=== PATIENT | male | born 1950 | race American Indian/Alaskan Native ===

== ENCOUNTER 2016-12-07 21:28 | Emergency (ER) | payer OTHER ==
[2016-12-07 23:00] LABS: Eosinophils % (Auto) 4.2 % (0.0-4.3); Hemoglobin 16.7 gm/dl (11.8-15.2); Mean Corpuscular HGB Conc 33 % (32-34); Mean Corpuscular Hemoglobin 29 pg (28-32); Mean Corpuscular Volume 86 fl (84-94); Platelet Count 244 K/mm3 (140-440); Red Blood Count 5.82 M/mm3 (3.65-5.03); Red Cell Distribution Width 15.6 % (13.2-15.2); White Blood Count 7.9 K/mm3 (4.5-11.0)
[2016-12-07] MEDS ORDERED: NACL 0.9% 1000 ML 1,000 ML IV ONE (23:46)
[2016-12-07] MEDS ORDERED: APRESOLINE IV ONE (23:47)
[2016-12-07] MEDS ORDERED: NORMODYNE IV ONE (23:47)
[2016-12-07 23:57] LABS: BUN/Creatinine Ratio 6.92; Chloride 98.8 mmol/L (98-107); Potassium 4.1 mmol/L (3.6-5.0)
[2016-12-08] MEDS ORDERED: NORMODYNE IV ONE ×2 (01:00→03:03)
--- NOTE | 2016-12-08 02:13 | Emergency Department Report ---
HPI - General Chief Complaint: Hyperglycemia Time Seen by Provider: 12/07/16 23:45 - HPI HPI: The patient is a 66-year-old male with a history of diabetes, hypertension, and chronic kidney disease, who presents for evaluation of lightheadedness and elevated sugar level. The patient states that for the past 2-3 days she has experienced recurrent episodes of lightheadedness, exacerbated with standing up after physical activity, severe 1 present, improved with sitting down or lying down, and associated with diaphoresis. The patient admits to increased urinary frequency. The patient says that his blood sugar has been out of control. The patient denies fever, cough, dyspnea, chest pain, diarrhea, blood in the stool, dark tarry stool, dysuria, hematuria, flank pain, inability to pass flatus, although he has expressed some mild constipation for the past one to 2 days. ED Past Medical Hx - Past Medical History Previous Medical History?: Yes Hx Hypertension: Yes Hx Diabetes: Yes Additional medical history: Chronic Kidney diseae for years - Social History Smoking Status: Current Every Day Smoker Substance Use Type: None - Medications Home Medications: Home Medications Medication Instructions Recorded Confirmed Last Taken Type Polyethylene Glycol/Elect 4,000 ml PO ONCE #1 bottle 12/08/16 Unknown Rx [Golytely] ED Review of Systems ROS: Stated complaint: HIGH BLOOD GLUCOSE/POONAM Other details as noted in HPI Constitutional: denies: fever; lightheadedness ENT: denies: throat or neck pain Respiratory: denies: cough, shortness of breath Cardiovascular: denies: chest pain Endocrine: denies unexplained weight loss or gain Gastrointestinal: denies: abdominal pain, nausea Genitourinary: reports polyuria/increased urinary frequency denies: dysuria Musculoskeletal: denies: leg swelling Skin: denies: rash Neurological: denies: headache Hematological/Lymphatic: denies: easy bleeding or easy bruising Psych: denies sadness or hopelessness Physical Exam - Physical Exam Vital Signs: Vital Signs 12/07/16 12/07/16 12/08/16 21:34 23:52 01:09 Temperature 98.4 F Pulse Rate 81 75 78 Respiratory 18 Rate Blood Pressure 212/149 160/98 Blood Pressure 195/118 [Left] O2 Sat by Pulse 97 99 Oximetry 12/08/16 12/08/16 02:05 02:06 Temperature Pulse Rate 71 71 Respiratory 20 Rate Blood Pressure 192/107 Blood Pressure 192/107 [Left] O2 Sat by Pulse 99 Oximetry Physical Exam: General: well-nourished, well-developed, no acute distress Head: Normocephalic, atraumatic Eyes: normal sclera, EOMI, PERRL, no nystagmus ENT: Mucous membranes are pale and dry Neck: No neck stiffness, no cervical adenopathy Respiratory: Breath sounds equal bilaterally, no wheezing, rales, or rhonchi Cardio: S1 and S2 present, no murmurs, rubs, gallops, capillary refill is delayed Abdomen: Normoactive bowel sounds, soft abdomen, no tenderness Chest WALL/Back: No tenderness to palpation of the chest wall, no CVA tenderness with percussion Musc: No pitting edema Skin: No rash Neuro: Alert oriented 3, no facial drooping, normal speech, no pronator drift, no sensation motor deficit in the arms or legs, reflexes 2+ and symmetric on DTR testing, no obvious gross neuro deficits on examination Psych: Normal affect ED Course Vital Signs 12/07/16 12/07/16 12/08/16 21:34 23:52 01:09 Temperature 98.4 F Pulse Rate 81 75 78 Respiratory 18 Rate Blood Pressure 212/149 160/98 Blood Pressure 195/118 [Left] O2 Sat by Pulse 97 99 Oximetry 12/08/16 12/08/16 02:05 02:06 Temperature Pulse Rate 71 71 Respiratory 20 Rate Blood Pressure 192/107 Blood Pressure 192/107 [Left] O2 Sat by Pulse 99 Oximetry ED Medical Decision Making - Lab Data Result diagrams: 12/07/16 22:43 12/07/16 22:43 - Medical Decision Making The patient was seen and examined by myself. The patient is placed on a personnel monitor and continuous pulse ox. On initial evaluation, the patient was found to be in no distress. Evaluation orders were placed. The patient is given 1 L normal saline fluid bolus for treatment of dehydration. Lab results reveal elevated Glucose >200, elevated creatinine level 2.6, and elevated, RBC, hemoglobin, and hematocrit, consistent with hemoconcentration and exam findings of dehydration, and otherwise labs are grossly unremarkable. The patient is given IV insulin for treatment of his hyperglycemia. The patient was reevaluated and reported that their symptoms were markedly improved. He is questioned regarding his elevated creatinine level and reports that his creatinine level has been chronically elevated for years. He states that he saw his county coroner within the past couple of months. The patient is stable for discharge with outpatient follow-up. The patient is given follow-up and return instructions. The patient expressed understanding and agreed with the plan. The patient is discharged in stable condition. Critical care attestation.: If time is entered above; I have spent that time in minutes in the direct care of this critically ill patient, excluding procedure time. ED Disposition Clinical Impression: Dehydration, Acute hyperglycemia, Orthostatic lightheadedness, Hypertensive urgency Chronic kidney disease Qualifiers: Chronic kidney disease stage: stage 2 (mild) Qualified Code(s): N18.2 - Chronic kidney disease, stage 2 (mild) Disposition: DISCHARGED TO HOME OR SELFCARE Is pt being admited?: No Does the pt Need Aspirin: No Condition: Stable Instructions: Constipation (ED), Dehydration (ED), High Fiber Diet (ED), Chronic Hypertension (ED), Diabetic Hyperglycemia (ED) Prescriptions: Polyethylene Glycol/Elect [Golytely] 4,000 ml PO ONCE #1 bottle Referrals: PRIMARY CARE, [Referring] - 3-5 Days Time of Disposition: 02:04
[2016-12-08 03:27] VITALS: BP 162/97
== END 2016-12-08 03:28 | disposition home or self-care (01) ==
LOC: ED 21:28
DX: I12.9 Hypertensive chronic kidney disease with stage 1 through stage 4 chronic kidney disease, or unspecified chronic kidney disease (principal); N18.2 Chronic kidney disease, stage 2 (mild); E11.65 Type 2 diabetes mellitus with hyperglycemia; I16.0 Hypertensive urgency; E86.0 Dehydration; R42 Dizziness and giddiness; F17.200 Nicotine dependence, unspecified, uncomplicated
CPT/HCPCS: 36415; 80048; 82805; 82962; 85025; 96361; 96374; 96375; 96376; 99284; J0360; J7030; 82010; J1815

== ENCOUNTER 2017-08-06 15:15 | Emergency (ER) | payer MEDICARE ==
[2017-08-06 16:19] LABS: Basophils % (Auto) 1.1 % (0.0-1.8); Eosinophils % (Auto) 3.8 % (0.0-4.3); Hematocrit 52.6 % (35.5-45.6); Hemoglobin 17.5 gm/dl (11.8-15.2); Mean Corpuscular HGB Conc 33 % (32-34); Mean Corpuscular Hemoglobin 30 pg (28-32); Mean Corpuscular Volume 90 fl (84-94); Platelet Count 241 K/mm3 (140-440); Red Blood Count 5.85 M/mm3 (3.65-5.03); Red Cell Distribution Width 15.4 % (13.2-15.2); White Blood Count 7.1 K/mm3 (4.5-11.0)
[2017-08-06 16:29] LABS: INR 0.98 (0.87-1.13)
[2017-08-06 16:30] LABS: Partial Thromboplastin Time 31.6 Sec. (24.2-36.6)
--- NOTE | 2017-08-06 16:36 | XRay Report ---
AP chest x-ray. History: Hypertension. Findings: The heart and lungs reveal no acute or significant abnormalities.
[2017-08-06 16:37] LABS: Creatine Kinase MB 6.6 ng/mL (0.0-4.0)
[2017-08-06 16:39] LABS: Alanine Aminotransferase 11 units/L (7-56); Albumin 2.7 g/dL (3.9-5); Alkaline Phosphatase 61 units/L (35-129); Anion Gap 19 mmol/L; BUN/Creatinine Ratio 6; Blood Urea Nitrogen 15 mg/dL (9-20); Calcium 8.6 mg/dL (8.4-10.2); Carbon Dioxide 22 mmol/L (22-30); Chloride 103.6 mmol/L (98-107); Creatine Kinase 273 units/L (55-170); Glucose 178 mg/dL (75-100); Potassium 4.1 mmol/L (3.6-5.0); Sodium 140 mmol/L (137-145); Total Protein 5.5 g/dL (6.3-8.2)
[2017-08-06 17:01] LABS: Bilirubin,Direct < 0.2 mg/dL (0-0.2)
[2017-08-06 21:04] VITALS: BP 180/122
[2017-08-06 21:41] LABS: Bilirubin,Urine NEG (Negative); Blood,Urine SM (Negative); Ketones,Urine NEG (Negative); Leukocyte Esterase,Urine NEG (Negative); Mucus,Urine FEW /HPF; Nitrite,Urine NEG (Negative); Protein,Urine >500 mg/dL (Negative); Urobilinogen,Urine < 2.0 mg/dL (<2.0)
== END 2017-08-06 22:03 | disposition left against medical advice (07) ==
LOC: ED 15:15
DX: I10 Essential (primary) hypertension (principal); Z53.21 Procedure and treatment not carried out due to patient leaving prior to being seen by health care provider
CPT/HCPCS: 36415; 71010; 80048; 80074; 81001; 82550; 82553; 83880; 85025; 85610; 85730; 93005; 93010

== ENCOUNTER 2017-08-14 15:36 | Emergency (ER) | payer MEDICARE ==
[2017-08-14 17:45] LABS: Basophils % (Auto) 1.1 % (0.0-1.8); Eosinophils % (Auto) 4.3 % (0.0-4.3); Hematocrit 52.8 % (35.5-45.6); Hemoglobin 17.5 gm/dl (11.8-15.2); Mean Corpuscular HGB Conc 33 % (32-34); Mean Corpuscular Hemoglobin 30 pg (28-32); Mean Corpuscular Volume 90 fl (84-94); Platelet Count 234 K/mm3 (140-440); Red Cell Distribution Width 15.2 % (13.2-15.2); White Blood Count 7.4 K/mm3 (4.5-11.0)
[2017-08-14 17:48] LABS: Calcium 8.5 mg/dL (8.4-10.2); Chloride 102.7 mmol/L (98-107); Potassium 4.1 mmol/L (3.6-5.0)
[2017-08-14] MEDS ORDERED: CATAPRES PO ONE (21:42)
--- NOTE | 2017-08-14 21:43 | Emergency Department Report ---
ED General Adult HPI - General Chief complaint: High BP Stated complaint: HYPERTENSIVE Time Seen by Provider: 08/14/17 21:35 Source: patient, family Mode of arrival: Ambulatory Limitations: No Limitations - History of Present Illness Initial comments: Patient here report that he is out of his blood pressure medication and and said that his blood pressure has been increasing over the last 2 weeks. He is currently taking blood pressure medication which was started 2 weeks ago and he said he went to [facility] to get his blood pressure taken and and it was elevated blood pressure in triage here was 186/116. Patient said that he was on metoprolol that his doctors in [place] put him on 100 mg twice a day and they changed it to 50 mg twice a day and his blood pressure is elevated he denies chest pain, shortness of breath, nausea vomiting, dizziness or any other complaints no headache. Patient said that he came over because his blood pressure was elevated. Patient has been here several time in the past and was told that he needs to establish primary care physician in [place] because patient has been flying back in to [place] to see his doctors to include a primary care doctor and also a kidney specialist because he has chronic renal disease at stage II that was last documented when he was last here. Patient has a history of hypertension diabetes he said he developed blood clot in his lungs in September 2016 and a started him on warfarin in [place]. He said his doctor keeps up with that in [place] but he has not been back to his doctor for 4 months. Patient is on aspirin 81 mg, wafer and 7.5 mg daily tramadol 50 mg daily for degenerative disc disease in his back, vitamin D 1000 units daily metoprolol 50 mg twice a day, losartan 50 mg once a day, Lasix 40 mg once a day. Patient denies any history of heart disease but his last BNP was very elevated when he was here at the hospital and he said his doctor never told him that he has any issues with his heart but his doctor started him on Lasix in [place] he's been on it for chronic swelling to his leg. He said there are no new swelling to his legs his legs are the same as they're usually. Denies any bleeding from any orifice. Patient also takes NovoLog and Levemir which he is taking. He said he has not gotten to take his medication for tonight because he 's been here. Complaint: elevated bp -: unknown (ongoing) Severity scale (0 -10): 0 Associated Symptoms: denies: confusion, chest pain, cough, diaphoresis, fever/ chills, headaches, loss of appetite, malaise, nausea/vomiting, rash, seizure, shortness of breath, syncope, weakness Treatments Prior to Arrival: other (blood pressure medication) - Related Data Previous Rx's Medication Instructions Recorded Last Taken Type Polyethylene Glycol/Elect 4,000 ml PO ONCE #1 bottle 12/08/16 Unknown Rx [Golytely] Metoprolol Tartrate 75 mg PO Q12H 30 Days #60 tablet 08/15/17 Unknown Rx Allergies Allergy/AdvReac Type Severity Reaction Status Date / Time No Known Allergies Allergy Unverified 12/07/16 21:47 ED Review of Systems ROS: Stated complaint: HYPERTENSIVE Other details as noted in HPI Comment: All other systems reviewed and negative Constitutional: no symptoms reported Respiratory: no symptoms reported Cardiovascular: other (elevated blood pressure). denies: chest pain, palpitations, dyspnea on exertion, edema, syncope, paroxysmal nocturnal dyspnea Gastrointestinal: denies: abdominal pain, nausea, vomiting, diarrhea, constipation, hematemesis, melena, hematochezia Musculoskeletal: denies: back pain, joint swelling, arthralgia, myalgia Skin: denies: rash Neurological: denies: headache, weakness, numbness, paresthesias, confusion, abnormal gait, vertigo Hematological/Lymphatic: easy bleeding ED Past Medical Hx - Past Medical History Previous Medical History?: Yes Hx Hypertension: Yes Hx Congestive Heart Failure: Yes (chronic lower extremity swelling with history of elevated BNP) Hx Diabetes: Yes Hx Renal Disease: Yes Additional medical history: Chronic Kidney diseae for years - Surgical History Past Surgical History?: No - Family History Family history: diabetes, hypertension - Social History Smoking Status: Current Some Day Smoker Substance Use Type: None - Medications Home Medications: Home Medications Medication Instructions Recorded Confirmed Last Taken Type Polyethylene Glycol/Elect 4,000 ml PO ONCE #1 bottle 12/08/16 Unknown Rx [Golytely] Metoprolol Tartrate 75 mg PO Q12H 30 Days #60 tablet 08/15/17 Unknown Rx ED Physical Exam - General Limitations: No Limitations General appearance: alert, in no apparent distress - Head Head exam: Present: atraumatic, normocephalic, normal inspection - Eye Eye exam: Present: normal appearance, PERRL, EOMI. Absent: nystagmus, periorbital swelling, periorbital tenderness Pupils: Present: normal accommodation - ENT ENT exam: Present: normal exam, normal orophraynx, mucous membranes moist - Neck Neck exam: Present: normal inspection, full ROM, other (C-spine nontender to palpate). Absent: tenderness, meningismus, lymphadenopathy - Respiratory Respiratory exam: Present: normal lung sounds bilaterally. Absent: respiratory distress, wheezes, rales, rhonchi, stridor, chest wall tenderness, accessory muscle use, decreased breath sounds, prolonged expiratory - Cardiovascular Cardiovascular Exam: Present: regular rate, normal rhythm, normal heart sounds. Absent: systolic murmur, diastolic murmur - GI/Abdominal GI/Abdominal exam: Present: soft, normal bowel sounds. Absent: distended, tenderness, guarding, rebound, rigid, organomegaly, mass, bruit, pulsatile mass - Extremities Exam Extremities exam: Present: normal inspection, full ROM, normal capillary refill , other (no clubbing, cyanosis or edema. No neurovascular compromise. No joint deformities. +5/5 strength in all extremities. No crepitus or effusion to joints. Patient will good color, movement, temperature and sensation to all extremities. Pulses are 2+ and bounding to all extremities). Absent: tenderness, pedal edema, joint swelling, calf tenderness - Back Exam Back exam: Present: normal inspection, full ROM. Absent: tenderness, CVA tenderness (R), CVA tenderness (L), muscle spasm, paraspinal tenderness, vertebral tenderness, rash noted - Neurological Exam Neurological exam: Present: alert, oriented X3, normal gait, reflexes normal, other (no focal neurological deficit). Absent: motor sensory deficit - Psychiatric Psychiatric exam: Present: normal affect, normal mood - Skin Skin exam: Present: warm, dry, intact, normal color. Absent: rash ED Course Vital Signs 08/14/17 08/14/17 08/15/17 16:43 22:05 00:20 Temperature 98.2 F 97.5 F L Pulse Rate 76 63 61 Respiratory 20 20 16 Rate Blood Pressure 186/116 149/103 Blood Pressure 173/110 [Right] O2 Sat by Pulse 98 97 94 Oximetry - Reevaluation(s) Reevaluation #1: 08/15/17 01:00 Patient given clonidine 0.2 mg in the emergency room which brought his blood pressure down. His blood pressure still elevated but it's down from what it was previously patient remains asymptomatic throughout ED stay. He is currently experiencing no shortness of breath, chest pain, difficulty breathing , headache, visual difficulties. ED Medical Decision Making - Lab Data Result diagrams: 08/14/17 17:12 08/14/17 17:12 Lab Results 08/14/17 08/14/17 Range/Units 17:12 17:12 WBC 7.4 (4.5-11.0) K/mm3 RBC 5.90 H (3.65-5.03) M/mm3 Hgb 17.5 H (11.8-15.2) gm/dl Hct 52.8 H (35.5-45.6) % MCV 90 (84-94) fl MCH 30 (28-32) pg MCHC 33 (32-34) % RDW 15.2 (13.2-15.2) % Plt Count 234 (140-440) K/mm3 Lymph % (Auto) 30.9 (13.4-35.0) % Runnels % (Auto) 9.7 H (0.0-7.3) % Eos % (Auto) 4.3 (0.0-4.3) % Baso % (Auto) 1.1 (0.0-1.8) % Lymph # 2.3 (1.2-5.4) K/mm3 Runnels # 0.7 (0.0-0.8) K/mm3 Eos # 0.3 (0.0-0.4) K/mm3 Baso # 0.1 (0.0-0.1) K/mm3 Seg Neutrophils % 54.0 (40.0-70.0) % Seg Neutrophils # 4.0 (1.8-7.7) K/mm3 Sodium 141 (137-145) mmol/L Potassium 4.1 (3.6-5.0) mmol/L Chloride 102.7 (98-107) mmol/L Carbon Dioxide 27 (22-30) mmol/L Anion Gap 15 mmol/L BUN 20 (9-20) mg/dL Creatinine 2.7 H (0.8-1.5) mg/dL Estimated GFR 29 ml/min BUN/Creatinine Ratio 7 % Glucose 244 H (75-100) mg/dL Calcium 8.5 (8.4-10.2) mg/dL - EKG Data -: EKG Interpreted by Me (interpreted by tendon physician) EKG shows normal: sinus rhythm (73 bpm) - EKG Data When compared to previous EKG there are: no significant change Interpretation: no acute changes - Medical Decision Making ED course: Pt discharged from the emergency room after given clonidine 0.2 mg by mouth which brought his blood pressure down. Blood pressure was still a little elevated but patient remains asymptomatic .He came to the emergency room to request refill on his medication and was not having any symptoms he just said his blood pressure was elevated despite taking his blood pressure medication which was changed 2 weeks ago and he said even though it is lower than it usually is still elevated. Patient still not compliant with flattened in physician in [place]. He has chronic kidney disease and hypertension along with CHF and diabetes and has been flying back and forth to see his primary care and kidney doctor in [place] but has not seen for 4 months. Patient also revealed to me during questioning that he is on Coumadin which he takes 7.5 mg daily and he is taking it for developing clot in his lungs from flying frequently to see his doctors in [place]. This happened in September 2016. Patient and is currently not having any swelling to his legs, no shortness breath, no chest pain he remains on Coumadin. He has not had is INR monitored in 4 months patient is not having any complaints of bleed in. He had an INR in ER visits in the past. I spoke the patient and his and told them that it is very important that he calls a primary care doctor that I will refer him to. I told him to keep taking and has blood pressure medication and keep monitoring his blood sugar which she says is usually 88. It was 244 on his chemistry became is he had already a and came to the emergency room later on in the evening. I told him to keep a log of his blood sugar and blood pressure call physician and schedule appointment for initial patient visit to monitor his chronic medical problems. I told him if he develops any shortness of breath , chest pain, swelling in the legs, headache, dizziness, difficulty speaking, abnormal bleeding or any vision changes to return to the emergency room [facility]. I collaborated with Dr. Caro who is the attending physician and discussed patient presentation, clinical findings and reason for visit which is medication refill. I also discussed patient current medication and he agrees with plan for patient to follow-up with primary care physician as referred. Critical care attestation.: If time is entered above; I have spent that time in minutes in the direct care of this critically ill patient, excluding procedure time. ED Disposition Clinical Impression: Elevated blood-pressure reading, without diagnosis of hypertension, Elevated serum creatinine, H/O chronic kidney disease Diabetes mellitus Qualifiers: Diabetes mellitus type: type 1 Diabetes mellitus complication status: with kidney complications Diabetes mellitus complication detail: with chronic kidney disease Chronic kidney disease stage: stage 3 (moderate) Qualified Code(s): E10.22 - Type 1 diabetes mellitus with diabetic chronic kidney disease Disposition: TO HOME OR SELFCARE Is pt being admited?: No Does the pt Need Aspirin: No Condition: Stable Instructions: Warfarin (By mouth), Chronic Kidney Disease (ED), Diabetes Mellitus Type 2 in Adults (ED), Chronic Hypertension (ED), DASH Eating Plan (ED) , Low Sodium Diet (ED) Additional Instructions: Please continue to take a blood pressure medication and your diabetes medication as prescribed. Increase her metoprolol from 50 mg twice daily to 100 mg twice daily which she were on in the past You are taking an wafer and and you need to have your INR level checked by a primary care physician on a regular basis. If you develop chest pain, shortness of breath, coughing, increasing swelling to your legs, bleeding from any opening a new body, headache, blurred vision difficulty speaking or walk-in please return to the emergency room [facility] otherwise call primary care physician that you're referred to an schedule appointment for first time visit and keep a log a few blood pressure and your blood sugar and take this with you. You have been in this ER several times with the same complaints and you were referred to a primary care doctor several times and you did not go. If you continue to not go to primary care physician with all the chronic medical problems that you have, you can develop worsening kidney failure, heart attack, stroke, and be placed on dialysis. Please start taking metoprolol 50 mg twice a day and start taking metoprolol 75 mg twice daily Prescriptions: Metoprolol Tartrate 75 mg PO Q12H 30 Days #60 tablet Referrals: NETTIE FLOWERS MD [Staff Physician] - 2-3 Days THELMA CARRASCO MD [Staff Physician] - 2-3 Days NILESH HESTER JR, MD [Staff Physician] - 2-3 Days MARIELA DESAI MD [Staff Physician] - 2-3 Days Forms: Accompanied Note
[2017-08-15 00:23] VITALS: BP 149/103
== END 2017-08-15 02:45 | disposition home or self-care (01) ==
LOC: ED 15:36
DX: I13.0 Hypertensive heart and chronic kidney disease with heart failure and stage 1 through stage 4 chronic kidney disease, or unspecified chronic kidney disease (principal); E11.22 Type 2 diabetes mellitus with diabetic chronic kidney disease; N18.2 Chronic kidney disease, stage 2 (mild); I50.9 Heart failure, unspecified; F17.200 Nicotine dependence, unspecified, uncomplicated
CPT/HCPCS: 36415; 80048; 85025; 93005; 93010; 99283

== ENCOUNTER 2017-09-11 11:21 | Outpatient (CLI) | payer OTHER, MEDICARE ==
--- NOTE | 2017-09-11 12:54 | Ultrasound Report ---
FINAL REPORT EXAM: US RENAL BILAT HISTORY: CHRONIC KIDNEY DISEASE TECHNIQUE: Grayscale and color doppler ultrasound imaging of the kidneys and urinary bladder was performed. PRIORS: None. FINDINGS: Kidneys: The kidneys are normal in echogenicity without urinary tract dilation, mass, cyst or calcification. The right kidney measures 11.5 x 5.6 x 5.4 centimeters. The left kidney measures 11.9 x 6.7 x 6.1 centimeters. No renal cortical thinning. Urinary bladder: No wall thickening or internal debris. IMPRESSION: Normal ultrasound of the kidneys and urinary bladder.
== END 2017-09-11 11:22 | disposition home or self-care (01) ==
LOC: US 11:21
PROVIDERS: ATTEND Internal Medicine Nephrology
DX: I13.0 Hypertensive heart and chronic kidney disease with heart failure and stage 1 through stage 4 chronic kidney disease, or unspecified chronic kidney disease (principal); N18.4 Chronic kidney disease, stage 4 (severe); I50.9 Heart failure, unspecified; F17.200 Nicotine dependence, unspecified, uncomplicated
CPT/HCPCS: 76770

== ENCOUNTER 2018-02-13 19:30 | Emergency (ER) | payer OTHER, MEDICARE ==
[2018-02-13] MEDS ORDERED: CATAPRES ONE (19:58)
[2018-02-13] MEDS ORDERED: CATAPRES PO ONE (20:06)
[2018-02-13 20:50] LABS: Basophils # (Auto) 0.1 K/mm3 (0.0-0.1); Basophils % (Auto) 1.1 % (0.0-1.8); Eosinophils # (Auto) 0.2 K/mm3 (0.0-0.4); Eosinophils % (Auto) 2.8 % (0.0-4.3); Hematocrit 50.9 % (35.5-45.6); Hemoglobin 16.5 gm/dl (11.8-15.2); Lymphocytes # (Auto) 1.8 K/mm3 (1.2-5.4); Lymphocytes % (Auto) 27.2 % (13.4-35.0); Mean Corpuscular HGB Conc 32 % (32-34); Mean Corpuscular Hemoglobin 29 pg (28-32); Mean Corpuscular Volume 90 fl (84-94); Monocytes # (Auto) 0.6 K/mm3 (0.0-0.8); Monocytes % (Auto) 8.9 % (0.0-7.3); Platelet Count 246 K/mm3 (140-440); Red Blood Count 5.66 M/mm3 (3.65-5.03); Red Cell Distribution Width 14.8 % (13.2-15.2)
[2018-02-13 21:04] LABS: Albumin 2.9 g/dL (3.9-5)
--- NOTE | 2018-02-13 22:29 | Emergency Department Report ---
HPI - General Chief Complaint: Extremity Injury, Lower Time Seen by Provider: 02/13/18 22:11 - HPI HPI: Room 2 The patient is a 68-year-old male presenting with a chief complaint of left leg pain. The patient states he's had pain in the lateral left thigh for approximately one week. The patient states he only has pain with walking. Patient denies any preceding trauma. Patient denies fever, shortness of breath , chest pain or nausea/vomiting. Patient denies any previous episodes of same Location: Left thigh Duration: 1 week Quality: Tightness Severity: Currently 0/10 Modifying factors: Walking brings on the pain Context: [see above] Mode of transportation: [not driving] ED Past Medical Hx - Past Medical History Hx Hypertension: Yes Hx Congestive Heart Failure: Yes (chronic lower extremity swelling with history of elevated BNP) Hx Diabetes: Yes Hx Renal Disease: Yes Additional medical history: Chronic Kidney diseae for years - Surgical History Past Surgical History?: Yes Additional Surgical History: Right femur fx 1980s - Family History Family history: no significant - Social History Smoking Status: Current Every Day Smoker (1/3 pack per day) Substance Use Type: None (denies illicit drug use) - Medications Home Medications: Home Medications Medication Instructions Recorded Confirmed Last Taken Type Aspirin EC [Aspirin Enteric Coated 81 mg PO QDAY 02/13/18 02/13/18 Unknown History TAB] Cholecalciferol (Vitamin D3) 1,000 unit PO DAILY 02/13/18 02/13/18 Unknown History [Vitamin D3] Cyclobenzaprine [Flexeril] 10 mg PO TID PRN #14 tablet 02/13/18 Unknown Rx Furosemide [Lasix] 80 mg PO BID 02/13/18 02/13/18 Unknown History HYDROcodone/APAP 5-325 [[place] 1 - 2 each PO Q6HR PRN #14 tablet 02/13/18 Unknown Rx 5/325] Insulin Aspart [Novolog] 35 unit SQ AC 02/13/18 02/13/18 Unknown History Insulin Detemir [Levemir Flextouch] 45 unit SQ BID 02/13/18 02/13/18 Unknown History Losartan Potassium 50 mg PO DAILY 02/13/18 02/13/18 Unknown History Metoprolol Tartrate 100 mg PO Q12H 02/13/18 02/13/18 Unknown History Rosuvastatin Calcium 20 mg PO DAILY 02/13/18 02/13/18 Unknown History Warfarin [Coumadin] 7.5 mg PO QDAY 02/13/18 02/13/18 Unknown History ED Review of Systems ROS: Stated complaint: LEFT LEG PAIN Other details as noted in HPI Constitutional: denies: fever Respiratory: denies: shortness of breath Cardiovascular: denies: chest pain Gastrointestinal: denies: nausea, vomiting Musculoskeletal: myalgia Physical Exam - Physical Exam Vital Signs: Vital Signs 02/13/18 02/13/18 02/13/18 19:53 20:56 21:09 Temperature 98.2 F Pulse Rate 61 58 L Respiratory 20 20 20 Rate Blood Pressure 203/104 Blood Pressure 203/104 155/100 [Right] O2 Sat by Pulse 96 97 97 Oximetry Physical Exam: GENERAL: The patient is well-developed well-nourished male lying on stretcher not appearing to be in acute distress. [] HEENT: Normocephalic. Atraumatic. Extraocular motions are intact. Patient has moist mucous membranes. NECK: Supple. Trachea midline CHEST/LUNGS: There is no respiratory distress noted. HEART/CARDIOVASCULAR: Regular. There is no tachycardia. There is no gallop rub or murmur. 2+ left DP ABDOMEN: Abdomen is soft, nontender. Patient has normal bowel sounds. There is no abdominal distention. SKIN: There is no rash. There is no diaphoresis. NEURO: The patient is awake, alert, and oriented. The patient is cooperative. The patient has normal speech MUSCULOSKELETAL: There is no tenderness or deformity of the left thigh. No cords felt in the popliteal fossa. There is no limitation range of motion. There is no evidence of acute injury. ED Course Vital Signs 02/13/18 02/13/18 02/13/18 19:53 20:56 21:09 Temperature 98.2 F Pulse Rate 61 58 L Respiratory 20 20 20 Rate Blood Pressure 203/104 Blood Pressure 203/104 155/100 [Right] O2 Sat by Pulse 96 97 97 Oximetry ED Medical Decision Making - Lab Data Result diagrams: 02/13/18 20:30 02/13/18 20:30 Laboratory Tests 02/13/18 02/13/18 02/13/18 20:30 20:30 20:30 WBC 6.8 RBC 5.66 H Hgb 16.5 H Hct 50.9 H MCV 90 MCH 29 MCHC 32 RDW 14.8 Plt Count 246 Lymph % (Auto) 27.2 [place] % (Auto) 8.9 H Eos % (Auto) 2.8 Baso % (Auto) 1.1 Lymph # 1.8 [place] # 0.6 Eos # 0.2 Baso # 0.1 Seg Neutrophils % 60.0 Seg Neutrophils # 4.1 D-Dimer 233.02 Sodium 135 L Potassium 4.3 Chloride 99.3 Carbon Dioxide 20 L Anion Gap 20 BUN 22 H Creatinine 2.8 H Estimated GFR 28 BUN/Creatinine Ratio 8 Glucose 296 H Calcium 9.0 Total Bilirubin 0.20 AST 14 ALT 13 Alkaline Phosphatase 71 Total Protein 6.8 Albumin 2.9 L Albumin/Globulin Ratio 0.7 Laboratory Tests 02/13/18 02/13/18 02/13/18 20:30 20:30 20:30 WBC 6.8 RBC 5.66 H Hgb 16.5 H Hct 50.9 H MCV 90 MCH 29 MCHC 32 RDW 14.8 Plt Count 246 Lymph % (Auto) 27.2 [place] % (Auto) 8.9 H Eos % (Auto) 2.8 Baso % (Auto) 1.1 Lymph # 1.8 [place] # 0.6 Eos # 0.2 Baso # 0.1 Seg Neutrophils % 60.0 Seg Neutrophils # 4.1 D-Dimer 233.02 Sodium 135 L Potassium 4.3 Chloride 99.3 Carbon Dioxide 20 L Anion Gap 20 BUN 22 H Creatinine 2.8 H Estimated GFR 28 BUN/Creatinine Ratio 8 Glucose 296 H Calcium 9.0 Total Bilirubin 0.20 AST 14 ALT 13 Alkaline Phosphatase 71 Total Creatine Kinase Total Protein 6.8 Albumin 2.9 L Albumin/Globulin Ratio 0.7 02/13/18 22:22 WBC RBC Hgb Hct MCV MCH MCHC RDW Plt Count Lymph % (Auto) [place] % (Auto) Eos % (Auto) Baso % (Auto) Lymph # [place] # Eos # Baso # Seg Neutrophils % Seg Neutrophils # D-Dimer Sodium Potassium Chloride Carbon Dioxide Anion Gap BUN Creatinine Estimated GFR BUN/Creatinine Ratio Glucose Calcium Total Bilirubin AST ALT Alkaline Phosphatase Total Creatine Kinase 198 H Total Protein Albumin Albumin/Globulin Ratio - Radiology Data Radiology results: report reviewed (left femur x-ray), image reviewed (left femur x-ray) interpreted by me: Left femur x-ray-no acute bony lesion or fracture seen - Differential Diagnosis sciatica, DVT, iliotibial band, rhabdomyolysis, bone CA Critical care attestation.: If time is entered above; I have spent that time in minutes in the direct care of this critically ill patient, excluding procedure time. ED Disposition Clinical Impression: Left thigh pain, Hypertension Disposition: TO HOME OR SELFCARE Is pt being admited?: No Does the pt Need Aspirin: No Condition: Stable Instructions: Hypertension (ED), Sciatica (ED) Additional Instructions: Return to the emergency department immediately should you develop worsening symptoms, fever, inability to tolerate food or liquid or any other concerns. Prescriptions: Cyclobenzaprine [Flexeril] 10 mg PO TID PRN #14 tablet PRN Reason: Muscle Spasm HYDROcodone/APAP 5-325 [[place] 5/325] 1 - 2 each PO Q6HR PRN #14 tablet PRN Reason: Pain Referrals: KAROL BLANTON JR, MD [Staff Physician] - 3-5 Days (Dr. Blanton is a primary physician. Please follow-up with him to be established as a patient) ISI COMBS MD [Staff Physician] - 3-5 Days (Dr. Combs is an orthopedic surgeon. Please follow up with him for further evaluation) Time of Disposition: 23:16
--- NOTE | 2018-02-13 23:03 | XRay Report ---
FINAL REPORT EXAM: XR FEMUR 2+V LT HISTORY: pain with movement COMPARISON: None available. FINDINGS: Two views of the left femur obtained. Bony structures are intact. Joint spaces are preserved. No acute fracture dislocation. IMPRESSION: No acute bony abnormality.
[2018-02-13 23:29] VITALS: BP 126/90
== END 2018-02-13 23:36 | disposition home or self-care (01) ==
LOC: ED 19:30
DX: M79.652 Pain in left thigh (principal); I13.0 Hypertensive heart and chronic kidney disease with heart failure and stage 1 through stage 4 chronic kidney disease, or unspecified chronic kidney disease; E11.22 Type 2 diabetes mellitus with diabetic chronic kidney disease; N18.9 Chronic kidney disease, unspecified; Z79.4 Long term (current) use of insulin; F17.200 Nicotine dependence, unspecified, uncomplicated
CPT/HCPCS: 36415; 80053; 82550; 85025; 85379; 99284

== ENCOUNTER 2019-07-17 13:16 | Emergency (ER) | payer MEDICARE ==
--- NOTE | 2019-07-17 13:38 | Event Note ---
ED Screening Note Date of service: 07/17/19 Time: 13:34 ED Screening Note: This is a 69 y.o. M. that presents to the ER with elevated blood pressure and diaphoresis x 2 days. PMH DM2, HTN, & CKD Current smoker This initial assessment/diagnostic orders/clinical plan/treatment(s) is/are subject to change based on patients health status, clinical progression and re- assessment by fellow clinical providers in the ED. Further treatment and workup at subsequent clinical providers discretion. Patient/guardian urged not to elope from the ED as their condition may be serious if not clinically assessed and managed. Initial orders include: Labs Accucheck 138
[2019-07-17 14:23] LABS: Basophils # (Auto) 0.1 K/mm3 (0.0-0.1); Basophils % (Auto) 1.2 % (0.0-1.8); Eosinophils # (Auto) 0.2 K/mm3 (0.0-0.4); Eosinophils % (Auto) 2.9 % (0.0-4.3); Hematocrit 48.6 % (35.5-45.6); Hemoglobin 16.2 gm/dl (11.8-15.2); Lymphocytes # (Auto) 1.7 K/mm3 (1.2-5.4); Lymphocytes % (Auto) 27.2 % (13.4-35.0); Mean Corpuscular HGB Conc 33 % (32-34); Mean Corpuscular Volume 88 fl (84-94); Monocytes # (Auto) 0.6 K/mm3 (0.0-0.8); Monocytes % (Auto) 9.3 % (0.0-7.3); Platelet Count 230 K/mm3 (140-440); Red Blood Count 5.51 M/mm3 (3.65-5.03); Red Cell Distribution Width 15.4 % (13.2-15.2)
[2019-07-17 14:27] LABS: Bacteria,Urine 1+ /HPF (Negative); Bilirubin,Urine NEG (Negative); Blood,Urine SM (Negative); Color,Urine Yellow (Yellow); Mucus,Urine FEW /HPF; Urobilinogen,Urine < 2.0 mg/dL (<2.0)
[2019-07-17 14:30] LABS: Protein,Urine >500 mg/dL (Negative)
[2019-07-17 14:38] LABS: Calcium 8.4 mg/dL (8.4-10.2)
--- NOTE | 2019-07-17 15:11 | Cat Scan Report ---
CT head/brain wo con INDICATION / CLINICAL INFORMATION: 69 years Male; ataxia. TECHNIQUE: Routine CT head without contrast. All CT scans at this location are performed using CT dos e reduction for ALARA by means of automated exposure control. COMPARISON: None. 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 Otherwise, no acute hemorrhage, mass effect, midline shift, hydrocephalus, or acute, large territoria l infarct. Mild cerebral and cerebellar atrophy. Small pontine infarcts identified. There are moderate areas of decreased attenuation in the white matter of the cerebral hemispheres, as well as the gangliocapsular regions. These are nonspecific findings and may be related to microangio brandon (hypertension, diabetes, atherosclerosis), given the patient's age. It might be difficult to ev aluate for small areas of ischemia without diffusion imaging by MRI. CRANIOCERVICAL JUNCTION: No significant abnormality. ORBITS: No significant abnormality of visualized orbits. SINUSES / MASTOIDS: There is partial opacification of the mastoids on the right. ADDITIONAL FINDINGS: Atherosclerotic disease is seen in the anterior circulation. IMPRESSION: 1. No focal mass, hemorrhage, hydrocephalus, or acute, large territorial infarct. Follow-up with diff usion imaging by MRI, as clinically warranted. Signer Name: Galindo Sifuentes MD, III Signed: 07/17/2019 3:07 PM Workstation Name: [id number]
[2019-07-17] MEDS ORDERED: NACL 0.9% 1000 ML 1,000 ML IV ONE (15:14)
--- NOTE | 2019-07-17 15:19 | Emergency Department Report ---
ED General Adult HPI - General Chief complaint: High BP Stated complaint: HIGH BP Time Seen by Provider: 07/17/19 13:33 Source: patient Mode of arrival: Ambulatory Limitations: No Limitations - History of Present Illness Initial comments: Patient is a 78-year-old male with a past medical history of hypertension diabetes and chronic kidney disease with a baseline creatinine 22.4 and 2.8 and a GFR of approximately 30 who is presenting with pain in his bilateral hamstrings. Patient states pain has been present for quite some time but is worsened over the last week. Patient's primary care physician and had a ultrasound of the bilateral legs which was negative for DVT. Patient does have a history of pulmonary embolus and is on chronic warfarin. Denies chest pain shortness of breath at this time. Patient's just stated that the patient also for last 3 days when he wakes up is having ataxic gait for approximately 2- 3 hours at a time. Patient was noted to be diaphoretic and restless. Patient's states he feels fine at this time but does admit to having the symptoms. Severity scale (0 -10): 0 - Related Data Home Medications Medication Instructions Recorded Confirmed Last Taken Aspirin EC [Aspirin Enteric Coated 81 mg PO QDAY 02/13/18 02/13/18 Unknown TAB] Cholecalciferol (Vitamin D3) 1,000 unit PO DAILY 02/13/18 02/13/18 Unknown [Vitamin D3] Furosemide [Lasix] 80 mg PO BID 02/13/18 02/13/18 Unknown Insulin Aspart [Novolog] 35 unit SQ AC 02/13/18 02/13/18 Unknown Insulin Detemir [Levemir Flextouch] 45 unit SQ BID 02/13/18 02/13/18 Unknown Losartan Potassium 50 mg PO DAILY 02/13/18 02/13/18 Unknown Metoprolol Tartrate 100 mg PO Q12H 02/13/18 02/13/18 Unknown Rosuvastatin Calcium 20 mg PO DAILY 02/13/18 02/13/18 Unknown Warfarin [Coumadin] 7.5 mg PO QDAY 02/13/18 02/13/18 Unknown Previous Rx's Medication Instructions Recorded Last Taken Type Cyclobenzaprine [Flexeril] 10 mg PO TID PRN #14 tablet 02/13/18 Unknown Rx HYDROcodone/APAP 5-325 [[place] 1 - 2 each PO Q6HR PRN #14 tablet 02/13/18 Unknown Rx 5/325] Allergies Allergy/AdvReac Type Severity Reaction Status Date / Time No Known Allergies Allergy Verified 07/17/19 13:17 ED Review of Systems ROS: Stated complaint: HIGH BP Other details as noted in HPI Comment: All other systems reviewed and negative ED Past Medical Hx - Past Medical History Hx Hypertension: Yes Hx Congestive Heart Failure: Yes (chronic lower extremity swelling with history of elevated BNP) Hx Diabetes: Yes Hx Renal Disease: Yes Additional medical history: Chronic Kidney diseae for years, PE - Surgical History Additional Surgical History: Right femur fx 1980s - Social History Smoking Status: Current Every Day Smoker Substance Use Type: None - Medications Home Medications: Home Medications Medication Instructions Recorded Confirmed Last Taken Type Aspirin EC [Aspirin Enteric Coated 81 mg PO QDAY 02/13/18 02/13/18 Unknown History TAB] Cholecalciferol (Vitamin D3) 1,000 unit PO DAILY 02/13/18 02/13/18 Unknown History [Vitamin D3] Cyclobenzaprine [Flexeril] 10 mg PO TID PRN #14 tablet 02/13/18 Unknown Rx Furosemide [Lasix] 80 mg PO BID 02/13/18 02/13/18 Unknown History HYDROcodone/APAP 5-325 [[place] 1 - 2 each PO Q6HR PRN #14 tablet 02/13/18 Unknown Rx 5/325] Insulin Aspart [Novolog] 35 unit SQ AC 02/13/18 02/13/18 Unknown History Insulin Detemir [Levemir Flextouch] 45 unit SQ BID 02/13/18 02/13/18 Unknown History Losartan Potassium 50 mg PO DAILY 02/13/18 02/13/18 Unknown History Metoprolol Tartrate 100 mg PO Q12H 02/13/18 02/13/18 Unknown History Rosuvastatin Calcium 20 mg PO DAILY 02/13/18 02/13/18 Unknown History Warfarin [Coumadin] 7.5 mg PO QDAY 02/13/18 02/13/18 Unknown History ED Physical Exam - General Limitations: No Limitations General appearance: alert, in no apparent distress - Head Head exam: Present: atraumatic, normocephalic - Eye Eye exam: Present: normal appearance, PERRL, EOMI - ENT ENT exam: Present: mucous membranes moist - Neck Neck exam: Present: normal inspection - Respiratory Respiratory exam: Present: normal lung sounds bilaterally. Absent: respiratory distress, wheezes, rales, rhonchi - Cardiovascular Cardiovascular Exam: Present: regular rate, normal rhythm, normal heart sounds. Absent: systolic murmur, diastolic murmur, rubs, gallop - GI/Abdominal GI/Abdominal exam: Present: soft, normal bowel sounds. Absent: distended, tenderness, guarding, rebound - Rectal Rectal exam: Present: deferred - Extremities Exam Extremities exam: Present: normal inspection, other (plus edema to the bilateral lower extremities) - Back Exam Back exam: Present: normal inspection - Neurological Exam Neurological exam: Present: alert, oriented X3, CN II-XII intact, normal gait. Absent: motor sensory deficit - Psychiatric Psychiatric exam: Present: normal affect, normal mood - Skin Skin exam: Present: warm, dry, intact, normal color. Absent: rash ED Course Vital Signs 07/17/19 07/17/19 07/17/19 13:35 14:18 14:31 Temperature 97.6 F Pulse Rate 70 64 59 L Respiratory 24 14 19 Rate Blood Pressure 171/107 151/100 Blood Pressure [Left] O2 Sat by Pulse 98 99 99 Oximetry 07/17/19 07/17/19 07/17/19 14:39 14:57 15:01 Temperature 97.5 F L Pulse Rate 69 61 57 L Respiratory 19 11 L 9 L Rate Blood Pressure 151/100 151/100 Blood Pressure 157/92 [Left] O2 Sat by Pulse 96 99 100 Oximetry 07/17/19 07/17/19 07/17/19 15:15 15:31 15:45 Temperature Pulse Rate 70 58 L 73 Respiratory 13 19 15 Rate Blood Pressure 151/100 151/100 157/92 Blood Pressure [Left] O2 Sat by Pulse 98 98 99 Oximetry 07/17/19 07/17/19 07/17/19 16:01 16:15 16:31 Temperature Pulse Rate 74 68 70 Respiratory 18 20 17 Rate Blood Pressure 157/92 157/92 157/92 Blood Pressure [Left] O2 Sat by Pulse 98 97 96 Oximetry 07/17/19 07/17/19 16:46 17:01 Temperature Pulse Rate 65 80 Respiratory 17 18 Rate Blood Pressure Blood Pressure [Left] O2 Sat by Pulse 99 97 Oximetry ED Medical Decision Making - Lab Data Result diagrams: 07/17/19 13:55 07/17/19 13:55 Lab Results 07/17/19 07/17/19 07/17/19 Range/Units 13:37 13:55 13:55 WBC 6.1 (4.5-11.0) K/mm3 RBC 5.51 H (3.65-5.03) M/mm3 Hgb 16.2 H (11.8-15.2) gm/dl Hct 48.6 H (35.5-45.6) % MCV 88 (84-94) fl MCH 29 (28-32) pg MCHC 33 (32-34) % RDW 15.4 H (13.2-15.2) % Plt Count 230 (140-440) K/mm3 Lymph % (Auto) 27.2 (13.4-35.0) % [place] % (Auto) 9.3 H (0.0-7.3) % Eos % (Auto) 2.9 (0.0-4.3) % Baso % (Auto) 1.2 (0.0-1.8) % Lymph # 1.7 (1.2-5.4) K/mm3 [place] # 0.6 (0.0-0.8) K/mm3 Eos # 0.2 (0.0-0.4) K/mm3 Baso # 0.1 (0.0-0.1) K/mm3 Seg Neutrophils % 59.4 (40.0-70.0) % Seg Neutrophils # 3.6 (1.8-7.7) K/mm3 Sodium 138 (137-145) mmol/L Potassium 4.0 (3.6-5.0) mmol/L Chloride 104.9 (98-107) mmol/L Carbon Dioxide 18 L (22-30) mmol/L Anion Gap 19 mmol/L BUN 30 H (9-20) mg/dL Creatinine 4.1 H (0.8-1.5) mg/dL Estimated GFR 18 ml/min BUN/Creatinine Ratio 7 % Glucose 155 H (75-100) mg/dL POC Glucose 138 H (70-105) Calcium 8.4 (8.4-10.2) mg/dL Total Bilirubin 0.30 (0.1-1.2) mg/dL AST 13 (5-40) units/L ALT 12 (7-56) units/L Alkaline Phosphatase 76 (35-129) units/L Total Protein 6.9 (6.3-8.2) g/dL Albumin 3.0 L (3.9-5) g/dL Albumin/Globulin Ratio 0.8 % Urine Color (Yellow) Urine Turbidity (Clear) Urine pH (5.0-7.0) Ur Specific [place] (1.003-1.030) Urine Protein (Negative) mg/dL Urine Glucose (UA) (Negative) mg/dL Urine Ketones (Negative) mg/dL Urine Blood (Negative) Urine Nitrite (Negative) Urine Bilirubin (Negative) Urine Urobilinogen (<2.0) mg/dL Ur Leukocyte Esterase (Negative) Urine WBC (Auto) (0.0-6.0) /HPF Urine RBC (Auto) (0.0-6.0) /HPF U Epithel Cells (Auto) (0-13.0) /HPF Urine Bacteria (Auto) (Negative) /HPF Urine Mucus /HPF 07/17/19 Range/Units Unknown WBC (4.5-11.0) K/mm3 RBC (3.65-5.03) M/mm3 Hgb (11.8-15.2) gm/dl Hct (35.5-45.6) % MCV (84-94) fl MCH (28-32) pg MCHC (32-34) % RDW (13.2-15.2) % Plt Count (140-440) K/mm3 Lymph % (Auto) (13.4-35.0) % [place] % (Auto) (0.0-7.3) % Eos % (Auto) (0.0-4.3) % Baso % (Auto) (0.0-1.8) % Lymph # (1.2-5.4) K/mm3 [place] # (0.0-0.8) K/mm3 Eos # (0.0-0.4) K/mm3 Baso # (0.0-0.1) K/mm3 Seg Neutrophils % (40.0-70.0) % Seg Neutrophils # (1.8-7.7) K/mm3 Sodium (137-145) mmol/L Potassium (3.6-5.0) mmol/L Chloride (98-107) mmol/L Carbon Dioxide (22-30) mmol/L Anion Gap mmol/L BUN (9-20) mg/dL Creatinine (0.8-1.5) mg/dL Estimated GFR ml/min BUN/Creatinine Ratio % Glucose (75-100) mg/dL POC Glucose (70-105) Calcium (8.4-10.2) mg/dL Total Bilirubin (0.1-1.2) mg/dL AST (5-40) units/L ALT (7-56) units/L Alkaline Phosphatase (35-129) units/L Total Protein (6.3-8.2) g/dL Albumin (3.9-5) g/dL Albumin/Globulin Ratio % Urine Color Yellow (Yellow) Urine Turbidity Hazy (Clear) Urine pH 7.0 (5.0-7.0) Ur Specific [place] 1.013 (1.003-1.030) Urine Protein >500 (Negative) mg/dL Urine Glucose (UA) >=500 (Negative) mg/dL Urine Ketones Neg (Negative) mg/dL Urine Blood Sm (Negative) Urine Nitrite Neg (Negative) Urine Bilirubin Neg (Negative) Urine Urobilinogen < 2.0 (<2.0) mg/dL Ur Leukocyte Esterase Neg (Negative) Urine WBC (Auto) 3.0 (0.0-6.0) /HPF Urine RBC (Auto) 6.0 (0.0-6.0) /HPF U Epithel Cells (Auto) 3.0 (0-13.0) /HPF Urine Bacteria (Auto) 1+ (Negative) /HPF Urine Mucus Few /HPF - EKG Data -: EKG Interpreted by Ca - EKG Data 07/17/19 17:35 EKG shows sinus rhythm a rate of 60. [place] is normal intervals are normal no acute ST segment elevation or depressions. Patient does have T-wave inversions in the lateral leads. 07/17/19 17:36 T-wave inversions are old and were present in 2017 - Radiology Data CT head/brain wo con INDICATION / CLINICAL INFORMATION: 69 years Male; ataxia. TECHNIQUE: Routine CT head without contrast. All CT scans at this location are performed using CT dose reduction for ALARA by means of automated exposure con trol. COMPARISON: None. 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 Otherwise, no acute hemorrhage, mass effect, midline shift, hydrocephalus, or acute, large territorial infarct. Mild cerebral and cerebellar atrophy. Small pontine infarcts identified. There are moderate areas of decreased attenuation in the white matter of the cerebral hemispheres, as well as the gangliocapsular regions. These are nonspecific findings and may be related to microangiopathy (hypertension, diabetes, atherosclerosis), given the patient's age. It might be difficult to evaluate for small areas of ischemia without diffusion imaging by MRI. CRANIOCERVICAL JUNCTION: No significant abnormality. ORBITS: No significant abnormality of visualized orbits. SINUSES / MASTOIDS: There is partial opacification of the mastoids on the right. ADDITIONAL FINDINGS: Atherosclerotic disease is seen in the anterior circulation. IMPRESSION: 1. No focal mass, hemorrhage, hydrocepha stephon, or acute, large territorial infarct. Follow-up with diffusion imaging by MRI, as clinically warranted. CXR WNL - Medical Decision Making Patient is a 69-year-old male who has been out of his blood pressure medications for the last 3 days. Patient's admits that she has he has refills but they could not afford to picked him up. Patient was given a good Rx car. Patient's blood pressure did not require any acute intervention at this time. A review of the patient's laboratory studies patient does have some worsening of his renal function. Patient has a history of GFR approximately 30 which is dropped 18. Patient's is not fluid overloaded at this time. This peak with the patient's trauma coordinator and the patient will be seen the next several days in their clinic. Patient has a non-ataxic gait at this time. Head CT is within normal limits. Patient stable for discharge. Critical care attestation.: If time is entered above; I have spent that time in minutes in the direct care of this critically ill patient, excluding procedure time. ED Disposition Clinical Impression: Hypertensive urgency, Medical non-compliance, Acute on chronic renal insufficiency Disposition: DC-01 TO HOME OR SELFCARE Is pt being admited?: No Does the pt Need Aspirin: No Condition: Stable Instructions: Chronic Hypertension (ED), Impaired Kidney Function (ED) Referrals: THELMA CARRASCO MD [Staff Physician] - 2-3 Days Time of Disposition: 17:39
--- NOTE | 2019-07-17 16:59 | XRay Report ---
CHEST 1 VIEW INDICATION / CLINICAL INFORMATION: congestion. COMPARISON: 08/06/2017 FINDINGS: SUPPORT DEVICES: None. HEART / MEDIASTINUM: No significant abnormality. LUNGS / PLEURA: No significant pulmonary or pleural abnormality. No pneumothorax. ADDITIONAL FINDINGS: No significant additional findings. IMPRESSION: 1. No significant change Signer Name: Diego Betancourt MD Signed: 07/17/2019 4:54 PM Workstation Name: [id number]
[2019-07-17 18:15] VITALS: BP 163/90
== END 2019-07-17 18:05 | disposition home or self-care (01) ==
LOC: ED 13:16
DX: I13.0 Hypertensive heart and chronic kidney disease with heart failure and stage 1 through stage 4 chronic kidney disease, or unspecified chronic kidney disease (principal); I16.0 Hypertensive urgency; I50.9 Heart failure, unspecified; E11.22 Type 2 diabetes mellitus with diabetic chronic kidney disease; N18.9 Chronic kidney disease, unspecified; R42 Dizziness and giddiness; F17.200 Nicotine dependence, unspecified, uncomplicated; Z79.899 Other long term (current) drug therapy; Z79.82 Long term (current) use of aspirin
CPT/HCPCS: 36415; 70450; 71045; 80053; 81001; 82962; 85025; 93005; 93010; 96360; 99285; J7030

== ENCOUNTER 2020-02-09 17:21 | Inpatient (IN) | payer MEDICARE ==
[2020-02-09 18:07] LABS: Alanine Aminotransferase 17 units/L (7-56); Albumin 2.9 g/dL (3.9-5); BUN/Creatinine Ratio 8; Blood Urea Nitrogen 37 mg/dL (9-20); Calcium 8.5 mg/dL (8.4-10.2); Hemolysis Index 13
--- NOTE | 2020-02-09 18:13 | XRay Report ---
CHEST 2 VIEWS INDICATION / CLINICAL INFORMATION: Shortness of breath. COMPARISON: 07/17/2019 FINDINGS: SUPPORT DEVICES: None. HEART / MEDIASTINUM: No significant abnormality. LUNGS / PLEURA: No significant pulmonary or pleural abnormality. No pneumothorax. ADDITIONAL FINDINGS: No significant additional findings. IMPRESSION: 1. No acute findings. Signer Name: Gutierrez Renee MD Signed: 02/09/2020 6:09 PM Workstation Name: [id number]
[2020-02-09 18:21] LABS: Basophils # (Auto) 0.1 K/mm3 (0.0-0.1); Basophils % (Auto) 1.3 % (0.0-1.8); Eosinophils # (Auto) 0.3 K/mm3 (0.0-0.4); Eosinophils % (Auto) 3.3 % (0.0-4.3); Hematocrit 44.8 % (35.5-45.6); Hemoglobin 14.8 gm/dl (11.8-15.2); Lymphocytes # (Auto) 1.8 K/mm3 (1.2-5.4); Mean Corpuscular HGB Conc 33 % (32-34); Mean Corpuscular Volume 88 fl (84-94); Monocytes # (Auto) 0.7 K/mm3 (0.0-0.8); Monocytes % (Auto) 8.6 % (0.0-7.3); Platelet Count 248 K/mm3 (140-440); Red Blood Count 5.08 M/mm3 (3.65-5.03); Red Cell Distribution Width 16.2 % (13.2-15.2)
--- NOTE | 2020-02-09 20:27 | Emergency Department Report ---
ED General Adult HPI - General Chief complaint: Medical Clearance Stated complaint: DIALYSIS PUI?: No Time Seen by Provider: 02/09/20 19:41 Source: patient Mode of arrival: Ambulatory Limitations: No Limitations - History of Present Illness Initial comments: Mr. Lopez is a 70-year-old male with progressive kidney disease now at end-stage renal disease who is followed by Dr. Carrasco cdl dedicated truck driver who was sent here today by the cdl dedicated truck driver to initiate shunt placement to start dialysis. Patient denies fever/chills/chest pain/shortness of breath/abdominal pain nausea vomiting or any other symptoms. - Related Data Home Medications Medication Instructions Recorded Confirmed Last Taken Aspirin EC [Aspirin Enteric Coated 81 mg PO QDAY 02/13/18 02/13/18 Unknown TAB] Cholecalciferol (Vitamin D3) 1,000 unit PO DAILY 02/13/18 02/13/18 Unknown [Vitamin D3] Furosemide [Lasix] 80 mg PO BID 02/13/18 02/13/18 Unknown Insulin Aspart (Nf) [Novolog] 35 unit SQ AC 02/13/18 02/13/18 Unknown Insulin Detemir (Nf) [Levemir 45 unit SQ BID 02/13/18 02/13/18 Unknown Flextouch] Losartan Potassium 50 mg PO DAILY 02/13/18 02/13/18 Unknown Metoprolol Tartrate 100 mg PO Q12H 02/13/18 02/13/18 Unknown Rosuvastatin Calcium 20 mg PO DAILY 02/13/18 02/13/18 Unknown Warfarin [Coumadin] 7.5 mg PO QDAY 02/13/18 02/13/18 Unknown Previous Rx's Medication Instructions Recorded Last Taken Type Cyclobenzaprine [Flexeril] 10 mg PO TID PRN #14 tablet 02/13/18 Unknown Rx HYDROcodone/APAP 5-325 [[place] 1 - 2 each PO Q6HR PRN #14 tablet 02/13/18 Unknown Rx 5/325] Allergies Allergy/AdvReac Type Severity Reaction Status Date / Time No Known Allergies Allergy Verified 02/09/20 17:24 ED Review of Systems ROS: Stated complaint: DIALYSIS Other details as noted in HPI Comment: All other systems reviewed and negative ED Past Medical Hx - Past Medical History Hx Hypertension: Yes Hx Congestive Heart Failure: Yes (chronic lower extremity swelling with history of elevated BNP) Hx Diabetes: Yes Hx Renal Disease: Yes Additional medical history: Chronic Kidney diseae for years, PE - Surgical History Additional Surgical History: Right femur fx 1980s - Social History Smoking Status: Never Smoker Substance Use Type: None - Medications Home Medications: Home Medications Medication Instructions Recorded Confirmed Last Taken Type Aspirin EC [Aspirin Enteric Coated 81 mg PO QDAY 02/13/18 02/13/18 Unknown History TAB] Cholecalciferol (Vitamin D3) 1,000 unit PO DAILY 02/13/18 02/13/18 Unknown History [Vitamin D3] Cyclobenzaprine [Flexeril] 10 mg PO TID PRN #14 tablet 02/13/18 Unknown Rx Furosemide [Lasix] 80 mg PO BID 02/13/18 02/13/18 Unknown History HYDROcodone/APAP 5-325 [[place] 1 - 2 each PO Q6HR PRN #14 tablet 02/13/18 Unknown Rx 5/325] Insulin Aspart (Nf) [Novolog] 35 unit SQ AC 02/13/18 02/13/18 Unknown History Insulin Detemir (Nf) [Levemir 45 unit SQ BID 02/13/18 02/13/18 Unknown History Flextouch] Losartan Potassium 50 mg PO DAILY 02/13/18 02/13/18 Unknown History Metoprolol Tartrate 100 mg PO Q12H 02/13/18 02/13/18 Unknown History Rosuvastatin Calcium 20 mg PO DAILY 02/13/18 02/13/18 Unknown History Warfarin [Coumadin] 7.5 mg PO QDAY 02/13/18 02/13/18 Unknown History ED Physical Exam - General Limitations: No Limitations General appearance: alert, in no apparent distress - Head Head exam: Present: atraumatic, normocephalic - Eye Eye exam: Present: normal appearance - ENT ENT exam: Present: mucous membranes moist - Neck Neck exam: Present: normal inspection - Respiratory Respiratory exam: Present: normal lung sounds bilaterally. Absent: respiratory distress - Cardiovascular Cardiovascular Exam: Present: regular rate, normal rhythm. Absent: systolic murmur, diastolic murmur, rubs, gallop - GI/Abdominal GI/Abdominal exam: Present: soft, normal bowel sounds - Rectal Rectal exam: Present: deferred - Extremities Exam Extremities exam: Present: normal inspection - Back Exam Back exam: Present: normal inspection - Neurological Exam Neurological exam: Present: alert, oriented X3 - Psychiatric Psychiatric exam: Present: normal affect, normal mood - Skin Skin exam: Present: warm, dry, intact, normal color. Absent: rash ED Course Vital Signs 02/09/20 02/09/20 17:27 20:20 Temperature 98.8 F Pulse Rate 71 62 Respiratory 16 14 Rate Blood Pressure 156/100 Blood Pressure 165/108 [Right] O2 Sat by Pulse 93 99 Oximetry - Consultations Consultation #1: Dr.Seshan Hurley (cdl dedicated truck driver) was contacted and discussed with patient. Consult initiated. He will place orders and see the patient in the morning. 02/09/20 20:22 Consultation #2: Vascular surgeon Dr. Luciano was consulted. He will be place in vascular cath in the morning. Consult placed. He is aware of the patient. 02/09/20 20:46 ED Medical Decision Making - Lab Data Result diagrams: 02/09/20 17:38 02/09/20 17:38 Laboratory Last Values WBC 8.2 K/mm3 (4.5-11.0) 02/09/20 17:38 RBC 5.08 M/mm3 (3.65-5.03) H 02/09/20 17:38 Hgb 14.8 gm/dl (11.8-15.2) 02/09/20 17:38 Hct 44.8 % (35.5-45.6) 02/09/20 17:38 MCV 88 fl (84-94) 02/09/20 17:38 MCH 29 pg (28-32) 02/09/20 17:38 MCHC 33 % (32-34) 02/09/20 17:38 RDW 16.2 % (13.2-15.2) H 02/09/20 17:38 Plt Count 248 K/mm3 (140-440) 02/09/20 17:38 Lymph % (Auto) 22.0 % (13.4-35.0) 02/09/20 17:38 [place] % (Auto) 8.6 % (0.0-7.3) H 02/09/20 17:38 Eos % (Auto) 3.3 % (0.0-4.3) 02/09/20 17:38 Baso % (Auto) 1.3 % (0.0-1.8) 02/09/20 17:38 Lymph # 1.8 K/mm3 (1.2-5.4) 02/09/20 17:38 [place] # 0.7 K/mm3 (0.0-0.8) 02/09/20 17:38 Eos # 0.3 K/mm3 (0.0-0.4) 02/09/20 17:38 Baso # 0.1 K/mm3 (0.0-0.1) 02/09/20 17:38 Seg Neutrophils % 64.8 % (40.0-70.0) 02/09/20 17:38 Seg Neutrophils # 5.3 K/mm3 (1.8-7.7) 02/09/20 17:38 Sodium 140 mmol/L (137-145) 02/09/20 17:38 Potassium 4.0 mmol/L (3.6-5.0) 02/09/20 17:38 Chloride 107.8 mmol/L (98-107) H 02/09/20 17:38 Carbon Dioxide 17 mmol/L (22-30) L 02/09/20 17:38 Anion Gap 19 mmol/L 02/09/20 17:38 BUN 37 mg/dL (9-20) H 02/09/20 17:38 Creatinine 4.4 mg/dL (0.8-1.5) H 02/09/20 17:38 Estimated GFR 16 ml/min 02/09/20 17:38 BUN/Creatinine Ratio 8 % 02/09/20 17:38 Glucose 179 mg/dL (75-100) H 02/09/20 17:38 Calcium 8.5 mg/dL (8.4-10.2) 02/09/20 17:38 Phosphorus 3.80 mg/dL (2.5-4.5) 02/09/20 17:38 Total Bilirubin < 0.20 mg/dL (0.1-1.2) 02/09/20 17:38 AST 15 units/L (5-40) 02/09/20 17:38 ALT 17 units/L (7-56) 02/09/20 17:38 Alkaline Phosphatase 83 units/L (35-129) 02/09/20 17:38 NT-Pro-B Natriuret Pep 2732 pg/mL (0-900) H 02/09/20 17:38 Total Protein 6.6 g/dL (6.3-8.2) 02/09/20 17:38 Albumin 2.9 g/dL (3.9-5) L 02/09/20 17:38 Albumin/Globulin Ratio 0.8 % 02/09/20 17:38 - EKG Data EKG shows normal: sinus rhythm Rate: normal - EKG Data Interpretation: other (Abnormal T waves on lateral leads, atrial premature complex) - Radiology Data Radiology results: report reviewed, image reviewed Fluoro Time In Minutes: CHEST 2 VIEWS INDICATION / CLINICAL INFORMATION: Shortness of breath. COMPARISON: 07/17/2019 FINDINGS: SUPPORT DEVICES: None. HEART / MEDIASTINUM: No significant abnormality. LUNGS / PLEURA: No significant pulmonary or pleural abnormality. No pneumothorax. ADDITIONAL FINDINGS: No significant additional findings. IMPRESSION: 1. No acute findings. Signer Name: Gutierrez Renee MD Signed: 02/09/2020 6:09 PM Workstation Name: [id number] Transcribed By: JOSELYN Dictated By: Gutierrez Renee MD Electronically Authenticated By: Gutierrez Renee MD Signed Date/Time: 02/09/201808 - Medical Decision Making 70-year-old male who presents with new end-stage renal disease who was sent by his cdl dedicated truck driver for initiation of vascular shunt placement for dialysis. All labs were collected. See labs above. Vascular was consulted and made aware of the patient. Hospitalist was contacted for admission. Patient is in no acute distress. He is sitting comfortably in the ED bed. Critical care attestation.: If time is entered above; I have spent that time in minutes in the direct care of this critically ill patient, excluding procedure time. ED Disposition Clinical Impression: ESRD needing dialysis Disposition: OP ADMIT IP TO THIS HOSP Is pt being admited?: Yes Does the pt Need Aspirin: No Condition: Stable Instructions: Chronic Kidney Disease (ED) Referrals: OBED VASQUES MD [Primary Care Provider] - 3-5 Days THELMA CARRASCO MD [Staff Physician] - 3-5 Days
--- NOTE | 2020-02-09 20:52 | Event Note ---
Date: 02/09/20 Contacted regarding 70 year old male who has progressed to ESRD. No need for emergent dialysis today. Will make NPO after MN except sips of water with meds and place permcath tomorrow. Med list not available, but please hold anticoagulants until after procedure. It is okay to continue antiplatelet drugs.
[2020-02-09] MEDS ORDERED: ONDANSETRON 4 MG/2 ML INJ IV PRN (23:18)
[2020-02-09] MEDS ORDERED: MAGNESIUM HYDROXIDE (MOM) ORAL LIQD UDC PO PRN (23:18)
--- NOTE | 2020-02-10 03:27 | History and Physical Report ---
History of Present Illness Date of examination: 02/09/20 Date of admission: 02/09/20 23:21 Chief complaint: Lower extremity swelling History of present illness: 70-year-old male with known history of end-stage renal disease was sent into the emergency room by the plant mechanic to initiate dialysis. Patient is to have Vas-Cath access placed by vascular surgeon for dialysis. Patient denies any major problems except for progressive lower extremity swelling. He denies any chest pain but has had occasional shortness of breath, no fever or chills, no nausea vomiting and no diarrhea, no headache or dizziness. Work-up in the emergency room has been unremarkable and patient is to be set up for access for dialysis. Past History Past Medical History: ESRD, heart failure, other (Strep pulmonary embolism) Past Surgical History: Other (History of right femur fracture in the past) Social history: no significant social history Medications and Allergies Allergies Allergy/AdvReac Type Severity Reaction Status Date / Time No Known Allergies Allergy Verified 02/09/20 17:24 Home Medications Medication Instructions Recorded Confirmed Last Taken Type Aspirin EC [Aspirin Enteric Coated 81 mg PO QDAY 02/13/18 02/13/18 Unknown History TAB] Cholecalciferol (Vitamin D3) 1,000 unit PO DAILY 02/13/18 02/13/18 Unknown History [Vitamin D3] Cyclobenzaprine [Flexeril] 10 mg PO TID PRN #14 tablet 02/13/18 Unknown Rx Furosemide [Lasix] 80 mg PO BID 02/13/18 02/13/18 Unknown History HYDROcodone/APAP 5-325 [[place] 1 - 2 each PO Q6HR PRN #14 tablet 02/13/18 Unknown Rx 5/325] Insulin Aspart (Nf) [Novolog] 35 unit SQ AC 02/13/18 02/13/18 Unknown History Insulin Detemir (Nf) [Levemir 45 unit SQ BID 02/13/18 02/13/18 Unknown History Flextouch] Losartan Potassium 50 mg PO DAILY 02/13/18 02/13/18 Unknown History Metoprolol Tartrate 100 mg PO Q12H 02/13/18 02/13/18 Unknown History Rosuvastatin Calcium 20 mg PO DAILY 02/13/18 02/13/18 Unknown History Warfarin [Coumadin] 7.5 mg PO QDAY 02/13/18 02/13/18 Unknown History Active Meds: Active Medications Acetaminophen (Tylenol) 650 mg PO Q4H PRN PRN Reason: Pain MILD(1-3)/Fever >100.5/BUSTILLOS Magnesium Hydroxide (Milk Of Magnesia) 30 ml PO Q4H PRN PRN Reason: Constipation Ondansetron HCl (Zofran) 4 mg IV Q8H PRN PRN Reason: Nausea And Vomiting Sodium Chloride (Sodium Chloride Flush Syringe 10 Ml) 10 ml IV BID MELINDA Sodium Chloride (Sodium Chloride Flush Syringe 10 Ml) 10 ml IV PRN PRN PRN Reason: LINE FLUSH Review of Systems Constitutional: no fever, no chills Cardiovascular: no chest pain, no palpitations Respiratory: shortness of breath, no cough Gastrointestinal: no abdominal pain, no nausea, no vomiting, no diarrhea Genitourinary Male: no dysuria, no hematuria Musculoskeletal: no neck pain, no low back pain Integumentary: no rash, no pruritis Neurological: no headaches, no change in mentation Exam - Constitutional Vitals: Temp Pulse Resp BP Pulse Ox 98.8 F 55 L 10 L 129/91 97 02/09/20 17:27 02/10/20 02:00 02/10/20 02:00 02/10/20 02:00 02/10/20 02:00 General appearance: Present: no acute distress, well-nourished - EENT Eyes: Present: PERRL, EOM intact ENT: hearing intact, clear oral mucosa, dentition normal - Neck Neck: Present: supple, normal ROM - Respiratory Respiratory effort: normal Respiratory: bilateral: CTA - Cardiovascular Rhythm: regular Heart Sounds: Present: S1 & S2 - Extremities Extremities: no ischemia, pulses intact, Full ROM Extremity abnormal: edema (2+ bilateral lower extremity edema) Peripheral Pulses: within normal limits - Abdominal General gastrointestinal: Present: soft, non-tender, non-distended - Integumentary Integumentary: Present: clear, warm, dry - Musculoskeletal Musculoskeletal: strength equal bilaterally - Psychiatric Psychiatric: appropriate mood/affect, intact judgment & insight, cooperative - Neurologic Neurologic: CNII-XII intact, moves all extremities Results - Labs CBC & Chem 7: 02/10/20 04:00 02/10/20 04:00 Labs: Abnormal lab results 02/09/20 02/09/20 02/09/20 Range/Units 17:38 17:38 17:38 RBC 5.08 H (3.65-5.03) M/mm3 RDW 16.2 H (13.2-15.2) % [place] % (Auto) 8.6 H (0.0-7.3) % Chloride 107.8 H (98-107) mmol/L Carbon Dioxide 17 L (22-30) mmol/L BUN 37 H (9-20) mg/dL Creatinine 4.4 H (0.8-1.5) mg/dL Glucose 179 H (75-100) mg/dL NT-Pro-B Natriuret Pep 2732 H (0-900) pg/mL Albumin 2.9 L (3.9-5) g/dL Assessment and Plan - Patient Problems (1) ESRD needing dialysis Current Visit: Yes Status: Acute Plan to address problem: Patient to receive vascular access for dialysis. Dr. Noel following up with patient. (2) DVT prophylaxis Current Visit: Yes Status: Acute Plan to address problem: We will place patient on subcutaneous heparin. (3) Full code status Current Visit: Yes Status: Acute
[2020-02-10 05:03] LABS: Basophils # (Auto) 0.1 K/mm3 (0.0-0.1); Basophils % (Auto) 0.9 % (0.0-1.8); Eosinophils # (Auto) 0.2 K/mm3 (0.0-0.4); Hematocrit 42.7 % (35.5-45.6); Lymphocytes # (Auto) 1.6 K/mm3 (1.2-5.4); Lymphocytes % (Auto) 23.5 % (13.4-35.0); Mean Corpuscular HGB Conc 33 % (32-34); Mean Corpuscular Volume 88 fl (84-94); Monocytes # (Auto) 0.8 K/mm3 (0.0-0.8); Platelet Count 214 K/mm3 (140-440); Red Blood Count 4.84 M/mm3 (3.65-5.03); Red Cell Distribution Width 15.7 % (13.2-15.2)
[2020-02-10 05:15] LABS: Calcium 8.5 mg/dL (8.4-10.2)
[2020-02-10 05:16] LABS: INR 1.19 (0.87-1.13)
[2020-02-10] MEDS ORDERED: ceFAZolin/Water 2 GM/20 ML 2 GM/20 ML SYRINGE IV ONE (08:14)
[2020-02-10] MEDS ORDERED: HEPARIN 10,000 UNITS/10 ML VIAL ONE (08:15)
[2020-02-10] MEDS ORDERED: HEPARIN/NS 5000 UNIT/500ML 500 ML IR ONE (08:15)
[2020-02-10] MEDS ORDERED: MIDAZOLAM 2 MG/2 ML INJ ONE (08:16)
[2020-02-10] MEDS ORDERED: fentaNYL 100 MCG/2 ML INJ ONE (08:16)
[2020-02-10] MEDS ORDERED: SODIUM CHLORIDE 0.9% 250ML 250 ML IV ONE (08:58)
[2020-02-10] MEDS ORDERED: SODIUM CHLORIDE 0.9% 500 ML 500 ML ONE (09:01)
--- NOTE | 2020-02-10 09:14 | Consultation ---
History of Present Illness - Reason for Consult Consult date: 02/10/20 Permacath Insertion Requesting physician: THELMA CARRASCO - History of Present Illness The patient is a 70-year-old male with a history of chronic renal insufficiency who presented to the emergency department with acute on chronic renal insufficiency and is in need of initiation of hemodialysis. He has not been on hemodialysis previously and does not have access currently. He currently denies chest pain or shortness of breath. He does describe generalized fatigue and some lower extremity edema. We have been consulted for placement of a permacath for initiation of hemodialysis. Past History Past Medical History: ESRD, heart failure, pulmonary embolism, other Past Surgical History: Other (History of right femur fracture in the past) Social history: no significant social history Medications and Allergies Allergies Allergy/AdvReac Type Severity Reaction Status Date / Time No Known Allergies Allergy Verified 02/09/20 17:24 Home Medications Medication Instructions Recorded Confirmed Last Taken Type Cholecalciferol (Vitamin D3) 1,000 unit PO DAILY 02/13/18 02/10/20 Unknown History [Vitamin D3] Metoprolol Tartrate 100 mg PO Q12H 02/13/18 02/13/18 Unknown History Rosuvastatin Calcium 20 mg PO DAILY 02/13/18 02/10/20 Unknown History Warfarin [Coumadin] 7.5 mg PO QDAY 02/13/18 02/10/20 Unknown History Active Meds: Active Medications Acetaminophen (Tylenol) 650 mg PO Q4H PRN PRN Reason: Pain MILD(1-3)/Fever >100.5/[place] Sodium Chloride (Nacl 0.9% 500 Ml) 500 mls @ 50 mls/hr IV DIRECT MELINDA Magnesium Hydroxide (Milk Of Magnesia) 30 ml PO Q4H PRN PRN Reason: Constipation Ondansetron HCl (Zofran) 4 mg IV Q8H PRN PRN Reason: Nausea And Vomiting Sodium Chloride (Sodium Chloride Flush Syringe 10 Ml) 10 ml IV BID MELINDA Sodium Chloride (Sodium Chloride Flush Syringe 10 Ml) 10 ml IV PRN PRN PRN Reason: LINE FLUSH Review of Systems Constitutional: fatigue, no weight loss, no fever Eyes: bilateral: loss of vision Ears, nose, mouth and throat: no nasal congestion, no swelling in mouth Cardiovascular: edema (Bilateral lower extremity), no chest pain, no orthopnea, no shortness of breath, no paroxysmal nocturnal dyspnea, no claudication Respiratory: no cough, no shortness of breath Gastrointestinal: no abdominal pain, no vomiting, no diarrhea Musculoskeletal: no leg numbness/tingling Hematologic/Lymphatic: other (History of DVT), no easy bruising, no easy bleeding Exam - Constitutional Vitals: Temp Pulse Resp BP Pulse Ox 98.8 F 56 L 18 161/98 99 02/09/20 17:27 02/10/20 05:00 02/10/20 05:00 02/10/20 07:00 02/10/20 07:00 General appearance: Present: no acute distress - Neck Neck: Present: supple. Absent: masses or JVD - Respiratory Respiratory effort: normal - Cardiovascular Rhythm: regular - Extremities Extremities: no ischemia, pulses intact, normal temperature Extremity abnormal: edema (Mild bilateral lower extremity) - Abdominal General gastrointestinal: Present: soft, non-tender, non-distended Male genitourinary: Present: deferred - Rectal Rectal Exam: deferred - Integumentary Integumentary: Present: clear - Musculoskeletal Musculoskeletal: strength equal bilaterally Results - Labs CBC & Chem 7: 02/10/20 04:00 02/10/20 04:00 Labs: Abnormal lab results 02/09/20 02/09/20 02/09/20 Range/Units 17:38 17:38 17:38 RBC 5.08 H (3.65-5.03) M/mm3 RDW 16.2 H (13.2-15.2) % [place] % (Auto) 8.6 H (0.0-7.3) % PT (12.2-14.9) Sec. INR (0.87-1.13) Chloride 107.8 H (98-107) mmol/L Carbon Dioxide 17 L (22-30) mmol/L BUN 37 H (9-20) mg/dL Creatinine 4.4 H (0.8-1.5) mg/dL Glucose 179 H (75-100) mg/dL NT-Pro-B Natriuret Pep 2732 H (0-900) pg/mL Albumin 2.9 L (3.9-5) g/dL 02/10/20 02/10/20 02/10/20 Range/Units 04:00 04:00 04:00 RBC (3.65-5.03) M/mm3 RDW 15.7 H (13.2-15.2) % [place] % (Auto) 11.0 H (0.0-7.3) % PT 15.2 H (12.2-14.9) Sec. INR 1.19 H (0.87-1.13) Chloride 108.8 H (98-107) mmol/L Carbon Dioxide 21 L (22-30) mmol/L BUN 36 H (9-20) mg/dL Creatinine 4.4 H (0.8-1.5) mg/dL Glucose 190 H (75-100) mg/dL NT-Pro-B Natriuret Pep (0-900) pg/mL Albumin (3.9-5) g/dL - Imaging and Cardiology Chest x-ray: image reviewed Assessment and Plan The patient is a 70-year-old male with a history of chronic renal insufficiency that has progressed to the need of the initiation of hemodialysis. He is in need of permacath insertion for dialysis. He will also require vein mapping for permanent dialysis access. He was given the risk, benefits, and alternative procedures of permacath insertion and consented to the procedure.
--- NOTE | 2020-02-10 09:16 | Consultation ---
History of Present Illness - Reason for Consult Consult date: 02/10/20 end stage renal disease - History of Present Illness This is a 70 year old male patient well known to our service with pmh s ignificant for morbid obesity, type 2 dm, hypertension, nicotine dependence, hyperlipidemia, blood clot in lung (2015), and end stage renal disease. He was seen in our office on 02/08/2020 and labwork reflected worsening renal function. In addition, patient has had uremic symptoms and reported increased fatigue, worsening bilateral extremity edema, and lethargy. Patient and agreed to initiate hemodialysis by being admitted to the hospital. Patient presented to the ED on 02/09/2020 for initiation of HD and placement of HD catheter. He was seen by vascular in the ED and cath was placed this morning before first HD session which he tolerated well. He denies chest pain, fever, chills, nausea, vomiting, abdominal pain, diarrhea, rash. Labs at time of consultation significant for creatinine 4.4, bicarb 21, glucose 190, phosphorus 3.8. He was seen and examined in the HD unit after cath placement. Nephrology was consulted for further evaluation and treatment. Past History Past Medical History: ESRD, heart failure, hypertension, hyperlipidemia, other (Strep pulmonary embolism, nicotine dependence, obesity) Past Surgical History: Other (History of right femur fracture in the past) Social history: , smoking Medications and Allergies Allergies Allergy/AdvReac Type Severity Reaction Status Date / Time No Known Allergies Allergy Verified 02/09/20 17:24 Home Medications Medication Instructions Recorded Confirmed Last Taken Type Cholecalciferol (Vitamin D3) 1,000 unit PO DAILY 02/13/18 02/10/20 Unknown History [Vitamin D3] Metoprolol Tartrate 100 mg PO Q12H 02/13/18 02/13/18 Unknown History Rosuvastatin Calcium 20 mg PO DAILY 02/13/18 02/10/20 Unknown History Warfarin [Coumadin] 7.5 mg PO QDAY 02/13/18 02/10/20 Unknown History Active Meds: Active Medications Acetaminophen (Tylenol) 650 mg PO Q4H PRN PRN Reason: Pain MILD(1-3)/Fever >100.5/[place] Sodium Chloride (Nacl 0.9% 500 Ml) 500 mls @ 50 mls/hr IV DIRECT MELINDA Magnesium Hydroxide (Milk Of Magnesia) 30 ml PO Q4H PRN PRN Reason: Constipation Ondansetron HCl (Zofran) 4 mg IV Q8H PRN PRN Reason: Nausea And Vomiting Sodium Chloride (Sodium Chloride Flush Syringe 10 Ml) 10 ml IV BID MELINDA Sodium Chloride (Sodium Chloride Flush Syringe 10 Ml) 10 ml IV PRN PRN PRN Reason: LINE FLUSH Review of Systems Constitutional: fatigue, lethargy, no weight loss, no fever, no chills, no poor appetite Ears, nose, mouth and throat: no nasal discharge, no epistaxis Cardiovascular: edema (BLE), shortness of breath (occasional), no chest pain Respiratory: no cough, no congestion, no wheezing Gastrointestinal: no abdominal pain, no nausea, no vomiting, no diarrhea Genitourinary Male: no hematuria Musculoskeletal: no muscle weakness, no muscle cramps, no frequent falls Integumentary: no rash, no redness, no sores, no wounds Exam - Vital Signs Vital signs: Vital Signs Temp Pulse Resp BP Pulse Ox 98.8 F 71 16 156/100 93 02/09/20 17:27 02/09/20 17:27 02/09/20 17:27 02/09/20 17:27 02/09/20 17:27 - General Appearance General appearance: well-developed, appears stated age, obese EENT: ATNC, PERRL, mucous membranes moist Neck: Present: neck supple, trachea midline Respiratory: Clear to Ascultation Heart: regular, normal heart rate, S1S2, no murmurs Gastrointestinal: Present: normal, normoactive bowel sounds, obese. Absent: tenderness, masses Integumentary: no rash, warm and dry, other (RIJ Permacath) Neurologic: no focal deficit, alert and oriented x3 Musculoskeletal: Present: other (2+edema BLE). Absent: cyanosis, clubbing Psychiatric: mood/affect appropriate, cooperative Results - Lab Results 02/10/20 04:00 02/10/20 04:00 Most recent lab results Calcium 8.5 mg/dL (8.4-10.2) 02/10/20 04:00 Phosphorus 3.80 mg/dL (2.5-4.5) 02/10/20 04:00 Assessment and Plan 1. End stage renal disease: Patient had long standing CKD likely 2/2 poorly controlled hypertension and type 2 diabetes. Has been exhibiting symptoms of uremia. Patient and agreed to initiate dialysis after office visit on 02/08/2020. Plan for HD catheter today, followed by HD. Hemodialysis: 02/09. 2. FEN: Metabolic acidosis, monitor. Monitor lytes and volume status. 3. Hypertension: BP slightly elevated at time of exam. Monitor BP closely. 4. Type 2 diabetes mellitus: H/o poorly managed blood sugars and noncompliance with ADA diet. Monitor blood sugars. 5. Nicotine dependence: Counseled on importance of smoking cessation. 6. Morbid obesity:
[2020-02-10] MEDS: LIDOCAINE (2%) 20 MG/1 ML VIAL 20 ML MDV INFILTRATI ONE ×2 (09:43→09:47)
[2020-02-10] MEDS ORDERED: SODIUM CHLORIDE 0.9% 500 ML 500 ML IV SCH (10:00)
--- NOTE | 2020-02-10 10:21 | Operative Report ---
Operative Report Operative Report: Date of procedure: 02/10/2020 Pre-operative diagnosis: Acute on Chronic Renal Failure Post-operative diagnosis: Same Procedure(s): 1. Ultrasound-Guided Access Right Internal Vein 2. Placement of 23 cm GlidePath Permacath 3. Radiologic Supervision with Interpretation Surgeon: Harman Myers MD Electronics Engineering Technician: None Anesthesia: Local EBL: Minimal Counts: Correct Complications: None Condition: Stable Findings: Successful placement of right IJ permacath. Specimen: None Indication: The patient is a 70-year-old male with a history of chronic renal insufficiency who has progressed to the need of initiation of hemodialysis. He is in need of a permacath for dialysis access. He was given the risk, benefits, and alternative procedures and consented to the procedure. Description of Procedure: The patient was brought to the laborer plumbing and laid in supine position and his right neck and chest were prepped and draped in normal sterile fashion. Ultrasound was used to identify the right internal jugular vein and the overlying skin and soft tissue was anesthetized with lidocaine. A small stab incision was made and then the access needle was used ultrasound guidance in the right internal jugular vein. An 035 J-wire was advanced to the central venous system under fluoroscopic guidance. The tract was serially dilated up to a 16 Salvadorean peel-away safety sheath and the inner cannula and wire removed. An exit site on the chest was then chosen and the presumed tunnel was anesthetized with lidocaine. A small stab incision was made on the chest and then the permacath was connected to the tunneler and pulled antegrade through the tunnel. The catheter was inserted into the safe sheath and safety sheath was pulled away. The catheter was positioned under fluoroscopy. Once in adequate position both ports were aspirated and flushed and then primed with the appropriate amount heparin. The neck incision was then closed with 4-0 Monocryl in interrupted subcuticular fashion and dressed with Surgicel. The catheters was dressed sterilely. Final fluoroscopy demonstrated the catheter was in excellent position without any evidence of pneumothorax. The patient tolerated the procedure well, all sponge needle and instrument counts were correct, the patient was taken to recovery in stable condition.
[2020-02-10] MEDS ORDERED: SODIUM CHLORIDE 0.9% 100 ML IV PRN (10:30)
[2020-02-10] MEDS ORDERED: SODIUM CHLORIDE*PRIMING MACHINE ONLY FOR DIALYSIS MC ONE (10:54)
[2020-02-10 11:40] LABS: Hepatitis B Surface Antigen Non-Reactive (Negative); Hepatitis C Virus Antibody Non-Reactive (NonReactive)
--- NOTE | 2020-02-10 11:50 | Progress Note ---
Assessment and Plan Assessment and plan: ESRD. Patient with CKD that has now progressed to ESRD requiring hemodialysis. Vascular surgery was consulted and patient underwent catheter placement. Continue hemodialysis per nephrology recommendations. Chronic heart failure. Continue with volume management/negative fluid balance per nephrology. Hemodialysis. History Interval history: No new issues overnight. Hospitalist Physical - Constitutional Vitals: Temp Pulse Resp BP Pulse Ox 98.8 F 57 L 18 119/95 99 02/10/20 10:40 02/10/20 11:30 02/10/20 10:40 02/10/20 11:30 02/10/20 07:00 General appearance: Present: no acute distress - EENT Eyes: Present: PERRL, EOM intact ENT: hearing intact, clear oral mucosa, dentition normal - Neck Neck: Present: supple, normal ROM - Respiratory Respiratory effort: normal Respiratory: bilateral: CTA - Cardiovascular Rhythm: regular Heart Sounds: Present: S1 & S2. Absent: gallop, rub - Extremities Extremities: no ischemia, No edema, Full ROM - Abdominal General gastrointestinal: soft, non-tender, non-distended, normal bowel sounds - Integumentary Integumentary: Present: clear, warm, dry - Neurologic Neurologic: CNII-XII intact, moves all extremities Results - Labs CBC & Chem 7: 02/10/20 04:00 02/10/20 04:00 Labs: Laboratory Last Values WBC 7.0 K/mm3 (4.5-11.0) 02/10/20 04:00 RBC 4.84 M/mm3 (3.65-5.03) 02/10/20 04:00 Hgb 14.0 gm/dl (11.8-15.2) 02/10/20 04:00 Hct 42.7 % (35.5-45.6) 02/10/20 04:00 MCV 88 fl (84-94) 02/10/20 04:00 MCH 29 pg (28-32) 02/10/20 04:00 MCHC 33 % (32-34) 02/10/20 04:00 RDW 15.7 % (13.2-15.2) H 02/10/20 04:00 Plt Count 214 K/mm3 (140-440) 02/10/20 04:00 Lymph % (Auto) 23.5 % (13.4-35.0) 02/10/20 04:00 [place] % (Auto) 11.0 % (0.0-7.3) H 02/10/20 04:00 Eos % (Auto) 3.0 % (0.0-4.3) 02/10/20 04:00 Baso % (Auto) 0.9 % (0.0-1.8) 02/10/20 04:00 Lymph # 1.6 K/mm3 (1.2-5.4) 02/10/20 04:00 [place] # 0.8 K/mm3 (0.0-0.8) 02/10/20 04:00 Eos # 0.2 K/mm3 (0.0-0.4) 02/10/20 04:00 Baso # 0.1 K/mm3 (0.0-0.1) 02/10/20 04:00 Seg Neutrophils % 61.6 % (40.0-70.0) 02/10/20 04:00 Seg Neutrophils # 4.3 K/mm3 (1.8-7.7) 02/10/20 04:00 PT 15.2 Sec. (12.2-14.9) H 02/10/20 04:00 INR 1.19 (0.87-1.13) H 02/10/20 04:00 Sodium 142 mmol/L (137-145) 02/10/20 04:00 Potassium 3.9 mmol/L (3.6-5.0) 02/10/20 04:00 Chloride 108.8 mmol/L (98-107) H 02/10/20 04:00 Carbon Dioxide 21 mmol/L (22-30) L 02/10/20 04:00 Anion Gap 16 mmol/L 02/10/20 04:00 BUN 36 mg/dL (9-20) H 02/10/20 04:00 Creatinine 4.4 mg/dL (0.8-1.5) H 02/10/20 04:00 Estimated GFR 16 ml/min 02/10/20 04:00 BUN/Creatinine Ratio 8 % 02/10/20 04:00 Glucose 190 mg/dL (75-100) H 02/10/20 04:00 Calcium 8.5 mg/dL (8.4-10.2) 02/10/20 04:00 Phosphorus 3.80 mg/dL (2.5-4.5) 02/10/20 04:00 Total Bilirubin < 0.20 mg/dL (0.1-1.2) 02/09/20 17:38 AST 15 units/L (5-40) 02/09/20 17:38 ALT 17 units/L (7-56) 02/09/20 17:38 Alkaline Phosphatase 83 units/L (35-129) 02/09/20 17:38 NT-Pro-B Natriuret Pep 2732 pg/mL (0-900) H 02/09/20 17:38 Total Protein 6.6 g/dL (6.3-8.2) 02/09/20 17:38 Albumin 2.9 g/dL (3.9-5) L 02/09/20 17:38 Albumin/Globulin Ratio 0.8 % 02/09/20 17:38 Active Medications - Current Medications Current Medications: Generic Name Dose Route Start Last Admin Trade Name Freq PRN Reason Stop Dose Admin Acetaminophen 650 mg 02/09/20 23:18 Tylenol PO Q4H PRN Pain MILD(1-3)/Fever >100.5/BUSTILLOS Sodium Chloride 500 mls @ 50 mls/hr 02/10/20 10:00 Nacl 0.9% 500 Ml IV DIRECT MELINDA Sodium Chloride 100 mls @ 999 mls/hr 02/10/20 10:30 Nacl 0.9% IV JASAPL PRN Hypotension Magnesium Hydroxide 30 ml 02/09/20 23:18 Milk Of Magnesia PO Q4H PRN Constipation Ondansetron HCl 4 mg 02/09/20 23:18 Zofran IV Q8H PRN Nausea And Vomiting Sodium Chloride 10 ml 02/10/20 10:00 Sodium Chloride Flush Syringe 10 Ml IV BID MELINDA Sodium Chloride 10 ml 02/09/20 23:18 Sodium Chloride Flush Syringe 10 Ml IV PRN PRN LINE FLUSH
--- NOTE | 2020-02-10 15:38 | Vascular Lab Report ---
DOPPLER ULTRASOUND UPPER EXTREMITY VENOUS MAPPING, BILATERAL INDICATION: Bilateral upper extremities for dialysis access TECHNIQUE: Grayscale, color and spectral Doppler imaging of the venous system of the right and left upper extrem ities was performed. COMPARISON: None available. FINDINGS: RIGHT UPPER EXTREMITY: Cephalic Vein (Diameter mm) - Upper Arm: 0.7 / - Mid Arm: 0.8 / - Antecubital: 0.9 / - Upper Forearm: 1.4 / - Mid Forearm: 1.2 / - Wrist: 0.9 / Basilic Vein (Diameter mm): - Upper Arm: 3.1 / - Mid Arm: 1.9 / - Antecubital: 1.8 / - Upper Forearm: 0.9 / - Mid Forearm: 0.9 / - Wrist: 0.9 / Right brachial vein: -Proximal: 6.5 mm/4.1 mm -Mid: 3.5 mm/3.4 mm -Distal : 3.8 mm/3.5 mm Right radial artery velocity is 48 cm/s. Right brachial artery velocity is 81 cm/s Right radial artery diameter is 2.5 mm LEFT UPPER EXTREMITY: Cephalic Vein (Diameter mm): - Upper Arm: 1 / - Mid Arm: 0.9 / - Antecubital: 2.2 / - Upper Forearm: 1.3 / - Mid Forearm: 1.8 / - Wrist: 1.1 / Basilic Vein (Diameter mm): - Upper Arm: 1.9 / - Mid Arm: 1.5 / - Antecubital: 1.3 / - Upper Forearm: 1.1 / - Mid Forearm: 0.9 / - Wrist: 1 / Left brachial vein: Proximal : 3.9 mm/4.7 mm Mid: 2.9 mm/4.6 mm Distal : 4.1 mm/4.2 mm Left brachial artery velocity is 58 cm/s. Left radial artery velocity is 69 cm/s Left radial artery diameter is 2.5 mm Additional Findings: IMPRESSION: 2. Upper extremity venous mapping as above. Signer Name: Dale Jenkins MD Signed: 02/10/2020 3:34 PM Workstation Name: [id number]
[2020-02-10] MEDS: ACETAMINOPHEN 325 MG TAB PO PRN (20:41)
[2020-02-10] MEDS ORDERED: DEXTROSE 50% IN WATER (25GM) 50 ML SYRINGE IV PRN (21:59)
[2020-02-10] MEDS ORDERED: INSULIN LISPRO 100 UNIT/ML SUB-Q SCH (22:00)
[2020-02-10] MEDS: hydrALAZINE 20 MG/1 ML INJ IV PRN (22:15)
[2020-02-11] MEDS: ACETAMINOPHEN 325 MG TAB PO PRN (05:44)
[2020-02-11] MEDS: hydrALAZINE 20 MG/1 ML INJ IV PRN (05:46)
[2020-02-11] MEDS ORDERED: INSULIN LISPRO 100 UNIT/ML SUB-Q SCH (07:30)
[2020-02-11] MEDS ORDERED: METOPROLOL TARTRATE 100 MG TAB PO SCH (08:00)
[2020-02-11] MEDS ORDERED: SODIUM CHLORIDE 0.9% 100 ML IV PRN (08:00)
[2020-02-11] MEDS ORDERED: INSULIN ASPART SUB-Q SCH (08:00)
--- NOTE | 2020-02-11 09:47 | Progress Note ---
Assessment and Plan 1. End stage renal disease: Patient had long standing CKD likely 2/2 poorly controlled hypertension and type 2 diabetes. Has been exhibiting symptoms of uremia. Patient and agreed to initiate dialysis after office visit on 02/08/2020. Tolerated first HD well. Plan to d/c as outpatient chair is confirmed. Hemodialysis: 02/09, 02/10. 2. FEN: Metabolic acidosis, monitor. Monitor lytes and volume status. 3. Hypertension: BP is better today. Monitor BP closely. 4. Type 2 diabetes mellitus: H/o poorly managed blood sugars and noncompliance with ADA diet. Monitor blood sugars. 5. Nicotine dependence: Counseled on importance of smoking cessation. 6. Morbid obesity: Subjective Date of service: 02/11/20 Interval history: Patient was seen and examined at the bedside in the HD unit. He has no new complaints. Plan to d/c patient today as outpatient HD chair confirmed. Objective - Exam Narrative Exam: General appearance: well-developed, appears stated age, obese EENT: ATNC, PERRL, mucous membranes moist Neck: Present: neck supple, trachea midline Respiratory: Clear to Ascultation Heart: regular, normal heart rate, S1S2, no murmurs Gastrointestinal: Present: normal, normoactive bowel sounds, obese. Absent: tenderness, masses Integumentary: no rash, warm and dry, other (RIJ Permacath) Neurologic: no focal deficit, alert and oriented x3 Musculoskeletal: Present: other (1+edema BLE). Absent: cyanosis, clubbing Psychiatric: mood/affect appropriate, cooperative - Vital Signs Vital signs: Vital Signs - 12hr 02/10/20 02/10/20 02/10/20 22:01 22:15 23:26 Temperature 97.9 F Pulse Rate 66 66 Respiratory 18 Rate Blood Pressure 157/94 172/104 156/101 O2 Sat by Pulse 99 Oximetry 02/11/20 02/11/20 02/11/20 03:53 03:55 05:46 Temperature 98.6 F Pulse Rate 68 68 Respiratory 20 Rate Blood Pressure 171/99 171/99 O2 Sat by Pulse 83 L 95 Oximetry 02/11/20 02/11/20 07:35 09:05 Temperature 97.5 F L Pulse Rate 79 Respiratory 18 Rate Blood Pressure 136/85 O2 Sat by Pulse 96 96 Oximetry - Lab 02/10/20 04:00 02/10/20 04:00 Most recent lab results Calcium 8.5 mg/dL (8.4-10.2) 02/10/20 04:00 Phosphorus 3.80 mg/dL (2.5-4.5) 02/10/20 04:00 Medications & Allergies - Medications Allergies/Adverse Reactions: Allergies No Known Allergies Allergy (Verified 02/09/20 17:24) Home Medications: Home Medications Medication Instructions Recorded Confirmed Last Taken Type Cholecalciferol (Vitamin D3) 5,000 unit PO DAILY 02/13/18 02/10/20 1 Day Ago History [Vitamin D3] ~02/09/20 Metoprolol Tartrate 100 mg PO BID 02/13/18 02/10/20 1 Day Ago History ~02/09/20 100 Rosuvastatin Calcium 20 mg PO DAILY 02/13/18 02/10/20 1 Day Ago History ~02/09/20 20 Warfarin [Coumadin] 5 mg PO QDAY 02/13/18 02/10/20 1 Day Ago History ~02/09/20 FLUoxetine HCL 10 mg DAILY 02/10/20 02/10/20 1 Week Ago History ~02/03/20 Furosemide 80 mg BID 02/10/20 02/10/20 1 Day Ago History ~02/09/20 Levemir VIAL 40 units SUB-Q BID 02/10/20 02/10/20 1 Day Ago History ~02/09/20 40 units NovoLOG Flexpen 35 units SUB-Q TID 02/10/20 02/10/20 1 Day Ago History ~02/09/20 35 units amLODIPine 10 mg DAILY 02/10/20 02/10/20 1 Day Ago History ~02/09/20 Active Medications: Generic Name Dose Route Start Last Admin Trade Name Freq PRN Reason Stop Dose Admin Acetaminophen 650 mg 02/09/20 23:18 02/11/20 05:44 Tylenol PO 650 mg Q4H PRN Administration Pain MILD(1-3)/Fever >100.5/BUSTILLOS Amlodipine Besylate 10 mg 02/11/20 10:00 Amlodipine PO QDAY [facility] Atorvastatin Calcium 40 mg 02/10/20 22:15 02/10/20 22:15 Lipitor PO 40 mg QHS [facility] Administration Cholecalciferol 5,000 unit 02/11/20 10:00 Vitamin D3 PO QDAY MELINDA Dextrose 0 ml 02/10/20 21:59 D50w (25gm) Syringe IV Q30MIN PRN Hypoglycemia Protocol Hydralazine HCl 10 mg 02/10/20 21:46 02/11/20 05:46 Apresoline IV 10 mg Q6H PRN Administration HYPERTENSION Sodium Chloride 500 mls @ 50 mls/hr 02/10/20 10:00 Nacl 0.9% 500 Ml IV DIRECT MELINDA Sodium Chloride 100 mls @ 999 mls/hr 02/11/20 08:00 Nacl 0.9% IV JASPAL PRN Hypotension Insulin Human Lispro 0 unit 02/10/20 22:00 02/10/20 23:33 Humalog SUB-Q 8 unit ACHS MELINDA Administration Protocol Insulin Human Lispro 35 unit 02/11/20 07:30 Humalog SUB-Q AC MELINDA Magnesium Hydroxide 30 ml 02/09/20 23:18 Milk Of Magnesia PO Q4H PRN Constipation Metoprolol Tartrate 100 mg 02/11/20 08:00 Metoprolol PO BID@0800,1700 MELINDA Ondansetron HCl 4 mg 02/09/20 23:18 Zofran IV Q8H PRN Nausea And Vomiting Sodium Chloride 10 ml 02/10/20 10:00 02/10/20 21:19 Sodium Chloride Flush Syringe 10 Ml IV 10 ml BID MELINDA Administration Sodium Chloride 10 ml 02/09/20 23:18 02/11/20 05:47 Sodium Chloride Flush Syringe 10 Ml IV 10 ml PRN PRN Administration LINE FLUSH
[2020-02-11] MEDS ORDERED: CHOLECALCIFEROL (VIT D3) 5,000 UNIT TAB PO SCH (10:00)
[2020-02-11] MEDS ORDERED: amLODIPine 10 MG TAB PO SCH (10:00)
--- NOTE | 2020-02-11 10:12 | Progress Note ---
Assessment and Plan Assessment and plan: ESRD. Patient with CKD that has now progressed to ESRD requiring hemodialysis. Vascular surgery was consulted and patient underwent catheter placement. Continue hemodialysis per nephrology recommendations. Chronic heart failure. Continue with volume management/negative fluid balance per nephrology. Hemodialysis. Hypertension. Continue antihypertensive medications. Diabetes mellitus type 2. Continue Accu-Cheks and sliding scale insulin. Tobacco abuse. Patient counseled on smoking cessation. Morbid obesity. Patient counseled on the importance of balanced diet and exercise. 02/11/2020. Hemodialysis was initiated on 02/09. Case management consulted for arrangement of outpatient hemodialysis chair. Follow-up BMP. History Interval history: No new issues overnight. Hospitalist Physical - Constitutional Vitals: Temp Pulse Resp BP Pulse Ox 97.5 F L 79 18 136/85 96 02/11/20 07:35 02/11/20 07:35 02/11/20 07:35 02/11/20 07:35 02/11/20 09:05 General appearance: Present: no acute distress - EENT Eyes: Present: PERRL, EOM intact ENT: hearing intact, clear oral mucosa, dentition normal - Neck Neck: Present: supple, normal ROM - Respiratory Respiratory effort: normal Respiratory: bilateral: CTA - Cardiovascular Rhythm: regular Heart Sounds: Present: S1 & S2. Absent: gallop, rub - Extremities Extremities: no ischemia, No edema, Full ROM - Abdominal General gastrointestinal: soft, non-tender, non-distended, normal bowel sounds - Integumentary Integumentary: Present: clear, warm, dry - Neurologic Neurologic: CNII-XII intact, moves all extremities Results - Labs CBC & Chem 7: 02/10/20 04:00 02/10/20 04:00 Labs: Laboratory Last Values WBC 7.0 K/mm3 (4.5-11.0) 02/10/20 04:00 RBC 4.84 M/mm3 (3.65-5.03) 02/10/20 04:00 Hgb 14.0 gm/dl (11.8-15.2) 02/10/20 04:00 Hct 42.7 % (35.5-45.6) 02/10/20 04:00 MCV 88 fl (84-94) 02/10/20 04:00 MCH 29 pg (28-32) 02/10/20 04:00 MCHC 33 % (32-34) 02/10/20 04:00 RDW 15.7 % (13.2-15.2) H 02/10/20 04:00 Plt Count 214 K/mm3 (140-440) 02/10/20 04:00 Lymph % (Auto) 23.5 % (13.4-35.0) 02/10/20 04:00 [place] % (Auto) 11.0 % (0.0-7.3) H 02/10/20 04:00 Eos % (Auto) 3.0 % (0.0-4.3) 02/10/20 04:00 Baso % (Auto) 0.9 % (0.0-1.8) 02/10/20 04:00 Lymph # 1.6 K/mm3 (1.2-5.4) 02/10/20 04:00 [place] # 0.8 K/mm3 (0.0-0.8) 02/10/20 04:00 Eos # 0.2 K/mm3 (0.0-0.4) 02/10/20 04:00 Baso # 0.1 K/mm3 (0.0-0.1) 02/10/20 04:00 Seg Neutrophils % 61.6 % (40.0-70.0) 02/10/20 04:00 Seg Neutrophils # 4.3 K/mm3 (1.8-7.7) 02/10/20 04:00 PT 15.2 Sec. (12.2-14.9) H 02/10/20 04:00 INR 1.19 (0.87-1.13) H 02/10/20 04:00 Sodium 142 mmol/L (137-145) 02/10/20 04:00 Potassium 3.9 mmol/L (3.6-5.0) 02/10/20 04:00 Chloride 108.8 mmol/L (98-107) H 02/10/20 04:00 Carbon Dioxide 21 mmol/L (22-30) L 02/10/20 04:00 Anion Gap 16 mmol/L 02/10/20 04:00 BUN 36 mg/dL (9-20) H 02/10/20 04:00 Creatinine 4.4 mg/dL (0.8-1.5) H 02/10/20 04:00 Estimated GFR 16 ml/min 02/10/20 04:00 BUN/Creatinine Ratio 8 % 02/10/20 04:00 Glucose 190 mg/dL (75-100) H 02/10/20 04:00 Calcium 8.5 mg/dL (8.4-10.2) 02/10/20 04:00 Phosphorus 3.80 mg/dL (2.5-4.5) 02/10/20 04:00 Total Bilirubin < 0.20 mg/dL (0.1-1.2) 02/09/20 17:38 AST 15 units/L (5-40) 02/09/20 17:38 ALT 17 units/L (7-56) 02/09/20 17:38 Alkaline Phosphatase 83 units/L (35-129) 02/09/20 17:38 NT-Pro-B Natriuret Pep 2732 pg/mL (0-900) H 02/09/20 17:38 Total Protein 6.6 g/dL (6.3-8.2) 02/09/20 17:38 Albumin 2.9 g/dL (3.9-5) L 02/09/20 17:38 Albumin/Globulin Ratio 0.8 % 02/09/20 17:38 Hepatitis A IgM Ab Non-reactive (NonReactive) 02/10/20 09:45 Hep Bs Antigen Non-reactive (Negative) 02/10/20 09:45 Hep B Core IgM Ab Non-reactive (NonReactive) 02/10/20 09:45 Hepatitis C Antibody Non-reactive (NonReactive) 02/10/20 09:45 Recinos/IV: Voiding Method Toilet IV Catheter Type [Left INT / Saline Lock Antecubital] Active Medications - Current Medications Current Medications: Generic Name Dose Route Start Last Admin Trade Name Freq PRN Reason Stop Dose Admin Acetaminophen 650 mg 02/09/20 23:18 02/11/20 05:44 Tylenol PO 650 mg Q4H PRN Administration Pain MILD(1-3)/Fever >100.5/BUSTILLOS Amlodipine Besylate 10 mg 02/11/20 10:00 Amlodipine PO QDAY MELINDA Atorvastatin Calcium 40 mg 02/10/20 22:15 02/10/20 22:15 Lipitor PO 40 mg QHS MELINDA Administration Cholecalciferol 5,000 unit 02/11/20 10:00 Vitamin D3 PO QDAY MELINDA Dextrose 0 ml 02/10/20 21:59 D50w (25gm) Syringe IV Q30MIN PRN Hypoglycemia Protocol Hydralazine HCl 10 mg 02/10/20 21:46 02/11/20 05:46 Apresoline IV 10 mg Q6H PRN Administration HYPERTENSION Sodium Chloride 500 mls @ 50 mls/hr 02/10/20 10:00 Nacl 0.9% 500 Ml IV DIRECT MELINDA Sodium Chloride 100 mls @ 999 mls/hr 02/11/20 08:00 Nacl 0.9% IV JASPAL PRN Hypotension Insulin Human Lispro 0 unit 02/10/20 22:00 02/10/20 23:33 Humalog SUB-Q 8 unit ACHS MELINDA Administration Protocol Insulin Human Lispro 35 unit 02/11/20 07:30 Humalog SUB-Q AC MELINDA Magnesium Hydroxide 30 ml 02/09/20 23:18 Milk Of Magnesia PO Q4H PRN Constipation Metoprolol Tartrate 100 mg 02/11/20 08:00 Metoprolol PO BID@0800,1700 MELINDA Ondansetron HCl 4 mg 02/09/20 23:18 Zofran IV Q8H PRN Nausea And Vomiting Sodium Chloride 10 ml 02/10/20 10:00 02/10/20 21:19 Sodium Chloride Flush Syringe 10 Ml IV 10 ml BID MELINDA Administration Sodium Chloride 10 ml 02/09/20 23:18 02/11/20 05:47 Sodium Chloride Flush Syringe 10 Ml IV 10 ml PRN PRN Administration LINE FLUSH
--- NOTE | 2020-02-11 11:27 | Discharge Summary ---
Providers - Providers Date of Admission: 02/10/20 11:16 Date of discharge: 02/11/20 Attending physician: ROBI SILVA 02/09/20 20:49 Consult to Physician [CONS] Urgent Comment: Consulting Provider: THELMA CARRASCO Physician Instructions: Reason For Exam: ESRD 02/09/20 21:25 Consult to Physician [CONS] Routine Comment: SIN Medrano spoke with Dr Zhang @ 2044 Consulting Provider: MAGNOLIA ZHANG Physician Instructions: Reason For Exam: Vas Cath Placement for Dialysis 02/10/20 21:59 Consult to Dietitian/Nutrition [CONS] Routine Physician Instructions: Reason For Exam: Reason for Consult: Diet education Primary care physician: METAL FLOW COORDINATOR Hospitalization Reason for admission: Hemodialysis Condition: Stable Hospital course: This is a 70 year old male patient with pmh significant for morbid obesity, type 2 dm, hypertension, nicotine dependence, hyperlipidemia, blood clot in lung (2015), and end stage renal disease who was seen in nephrology office on 02/08/2020 and labwork reflected worsening renal function. In addition, patient had uremic symptoms and reported increased fatigue, worsening bilateral extremity edema, and lethargy. Patient and agreed to initiate hemodialysis by being admitted to the hospital. Patient presented to the ED on 02/09/2020 for initiation of HD and placement of HD catheter. He was seen by vascular in the ED and cath was placed on 02/10/2020. The patient's first HD session was completed on that same day which he tolerated well. The patient was seen by nephrology in consultation as well. Patient received a second hemodialysis on 02/11/2020. Dr. louis arrange for outpatient hemodialysis appointment/chair for 1030 at [facility] on [address] the patient is felt to receive maximal hospital benefit and will be discharged home. Dedicated discharge time 35 minutes. Disposition: DC-01 TO HOME OR SELFCARE Time spent for discharge: 35 - Discharge Diagnoses (1) ESRD needing dialysis Status: Acute Core Measure Documentation - Palliative Care Palliative Care/ Comfort Measures: Not Applicable - Core Measures Any of the following diagnoses?: none Exam - Constitutional Vitals: Temp Pulse Resp BP Pulse Ox 97.5 F L 79 18 136/85 96 02/11/20 07:35 02/11/20 07:35 02/11/20 07:35 02/11/20 07:35 02/11/20 09:05 General appearance: Present: no acute distress, well-nourished - EENT Eyes: Present: PERRL ENT: hearing intact, clear oral mucosa - Neck Neck: Present: supple, normal ROM - Respiratory Respiratory effort: normal Respiratory: bilateral: CTA - Cardiovascular Heart Sounds: Present: S1 & S2. Absent: rub, click - Extremities Extremities: pulses symmetrical, No edema Peripheral Pulses: within normal limits - Abdominal General gastrointestinal: Present: soft, non-tender, non-distended, normal bowel sounds Male genitourinary: Present: normal - Integumentary Integumentary: Present: clear, warm, dry - Musculoskeletal Musculoskeletal: gait normal, strength equal bilaterally - Psychiatric Psychiatric: appropriate mood/affect, intact judgment & insight - Neurologic Neurologic: CNII-XII intact, moves all extremities Plan Activity: advance as tolerated Weight Bearing Status: Weight Bear as Tolerated Diet: renal Additional Instructions: Outpatient hemodialysis at [facility] on [address] at 10:[address] Carrasco Follow up with: OBED VASQUES MD [Primary Care Provider] - 3-5 Days THELMA CARRASCO MD [Staff Physician] - 3-5 Days
[2020-02-11 15:18] VITALS: BP 171/98
[2020-02-11] MEDS ORDERED: SODIUM CHLORIDE*PRIMING MACHINE ONLY FOR DIALYSIS MC ONE (16:39)
== END 2020-02-11 15:00 | disposition home or self-care (01) | DRG 674 ==
LOC: ED 17:21 → 4A 23:21 → OBSVTOIN 02-10 11:16 → 4A 02-10 11:56
PROVIDERS: ADMIT Internal Medicine Geriatric Medicine; ATTEND Hospitalist
PROC: 0JH63XZ Insertion of Tunneled Vascular Access Device into Chest Subcutaneous Tissue and Fascia, Percutaneous Approach (ICD-10-PCS; principal; 2020-02-10)
PROC: 05HM33Z Insertion of Infusion Device into Right Internal Jugular Vein, Percutaneous Approach (ICD-10-PCS; 2020-02-10)
PROC: B543ZZA Ultrasonography of Right Jugular Veins, Guidance (ICD-10-PCS; 2020-02-10)
PROC: B5131ZA Fluoroscopy of Right Jugular Veins using Low Osmolar Contrast, Guidance (ICD-10-PCS; 2020-02-10)
PROC: 5A1D70Z Performance of Urinary Filtration, Intermittent, Less than 6 Hours Per Day (ICD-10-PCS; 2020-02-10)
PROC: 5A1D70Z Performance of Urinary Filtration, Intermittent, Less than 6 Hours Per Day (ICD-10-PCS; 2020-02-11)
DX: N17.9 Acute kidney failure, unspecified (principal); I13.2 Hypertensive heart and chronic kidney disease with heart failure and with stage 5 chronic kidney disease, or end stage renal disease; E87.2 Acidosis; N18.6 End stage renal disease; E66.01 Morbid (severe) obesity due to excess calories; Z68.35 Body mass index [BMI] 35.0-35.9, adult; E11.22 Type 2 diabetes mellitus with diabetic chronic kidney disease; F17.200 Nicotine dependence, unspecified, uncomplicated; I50.9 Heart failure, unspecified; Z71.6 Tobacco abuse counseling; Z91.14 Patient's other noncompliance with medication regimen; Z86.711 Personal history of pulmonary embolism; Z79.899 Other long term (current) drug therapy; Z79.82 Long term (current) use of aspirin
CPT/HCPCS: 36415; 36558; 71046; 76937; 77001; 80048; 80053; 80074; 82962; 83880; 84100; 85025; 85610; 93005; 93970; G0378; A9270-GY; C1750; J0360; J0690; J1644; J1815; J2250; J3010; J7030; J7040

== ENCOUNTER 2020-04-10 06:50 | Day surgery (SDC) | payer MEDICARE ==
[~2020-04-10 06:50] MED LIST: MIDAZOLAM 2 MG/2 ML INJ IV NR; SODIUM CHLORIDE 0.9% 1000 ML 1,000 ML IV SCH; ceFAZolin/STERILE WATER 2 GM/20 ML SYRINGE IV NR; fentaNYL 100 MCG/2 ML INJ IV PRN
[2020-04-10 07:23] LABS: Hematocrit 43.7 % (35.5-45.6); Hemoglobin 15.3 gm/dl (11.8-15.2); Mean Corpuscular HGB Conc 35 % (32-34); Mean Corpuscular Volume 86 fl (84-94); Platelet Count 242 K/mm3 (140-440); Red Cell Distribution Width 14.4 % (13.2-15.2)
[2020-04-10 07:40] LABS: Calcium 9.5 mg/dL (8.4-10.2)
[2020-04-10] MEDS ORDERED: LIDOCAINE MPF (2%) 20 MG/1 ML VIAL 5 ML ONE (07:43)
[2020-04-10] MEDS ORDERED: HYDROmorphone 1 MG/1 ML INJ ONE (07:43)
[2020-04-10] MEDS ORDERED: propofoL 200 MG/20 ML VIAL IV ONE (07:43)
[2020-04-10] MEDS ORDERED: ONDANSETRON 4 MG/2 ML INJ ONE (07:43)
[2020-04-10] MEDS ORDERED: dexAMETHasone 20 MG/5 ML VIAL ONE (07:43)
[2020-04-10] MEDS ORDERED: PROTAMINE SULFATE 50 MG/5 ML INJ ONE (07:44)
[2020-04-10] MEDS ORDERED: HEPARIN 10,000 UNITS/10 ML VIAL ONE (07:44)
[2020-04-10] MEDS ORDERED: SODIUM CHLORIDE 0.45% 500 ML IV ONE (07:44)
[2020-04-10] MEDS ORDERED: PAPAVERINE 60 MG/2 ML INJ SDV ONE (07:44)
[2020-04-10] MEDS ORDERED: rifAMPin 600 MG VIAL ONE (07:44)
[2020-04-10] MEDS ORDERED: SODIUM CHLORIDE P/F VIAL 10 ML 0 ML ONE (07:44)
[2020-04-10] MEDS ORDERED: SODIUM CHLORIDE 0.9% 250ML 0 ML ONE (07:45)
[2020-04-10] MEDS ORDERED: BUPIVACAINE/PF (0.5%) 5 MG/1 ML 30 ML VIAL INFILTRATI ONE (07:46)
[2020-04-10] MEDS ORDERED: LIDOCAINE (1%) 10 MG/1 ML VIAL 20 ML MDV ONE (07:46)
[2020-04-10] MEDS ORDERED: BUPIVACAINE/PF (0.25%) 2.5 MG/ML 30 ML VIAL INFILTRATI ONE (07:47)
--- NOTE | 2020-04-10 08:49 | Anesthesia Consultation ---
Anesthesia Consult and Med Hx Date of service: 04/10/20 - Airway Anesthetic Teeth Evaluation: Good ROM Head & Neck: Adequate Mental/Hyoid Distance: Adequate Mallampati Class: Class III Intubation Access Assessment: Possibly Difficult - Pulmonary Exam CTA: Yes - Cardiac Exam Cardiac Exam: RRR - Pre-Operative Health Status ASA Pre-Surgery Classification: ASA3 Proposed Anesthetic Plan: MAC Nerve Block: Supraclavicular - Pulmonary Hx Smoking: Yes (1/4 PPD X 18 YRS) Hx Respiratory Symptoms: No Hx Sleep Apnea: No ([place] PRE SCREEN HIGH RISK) - Cardiovascular System Hx Hypertension: Yes (took antihypertensives this morning) Hx Heart Attack/AMI: No (1 flight of stairs without CP/SOB) Hx Percutaneous Transluminal Coronary Angioplasty (PTCA): No Hx Cardia Arrhythmia: No - Central Nervous System CVA: No Hx Back Pain: Yes Hx Psychiatric Problems: Yes (PTSD) - Gastrointestinal Hx Gastroesophageal Reflux Disease: No - Endocrine Hx End Stage Renal Disease: Yes (last HD 04/09/20) Hx Liver Disease: No Hx Insulin Dependent Diabetes: Yes Hx Thyroid Disease: No - Hematic Hx Sickle Cell Disease: No - Other Systems Hx Obesity: Yes (BMI 32) - Additional Comments Anesthesia Medical History Comments: Hx CHF noted in chart however patient denies. Does not follow with risk analyst. No signs/symptoms HF decompensation on exam.
--- NOTE | 2020-04-10 08:49 | Anesthesia Day of Surgery ---
Anesthesia Day of Surgery - Day of Surgery Patient Examined: Yes Patient H&P Reviewed: Yes Patient is NPO: Yes Beta Blockers: Yes (cavedilol today AM)
[2020-04-10] MEDS ORDERED: HEPARIN 10,000 UNITS/10 ML VIAL IV ONE (09:17)
[2020-04-10] MEDS ORDERED: SODIUM CHLORIDE 0.9% IRR 1,500 ML BOTTLE IR ONE (09:17)
[2020-04-10] MEDS ORDERED: SODIUM CHLORIDE 0.9% 500 ML IVPB IV ONE (09:18)
--- NOTE | 2020-04-10 10:18 | Short Stay Summary ---
Short Stay Documentation Date of service: 04/10/20 Narrative H&P: See H&P - History H&P: obtained from office - Allergies and Medications Current Medications: Allergies No Known Allergies Allergy (Verified 02/09/20 17:24) Home Medications Medication Instructions Recorded Confirmed Last Taken Type Cholecalciferol (Vitamin D3) 5,000 unit PO DAILY 02/13/18 04/10/20 04/09/20 09:00 History [Vitamin D3] Metoprolol Tartrate 100 mg PO BID 02/13/18 04/10/20 04/10/20 05:00 History Rosuvastatin Calcium 20 mg PO DAILY 02/13/18 04/10/20 04/09/20 09:00 History Warfarin [Coumadin] 10 mg PO QDAY 02/13/18 04/10/20 04/09/20 09:00 History Furosemide 80 mg BID 02/10/20 04/10/20 04/09/20 17:00 History Levemir VIAL 40 units SUB-Q BID 02/10/20 04/10/20 04/09/20 22:00 History NovoLOG Flexpen 35 units SUB-Q TID 02/10/20 04/10/20 04/09/20 22:00 History amLODIPine 10 mg PO DAILY 02/10/20 04/10/20 04/10/20 05:00 History Active Medications Cefazolin Sodium (Ancef/Sterile Water 2 Gm/20 Ml) 2 gm IV PREOP NR Stop: 04/10/20 23:59 Fentanyl (Sublimaze) 100 mcg IV ONCE PRN PRN Reason: sedation for nerve block Last Admin: 04/10/20 07:50 Dose: 100 mcg Documented by: Sodium Chloride (Nacl 0.9% 1000 Ml) 1,000 mls @ 42 mls/hr IV DIRECT MELINDA Stop: 04/10/20 23:59 Last Admin: 04/10/20 07:45 Dose: 42 mls/hr Documented by: Midazolam HCl (Versed) 2 mg IV PREOP NR Stop: 04/10/20 23:59 Last Admin: 04/10/20 07:50 Dose: 2 mg Documented by: - Brief post op/procedure progress note Date of procedure: 04/10/20 Pre-op diagnosis: End-Stage Renal Disease Post-op diagnosis: same Procedure: Creation of Left Brachiocephalic Arteriovenous Fistula Anesthesia: MAC, regional Surgeon: NOEMI IBARRA Estimated blood loss: minimal Pathology: none Condition: stable - Disposition Condition at discharge: Good Disposition: DC-01 TO HOME OR SELFCARE Short Stay Discharge Plan Activity: other (No heavy lifting with left arm for 2 weeks. Use the stress ball with the left arm as often as possible.) Wound: open to air, keep clean and dry, other (Okay to wash the surgical incision with soap and water but do not soak in water for 2 weeks.) Follow up with: NOEMI IBARRA MD [Staff Physician] - 14 Days Prescriptions: HYDROcodone/APAP 7.5-325 [[place] 7.5/325] 1 each PO Q6HR PRN #30 tablet PRN Reason: Pain
--- NOTE | 2020-04-10 10:23 | Operative Report ---
Operative Report Operative Report: Date of procedure: 04/10/2020 Pre-operative diagnosis: End-Stage Renal Disease Post-operative diagnosis: End-Stage Renal Disease Procedure(s): Creation of Left Brachial Artery to Cephalic Vein Arteriovenous Fistula Surgeon: Harman Myers MD Retort Kiln Burner: None Anesthesia: Local/MAC EBL: Minimal Counts: Correct Complications: None Condition: Stable Findings: Successful creation of left arm AV fistula with palpable thrill at the completion of the case. Specimen: None Indications: The patient is a 70-year-old male with a history of end-stage renal disease who is currently on hemodialysis through a right internal jugular permacath. He is in need of long-term dialysis access and was found to be a suitable candidate for creation of a left arm arteriovenous fistula. He was given the risk, benefits, and alternative procedures and consented to the procedure. Description of Procedure: Prior to being transported to the operating room a regional block of the left arm was performed in the preoperative area. After a regional block was performed the patient was transported to the operating room and adequately sedated. His left arm was then prepped and draped in normal sterile fashion. A transverse incision was then created just below the antecubital crease and the dissection was carried down to the the cephalic vein using sharp dissection. The vein was dissected out both proximally and distally and suture ligated and divided distally. I then ran a 3 Pilar proximally in the vein, to ensure patency of the vein. Then flushed the vein with heparinized saline and flow was controlled with a bulldog clamp. I then dissected out the brachial artery through this incision circumferentially both proximal and distal and controlled the artery with vessel loops. I then placed the vessel loops on tension controlling the flow through the artery and created an arteriotomy using an 11 blade and Ortiz scissors. I created an end to side anastomosis between the cephalic vein and brachial artery using a 6-0 Prolene in running fashion. Prior to completing the anastomosis I flushed the artery both proximally and distally and then advanced a 3 Pilar proximally to break the spasm in the artery. I then completed the anastomosis and removed all vessel loops allowing flow into the fistula which had an adequate thrill. I achieved hemostasis with a combination of direct pressure and electrocautery. Once hemostasis was achieved I anesthetized the wound with 0.5% Marcaine. I then closed the wound in 2 layers and 3-0 Vicryl in a running fashion to close the deep dermal layer and 4- 0 Monocryl in a running fashion in the subcuticular layer. I dressed the wound with Dermabond. The patient tolerated the procedure well, all sponge needle and instrument counts were correct. The patient was taken to recovery in stable condition.
--- NOTE | 2020-04-10 12:33 | Post Anesthesia Evaluation ---
- Post Anesthesia Evaluation Patient Participated: Yes Airway Patent: Yes Stable Respiratory Function: Yes Nausea/Vomiting: No Temp > 96.8F: Yes Pain Manageable: Yes Adequeate Hydration: Yes Anesthesia Complications: No
[2020-04-10 12:59] VITALS: BP 131/77
== END 2020-04-10 06:51 | disposition home or self-care (01) ==
LOC: OR 06:50
PROVIDERS: ATTEND Surgery Vascular Surgery
DX: I13.2 Hypertensive heart and chronic kidney disease with heart failure and with stage 5 chronic kidney disease, or end stage renal disease (principal); E11.22 Type 2 diabetes mellitus with diabetic chronic kidney disease; N18.6 End stage renal disease; I50.9 Heart failure, unspecified; G43.909 Migraine, unspecified, not intractable, without status migrainosus; E78.00 Pure hypercholesterolemia, unspecified; F17.210 Nicotine dependence, cigarettes, uncomplicated; E66.9 Obesity, unspecified; M19.90 Unspecified osteoarthritis, unspecified site; F32.9 Major depressive disorder, single episode, unspecified; Z68.32 Body mass index [BMI] 32.0-32.9, adult; Z98.890 Other specified postprocedural states; Z86.711 Personal history of pulmonary embolism; Z87.440 Personal history of urinary (tract) infections; Z79.899 Other long term (current) drug therapy; Z79.01 Long term (current) use of anticoagulants; Z99.2 Dependence on renal dialysis; Z86.2 Personal history of diseases of the blood and blood-forming organs and certain disorders involving the immune mechanism; Z86.73 Personal history of transient ischemic attack (TIA), and cerebral infarction without residual deficits
CPT/HCPCS: 36415; 36821; 80048; 82962; 85027; C1757; J0690; J1100; J1170; J1644; J2250; J2405; J2704; J3010; J7030; J7040; 64450; J2440; J2720; J3490; J7050

== ENCOUNTER 2020-07-03 07:14 | Day surgery (SDC) | payer MEDICARE ==
[~2020-07-03 07:14] MED LIST changes: +BACTERIOSTATIC SODIUM CHLORIDE 0.9% 30 ML VIAL INFILTRATI ONE; +BUPIVACAINE/PF (0.5%) 5 MG/1 ML 30 ML VIAL INFILTRATI ONE; +HEPARIN 10,000 UNITS/10 ML VIAL ONE; -MIDAZOLAM 2 MG/2 ML INJ IV NR; +NITROGLYCERIN SYRINGE 6 ML ONE; +PROTAMINE SULFATE 50 MG/5 ML INJ ONE; +SODIUM CHLORIDE 0.9% 250ML 250 ML ONE; +SODIUM CHLORIDE 0.9% 500 ML 500 ML ONE; -ceFAZolin/STERILE WATER 2 GM/20 ML SYRINGE IV NR; +ceFAZolin/Water 2 GM/20 ML 2 GM/20 ML SYRINGE IV NR; -fentaNYL 100 MCG/2 ML INJ IV PRN; +rifAMPin 600 MG VIAL ONE
[2020-07-03] MEDS ORDERED: PHENYLEPHRINE/NS 1,000 MCG/10 ML SYRINGE (OR USE) IV ONE (07:47)
[2020-07-03] MEDS ORDERED: propofoL 200 MG/20 ML VIAL IV ONE (07:47)
[2020-07-03] MEDS ORDERED: dexAMETHasone 20 MG/5 ML VIAL ONE (07:47)
[2020-07-03] MEDS ORDERED: ONDANSETRON 4 MG/2 ML INJ ONE (07:47)
[2020-07-03] MEDS ORDERED: fentaNYL 100 MCG/2 ML INJ ONE (07:47)
[2020-07-03] MEDS ORDERED: LIDOCAINE MPF (2%) 20 MG/1 ML VIAL 5 ML ONE (07:47)
[2020-07-03] MEDS ORDERED: GLYCOPYRROLATE 0.4 MG/2 ML INJ ONE (07:47)
[2020-07-03] MEDS ORDERED: SUCCINYLCHOLINE CHLORIDE 200 MG/10 ML INJ MDV ONE (07:47)
--- NOTE | 2020-07-03 08:26 | Anesthesia Consultation ---
Anesthesia Consult and Med Hx Date of service: 07/03/20 - Airway Anesthetic Teeth Evaluation: Edentulous ROM Head & Neck: Adequate Mental/Hyoid Distance: Adequate Mallampati Class: Class II - Pre-Operative Health Status ASA Pre-Surgery Classification: ASA3 Proposed Anesthetic Plan: General - Pulmonary Hx Smoking: Yes (10/01 PPD X 18 YRS) Hx Asthma: No Hx Respiratory Symptoms: No SOB: No COPD: No Home Oxygen Therapy: No Hx Pneumonia: No Hx Sleep Apnea: Yes ([place] PRE SCREEN HIGH RISK SNORES) - Cardiovascular System Hx Hypertension: Yes Hx Coronary Artery Disease: No Hx Heart Attack/AMI: No Hx Angina: No Hx Percutaneous Transluminal Coronary Angioplasty (PTCA): No Hx Cardia Arrhythmia: No Hx Pacemaker: No Hx Internal Defibrillator: No Hx Valvular Heart Disease: No Hx Heart Murmur: No Hx Peripheral Vascular Disease: No - Central Nervous System Hx Neuromuscular Disorder: No Hx Seizures: No CVA: Yes (2000) Hx Back Pain: No Hx Psychiatric Problems: Yes (Anexity/Depression) - Gastrointestinal Hx Ulcer: No Hx Gastroesophageal Reflux Disease: No - Endocrine Hx Renal Disease: Yes Hx End Stage Renal Disease: Yes (last HD 04/09/20) Hx Cirrhosis: No Hx Liver Disease: No Hx Insulin Dependent Diabetes: Yes Hx Non-Insulin Dependent Diabetes: No Hx Thyroid Disease: No Hx Hypothyroidism: No Hx Hyperthyroidism: No - Hematic Hx Anemia: Yes Hx Sickle Cell Disease: No - Other Systems Hx Alcohol Use: No Hx Substance Use: No Hx Cancer: No Hx Obesity: Yes
[2020-07-03 08:27] LABS: Hematocrit 43.9 % (35.5-45.6); Hemoglobin 14.9 gm/dl (11.8-15.2); Mean Corpuscular HGB Conc 34 % (32-34); Mean Corpuscular Volume 92 fl (84-94); Platelet Count 223 K/mm3 (140-440); Red Blood Count 4.77 M/mm3 (3.65-5.03); Red Cell Distribution Width 15.6 % (13.2-15.2)
--- NOTE | 2020-07-03 08:28 | Anesthesia Day of Surgery ---
Anesthesia Day of Surgery - Day of Surgery Patient Examined: Yes Patient H&P Reviewed: Yes Patient is NPO: Yes
[2020-07-03 08:39] LABS: INR 1.13 (0.87-1.13)
[2020-07-03 08:40] LABS: Calcium 9.6 mg/dL (8.4-10.2)
[2020-07-03] MEDS ORDERED: HEPARIN 10,000 UNITS/10 ML VIAL IV ONE (10:18)
[2020-07-03] MEDS ORDERED: BUPIVACAINE/PF (0.5%) 5 MG/1 ML 10 ML VIAL INFILTRATI ONE (10:19)
[2020-07-03] MEDS ORDERED: SODIUM CHLORIDE 0.9% 500 ML IVPB IV ONE (10:20)
[2020-07-03] MEDS ORDERED: rifAMPin 600 MG VIAL IV ONE (10:20)
[2020-07-03] MEDS ORDERED: SODIUM CHLORIDE 0.9% 250 ML IVPB IV ONE (10:21)
[2020-07-03] MEDS ORDERED: SODIUM CHLORIDE 0.9% P/F 10 ML VIAL IV ONE (10:21)
[2020-07-03] MEDS ORDERED: HEPARIN 10,000 UNIT/1 ML VIAL IV PRN (11:03)
--- NOTE | 2020-07-03 11:07 | Short Stay Summary ---
Short Stay Documentation Date of service: 07/03/20 Narrative H&P: See H&P - History H&P: obtained from office - Allergies and Medications Current Medications: Allergies No Known Allergies Allergy (Verified 02/09/20 17:24) Home Medications Medication Instructions Recorded Confirmed Last Taken Type Metoprolol Tartrate 100 mg PO BID 02/13/18 07/03/20 07/02/20 16:00 History Rosuvastatin Calcium 20 mg PO DAILY 02/13/18 07/03/20 07/02/20 16:00 History Warfarin [Coumadin] 10 mg PO QDAY 02/13/18 07/03/20 07/02/20 23:00 History Furosemide 80 mg BID 02/10/20 07/03/20 07/02/20 16:00 History Levemir VIAL 40 units SUB-Q BID 02/10/20 07/03/20 07/02/20 16:00 History NovoLOG Flexpen 35 units SUB-Q TID 02/10/20 07/03/20 07/02/20 16:00 History amLODIPine 10 mg PO DAILY 02/10/20 07/03/20 07/02/20 17:00 History Active Medications Cefazolin Sodium (Ancef/Sterile Water 2 Gm/20 Ml) 2 gm in 20 mls @ 80 mls/hr IV PREOP NR; Protocol Stop: 07/03/20 23:59 Sodium Chloride (Nacl 0.9% 1000 Ml) 1,000 mls @ 42 mls/hr IV DIRECT MELINDA Last Admin: 07/03/20 09:00 Dose: 42 mls/hr Documented by: - Brief post op/procedure progress note Date of procedure: 07/03/20 Pre-op diagnosis: End-Stage Renal Disease Post-op diagnosis: same Procedure: Creation of Left Brachial Artery to Axillary Vein Arteriovenous Graft with 6 mm Bovine Artegraft Anesthesia: GETA Surgeon: NOEMI IBARRA Estimated blood loss: 50-100ml Pathology: none Condition: stable - Disposition Condition at discharge: Good Disposition: DC-01 TO HOME OR SELFCARE Short Stay Discharge Plan Activity: other (No heavy lifting with left arm) Wound: open to air, keep clean and dry, other (Okay to wash the wound with soap and water but do not soak in water for 2 weeks.) Follow up with: NOEMI IBARRA MD [Staff Physician] - 14 Days Prescriptions: HYDROcodone/APAP 7.5-325 [[place] 7.5/325] 1 each PO Q6HR PRN #30 tablet PRN Reason: Pain
--- NOTE | 2020-07-03 11:08 | Operative Report ---
Operative Report Operative Report: Date of procedure: 07/03/2020 Pre-operative diagnosis: End-Stage Renal Disease Post-operative diagnosis: Same Procedure(s): 1. Creation of Left Brachial Artery to Axillary Vein AV Graft with 6 mm Bovine Graft Artergraft Surgeon: Harman Myers MD Service Operations Manager: None Anesthesia: General Endotracheal Anesthesia EBL: Minimal Counts: Correct Complications: None Condition: Stable Findings: Successful Creation of Left Arm AV Graft Specimen: None Indication: The patient is a 70-year-old male with a history of end-stage renal disease who had a previous creation of a left arm arteriovenous fistula that failed to mature and eventually thrombosed. He is in need of long-term dialysis access and requires creation of an AV graft. He was given the risk, benefits, and alternative procedures and consented to the procedure. Description of Procedure: The patient was brought to the operating room and laid in supine position after general endotracheal anesthesia was achieved the left arm was prepped and draped in normal sterile fashion. A longitudinal incision was made on the medial aspect of the arm just proximal to the antecubital crease and carried down to the brachial artery using sharp dissection. The brachial artery was dissected out circumferentially both proximally and distally and controlled with vessel loops. A second incision was created in longitudinal fashion on the medial aspect of the arm just distal to the axillary crease and carried down to the axillary vein using sharp dissection. Axillary vein was dissected out circumferentially and controlled with a vessel loop. I then used a Becka-Wick tunneler to tunnel from the brachial artery incision to the axillary vein i ncision and then put an 6 mm bovine through the tunnel. I infused with heparinized saline to ensure that it was not twisted or kinked. I put the brachial artery vessel loops on tension controlling the flow and then created an arteriotomy using an 11 blade and Ortiz scissors. I beveled the graft and created an end-to-side anastomosis using 6-0 Prolene running fashion. I clamped the graft just proximal to the anastomosis and then released the vessel loops restoring flow in the brachial artery. I placed quick clot in incision to achieve hemostasis. I cut the proximal end of the graft to the appropriate length and beveled the graft in preparation for a venous anastomosis. I controlled the axillary vein a Satinsky clamp and created a venotomy using an 11 blade and Ortiz scissors. I created an end to side anastomosis using a 6-0 Prolene in running fashion. Prior to completing the anastomosis I flushed the graft to ensure there was no thrombus and then completed the anastamosis. I r eleased all clamps allowing flow into the AV graft which had an excellent thrill. I packed the wound with quick clot to achieve hemostasis. I anesthetized both wounds with 0.5% Marcaine and then closed both wounds in 2 layers using 3-0 Vicryl in running fashion in the deep dermal layer and 4-0 Monocryl in running fashion the subcuticular layer. I dressed both wounds with Dermabond. The patient tolerated the procedure well all sponge needle and instrument counts were correct the patient was taken to recovery in stable condition.
[2020-07-03] MEDS ORDERED: ePHEDrine SULFATE 50 MG/1 ML INJ ONE (12:03)
[2020-07-03] MEDS ORDERED: ePHEDrine SULFATE 50 MG/1 ML INJ IV SCH (13:00)
[2020-07-03 13:20] VITALS: BP 100/57
--- NOTE | 2020-07-03 14:37 | Post Anesthesia Evaluation ---
- Post Anesthesia Evaluation Patient Participated: Yes Airway Patent: Yes Stable Respiratory Function: Yes Nausea/Vomiting: No Temp > 96.8F: Yes Pain Manageable: Yes Adequeate Hydration: Yes Anesthesia Complications: No Block Receding Appropriately: Not Applicable Patient on Ventilator: No Other Comments: Pt fell at home this morning. Face with slight droop. concurred so directed them to ED for eval. R/O CVA/TIA
== END 2020-07-03 07:15 | disposition home or self-care (01) ==
LOC: OR 07:14
PROVIDERS: ATTEND Surgery Vascular Surgery
DX: I12.0 Hypertensive chronic kidney disease with stage 5 chronic kidney disease or end stage renal disease (principal); N18.6 End stage renal disease; E11.22 Type 2 diabetes mellitus with diabetic chronic kidney disease; E78.00 Pure hypercholesterolemia, unspecified; G47.30 Sleep apnea, unspecified; E66.9 Obesity, unspecified; M19.90 Unspecified osteoarthritis, unspecified site; F32.9 Major depressive disorder, single episode, unspecified; F41.9 Anxiety disorder, unspecified; Z86.711 Personal history of pulmonary embolism; Z98.890 Other specified postprocedural states; Z86.73 Personal history of transient ischemic attack (TIA), and cerebral infarction without residual deficits
CPT/HCPCS: 36415; 36830; 80048; 82962; 85027; 85610; C1768; J0330; J0690; J1100; J1644; J2370; J2405; J2704; J3010; J3490; J7030; J7040; J7050; J2720

== ENCOUNTER 2020-07-03 14:23 | Inpatient (IN) | payer MEDICARE ==
[2020-07-03 15:02] LABS: Basophils # (Auto) 0.1 K/mm3 (0.0-0.1); Basophils % (Auto) 0.6 % (0.0-1.8); Eosinophils % (Auto) 0.1 % (0.0-4.3); Hematocrit 42.3 % (35.5-45.6); Hemoglobin 14.3 gm/dl (11.8-15.2); Lymphocytes % (Auto) 11.1 % (13.4-35.0); Mean Corpuscular HGB Conc 34 % (32-34); Mean Corpuscular Volume 92 fl (84-94); Monocytes # (Auto) 0.2 K/mm3 (0.0-0.8); Monocytes % (Auto) 2.6 % (0.0-7.3); Platelet Count 217 K/mm3 (140-440); Red Cell Distribution Width 16.1 % (13.2-15.2)
--- NOTE | 2020-07-03 15:02 | Cat Scan Report ---
CT head/brain wo con INDICATION / CLINICAL INFORMATION: 70 years Male; MAIN. Cerebrovascular accident. TECHNIQUE: Routine CT head without contrast. All CT scans at this location are performed using CT dos e reduction for ALARA by means of automated exposure control. COMPARISON: The study is compared to the previous CT of 07/17/2019. FINDINGS: BRAIN / INTRACRANIAL CONTENTS: There is an older infarct involving the left gangliocapsular region wi th encephalomalacia. There is otherwise extensive cerebral and pontine white matter disease most cons istent with microvascular angiopathy. The findings correlate with the previous study. There is mild c erebral atrophy along with ex vacuo dilatation of the anterior left lateral ventricle. There is no cl ear CT evidence of acute intracranial hemorrhage or significant mass effect. ORBITS: No significant abnormality of visualized orbits. SINUSES / MASTOIDS: No significant abnormality in the visualized paranasal sinuses or mastoid air mickie ls. CRANIOCERVICAL JUNCTION: No significant abnormality. ADDITIONAL FINDINGS: None. IMPRESSION: 1. There is continued extensive microvascular angiopathy and old infarct along the left ganglia capsu lar region as described. There is no CT evidence of acute intracranial hemorrhage. The study was specified as code stroke and called emergently to Dr. Camacho in the ER at 1:56 PM Cent [facility] standard time. Signer Name: Magnus Roberts MD Signed: 07/03/2020 2:58 PM Workstation Name: [id number]
--- NOTE | 2020-07-03 15:07 | Consultation ---
Medications and Allergies Allergies Allergy/AdvReac Type Severity Reaction Status Date / Time No Known Allergies Allergy Verified 02/09/20 17:24 Home Medications Medication Instructions Recorded Confirmed Last Taken Type Metoprolol Tartrate 100 mg PO BID 02/13/18 07/03/20 07/02/20 16:00 History Rosuvastatin Calcium 20 mg PO DAILY 02/13/18 07/03/20 07/02/20 16:00 History Warfarin [Coumadin] 10 mg PO QDAY 02/13/18 07/03/20 07/02/20 23:00 History Furosemide 80 mg BID 02/10/20 07/03/20 07/02/20 16:00 History Levemir VIAL 40 units SUB-Q BID 02/10/20 07/03/20 07/02/20 16:00 History NovoLOG Flexpen 35 units SUB-Q TID 02/10/20 07/03/20 07/02/20 16:00 History amLODIPine 10 mg PO DAILY 02/10/20 07/03/20 07/02/20 17:00 History HYDROcodone/APAP 7.5-325 [[place] 1 each PO Q6HR PRN #30 tablet 07/03/20 Unknown Rx 7.5/325] Physical Examination - Vital Signs Vital Signs: Vital Signs Temp Pulse Resp BP Pulse Ox 98.7 F 82 18 146/82 100 07/03/20 14:33 07/03/20 14:33 07/03/20 14:33 07/03/20 14:33 07/03/20 14:33 Results - Laboratory Findings CBC and BMP: 07/03/20 14:51 Abnormal Lab Findings: Abnormal Labs 07/03/20 07/03/20 14:51 14:55 RDW 16.1 H Lymph % (Auto) 11.1 L Lymph # (Auto) 1.0 L Seg Neutrophils % 85.6 H Seg Neutrophils # 7.9 H POC Glucose 278 H Assessment and Plan [facility] Date of Service: 07/03/2020 14:40:32 Impression: Rule Out Acute Ischemic Stroke Comments/Sign-Out: 70 yo M h/o ESRD on HD, arm graft placed today p/w episode of facial weakness today, last normal 10/5 prior to sleep. Pt had a procedure today, and a clinic appointment with surgery, he was sent for facial weakness evaluation at the time of clinic appointment. Pt is able to give history. Mechanism of Stroke: Not Clear Metrics: Last Known Well: 07/02/2020 20:00:00 [facility] Notification Time: 07/03/2020 14:40:12 Arrival Time: 07/03/2020 14:51:12 Stamp Time: 07/03/2020 14:40:32 Time First Login Attempt: 07/03/2020 14:45:02 Video Start Time: 07/03/2020 14:45:02 Symptoms: facial weakness and fall while walking down stairs NIHSS Start Assessment Time: 07/03/2020 14:55:53 Patient is not a candidate for Alteplase/Activase. Patient was not deemed candidate for Alteplase/Activase thrombolytics because of Last Well Known Above 4.5 Hours. Video End Time: 07/03/2020 15:06:06 CT head showed no acute hemorrhage or acute core infarct. Clinical Presentation is not Suggestive of Large Vessel Occlusive Disease ED Physician notified of diagnostic impression and management plan on 07/03/2020 15:06:06 Sign Out: Inpatient stroke workup Discussed with Emergency Department Provider History of Present Illness: Patient is a 70 year old Male. Patient was brought by private transportation with symptoms of facial weakness and fall while walking down stairs 70 yo M h/o ESRD on HD, arm graft placed today p/w episode of facial weakness today, last normal 10/ prior to sleep. Pt had a procedure today, and a clinic appointment with surgery, he was sent for facial weakness evaluation at the time of clinic appointment. Pt is able to give history. Last seen normal was beyond 4.5 hours of presentation. There is history of Recent Anticoagulants. Past Medical History: Hypertension Diabetes Mellitus Anticoagulant use: warfarin Antiplatelet use: No Examination: BP(146/82), Pulse(82), Blood Glucose(278) 1A: Level of Consciousness - Alert; keenly responsive + 0 1B: Ask Month and Age - Both Questions Right + 0 1C: Blink Eyes & Squeeze Hands - Performs Both Tasks + 0 2: Test Horizontal Extraocular Movements - Normal + 0 3: Test Visual Sidhu - No Visual Loss + 0 4: Test Facial Palsy (Use Grimace if Obtunded) - Minor paralysis (flat nasolabial fold, smile asymmetry) + 1 5A: Test Left Arm Motor Drift - No Drift for 10 Seconds + 0 5B: Test Right Arm Motor Drift - No Drift for 10 Seconds + 0 6A: Test Left Leg Motor Drift - No Drift for 5 Seconds + 0 6B: Test Right Leg Motor Drift - No Drift for 5 Seconds + 0 7: Test Limb Ataxia (FNF/Heel-Garcia) - No Ataxia + 0 8: Test Sensation - Normal; No sensory loss + 0 9: Test Language/Aphasia - Normal; No aphasia + 0 10: Test Dysarthria - Normal + 0 11: Test Extinction/Inattention - No abnormality + 0 NIHSS Score: 1 Patient/Family was informed the Neurology Consult would happen via TeleHealth consult by way of interactive audio and video telecommunications and consented to receiving care in this manner. Due to the immediate potential for life-threatening deterioration due to underlying acute neurologic illness, I spent 33 minutes providing critical care. This time includes time for face to face visit via telemedicine, review of medical records, imaging studies and discussion of findings with providers, the patient and/or family. Dr Corie Shah [facility] Case [id number]
[2020-07-03 15:17] LABS: Calcium 8.9 mg/dL (8.4-10.2)
--- NOTE | 2020-07-03 15:19 | Emergency Department Report ---
ED Neuro Deficit HPI - General Chief Complaint: Neuro Symptoms/Deficit Stated Complaint: FACIAL DROOPING Time Seen by Provider: 07/03/20 14:51 Source: patient Mode of arrival: Ambulatory Limitations: No Limitations - History of Present Illness Initial Comments: Patient is 70 years old male with history of end-stage renal disease on hemodialysis, hypertension diabetes. Patient brought to the emergency room from a recovery room after patient had fistula today. Patient stated that he is having facial weakness since yesterday last night and feeling dizzy and fell while going down a step. Patient is currently denying any headache, neck pain, chest pain, shortness of breath. No focal weakness or numbness or tingling sensation extremities. Stroke protocol initiated and patient examined by telemetry neurologist Dr. Shah, she advised to admit the patient to medical service for stroke work-up. -: Last night Location: right face Context: gradual onset Associated Symptoms: denies other symptoms - Related Data Home Medications: Home Medications Medication Instructions Recorded Confirmed Last Taken Metoprolol Tartrate 100 mg PO BID 02/13/18 07/03/20 07/02/20 16:00 Rosuvastatin Calcium 20 mg PO DAILY 02/13/18 07/03/20 07/02/20 16:00 Warfarin [Coumadin] 10 mg PO QDAY 02/13/18 07/03/20 07/02/20 23:00 Furosemide 80 mg BID 02/10/20 07/03/20 07/02/20 16:00 Levemir VIAL 40 units SUB-Q BID 02/10/20 07/03/20 07/02/20 16:00 NovoLOG Flexpen 35 units SUB-Q TID 02/10/20 07/03/20 07/02/20 16:00 amLODIPine 10 mg PO DAILY 02/10/20 07/03/20 07/02/20 17:00 Previous Rx's Medication Instructions Recorded Last Taken Type HYDROcodone/APAP 7.5-325 [[facility] [place] 1 each PO Q6HR PRN #30 tablet 07/03/20 Unknown Rx 7.5/325] Allergies/Adverse Reactions: Allergies Allergy/AdvReac Type Severity Reaction Status Date / Time No Known Allergies Allergy Verified 02/09/20 17:24 ED Review of Systems ROS: Stated complaint: FACIAL DROOPING Other details as noted in HPI Comment: All other systems reviewed and negative Constitutional: denies: chills, fever Respiratory: denies: cough, shortness of breath, SOB with exertion, SOB at rest Cardiovascular: denies: chest pain, palpitations Gastrointestinal: denies: abdominal pain, nausea, vomiting Genitourinary: denies: urgency, dysuria Musculoskeletal: denies: back pain Neurological: denies: headache, weakness, numbness, paresthesias, confusion, abnormal gait ED Past Medical Hx - Past Medical History Previous Medical History?: Yes Hx Hypertension: Yes Hx Heart Attack/AMI: No Hx Congestive Heart Failure: No Hx Diabetes: Yes Hx Pulmonary Embolism: Yes (2014- ON COUMADIN) Hx GERD: No Hx Liver Disease: No Hx Renal Disease: Yes Hx Sickle Cell Disease: No Hx Arthritis: Yes (LEGS,HIPS,BACK) Hx Headaches / Migraines: Yes (MIGRAINES) Hx Seizures: No Hx Kidney Stones: No Hx Asthma: No Hx COPD: No Hx Tuberculosis: No Hx Dementia: Yes (MILD) Hx HIV: No Additional medical history: Chronic Kidney diseae for years, PE - Surgical History Past Surgical History?: Yes Hx Coronary Stent: No Hx Pacemaker: No Hx Internal Defibrillator: No Additional Surgical History: Right femur fx 1980s - Social History Smoking Status: Current Every Day Smoker - Medications Home Medications: Home Medications Medication Instructions Recorded Confirmed Last Taken Type Metoprolol Tartrate 100 mg PO BID 02/13/18 07/03/20 07/02/20 16:00 History Rosuvastatin Calcium 20 mg PO DAILY 02/13/18 07/03/20 07/02/20 16:00 History Warfarin [Coumadin] 10 mg PO QDAY 02/13/18 07/03/20 07/02/20 23:00 History Furosemide 80 mg BID 02/10/20 07/03/20 07/02/20 16:00 History Levemir VIAL 40 units SUB-Q BID 02/10/20 07/03/20 07/02/20 16:00 History NovoLOG Flexpen 35 units SUB-Q TID 02/10/20 07/03/20 07/02/20 16:00 History amLODIPine 10 mg PO DAILY 02/10/20 07/03/20 07/02/20 17:00 History HYDROcodone/APAP 7.5-325 [[facility] 1 each PO Q6HR PRN #30 tablet 07/03/20 Unknown Rx 7.5/325] ED Neuro Physical Exam - General Limitations: No Limitations General appearance: alert, in no apparent distress Suspected Stroke: Yes - Head Head exam: Present: atraumatic, normocephalic, normal inspection - Eye Eye exam: Present: normal appearance - ENT ENT exam: Present: normal exam, normal orophraynx, mucous membranes moist - Neck Neck exam: Present: normal inspection, full ROM. Absent: tenderness, meningismus, lymphadenopathy, thyromegaly - Respiratory Respiratory exam: Present: normal lung sounds bilaterally - Cardiovascular Cardiovascular Exam: Present: regular rate, normal rhythm, normal heart sounds - GI/Abdominal GI/Abdominal exam: Present: soft, normal bowel sounds. Absent: distended, tenderness, guarding, rebound, rigid, organomegaly, mass, bruit, pulsatile mass, hernia - Extremities Exam Extremities exam: Present: normal inspection, full ROM, normal capillary refill. Absent: tenderness, pedal edema, calf tenderness - Back Exam Back exam: Present: normal inspection, full ROM. Absent: CVA tenderness (R), CVA tenderness (L) - Neurological Exam Neurological exam: Present: alert, oriented X3, CN II-XII intact - NIHSS Assessment Interval: Baseline 1a. Level of Consciousness: alert/keenly responsive 1b. LOC Questions: answers both correctly 1c. LOC Commands: performs tasks correctly 2. Best Gaze: normal 3. Visual: no visual loss 4. Facial Palsy: partial paralysis 5b. Motor Arm Right: no drift 5a. Motor Arm Left: no drift 6a. Motor Leg Left: no drift 6b. Motor Leg Right: no drift 7. Limb Ataxia: absent 8. Sensory: normal 9. Best Language: no aphasia 10. Dysarthria: normal 11. Extinction/Inattention: no abnormality Total Score: 2 Stroke Severity: Minor Stroke - Psychiatric Psychiatric exam: Present: normal mood - Skin Skin exam: Present: warm, intact, normal color ED Course Vital Signs 07/03/20 07/03/20 14:33 15:17 Temperature 98.7 F 98.2 F Pulse Rate 82 76 Respiratory 18 16 Rate Blood Pressure 146/82 136/87 [Right] O2 Sat by Pulse 100 97 Oximetry - Lab Data Result diagrams: 07/03/20 14:51 Lab Results 07/03/20 07/03/20 07/03/20 Range/Units 14:51 14:51 14:51 WBC 9.2 (4.5-11.0) K/mm3 RBC 4.60 (3.65-5.03) M/mm3 Hgb 14.3 (11.8-15.2) gm/dl Hct 42.3 (35.5-45.6) % MCV 92 (84-94) fl MCH 31 (28-32) pg MCHC 34 (32-34) % RDW 16.1 H (13.2-15.2) % Plt Count 217 (140-440) K/mm3 Lymph % (Auto) 11.1 L (13.4-35.0) % [place] % (Auto) 2.6 (0.0-7.3) % Eos % (Auto) 0.1 (0.0-4.3) % Baso % (Auto) 0.6 (0.0-1.8) % Lymph # (Auto) 1.0 L (1.2-5.4) K/mm3 [place] # (Auto) 0.2 (0.0-0.8) K/mm3 Eos # (Auto) 0.0 (0.0-0.4) K/mm3 Baso # (Auto) 0.1 (0.0-0.1) K/mm3 Seg Neutrophils % 85.6 H (40.0-70.0) % Seg Neutrophils # 7.9 H (1.8-7.7) K/mm3 PT 15.4 H (12.2-14.9) Sec. INR 1.19 H (0.87-1.13) APTT 33.6 (24.2-36.6) Sec. Thrombin Time 18.4 (15.1-19.6) Sec. POC Glucose (70-105) 07/03/20 Range/Units 14:55 WBC (4.5-11.0) K/mm3 RBC (3.65-5.03) M/mm3 Hgb (11.8-15.2) gm/dl Hct (35.5-45.6) % MCV (84-94) fl MCH (28-32) pg MCHC (32-34) % RDW (13.2-15.2) % Plt Count (140-440) K/mm3 Lymph % (Auto) (13.4-35.0) % [place] % (Auto) (0.0-7.3) % Eos % (Auto) (0.0-4.3) % Baso % (Auto) (0.0-1.8) % Lymph # (Auto) (1.2-5.4) K/mm3 [place] # (Auto) (0.0-0.8) K/mm3 Eos # (Auto) (0.0-0.4) K/mm3 Baso # (Auto) (0.0-0.1) K/mm3 Seg Neutrophils % (40.0-70.0) % Seg Neutrophils # (1.8-7.7) K/mm3 PT (12.2-14.9) Sec. INR (0.87-1.13) APTT (24.2-36.6) Sec. Thrombin Time (15.1-19.6) Sec. POC Glucose 278 H (70-105) - EKG Data -: EKG Interpreted by Me - Radiology Data Radiology results: report reviewed - Medical Decision Making Patient is 70 years old male with history of end-stage renal disease on hemodialysis, hypertension diabetes. Patient brought to the emergency room from a recovery room after patient had fistula today. Patient stated that he is having facial weakness since yesterday last night and feeling dizzy and fell while going down a step. Patient is currently denying any headache, neck pain, chest pain, shortness of breath. No focal weakness or numbness or tingling sensation extremities. Stroke protocol initiated and patient examined by telemetry neurologist Dr. Shah, she advised to admit the patient to medical service for stroke work-up. Labs reviewed and is unremarkable. CT brain is negative. No clinical evidence of large vessels occlusion. I discussed the patient with Dr. Storm, he agreed to admit the patient to medical service for further management. Critical Care Time: Yes Critical care time in (mins) excluding proc time.: 30 Critical care attestation.: If time is entered above; I have spent that time in minutes in the direct care of this critically ill patient, excluding procedure time. ED Disposition Clinical Impression: CVA (cerebral vascular accident) Disposition: OP ADMIT IP TO THIS HOSP Is pt being admited?: Yes Condition: Stable
[2020-07-03 15:20] LABS: INR 1.19 (0.87-1.13)
[2020-07-03 15:21] LABS: Partial Thromboplastin Time 33.6 Sec. (24.2-36.6)
[2020-07-03 15:47] LABS: Chol/HDL Ratio 1.9 %
[2020-07-03] MEDS: INSULIN LISPRO 100 UNIT/ML VIAL 3 mL SUB-Q SCH ×2 (22:34→22:35)
[2020-07-03] MEDS ORDERED: HYDROmorphone 1 MG/1 ML INJ IV PRN (22:59)
[2020-07-03] MEDS ORDERED: ONDANSETRON 4 MG/2 ML INJ IV PRN (22:59)
[2020-07-03] MEDS ORDERED: ACETAMINOPHEN 325 MG TAB PO PRN (22:59)
--- NOTE | 2020-07-03 23:09 | History and Physical Report ---
History of Present Illness Date of examination: 07/03/20 Date of admission: 07/03/20 16:06 Chief complaint: Right facial and right-sided weakness History of present illness: 70-year-old male with history of hypertension, hyperlipidemia, insulin-dependent diabetes and CHF sent from the primary care physician for right facial weakness and feeling dizzy since last night. Also some right-sided weakness present. No shortness of breath or no cough no fever. Disc symptoms have been going on since last night. Patient is not a candidate for TPA because of the timeline. Code stroke was called. - Past Medical History Previous Medical History?: Yes Hypertension: Yes Diabetes: Yes Pulmonary Embolism: Yes (2014- ON COUMADIN) Renal Disease: Yes Arthritis: Yes (LEGS,HIPS,BACK) Headaches / Migraines: Yes (MIGRAINES) Dementia: Yes (MILD) Additional medical history: Chronic Kidney diseae for years, PE - Surgical History Past Surgical History?: Yes Additional Surgical History: Right femur fx 1980s - Social History Smoking Status: Current Every Day Smoker - Medications Home Medications: Home Medications Medication Instructions Recorded Confirmed Last Taken Type Metoprolol Tartrate 100 mg PO BID 02/13/18 07/03/20 07/02/20 16:00 History Rosuvastatin Calcium 20 mg PO DAILY 02/13/18 07/03/20 07/02/20 16:00 History Warfarin [Coumadin] 10 mg PO QDAY 02/13/18 07/03/20 07/02/20 23:00 History Furosemide 80 mg BID 02/10/20 07/03/20 07/02/20 16:00 History Levemir VIAL 40 units SUB-Q BID 02/10/20 07/03/20 07/02/20 16:00 History NovoLOG Flexpen 35 units SUB-Q TID 02/10/20 07/03/20 07/02/20 16:00 History amLODIPine 10 mg PO DAILY 02/10/20 07/03/20 07/02/20 17:00 History HYDROcodone/APAP 7.5-325 [[place] 1 each PO Q6HR PRN #30 tablet 07/03/20 Unknown Rx 7.5/325] Review of Systems ROS: Stated complaint: FACIAL DROOPING Other details as noted in HPI Comment: All other systems reviewed and negative Constitutional: denies: chills, fever Respiratory: denies: cough, shortness of breath, SOB with exertion, SOB at rest Cardiovascular: denies: chest pain, palpitations Gastrointestinal: denies: abdominal pain, nausea, vomiting Genitourinary: denies: urgency, dysuria Musculoskeletal: denies: back pain Neurological: denies: headache, weakness, numbness, paresthesias, confusion, abnormal gait Medications and Allergies Allergies Allergy/AdvReac Type Severity Reaction Status Date / Time No Known Allergies Allergy Verified 07/03/20 15:42 Home Medications Medication Instructions Recorded Confirmed Last Taken Type Metoprolol Tartrate 100 mg PO BID 02/13/18 07/03/20 07/02/20 16:00 History Rosuvastatin Calcium 20 mg PO DAILY 02/13/18 07/03/20 07/02/20 16:00 History Warfarin [Coumadin] 5 mg PO QDAY 02/13/18 07/03/20 07/02/20 23:00 History Furosemide 80 mg BID 02/10/20 07/03/20 07/02/20 16:00 History Levemir VIAL 40 units SUB-Q BID 02/10/20 07/03/20 07/02/20 16:00 History NovoLOG Flexpen 35 units SUB-Q TID 02/10/20 07/03/20 07/02/20 16:00 History amLODIPine 10 mg PO DAILY 02/10/20 07/03/20 07/02/20 17:00 History Active Meds: Active Medications Insulin Human Lispro (Humalog) 0 unit SUB-Q [facility]; Protocol Last Admin: 07/03/20 22:35 Dose: 8 unit Documented by: Exam - Constitutional Vitals: Temp Pulse Resp BP Pulse Ox 98.2 F 72 18 173/65 96 07/03/20 15:17 07/03/20 18:03 07/03/20 18:03 07/03/20 19:31 07/03/20 19:31 General appearance: Present: no acute distress, well-nourished - EENT Eyes: Present: PERRL ENT: hearing intact, clear oral mucosa - Neck Neck: Present: supple, normal ROM - Respiratory Respiratory effort: normal Respiratory: bilateral: CTA - Cardiovascular Heart rate: 88 Rhythm: irregularly irregular Heart Sounds: Present: S1 & S2. Absent: rub, click - Extremities Extremities: no ischemia, pulses symmetrical, No edema Peripheral Pulses: within normal limits - Abdominal General gastrointestinal: Present: soft, non-tender, non-distended, normal bowel sounds Male genitourinary: Present: normal - Rectal Rectal Exam: deferred - Integumentary Integumentary: Present: clear, warm, dry - Musculoskeletal Musculoskeletal: right sided weakness - Psychiatric Psychiatric: appropriate mood/affect, intact judgment & insight - Neurologic Neurologic: focal deficits HEART Score - HEART Score History: Moderately suspicious Age: > 65 Risk factors: > 3 risk factors or hx of atherosclerotic disease Troponin: Troponin T 0.118 ng/mL (0.00-0.029) H* 07/03/20 14:51 - Critical Actions Critical Actions: 4-6 pts:12-16.6% risk of adverse cardiac event. Should be admitted Results - Labs CBC & Chem 7: 07/04/20 05:44 07/04/20 05:44 Labs: Laboratory Last Values WBC 9.2 K/mm3 (4.5-11.0) 07/03/20 14:51 RBC 4.60 M/mm3 (3.65-5.03) 07/03/20 14:51 Hgb 14.3 gm/dl (11.8-15.2) 07/03/20 14:51 Hct 42.3 % (35.5-45.6) 07/03/20 14:51 MCV 92 fl (84-94) 07/03/20 14:51 MCH 31 pg (28-32) 07/03/20 14:51 MCHC 34 % (32-34) 07/03/20 14:51 RDW 16.1 % (13.2-15.2) H 07/03/20 14:51 Plt Count 217 K/mm3 (140-440) 07/03/20 14:51 Lymph % (Auto) 11.1 % (13.4-35.0) L 07/03/20 14:51 [place] % (Auto) 2.6 % (0.0-7.3) 07/03/20 14:51 Eos % (Auto) 0.1 % (0.0-4.3) 07/03/20 14:51 Baso % (Auto) 0.6 % (0.0-1.8) 07/03/20 14:51 Lymph # (Auto) 1.0 K/mm3 (1.2-5.4) L 07/03/20 14:51 [place] # (Auto) 0.2 K/mm3 (0.0-0.8) 07/03/20 14:51 Eos # (Auto) 0.0 K/mm3 (0.0-0.4) 07/03/20 14:51 Baso # (Auto) 0.1 K/mm3 (0.0-0.1) 07/03/20 14:51 Seg Neutrophils % 85.6 % (40.0-70.0) H 07/03/20 14:51 Seg Neutrophils # 7.9 K/mm3 (1.8-7.7) H 07/03/20 14:51 PT 15.4 Sec. (12.2-14.9) H 07/03/20 14:51 INR 1.19 (0.87-1.13) H 07/03/20 14:51 APTT 33.6 Sec. (24.2-36.6) 07/03/20 14:51 Thrombin Time 18.4 Sec. (15.1-19.6) 07/03/20 14:51 Sodium 133 mmol/L (137-145) L 07/03/20 14:51 Potassium 5.1 mmol/L (3.6-5.0) H D 07/03/20 14:51 Chloride 93.1 mmol/L (98-107) L 07/03/20 14:51 Carbon Dioxide 20 mmol/L (22-30) L 07/03/20 14:51 Anion Gap 25 mmol/L 07/03/20 14:51 BUN 34 mg/dL (9-20) H 07/03/20 14:51 Creatinine 9.1 mg/dL (0.8-1.3) H 07/03/20 14:51 Estimated GFR 7 ml/min 07/03/20 14:51 BUN/Creatinine Ratio 4 % 07/03/20 14:51 Glucose 298 mg/dL (75-100) H 07/03/20 14:51 POC Glucose 418 (70-105) H 07/03/20 21:06 Calcium 8.9 mg/dL (8.4-10.2) 07/03/20 14:51 Troponin T 0.118 ng/mL (0.00-0.029) H* 07/03/20 14:51 Triglycerides 101 mg/dL (2-149) 07/03/20 14:51 Cholesterol 76 mg/dL (50-199) 07/03/20 14:51 LDL Cholesterol Direct 21 mg/dL (50-130) L 07/03/20 14:51 HDL Cholesterol 40 mg/dL (40-59) 07/03/20 14:51 Cholesterol/HDL Ratio 1.90 % 07/03/20 14:51 Short CBC 07/03/20 07/04/20 Range/Units 14:51 05:44 WBC 9.2 9.1 (4.5-11.0) K/mm3 Hgb 14.3 12.6 (11.8-15.2) gm/dl Hct 42.3 38.2 (35.5-45.6) % Plt Count 217 204 (140-440) K/mm3 BMP 07/03/20 07/04/20 14:51 05:44 Sodium 133 L 132 L Potassium 5.1 H D 4.6 Chloride 93.1 L 90.1 L Carbon Dioxide 20 L 21 L BUN 34 H 47 H Creatinine 9.1 H 11.2 H Glucose 298 H 374 H Calcium 8.9 8.3 L Cardiac Enzymes 07/03/20 Range/Units 14:51 Troponin T 0.118 H* (0.00-0.029) ng/mL Liver Function 07/04/20 Range/Units 05:44 Total Bilirubin 0.20 (0.1-1.2) mg/dL AST 7 (5-40) units/L ALT 5 L (7-56) units/L Alkaline Phosphatase 69 (35-129) units/L Albumin 3.3 L (3.9-5) g/dL - Imaging and Cardiology EKG: report reviewed Chest x-ray: report reviewed CT Scan - head: report reviewed Recinos/IV: Voiding Method Urinal IV Catheter Type [Right Hand] Peripheral IV IV Catheter Type [Right VAS Cath Internal Jugular] Assessment and Plan Advance Directives: Yes (Full code) VTE prophylaxis?: Chemical Plan of care discussed with patient/family: Yes - Patient Problems (1) Acute CVA (cerebrovascular accident) Current Visit: Yes Status: Acute Plan to address problem: Right-sided facial weakness and slight right upper and lower extremity weakness MRI carotid duplex scan and echocardiogram requested neurology consult requested Aspirin initiated (2) ESRD needing dialysis Current Visit: No Status: Chronic Plan to address problem: Continue hemodialysis (3) IDDM (insulin dependent diabetes mellitus) Current Visit: Yes Status: Chronic Plan to address problem: Continue home insulin and coverage Check hemoglobin A1c (4) Hypertension Current Visit: Yes Status: Chronic Qualifiers: Hypertension type: essential hypertension Qualified Code(s): I10 - Essential (primary) hypertension Plan to address problem: Continue antihypertensives (5) Hyperlipidemia Current Visit: Yes Status: Chronic Qualifiers: Hyperlipidemia type: mixed hyperlipidemia Qualified Code(s): E78.2 - Mixed hyperlipidemia Plan to address problem: Continue statins (6) Anticoagulation adequate Current Visit: Yes Status: Chronic Plan to address problem: Continue Coumadin (7) DVT prophylaxis Current Visit: No Status: Acute Plan to address problem: On Coumadin and GI prophylaxis
[2020-07-04 06:56] LABS: Basophils % (Auto) 0.4 % (0.0-1.8); Eosinophils % (Auto) 0.1 % (0.0-4.3); Hematocrit 38.2 % (35.5-45.6); Hemoglobin 12.6 gm/dl (11.8-15.2); Lymphocytes # (Auto) 1.2 K/mm3 (1.2-5.4); Lymphocytes % (Auto) 13.2 % (13.4-35.0); Mean Corpuscular HGB Conc 33 % (32-34); Mean Corpuscular Volume 91 fl (84-94); Monocytes # (Auto) 1.2 K/mm3 (0.0-0.8); Monocytes % (Auto) 13.3 % (0.0-7.3); Platelet Count 204 K/mm3 (140-440); Red Blood Count 4.18 M/mm3 (3.65-5.03); Red Cell Distribution Width 15.4 % (13.2-15.2)
[2020-07-04 06:58] LABS: Albumin 3.3 g/dL (3.9-5); Calcium 8.3 mg/dL (8.4-10.2)
[2020-07-04] MEDS ORDERED: INSULIN LISPRO 100 UNIT/ML VIAL 3 mL SUB-Q SCH (07:30)
--- NOTE | 2020-07-04 08:04 | Consultation ---
History of Present Illness Consult date: 07/03/20 Requesting physician: GET MANZO Reason for Consult: cva Chief complaint: CVA History of present illness: 70 yo male with htn, dm, hld, chf, esrdx on hd, on coumadin for a hx of PE (2017), presents with a LKNormal on 07/01/2020 around 23:59 before he went to bed and then woke up on 07/02/2020 and noted a sense of unsteadiness and then unfortunately the patient fell down the stairs and noted difficulty getting back up. Notes that he tripped and fell down the stairs and he did not suffer any LOC or any trauma to his head or back. He noted difficulty "getting around" the rest of Thursday. On Thursday, during his clinic appointment, he was observed with right facial weakness and slurred speech. He presented to the ED as a code stroke alert. Evaluated by teleneurologist and deemed not to be a candidate for IV-tPA. Noted with slight right arm/leg weakness also durin the hospital course . He notes no acute: headache, nausea, emesis, vertigo, changes in his primary senses, chest pain pressure/pain/palpitations, or any loss of consciousness. Past History Past Medical History: diabetes, ESRD, heart failure, hypertension, hyperlipidemia Social history: no significant social history Family history: hypertension Medications and Allergies Allergies Allergy/AdvReac Type Severity Reaction Status Date / Time No Known Allergies Allergy Verified 07/03/20 15:42 Home Medications Medication Instructions Recorded Confirmed Last Taken Type Metoprolol Tartrate 100 mg PO BID 02/13/18 07/03/20 07/02/20 16:00 History Rosuvastatin Calcium 20 mg PO DAILY 02/13/18 07/03/20 07/02/20 16:00 History Warfarin [Coumadin] 5 mg PO QDAY 02/13/18 07/03/20 07/02/20 23:00 History Furosemide 80 mg BID 02/10/20 07/03/20 07/02/20 16:00 History Levemir VIAL 40 units SUB-Q BID 02/10/20 07/03/20 07/02/20 16:00 History NovoLOG Flexpen 35 units SUB-Q TID 02/10/20 07/03/20 07/02/20 16:00 History amLODIPine 10 mg PO DAILY 02/10/20 07/03/20 07/02/20 17:00 History Active Meds: Active Medications Acetaminophen (Tylenol) 650 mg PO Q4H PRN PRN Reason: Pain MILD(1-3)/Fever >100.5/BUSTILLOS Amlodipine Besylate (Amlodipine) 10 mg PO DAILY [facility] Atorvastatin Calcium (Lipitor) 40 mg PO QHS [facility] Famotidine (Pepcid) 10 mg IV BID [facility] Furosemide (Lasix) 80 mg PO BID [facility] Hydromorphone HCl (Dilaudid) 0.5 mg IV Q3H PRN PRN Reason: Pain , Severe (7-10) Insulin Glargine (Lantus) 40 units SUB-Q BID [facility] Insulin Human Lispro (Humalog) 0 unit SUB-Q ACHS [facility]; Protocol Last Admin: 07/03/20 22:35 Dose: 8 unit Documented by: Metoprolol Tartrate (Metoprolol) 100 mg PO BID [facility] Ondansetron HCl (Zofran) 4 mg IV Q8H PRN PRN Reason: Nausea And Vomiting Oxycodone/Acetaminophen (Percocet 5/325) 1 tab PO Q6H PRN PRN Reason: Pain, Moderate (4-6) Sodium Chloride (Sodium Chloride Flush Syringe 10 Ml) 10 ml IV BID [facility] Sodium Chloride (Sodium Chloride Flush Syringe 10 Ml) 10 ml IV PRN PRN PRN Reason: LINE FLUSH Warfarin Sodium (Coumadin) 5 mg PO QDAY@1700 [facility]; Protocol Review of Systems All systems: negative (as per HPI;) Physical Examination - Vital Signs Vital Signs: Vital Signs Temp Pulse Resp BP Pulse Ox 98.7 F 82 18 146/82 100 07/03/20 14:33 07/03/20 14:33 07/03/20 14:33 07/03/20 14:33 07/03/20 14:33 - Additional Exam Additional Exam: Gen: nad, well-nourished; Head: normocephalic; Eyes: anicteric sclera, no gaze deviation; no ptosis; ENT: normal vocalization; CVS: warm and well-perfused; Pulm: no respiratory distress; GI: non-distended, protuberant; Ext: no cyanosis or edema; Skin: no acute rash or hives at distal upper extremities; +erythema at left AV graft site; Heme: no pathologic bruising at distal upper extremities; Neuro: alert, oriented to name, age, month, year, surroundings, mild dysarthria, no aphasia, CN 2 - PERRL, visual kc intact, CN 3, 4, 6 - EOMI, CN 5 - facial sensation symmetric to light touch, CN 7 - right UMN facial droop (mild), CN 8 - hearing grossly intact, CN 9, 10 - uvula midline, CN 11 - shrug symmetric, CN 12 - tongue midline; Motor - at least 5-/5 in all exts except right arm/leg noted with 4/5 strength; Sensory - light touch symmetric, Cerebellar - fnf intact w/ mild difficulty left hts, Gait - deferred secondary to fall risk; NIHSS (1a.) Level of Consciousness:0 (1b.) LOC Questions:0 (1c.) LOC Commands:0 (2.) Best Gaze:0 (3.) Visual:0 (4.) Facial Palsy:1 (5a.) Motor Arm, Left:0 (5b.) Motor Arm, Right:1 (6a.) Motor Leg, Left:0 (6b.) Motor Leg, Right:1 (7.) Limb Ataxia:1 (8.) Sensory:0 (9.) Best Language:0 (10.) Dysarthria:1 (11.) Extinction and Inattention:0 NIHSS Total Score: 5 Results - Laboratory Findings CBC and BMP: 07/04/20 05:44 07/04/20 05:44 Abnormal Lab Findings: Abnormal Labs 07/03/20 07/03/20 07/03/20 14:51 14:51 14:51 RDW 16.1 H Lymph % (Auto) 11.1 L [place] % (Auto) Lymph # (Auto) 1.0 L [place] # (Auto) Seg Neutrophils % 85.6 H Seg Neutrophils # 7.9 H PT 15.4 H INR 1.19 H Sodium 133 L Potassium 5.1 H D Chloride 93.1 L Carbon Dioxide 20 L BUN 34 H Creatinine 9.1 H Glucose 298 H POC Glucose Hemoglobin A1c Calcium ALT Troponin T 0.118 H* Albumin LDL Cholesterol Direct 21 L 07/03/20 07/03/20 07/03/20 14:51 14:55 15:15 RDW Lymph % (Auto) [place] % (Auto) Lymph # (Auto) [place] # (Auto) Seg Neutrophils % Seg Neutrophils # PT INR Sodium Potassium Chloride Carbon Dioxide BUN Creatinine Glucose POC Glucose 278 H 274 H Hemoglobin A1c 10.6 H Calcium ALT Troponin T Albumin LDL Cholesterol Direct 07/03/20 07/04/20 07/04/20 21:06 05:44 05:44 RDW 15.4 H Lymph % (Auto) 13.2 L [place] % (Auto) 13.3 H Lymph # (Auto) [place] # (Auto) 1.2 H Seg Neutrophils % 73.0 H Seg Neutrophils # PT INR Sodium 132 L Potassium Chloride 90.1 L Carbon Dioxide 21 L BUN 47 H Creatinine 11.2 H Glucose 374 H POC Glucose 418 H Hemoglobin A1c Calcium 8.3 L ALT 5 L Troponin T Albumin 3.3 L LDL Cholesterol Direct Assessment and Plan 70 yo male with htn, dm, hld, chf, esrdx on hd presents with a LKNormal on 07/02/2020 around 20:00 and noted with a sense of unsteadiness with right-sided weakness. He presented outside the IV-tPA window. PLAN 1. Acute Ischemic Stroke: ASA 81 mg PO qday (if pt passes swallow evaluation, otherwise, ASA 300 mg LA qday), continue Coumadin with a goal INR of 2-3; MRI Brain w/o contrast reveals a left CR lacunar infarction, CUS is unremarkable, TTEcho results pending, noted LDL (21) /HgbA1C (10.6); ordered TSH, telemetry, SBP goal 160-200 mmHg and DBP 80-100 mmHg for 24 more hours and then may normalize slowly. Statin therapy for a goal LDL of 70 (currently 21?), when patient passes swallow evaluation. PT/OT/ST/Swallow evaluation. Long-term risk- factor modification, including a strict diet/exercise regimen for secondary stroke prophylaxis. 2. Hypertension - goal SBP 160-200 mmHg and DBP 80-200 mmHg for 24 more hours and then may normalize slowly. 3. Diabetes Mellitus - maintain euglycemia. 4. Hyperlipidemia - goal LDL of 70 w/ statin therapy if no contraindications. 5. Dysarthria / Dysphagia - st / swallow evaluation/monitoring. 6. Right-sided weakness - pt/ot evaluation/monitoring. 7. Unsteady Gait - pt/ot evaluation/monitoring; fall precautions. 8. Tobacco Abuse - discussed with the patient to quit tobacco; further management per primary. 9. Followup with Neurology Stroke Clinic in 6 weeks. Neurology will signoff. Og Warren MD Tele-Neurology
--- NOTE | 2020-07-04 09:33 | Magnetic Resonance Report ---
MR brain wo con INDICATION / CLINICAL INFORMATION: 70 years Male; cerebrovascular accident, right-sided weakness.. TECHNIQUE: Multiplanar, multisequence MR images of the brain were obtained. COMPARISON: None available. FINDINGS: BRAIN / INTRACRANIAL CONTENTS: There is an older infarct along the left gangliocapsular region with n otable encephalomalacia. However, there is a 6 mm acute infarct along the more medial left alicea rad iata. There is also a 5 mm linear focus lateral to the atrium of the left lateral ventricle. There is a more subtle small focus of increased diffusion signal on the right precentral gyrus which may refl ect T2 shine through artifact and correlation would be needed regarding this region. There is otherwise extensive cerebral and pontine white matter disease most consistent with chronic m icrovascular angiopathy. There is an old lacunar infarct within the left esvin. On the susceptibility weighted imaging, there are scattered hyperintense foci involving the cerebrum, particularly along th e superior right periventricular region most consistent with chronic microhemorrhages. A focus is als o noted along the lateral left esvin. There is mild cerebral atrophy with associated prominence of the ventricular system. No extra-axial f luid collections or significant mass effect is identified. CRANIOCERVICAL JUNCTION: No significant abnormality. VASCULAR FLOW-VOIDS: The distal left vertebral artery is not well visualized which may be development al with termination in PICA. Otherwise, the basilar and distal internal carotid arteries grossly demo nstrate appropriate signal voids. The relative heterogeneous signal within the right transverse sinus likely reflects flow related artifact. ORBITS: No significant abnormality of visualized orbits. SINUSES / MASTOIDS: There is minimal mucosal thickening within the right sphenoid sinus. ADDITIONAL FINDINGS: None. IMPRESSION: 1. There is a 6 mm acute infarct involving left alicea radiata adjacent to encephalomalacia related t o old infarct along the left gangliocapsular region. 2. There is also a 5 mm acute infarct along the atrium of the left lateral ventricle. There is a more subtle 4 mm focus of increased diffusion signal involving the right precentral gyrus as described. 3. There is otherwise extensive microvascular angiopathy with chronic microhemorrhages as well as old lacunar infarct involving the left esvin. Signer Name: Magnus Roberts MD Signed: 07/04/2020 9:28 AM Workstation Name: [id number]
[2020-07-04] MEDS ORDERED: LEVEMIR 40 UNIT SUB-Q SCH (10:00)
[2020-07-04] MEDS: amLODIPine 10 MG TAB PO SCH (10:00)
[2020-07-04] MEDS ORDERED: NON-FORMULARY EACH (Rosuvastatin Calcium [Rosuvastatin Calcium] 20 MG) PO SCH (10:00)
--- NOTE | 2020-07-04 10:03 | Consultation ---
History of Present Illness - Reason for Consult Consult date: 07/04/20 end stage renal disease - History of Present Illness The patient is a 70 year old male patient well known to our service with pmh significant for Obesity, type 2 DM, Hypertension, HLD, nicotine dependence, h/o PE (2016), ESRD on hemodialysis (MWF) and Medical non-compliance who was brought to [facility] ED 07/03 from OR recovery room after patient had AVF. Patient stated that he developed symptoms the day prior to presentation with facial weakness, dizziness and fell while going down the step. Patient currently denies any h eadache, neck pain, chest pain, shortness of breath, N, V, D, abd pain, fever, cough or syncope. Stroke protocol was initiated and patient admitted for further evaluation. Nephrology was consulted for further evaluation and treatment of ESRD. Past History Past Medical History: diabetes, dialysis, ESRD, heart failure, hypertension, hyperlipidemia Social history: no significant social history Family history: hypertension Medications and Allergies Allergies Allergy/AdvReac Type Severity Reaction Status Date / Time No Known Allergies Allergy Verified 07/03/20 15:42 Home Medications Medication Instructions Recorded Confirmed Last Taken Type Metoprolol Tartrate 100 mg PO BID 02/13/18 07/03/20 07/02/20 16:00 History Rosuvastatin Calcium 20 mg PO DAILY 02/13/18 07/03/20 07/02/20 16:00 History Warfarin [Coumadin] 5 mg PO QDAY 02/13/18 07/03/20 07/02/20 23:00 History Furosemide 80 mg BID 02/10/20 07/03/20 07/02/20 16:00 History Levemir VIAL 40 units SUB-Q BID 02/10/20 07/03/20 07/02/20 16:00 History NovoLOG Flexpen 35 units SUB-Q TID 02/10/20 07/03/20 07/02/20 16:00 History amLODIPine 10 mg PO DAILY 02/10/20 07/03/20 07/02/20 17:00 History Active Meds: Active Medications Acetaminophen (Tylenol) 650 mg PO Q4H PRN PRN Reason: Pain MILD(1-3)/Fever >100.5/BUSTILLOS Amlodipine Besylate (Amlodipine) 10 mg PO DAILY [facility] Atorvastatin Calcium (Lipitor) 40 mg PO QHS [facility] Famotidine (Pepcid) 10 mg PO BID [facility] Furosemide (Lasix) 80 mg PO BID [facility] Hydromorphone HCl (Dilaudid) 0.5 mg IV Q3H PRN PRN Reason: Pain , Severe (7-10) Insulin Glargine (Lantus) 40 units SUB-Q BID [facility] Insulin Human Lispro (Humalog) 0 unit SUB-Q ACHS [facility]; Protocol Last Admin: 07/03/20 22:35 Dose: 8 unit Documented by: Metoprolol Tartrate (Metoprolol) 100 mg PO BID [facility] Ondansetron HCl (Zofran) 4 mg IV Q8H PRN PRN Reason: Nausea And Vomiting Oxycodone/Acetaminophen (Percocet 5/325) 1 tab PO Q6H PRN PRN Reason: Pain, Moderate (4-6) Sodium Chloride (Sodium Chloride Flush Syringe 10 Ml) 10 ml IV BID [facility] Sodium Chloride (Sodium Chloride Flush Syringe 10 Ml) 10 ml IV PRN PRN PRN Reason: LINE FLUSH Warfarin Sodium (Coumadin) 5 mg PO QDAY@1700 MELINDA; Protocol Review of Systems Constitutional: no weight loss, no weight gain, no fever, no chills, no anorexia, no weakness, no poor appetite Cardiovascular: no chest pain, no orthopnea Respiratory: no cough, no hemoptysis, no shortness of breath, no dyspnea on exertion, no home oxygen Gastrointestinal: no abdominal pain, no nausea, no vomiting, no diarrhea Genitourinary Male: no dysuria, no hematuria Integumentary: no rash, no wounds Neurological: other (dizziness), no paralysis, no weakness, no parathesias, no syncope Exam - Vital Signs Vital signs: Vital Signs Temp Pulse Resp BP Pulse Ox 98.7 F 82 18 146/82 100 07/03/20 14:33 07/03/20 14:33 07/03/20 14:33 07/03/20 14:33 07/03/20 14:33 Results - Lab Results 07/04/20 05:44 07/04/20 05:44 Most recent lab results Calcium 8.3 mg/dL (8.4-10.2) L 07/04/20 05:44 Assessment and Plan 1. ESRD: Patient is on maintenance hemodialysis three times a week, TTS schedule. Last outpatient HD 07/02. Hemodialysis: 07/04. 2. FEN: Monitor volume status and lytes. 3. Acute CVA: ASA and statin. Seen by Neuro. Permissive HTN. 4. Anemia: Monitor and Epogen if needed. 5. Hypertension: Resume home meds. UF with HD. Monitor BP. 6. DM type 2: Monitor blood sugar. 7. Medical noncompliance: Counseled mutilple times. Subjective: Patient was seen and examined at the bedside. Examination: General appearance: well-developed, well-nourished, appears stated age, no distress HEENT: ATNC, PERRL, mucous membranes moist, hearing intact, vision intact Neck: supple Respiratory: Clear to Ascultation Cardiology: regular, S1S2, no murmur Gastrointestinal: normoactive bowel sounds, no tenderness, no distended, obese Integumentary: no obvious rash Neurologic: AO, no focal deficit, no asterixis Ext: no edema Hemodialysis access: R IJ Tunnel catheter, L arm AVF
--- NOTE | 2020-07-04 10:48 | Progress Note ---
Assessment and Plan Assessment and plan: -- Acute CVA (cerebrovascular accident) Current Visit: Yes Status: Acute Plan to address problem: Not a candidate for TPA , aspirin and statin Neurology following , follow neuro work-up right-sided facial weakness and slight right upper and lower extremity weakness MRI carotid duplex scan and echocardiogram requested neurology consult requested Aspirin initiated --Right-sided hemiparesis Current Visit: Yes Status: Chronic . Plan to address problem: Physical therapy occupational therapy Rehabilitation -- ESRD needing dialysis Current Visit: Yes Status: Chronic . Plan to address problem: Nephrology following dialysis per schedule --IDDM (insulin dependent diabetes mellitus) Current Visit: Yes Status: Chronic . Plan to address problem: Accu-Chek sliding scale coverage ADA diet Check hemoglobin A1c -- Hypertension Current Visit: Yes Status: Chronic Plan to address problem: Continue antihypertensives --Hyperlipidemia Current Visit: Yes Status: Chronic Plan to address problem: Continue statins --Anticoagulation adequate Current Visit: Yes Status: Chronic Plan to address problem: Continue Coumadin -- DVT prophylaxis Current Visit: No Status: Acute Plan to address problem: On Coumadin and GI prophylaxis Closely monitor the patient and adjust management as needed Plan of care reviewed with the patient and his nurse History Interval history: I have seen and examined the patient in the room Patient's chart and medications reviewed Patient was admitted with acute CVA Had extensive neuro work-up Patient feels slightly better Vital signs noted Hospitalist Physical - Constitutional Vitals: Temp Pulse Resp BP Pulse Ox 98.3 F 65 16 102/63 97 07/04/20 07:27 07/04/20 07:27 07/04/20 09:14 07/04/20 07:27 07/04/20 09:14 General appearance: Present: no acute distress, well-nourished - EENT Eyes: Present: PERRL, EOM intact - Neck Neck: Present: supple, normal ROM - Respiratory Respiratory effort: normal Respiratory: bilateral: diminished, negative: rales, rhonchi, wheezing - Cardiovascular Rhythm: regular Heart Sounds: Present: S1 & S2 - Extremities Extremities: no ischemia, No edema - Abdominal General gastrointestinal: soft, non-tender, non-distended, normal bowel sounds - Integumentary Integumentary: Present: clear, warm - Psychiatric Psychiatric: appropriate mood/affect, cooperative - Neurologic Neurologic: other (Slurred speech, right-sided hemiparesis) HEART Score - HEART Score Age: > 65 Risk factors: > 3 risk factors or hx of atherosclerotic disease Troponin: Troponin T 0.118 ng/mL (0.00-0.029) H* 07/03/20 14:51 - Critical Actions Critical Actions: 4-6 pts:12-16.6% risk of adverse cardiac event. Should be admitted Results - Labs CBC & Chem 7: 07/04/20 05:44 07/04/20 05:44 Labs: Laboratory Last Values WBC 9.1 K/mm3 (4.5-11.0) 07/04/20 05:44 RBC 4.18 M/mm3 (3.65-5.03) 07/04/20 05:44 Hgb 12.6 gm/dl (11.8-15.2) 07/04/20 05:44 Hct 38.2 % (35.5-45.6) 07/04/20 05:44 MCV 91 fl (84-94) 07/04/20 05:44 MCH 30 pg (28-32) 07/04/20 05:44 MCHC 33 % (32-34) 07/04/20 05:44 RDW 15.4 % (13.2-15.2) H 07/04/20 05:44 Plt Count 204 K/mm3 (140-440) 07/04/20 05:44 Lymph % (Auto) 13.2 % (13.4-35.0) L 07/04/20 05:44 [place] % (Auto) 13.3 % (0.0-7.3) H 07/04/20 05:44 Eos % (Auto) 0.1 % (0.0-4.3) 07/04/20 05:44 Baso % (Auto) 0.4 % (0.0-1.8) 07/04/20 05:44 Lymph # (Auto) 1.2 K/mm3 (1.2-5.4) 07/04/20 05:44 [place] # (Auto) 1.2 K/mm3 (0.0-0.8) H 07/04/20 05:44 Eos # (Auto) 0.0 K/mm3 (0.0-0.4) 07/04/20 05:44 Baso # (Auto) 0.0 K/mm3 (0.0-0.1) 07/04/20 05:44 Seg Neutrophils % 73.0 % (40.0-70.0) H 07/04/20 05:44 Seg Neutrophils # 6.7 K/mm3 (1.8-7.7) 07/04/20 05:44 PT 15.4 Sec. (12.2-14.9) H 07/03/20 14:51 INR 1.19 (0.87-1.13) H 07/03/20 14:51 APTT 33.6 Sec. (24.2-36.6) 07/03/20 14:51 Thrombin Time 18.4 Sec. (15.1-19.6) 07/03/20 14:51 Sodium 132 mmol/L (137-145) L 07/04/20 05:44 Potassium 4.6 mmol/L (3.6-5.0) 07/04/20 05:44 Chloride 90.1 mmol/L (98-107) L 07/04/20 05:44 Carbon Dioxide 21 mmol/L (22-30) L 07/04/20 05:44 Anion Gap 26 mmol/L 07/04/20 05:44 BUN 47 mg/dL (9-20) H 07/04/20 05:44 Creatinine 11.2 mg/dL (0.8-1.3) H 07/04/20 05:44 Estimated GFR 6 ml/min 07/04/20 05:44 BUN/Creatinine Ratio 4 % 07/04/20 05:44 Glucose 374 mg/dL (75-100) H 07/04/20 05:44 POC Glucose 418 (70-105) H 07/03/20 21:06 Hemoglobin A1c 10.6 % (4-6) H 07/03/20 14:51 Calcium 8.3 mg/dL (8.4-10.2) L 07/04/20 05:44 Total Bilirubin 0.20 mg/dL (0.1-1.2) 07/04/20 05:44 AST 7 units/L (5-40) 07/04/20 05:44 ALT 5 units/L (7-56) L 07/04/20 05:44 Alkaline Phosphatase 69 units/L (35-129) 07/04/20 05:44 Troponin T 0.118 ng/mL (0.00-0.029) H* 07/03/20 14:51 Total Protein 6.5 g/dL (6.3-8.2) 07/04/20 05:44 Albumin 3.3 g/dL (3.9-5) L 07/04/20 05:44 Albumin/Globulin Ratio 1.0 % 07/04/20 05:44 Triglycerides 101 mg/dL (2-149) 07/03/20 14:51 Cholesterol 76 mg/dL (50-199) 07/03/20 14:51 LDL Cholesterol Direct 21 mg/dL (50-130) L 07/03/20 14:51 HDL Cholesterol 40 mg/dL (40-59) 07/03/20 14:51 Cholesterol/HDL Ratio 1.90 % 07/03/20 14:51 Recinos/IV: Voiding Method Urinal IV Catheter Type [Right Hand] Peripheral IV IV Catheter Type [Right VAS Cath Internal Jugular] Active Medications - Current Medications Current Medications: Generic Name Dose Route Start Last Admin Trade Name Freq PRN Reason Stop Dose Admin Acetaminophen 650 mg 07/03/20 22:59 Tylenol PO Q4H PRN Pain MILD(1-3)/Fever >100.5/BUSTILLOS Amlodipine Besylate 10 mg 07/04/20 10:00 Amlodipine PO DAILY [facility] Atorvastatin Calcium 40 mg 07/04/20 22:00 Lipitor PO QHS [facility] Famotidine 10 mg 07/04/20 10:00 Pepcid PO BID [facility] Furosemide 80 mg 07/04/20 10:00 Lasix PO BID [facility] Hydromorphone HCl 0.5 mg 07/03/20 22:59 Dilaudid IV Q3H PRN Pain , Severe (7-10) Insulin Glargine 40 units 07/04/20 10:00 Lantus SUB-Q BID [facility] Insulin Human Lispro 0 unit 07/03/20 22:30 07/03/20 22:35 Humalog SUB-Q 8 unit [facility] Administration Protocol Metoprolol Tartrate 100 mg 07/04/20 10:00 Metoprolol PO BID [facility] Ondansetron HCl 4 mg 07/03/20 22:59 Zofran IV Q8H PRN Nausea And Vomiting Oxycodone/Acetaminophen 1 tab 07/03/20 22:59 Percocet 5/325 PO Q6H PRN Pain, Moderate (4-6) Sodium Chloride 10 ml 07/04/20 10:00 Sodium Chloride Flush Syringe 10 Ml IV BID [facility] Sodium Chloride 10 ml 07/03/20 22:59 Sodium Chloride Flush Syringe 10 Ml IV PRN PRN LINE FLUSH Warfarin Sodium 5 mg 07/04/20 17:00 Coumadin PO QDAY@1700 [facility] Protocol Nutrition/Malnutrition Assess - Dietary Evaluation Nutrition/Malnutrition Findings: Nutrition Notes Start: 07/04/20 10:07 Freq: Status: Active Protocol: Document 07/04/20 10:07 LM (Rec: 07/04/20 10:08 LM [id number]) Nutrition Notes Initial or Follow up Brief Note Subjective/Other Information Screen for Coumadin education. Pt getting MRI and ECHO. Nutrition Intervention Follow-Up By: 07/05/20 Additional Comments F/U for Coumadin education
[2020-07-04] MEDS ORDERED: ASPIRIN EC 325 MG TAB PO SCH (11:00)
[2020-07-04] MEDS ORDERED: SODIUM CHLORIDE 0.9% 100 ML IV PRN (11:24)
[2020-07-04] MEDS ORDERED: HEPARIN 10,000 UNITS/10 ML VIAL IV PRN (11:24)
--- NOTE | 2020-07-04 12:26 | Vascular Lab Report ---
BILATERAL CAROTID DOPPLER ULTRASOUND INDICATION : stroke TECHNIQUE: Grayscale and color Doppler imaging performed through the neck. COMPARISON: None FINDINGS: Right: There is no significant atherosclerotic disease. Peak systolic velocity in the CCA is 65 cm/ s with end-diastolic velocity of 13 cm/s. Peak systolic velocity in the proximal ICA is 50 cm/s with end-diastolic velocity of 15 cm/s. ICA to CCA ratio is less than 2. There is antegrade flow in the E CA and the vertebral artery. Left: There is mild partially calcified plaque is noted in the carotid bulb and proximal ICA. Peak sy stolic velocity in the CCA is 68 cm/s with end-diastolic velocity of 14 cm/s. Peak systolic velocity in the proximal ICA is 52 cm/s with end-diastolic velocity of 14 cm/s. ICA to CCA ratio is less than 2. There is antegrade flow in the ECA and the vertebral artery. IMPRESSION: No hemodynamically significant stenosis by NASCET criteria. Doppler velocities indicate l ess than 50% luminal narrowing bilaterally Signer Name: Don Phelps Jr, MD Signed: 07/04/2020 12:22 PM Workstation Name: [id number]
[2020-07-04] MEDS: INSULIN LISPRO 100 UNIT/ML VIAL 3 mL SUB-Q SCH ×6 (12:37→23:19)
[2020-07-04] MEDS: ASPIRIN EC 81 MG TAB PO SCH (12:39)
[2020-07-04] MEDS: METOPROLOL TARTRATE 100 MG TAB PO SCH ×2 (12:39→22:13)
[2020-07-04] MEDS: FAMOTIDINE 10 MG TAB PO SCH ×2 (12:39→22:13)
[2020-07-04] MEDS: FUROSEMIDE 40 MG TAB PO SCH ×2 (12:39→22:12)
[2020-07-04] MEDS: INSULIN GLARGINE 100 UNITS/ML SUB-Q SCH ×2 (12:42→23:18)
[2020-07-04 18:03] LABS: Hepatitis B Surface Antigen Non-Reactive (Negative); Hepatitis C Virus Antibody Non-Reactive (NonReactive)
[2020-07-04] MEDS: WARFARIN 5 MG TAB PO SCH (18:46)
[2020-07-04] MEDS: oxyCODONE /ACETAMINOPHEN 5-325MG TAB PO PRN (19:59)
[2020-07-05 06:42] LABS: INR 1.43 (0.87-1.13)
[2020-07-05] MEDS: INSULIN LISPRO 100 UNIT/ML VIAL 3 mL SUB-Q SCH ×4 (08:31→22:52)
[2020-07-05] MEDS: FUROSEMIDE 40 MG TAB PO SCH ×2 (09:10→22:53)
[2020-07-05] MEDS: INSULIN GLARGINE 100 UNITS/ML SUB-Q SCH ×2 (09:10→22:50)
[2020-07-05] MEDS: ASPIRIN EC 81 MG TAB PO SCH (09:10)
[2020-07-05] MEDS: FAMOTIDINE 10 MG TAB PO SCH ×2 (09:10→22:53)
[2020-07-05] MEDS: METOPROLOL TARTRATE 100 MG TAB PO SCH ×2 (09:11→22:54)
[2020-07-05] MEDS: amLODIPine 10 MG TAB PO SCH (10:00)
--- NOTE | 2020-07-05 10:37 | Progress Note ---
Assessment and Plan 1. ESRD: Patient is on maintenance hemodialysis three times a week, TTS schedule. Last outpatient HD 07/02. Hemodialysis: 07/04. 2. FEN: Monitor volume status and lytes. 3. Acute CVA: ASA and statin. Seen by Neuro. 4. Anemia: Monitor and Epogen if needed. 5. Hypertension: BP controlled. Monitor BP. 6. DM type 2: Monitor blood sugar. 7. Medical noncompliance: Counseled mutilple times. Subjective: Patient was seen and examined at the bedside. Doing ok. Examination: General appearance: well-developed, well-nourished, appears stated age, no distress HEENT: ATNC, PERRL, mucous membranes moist, hearing intact, vision intact Neck: supple Respiratory: Clear to Ascultation Cardiology: regular, S1S2, no murmur Gastrointestinal: normoactive bowel sounds, no tenderness, no distended, obese Integumentary: no obvious rash Neurologic: AO, no focal deficit, no asterixis Ext: no edema Hemodialysis access: R IJ Tunnel catheter, L arm AVF Subjective Date of service: 07/05/20 Objective - Vital Signs Vital signs: Vital Signs - 12hr 07/05/20 07/05/20 07/05/20 00:08 01:10 03:24 Temperature 98.2 F 97.5 F L Pulse Rate 60 52 L 56 L Respiratory 18 18 Rate Blood Pressure 101/58 130/83 O2 Sat by Pulse 96 98 Oximetry 07/05/20 07/05/20 07:38 07:56 Temperature 98.5 F Pulse Rate 58 L Respiratory 18 18 Rate Blood Pressure 110/75 O2 Sat by Pulse 97 Oximetry - Lab 07/04/20 05:44 07/04/20 05:44 Most recent lab results Calcium 8.3 mg/dL (8.4-10.2) L 07/04/20 05:44 Medications & Allergies - Medications Allergies/Adverse Reactions: Allergies No Known Allergies Allergy (Verified 07/03/20 15:42) Home Medications: Home Medications Medication Instructions Recorded Confirmed Last Taken Type Metoprolol Tartrate 100 mg PO BID 02/13/18 07/03/20 07/02/20 16:00 History Rosuvastatin Calcium 20 mg PO DAILY 02/13/18 07/03/20 07/02/20 16:00 History Warfarin [Coumadin] 5 mg PO QDAY 02/13/18 07/03/20 07/02/20 23:00 History Furosemide 80 mg BID 02/10/20 07/03/20 07/02/20 16:00 History Levemir VIAL 40 units SUB-Q BID 02/10/20 07/03/20 07/02/20 16:00 History NovoLOG Flexpen 35 units SUB-Q TID 02/10/20 07/03/20 07/02/20 16:00 History amLODIPine 10 mg PO DAILY 02/10/20 07/03/20 07/02/20 17:00 History Active Medications: Generic Name Dose Route Start Last Admin Trade Name Freq PRN Reason Stop Dose Admin Acetaminophen 650 mg 07/03/20 22:59 Tylenol PO Q4H PRN Pain MILD(1-3)/Fever >100.5/BUSTILLOS Amlodipine Besylate 10 mg 07/04/20 10:00 07/04/20 10:00 Amlodipine PO Not Given DAILY [facility] Aspirin 81 mg 07/04/20 12:00 07/05/20 09:10 Halfprin Ec PO 81 mg QDAY MELINDA Administration Atorvastatin Calcium 40 mg 07/04/20 22:00 07/04/20 22:12 Lipitor PO 40 mg QHS MELINDA Administration Famotidine 10 mg 07/04/20 10:00 07/05/20 09:10 Pepcid PO 10 mg BID MELINDA Administration Furosemide 80 mg 07/04/20 10:00 07/05/20 09:10 Lasix PO 80 mg BID MELINDA Administration Heparin Sodium (Porcine) 3,000 unit 07/04/20 11:24 07/04/20 15:42 Heparin 10,000 Units/10 Ml IV 3,000 unit JASPAL PRN Administration hemodialysis Hydromorphone HCl 0.5 mg 07/03/20 22:59 Dilaudid IV Q3H PRN Pain , Severe (7-10) Sodium Chloride 100 mls @ 999 mls/hr 07/04/20 11:24 Nacl 0.9% IV JASPAL PRN Hypotension Insulin Glargine 40 units 07/04/20 10:00 07/05/20 09:10 Lantus SUB-Q 40 units BID MELINDA Administration Insulin Human Lispro 0 unit 07/03/20 22:30 07/05/20 08:31 Humalog SUB-Q 2 unit ACHS MELINDA Administration Protocol Metoprolol Tartrate 100 mg 07/04/20 10:00 07/05/20 09:11 Metoprolol PO 100 mg BID MELINDA Administration Ondansetron HCl 4 mg 07/03/20 22:59 Zofran IV Q8H PRN Nausea And Vomiting Oxycodone/Acetaminophen 1 tab 07/03/20 22:59 07/04/20 19:59 Percocet 5/325 PO 1 tab Q6H PRN Administration Pain, Moderate (4-6) Sodium Chloride 10 ml 07/04/20 10:00 07/05/20 09:11 Sodium Chloride Flush Syringe 10 Ml IV 10 ml BID MELINDA Administration Sodium Chloride 10 ml 07/03/20 22:59 Sodium Chloride Flush Syringe 10 Ml IV PRN PRN LINE FLUSH Warfarin Sodium 5 mg 07/04/20 17:00 07/04/20 18:46 Coumadin PO 5 mg QDAY@1700 MELINDA Administration Protocol
--- NOTE | 2020-07-05 11:03 | Progress Note ---
Assessment and Plan Assessment and plan: -- Acute CVA (cerebrovascular accident) Current Visit: Yes Status: Acute Plan to address problem: Not a candidate for TPA , aspirin and statin Neurology following , follow neuro work-up right-sided facial weakness and slight right upper and lower extremity weakness MRI carotid duplex scan and echocardiogram requested neurology consult requested Aspirin initiated --Right-sided hemiparesis Current Visit: Yes Status: Chronic . Plan to address problem: Physical therapy occupational therapy Rehabilitation -- ESRD needing dialysis Current Visit: Yes Status: Chronic . Plan to address problem: Nephrology following dialysis per schedule --IDDM (insulin dependent diabetes mellitus) Current Visit: Yes Status: Chronic . Plan to address problem: Accu-Chek sliding scale coverage ADA diet Check hemoglobin A1c -- Hypertension Current Visit: Yes Status: Chronic Plan to address problem: Continue antihypertensives --Hyperlipidemia Current Visit: Yes Status: Chronic Plan to address problem: Continue statins --Anticoagulation adequate Current Visit: Yes Status: Chronic Plan to address problem: Continue Coumadin -- DVT prophylaxis Current Visit: No Status: Acute Plan to address problem: On Coumadin and GI prophylaxis Closely monitor the patient and adjust management as needed Plan of care reviewed with the patient and his nurse PT evaluation noted recommend acute rehab DC planning per case management History Interval history: I have seen and examined the patient at the bedside Patient was admitted with acute CVA with right-sided hemiparesis And dysarthria Patient feels slightly better, no new complaints Vital signs noted Hospitalist Physical - Constitutional Vitals: Temp Pulse Resp BP Pulse Ox 98.5 F 58 L 18 110/75 97 07/05/20 07:38 07/05/20 07:38 07/05/20 07:56 07/05/20 07:38 07/05/20 07:38 General appearance: Present: no acute distress, well-nourished - EENT Eyes: Present: PERRL, EOM intact - Neck Neck: Present: supple, normal ROM - Respiratory Respiratory effort: normal Respiratory: bilateral: diminished, negative: rales, rhonchi, wheezing - Cardiovascular Rhythm: regular Heart Sounds: Present: S1 & S2 - Extremities Extremities: no ischemia, No edema - Abdominal General gastrointestinal: soft, non-tender, non-distended, normal bowel sounds - Integumentary Integumentary: Present: clear, warm - Psychiatric Psychiatric: cooperative - Neurologic Neurologic: other (Acute CVA with right-sided hemiparesis and dysarthria) HEART Score - HEART Score Age: > 65 Risk factors: > 3 risk factors or hx of atherosclerotic disease Troponin: Troponin T 0.118 ng/mL (0.00-0.029) H* 07/03/20 14:51 - Critical Actions Critical Actions: 4-6 pts:12-16.6% risk of adverse cardiac event. Should be admitted Results - Labs CBC & Chem 7: 07/04/20 05:44 07/04/20 05:44 Labs: Laboratory Last Values WBC 9.1 K/mm3 (4.5-11.0) 07/04/20 05:44 RBC 4.18 M/mm3 (3.65-5.03) 07/04/20 05:44 Hgb 12.6 gm/dl (11.8-15.2) 07/04/20 05:44 Hct 38.2 % (35.5-45.6) 07/04/20 05:44 MCV 91 fl (84-94) 07/04/20 05:44 MCH 30 pg (28-32) 07/04/20 05:44 MCHC 33 % (32-34) 07/04/20 05:44 RDW 15.4 % (13.2-15.2) H 07/04/20 05:44 Plt Count 204 K/mm3 (140-440) 07/04/20 05:44 Lymph % (Auto) 13.2 % (13.4-35.0) L 07/04/20 05:44 [place] % (Auto) 13.3 % (0.0-7.3) H 07/04/20 05:44 Eos % (Auto) 0.1 % (0.0-4.3) 07/04/20 05:44 Baso % (Auto) 0.4 % (0.0-1.8) 07/04/20 05:44 Lymph # (Auto) 1.2 K/mm3 (1.2-5.4) 07/04/20 05:44 [place] # (Auto) 1.2 K/mm3 (0.0-0.8) H 07/04/20 05:44 Eos # (Auto) 0.0 K/mm3 (0.0-0.4) 07/04/20 05:44 Baso # (Auto) 0.0 K/mm3 (0.0-0.1) 07/04/20 05:44 Seg Neutrophils % 73.0 % (40.0-70.0) H 07/04/20 05:44 Seg Neutrophils # 6.7 K/mm3 (1.8-7.7) 07/04/20 05:44 PT 17.7 Sec. (12.2-14.9) H 07/05/20 05:17 INR 1.43 (0.87-1.13) H 07/05/20 05:17 APTT 33.6 Sec. (24.2-36.6) 07/03/20 14:51 Thrombin Time 18.4 Sec. (15.1-19.6) 07/03/20 14:51 Sodium 132 mmol/L (137-145) L 07/04/20 05:44 Potassium 4.6 mmol/L (3.6-5.0) 07/04/20 05:44 Chloride 90.1 mmol/L (98-107) L 07/04/20 05:44 Carbon Dioxide 21 mmol/L (22-30) L 07/04/20 05:44 Anion Gap 26 mmol/L 07/04/20 05:44 BUN 47 mg/dL (9-20) H 07/04/20 05:44 Creatinine 11.2 mg/dL (0.8-1.3) H 07/04/20 05:44 Estimated GFR 6 ml/min 07/04/20 05:44 BUN/Creatinine Ratio 4 % 07/04/20 05:44 Glucose 374 mg/dL (75-100) H 07/04/20 05:44 POC Glucose 153 (70-105) H 07/05/20 07:53 Hemoglobin A1c 10.6 % (4-6) H 07/03/20 14:51 Calcium 8.3 mg/dL (8.4-10.2) L 07/04/20 05:44 Total Bilirubin 0.20 mg/dL (0.1-1.2) 07/04/20 05:44 AST 7 units/L (5-40) 07/04/20 05:44 ALT 5 units/L (7-56) L 07/04/20 05:44 Alkaline Phosphatase 69 units/L (35-129) 07/04/20 05:44 Troponin T 0.118 ng/mL (0.00-0.029) H* 07/03/20 14:51 Total Protein 6.5 g/dL (6.3-8.2) 07/04/20 05:44 Albumin 3.3 g/dL (3.9-5) L 07/04/20 05:44 Albumin/Globulin Ratio 1.0 % 07/04/20 05:44 Triglycerides 101 mg/dL (2-149) 07/03/20 14:51 Cholesterol 76 mg/dL (50-199) 07/03/20 14:51 LDL Cholesterol Direct 21 mg/dL (50-130) L 07/03/20 14:51 HDL Cholesterol 40 mg/dL (40-59) 07/03/20 14:51 Cholesterol/HDL Ratio 1.90 % 07/03/20 14:51 TSH 0.625 mlU/mL (0.270-4.200) 07/04/20 17:15 Hepatitis A IgM Ab Non-reactive (NonReactive) 07/04/20 17:15 Hep Bs Antigen Non-reactive (Negative) 07/04/20 17:15 Hep B Core IgM Ab Non-reactive (NonReactive) 07/04/20 17:15 Hepatitis C Antibody Non-reactive (NonReactive) 07/04/20 17:15 Recinos/IV: Voiding Method Urinal IV Catheter Type [Right Chest] permacath IV Catheter Type [Right Hand] Peripheral IV IV Catheter Type [Right VAS Cath Internal Jugular] Active Medications - Current Medications Current Medications: Generic Name Dose Route Start Last Admin Trade Name Freq PRN Reason Stop Dose Admin Acetaminophen 650 mg 07/03/20 22:59 Tylenol PO Q4H PRN Pain MILD(1-3)/Fever >100.5/BUSTILLOS Amlodipine Besylate 10 mg 07/04/20 10:00 07/04/20 10:00 Amlodipine PO Not Given DAILY MELINDA Aspirin 81 mg 07/04/20 12:00 07/05/20 09:10 Halfprin Ec PO 81 mg QDAY MELINDA Administration Atorvastatin Calcium 40 mg 07/04/20 22:00 07/04/20 22:12 Lipitor PO 40 mg QHS MELINDA Administration Famotidine 10 mg 07/04/20 10:00 07/05/20 09:10 Pepcid PO 10 mg BID MELINDA Administration Furosemide 80 mg 07/04/20 10:00 07/05/20 09:10 Lasix PO 80 mg BID MELINDA Administration Heparin Sodium (Porcine) 3,000 unit 07/04/20 11:24 07/04/20 15:42 Heparin 10,000 Units/10 Ml IV 3,000 unit JASPAL PRN Administration hemodialysis Hydromorphone HCl 0.5 mg 07/03/20 22:59 Dilaudid IV Q3H PRN Pain , Severe (7-10) Sodium Chloride 100 mls @ 999 mls/hr 07/04/20 11:24 Nacl 0.9% IV JASPAL PRN Hypotension Insulin Glargine 40 units 07/04/20 10:00 07/05/20 09:10 Lantus SUB-Q 40 units BID MELINDA Administration Insulin Human Lispro 0 unit 07/03/20 22:30 07/05/20 08:31 Humalog SUB-Q 2 unit ACHS MELINDA Administration Protocol Metoprolol Tartrate 100 mg 07/04/20 10:00 07/05/20 09:11 Metoprolol PO 100 mg BID MELINDA Administration Ondansetron HCl 4 mg 07/03/20 22:59 Zofran IV Q8H PRN Nausea And Vomiting Oxycodone/Acetaminophen 1 tab 07/03/20 22:59 07/04/20 19:59 Percocet 5/325 PO 1 tab Q6H PRN Administration Pain, Moderate (4-6) Sodium Chloride 10 ml 07/04/20 10:00 07/05/20 09:11 Sodium Chloride Flush Syringe 10 Ml IV 10 ml BID MELINDA Administration Sodium Chloride 10 ml 07/03/20 22:59 Sodium Chloride Flush Syringe 10 Ml IV PRN PRN LINE FLUSH Warfarin Sodium 5 mg 07/04/20 17:00 07/04/20 18:46 Coumadin PO 5 mg QDAY@1700 MELINDA Administration Protocol Nutrition/Malnutrition Assess - Dietary Evaluation Nutrition/Malnutrition Findings: Nutrition Notes Start: 07/04/20 10:07 Freq: Status: Active Protocol: Document 07/04/20 10:07 LM (Rec: 07/04/20 10:08 LM [id number]) Nutrition Notes Initial or Follow up Brief Note Subjective/Other Information Screen for Coumadin education. Pt getting MRI and ECHO. Nutrition Intervention Follow-Up By: 10/08/20 Additional Comments F/U for Coumadin education
[2020-07-05] MEDS: WARFARIN 5 MG TAB PO SCH (17:51)
[2020-07-06 06:50] LABS: INR 1.27 (0.87-1.13)
[2020-07-06] MEDS: INSULIN LISPRO 100 UNIT/ML VIAL 3 mL SUB-Q SCH ×4 (08:06→22:12)
--- NOTE | 2020-07-06 10:43 | Progress Note ---
Assessment and Plan Assessment and plan: PT recommend acute rehab -- Acute CVA (cerebrovascular accident) Current Visit: Yes Status: Acute Plan to address problem: Not a candidate for TPA , aspirin and statin Neurology following , follow neuro work-up right-sided facial weakness and slight right upper and lower extremity weakness MRI carotid duplex scan and echocardiogram requested neurology consult requested Aspirin initiated --Right-sided hemiparesis Current Visit: Yes Status: Chronic . Plan to address problem: Physical therapy occupational therapy Recommend acute rehab -- ESRD needing dialysis Current Visit: Yes Status: Chronic . Plan to address problem: Nephrology following dialysis per schedule --IDDM (insulin dependent diabetes mellitus) Current Visit: Yes Status: Chronic . Plan to address problem: Accu-Chek sliding scale coverage ADA diet Check hemoglobin A1c -- Hypertension Current Visit: Yes Status: Chronic Plan to address problem: Continue antihypertensives --Hyperlipidemia Current Visit: Yes Status: Chronic Plan to address problem: Continue statins --Anticoagulation adequate Current Visit: Yes Status: Chronic Plan to address problem: Continue Coumadin -- DVT prophylaxis Current Visit: No Status: Acute Plan to address problem: On Coumadin and GI prophylaxis Closely monitor the patient and adjust management as needed Plan of care reviewed with the patient and his nurse PT evaluation noted recommend acute rehab DC planning per case management 07/06/2020; PT OT recommend acute rehab History Interval history: I have seen and examined the patient at the bedside Admitted with acute CVA with right-sided hemiparesis and dysarthria End-stage renal disease on hemodialysis per schedule Patient is receiving physical therapy at the bedside Patient feels better anxious to go home Vital signs noted Hospitalist Physical - Constitutional Vitals: Temp Pulse Resp BP Pulse Ox 97.8 F 68 18 127/73 94 07/06/20 08:25 07/06/20 09:45 07/06/20 08:25 07/06/20 09:45 07/06/20 08:10 General appearance: Present: no acute distress, well-nourished, other (Mild dysarthria) - EENT Eyes: Present: PERRL, EOM intact - Neck Neck: Present: supple, normal ROM - Respiratory Respiratory effort: normal Respiratory: bilateral: diminished, negative: rales, rhonchi, wheezing - Cardiovascular Rhythm: regular Heart Sounds: Present: S1 & S2 - Extremities Extremities: no ischemia, No edema - Abdominal General gastrointestinal: soft, non-tender, non-distended, normal bowel sounds - Integumentary Integumentary: Present: clear, warm - Psychiatric Psychiatric: appropriate mood/affect, cooperative - Neurologic Neurologic: other (Acute CVA with right hemiparesis and dysarthria) HEART Score - HEART Score Age: > 65 Risk factors: > 3 risk factors or hx of atherosclerotic disease Troponin: Troponin T 0.118 ng/mL (0.00-0.029) H* 07/03/20 14:51 - Critical Actions Critical Actions: 4-6 pts:12-16.6% risk of adverse cardiac event. Should be admitted Results - Labs CBC & Chem 7: 07/04/20 05:44 07/04/20 05:44 Labs: Laboratory Last Values WBC 9.1 K/mm3 (4.5-11.0) 07/04/20 05:44 RBC 4.18 M/mm3 (3.65-5.03) 07/04/20 05:44 Hgb 12.6 gm/dl (11.8-15.2) 07/04/20 05:44 Hct 38.2 % (35.5-45.6) 07/04/20 05:44 MCV 91 fl (84-94) 07/04/20 05:44 MCH 30 pg (28-32) 07/04/20 05:44 MCHC 33 % (32-34) 07/04/20 05:44 RDW 15.4 % (13.2-15.2) H 07/04/20 05:44 Plt Count 204 K/mm3 (140-440) 07/04/20 05:44 Lymph % (Auto) 13.2 % (13.4-35.0) L 07/04/20 05:44 [place] % (Auto) 13.3 % (0.0-7.3) H 07/04/20 05:44 Eos % (Auto) 0.1 % (0.0-4.3) 07/04/20 05:44 Baso % (Auto) 0.4 % (0.0-1.8) 07/04/20 05:44 Lymph # (Auto) 1.2 K/mm3 (1.2-5.4) 07/04/20 05:44 [place] # (Auto) 1.2 K/mm3 (0.0-0.8) H 07/04/20 05:44 Eos # (Auto) 0.0 K/mm3 (0.0-0.4) 07/04/20 05:44 Baso # (Auto) 0.0 K/mm3 (0.0-0.1) 07/04/20 05:44 Seg Neutrophils % 73.0 % (40.0-70.0) H 07/04/20 05:44 Seg Neutrophils # 6.7 K/mm3 (1.8-7.7) 07/04/20 05:44 PT 16.1 Sec. (12.2-14.9) H 07/06/20 04:49 INR 1.27 (0.87-1.13) H 07/06/20 04:49 APTT 33.6 Sec. (24.2-36.6) 07/03/20 14:51 Thrombin Time 18.4 Sec. (15.1-19.6) 07/03/20 14:51 Sodium 132 mmol/L (137-145) L 07/04/20 05:44 Potassium 4.6 mmol/L (3.6-5.0) 07/04/20 05:44 Chloride 90.1 mmol/L (98-107) L 07/04/20 05:44 Carbon Dioxide 21 mmol/L (22-30) L 07/04/20 05:44 Anion Gap 26 mmol/L 07/04/20 05:44 BUN 47 mg/dL (9-20) H 07/04/20 05:44 Creatinine 11.2 mg/dL (0.8-1.3) H 07/04/20 05:44 Estimated GFR 6 ml/min 07/04/20 05:44 BUN/Creatinine Ratio 4 % 07/04/20 05:44 Glucose 374 mg/dL (75-100) H 07/04/20 05:44 POC Glucose 106 (70-105) H 07/06/20 07:53 Hemoglobin A1c 10.6 % (4-6) H 07/03/20 14:51 Calcium 8.3 mg/dL (8.4-10.2) L 07/04/20 05:44 Total Bilirubin 0.20 mg/dL (0.1-1.2) 07/04/20 05:44 AST 7 units/L (5-40) 07/04/20 05:44 ALT 5 units/L (7-56) L 07/04/20 05:44 Alkaline Phosphatase 69 units/L (35-129) 07/04/20 05:44 Troponin T 0.118 ng/mL (0.00-0.029) H* 07/03/20 14:51 Total Protein 6.5 g/dL (6.3-8.2) 07/04/20 05:44 Albumin 3.3 g/dL (3.9-5) L 07/04/20 05:44 Albumin/Globulin Ratio 1.0 % 07/04/20 05:44 Triglycerides 101 mg/dL (2-149) 07/03/20 14:51 Cholesterol 76 mg/dL (50-199) 07/03/20 14:51 LDL Cholesterol Direct 21 mg/dL (50-130) L 07/03/20 14:51 HDL Cholesterol 40 mg/dL (40-59) 07/03/20 14:51 Cholesterol/HDL Ratio 1.90 % 07/03/20 14:51 TSH 0.625 mlU/mL (0.270-4.200) 07/04/20 17:15 Hepatitis A IgM Ab Non-reactive (NonReactive) 07/04/20 17:15 Hep Bs Antigen Non-reactive (Negative) 07/04/20 17:15 Hep B Core IgM Ab Non-reactive (NonReactive) 07/04/20 17:15 Hepatitis C Antibody Non-reactive (NonReactive) 07/04/20 17:15 - Diagnostic Impressions Diagnostic Impressions: Echocardiogram 07/03/20 23:16 Transthoracic Echocardiogram Indication: Stroke BP: 102/63 HR: 69 Conclusions *EF 60-65% *MILD LVH *PROBABLE GRADE I DIASTOLIC DYSFUNCTION Findings Left Ventricle: The left ventricular chamber size is normal. Mild concentric left ventricular hypertrophy is observed. Global left ventricular wall motion and contractility are within normal limits. Global left ventricular systolic function is normal. The estimated ejection fraction is 60-65%. Abnormal left ventricular diastolic filling is observed, consistent with impaired relaxation. Left Atrium: The left atrial chamber size is normal. Right Ventricle: The right ventricular cavity size is normal. Right Atrium: The right atrial cavity size is normal. No atrial septal defected is demonstrated by agitated saline contrast. Aortic Valve: The aortic valve leaflets are mildly thickened. There is trace of aortic regurgitation. Mitral Valve: The mitral valve leaflets are mildly thickened. There is trace of mitral regurgitation. Tricuspid Valve: The tricuspid valve leaflets are normal. There is mild tricuspid regurgitation. The right ventricular systolic pressure is calculated at 28 mmHg. Pulmonic Valve: The pulmonic valve appears normal. Pericardium: There is no pericardial effusion. Aorta: The aorta appears normal. Venous: The inferior vena cava appears normal. Contrast: Intravenous agitated saline contrast was used to assess intracardiac shunting. Measurements Chambers 2D Name Value Normal Range IVSd (2D) 1.43 cm (0.6 - 1.1) LVPWd (2D) 1.47 cm (0.6 - 1.1) LVIDd (2D) 4.48 cm (3.7 - 5.6) LVIDs (2D) 2.74 cm (2 - 3.8) LV FS (2D) 38.83 % - EF Teichholz (2D) 69.36 % - Ao root diameter (2D) 3.71 cm (2 - 3.7) Volumes/Mass Name Value Normal Range LA ESV SP 4CH (A/L) 33.32 ml - LA ESV SP 2CH (A/L) 42.49 ml - LA ESV BP (A/L) 37.94 ml - LA ESV BP (A/L) index 16.71 ml/m2 - LA ESV SP 4CH (MOD) 31.14 ml - LA ESV SP 2CH (MOD) 42.22 ml - LA ESV BP (MOD) 36.46 ml - LA ESV BP (MOD) index 16.06 ml/m2 - Diastolic/Systolic Function Name Value Normal Range MV E-wave Vmax 0.66 m/sec - MV deceleration time 289.91 msec - MV A-wave Vmax 0.87 m/sec - MV E:A ratio 0.76 ratio - Aortic Valve Name Value Normal Range AV Vmax 1.6 m/sec - AV VTI 29.56 cm - AV peak gradient 10.2 mmHg - AV mean gradient 5.91 mmHg - LVOT diameter 2.08 cm - LVOT Vmax 1.11 m/sec - LVOT VTI 20.82 cm - LVOT peak gradient 4.97 mmHg - LVOT mean gradient 2.88 mmHg - SV LVOT 70.82 ml - JN (continuity Vmax) 2.37 cm2 - JN (continuity VTI) 2.4 cm2 - Tricuspid Valve Name Value Normal Range TR Vmax 2.48 m/sec - TR peak gradient 25 mmHg - RAP 3 mmHg - RVSP 28 mmHg - Pulmonic Valve/Qp:Qs Name Value Normal Range PV Vmax 0.85 m/sec - PV peak gradient 2.92 mmHg - PV acceleration time 159.85 msec - Recinos/IV: Voiding Method Urinal IV Catheter Type [Right Chest] permacath IV Catheter Type [Right Hand] Peripheral IV IV Catheter Type [Right VAS Cath Internal Jugular] Active Medications - Current Medications Current Medications: Generic Name Dose Route Start Last Admin Trade Name Freq PRN Reason Stop Dose Admin Acetaminophen 650 mg 07/03/20 22:59 Tylenol PO Q4H PRN Pain MILD(1-3)/Fever >100.5/BUSTILLOS Amlodipine Besylate 10 mg 07/04/20 10:00 07/05/20 10:00 Amlodipine PO Not Given DAILY MELINDA Aspirin 81 mg 07/04/20 12:00 07/05/20 09:10 Halfprin Ec PO 81 mg QDAY MELINDA Administration Atorvastatin Calcium 40 mg 07/04/20 22:00 07/05/20 22:53 Lipitor PO 40 mg QHS MELINDA Administration Famotidine 10 mg 07/04/20 10:00 07/05/20 22:53 Pepcid PO 10 mg BID MELINDA Administration Furosemide 80 mg 07/04/20 10:00 07/05/20 22:53 Lasix PO 80 mg BID MELINDA Administration Heparin Sodium (Porcine) 3,000 unit 07/04/20 11:24 07/04/20 15:42 Heparin 10,000 Units/10 Ml IV 3,000 unit JASPAL PRN Administration hemodialysis Hydromorphone HCl 0.5 mg 07/03/20 22:59 Dilaudid IV Q3H PRN Pain , Severe (7-10) Sodium Chloride 100 mls @ 999 mls/hr 07/04/20 11:24 Nacl 0.9% IV JASPAL PRN Hypotension Insulin Glargine 40 units 07/04/20 10:00 07/05/20 22:50 Lantus SUB-Q 40 units BID MELINDA Administration Insulin Human Lispro 0 unit 07/03/20 22:30 07/06/20 08:06 Humalog SUB-Q Not Given ACHS [facility] Protocol Metoprolol Tartrate 100 mg 07/04/20 10:00 07/05/20 22:54 Metoprolol PO Not Given BID [facility] Ondansetron HCl 4 mg 07/03/20 22:59 Zofran IV Q8H PRN Nausea And Vomiting Oxycodone/Acetaminophen 1 tab 07/03/20 22:59 07/04/20 19:59 Percocet 5/325 PO 1 tab Q6H PRN Administration Pain, Moderate (4-6) Sodium Chloride 10 ml 07/04/20 10:00 07/05/20 22:55 Sodium Chloride Flush Syringe 10 Ml IV 10 ml BID MELINDA Administration Sodium Chloride 10 ml 07/03/20 22:59 Sodium Chloride Flush Syringe 10 Ml IV PRN PRN LINE FLUSH Warfarin Sodium 7.5 mg 07/06/20 17:00 Coumadin PO DAILY@1700 [facility] Protocol Nutrition/Malnutrition Assess - Dietary Evaluation Nutrition/Malnutrition Findings: Nutrition Notes Start: 07/04/20 10:07 Freq: Status: Active Protocol: Document 07/05/20 12:16 JOSELYN (Rec: 07/05/20 12:18 JOSELYN [id number]) Co-Sign 07/05/20 12:16 LP Nutrition Notes Initial or Follow up Brief Note Current Diagnosis CKD (stage V CKD),Hypertension ,Stroke,Hyperlipidemia Current Diet Consistent CHO Subjective/Other Information F/u diet education. Pt denied eating large amounts of common Vitamin K foods. Takes no over the counter supplements at this time. Nutrition Intervention Teaching Recipient Patient Learning Readiness Good Teaching Methods Discussion,Handout Response to Teaching Verbalize understanding Education Handouts Provided Vitamin K and Medications Barriers to Learning No Barriers RD phone number provided Yes Patient aware of follow up options Yes Revisit per MD consult or patient Sign Off request:
--- NOTE | 2020-07-06 11:00 | Progress Note ---
Assessment and Plan 1. ESRD: Patient is on maintenance hemodialysis three times a week, TTS schedule. Last outpatient HD 07/02. Hemodialysis: 07/04, 07/06. 2. FEN: Monitor volume status and lytes. 3. Acute CVA: ASA and statin. Seen by Neuro. 4. Anemia: Monitor and Epogen if needed. 5. Hypertension: BP controlled. Monitor BP. 6. DM type 2: Monitor blood sugar. 7. Medical noncompliance: Counseled multiple times. Await rehab placement. D/w his over the phone. Subjective: Patient was seen and examined at the bedside. Doing ok. Examination: General appearance: well-developed, well-nourished, appears stated age, no distress HEENT: ATNC, PERRL, mucous membranes moist, hearing intact, vision intact Neck: supple Respiratory: Clear to Ascultation Cardiology: regular, S1S2, no murmur Gastrointestinal: normoactive bowel sounds, no tenderness, no distended, obese Integumentary: no obvious rash Neurologic: AO, no focal deficit, no asterixis Ext: no edema Hemodialysis access: R IJ Tunnel catheter, L arm AVF Subjective Date of service: 07/06/20 Objective - Vital Signs Vital signs: Vital Signs - 12hr 07/06/20 07/06/20 07/06/20 00:03 04:26 08:10 Temperature 98.4 F 98.6 F Pulse Rate 64 61 Respiratory 18 18 Rate Blood Pressure 117/67 117/67 O2 Sat by Pulse 94 90 94 Oximetry 07/06/20 07/06/20 07/06/20 08:25 08:30 08:45 Temperature 97.8 F Pulse Rate 69 65 68 Respiratory 18 Rate Blood Pressure 138/92 136/85 120/79 O2 Sat by Pulse Oximetry 07/06/20 07/06/20 07/06/20 09:00 09:15 09:30 Temperature Pulse Rate 76 68 67 Respiratory Rate Blood Pressure 126/75 114/69 109/68 O2 Sat by Pulse Oximetry 07/06/20 09:45 Temperature Pulse Rate 68 Respiratory Rate Blood Pressure 127/73 O2 Sat by Pulse Oximetry - Lab 07/04/20 05:44 07/04/20 05:44 Most recent lab results Calcium 8.3 mg/dL (8.4-10.2) L 07/04/20 05:44 Medications & Allergies - Medications Allergies/Adverse Reactions: Allergies No Known Allergies Allergy (Verified 07/03/20 15:42) Home Medications: Home Medications Medication Instructions Recorded Confirmed Last Taken Type Metoprolol Tartrate 100 mg PO BID 02/13/18 07/03/20 07/02/20 16:00 History Rosuvastatin Calcium 20 mg PO DAILY 02/13/18 07/03/20 07/02/20 16:00 History Warfarin [Coumadin] 5 mg PO QDAY 02/13/18 07/03/20 07/02/20 23:00 History Furosemide 80 mg BID 02/10/20 07/03/20 07/02/20 16:00 History Levemir VIAL 40 units SUB-Q BID 02/10/20 07/03/20 07/02/20 16:00 History NovoLOG Flexpen 35 units SUB-Q TID 02/10/20 07/03/20 07/02/20 16:00 History amLODIPine 10 mg PO DAILY 02/10/20 07/03/20 07/02/20 17:00 History Active Medications: Generic Name Dose Route Start Last Admin Trade Name Freq PRN Reason Stop Dose Admin Acetaminophen 650 mg 07/03/20 22:59 Tylenol PO Q4H PRN Pain MILD(1-3)/Fever >100.5/BUSTILLOS Amlodipine Besylate 10 mg 07/04/20 10:00 07/05/20 10:00 Amlodipine PO Not Given DAILY MELINDA Aspirin 81 mg 07/04/20 12:00 07/05/20 09:10 Halfprin Ec PO 81 mg QDAY MELINDA Administration Atorvastatin Calcium 40 mg 07/04/20 22:00 07/05/20 22:53 Lipitor PO 40 mg QHS MELINDA Administration Famotidine 10 mg 07/04/20 10:00 07/05/20 22:53 Pepcid PO 10 mg BID MELINDA Administration Furosemide 80 mg 07/04/20 10:00 07/05/20 22:53 Lasix PO 80 mg BID MELINDA Administration Heparin Sodium (Porcine) 3,000 unit 07/04/20 11:24 07/04/20 15:42 Heparin 10,000 Units/10 Ml IV 3,000 unit JASPAL PRN Administration hemodialysis Hydromorphone HCl 0.5 mg 07/03/20 22:59 Dilaudid IV Q3H PRN Pain , Severe (7-10) Sodium Chloride 100 mls @ 999 mls/hr 07/04/20 11:24 Nacl 0.9% IV JASPAL PRN Hypotension Insulin Glargine 40 units 07/04/20 10:00 07/05/20 22:50 Lantus SUB-Q 40 units BID [facility] Administration Insulin Human Lispro 0 unit 07/03/20 22:30 07/06/20 08:06 Humalog SUB-Q Not Given ACHS [facility] Protocol Metoprolol Tartrate 100 mg 07/04/20 10:00 07/05/20 22:54 Metoprolol PO Not Given BID [facility] Ondansetron HCl 4 mg 07/03/20 22:59 Zofran IV Q8H PRN Nausea And Vomiting Oxycodone/Acetaminophen 1 tab 07/03/20 22:59 07/04/20 19:59 Percocet 5/325 PO 1 tab Q6H PRN Administration Pain, Moderate (4-6) Sodium Chloride 10 ml 07/04/20 10:00 07/05/20 22:55 Sodium Chloride Flush Syringe 10 Ml IV 10 ml BID MELINDA Administration Sodium Chloride 10 ml 07/03/20 22:59 Sodium Chloride Flush Syringe 10 Ml IV PRN PRN LINE FLUSH Warfarin Sodium 7.5 mg 07/06/20 17:00 Coumadin PO DAILY@1700 [facility] Protocol
[2020-07-06] MEDS: ASPIRIN EC 81 MG TAB PO SCH (13:35)
[2020-07-06] MEDS: amLODIPine 10 MG TAB PO SCH (13:35)
[2020-07-06] MEDS: FAMOTIDINE 10 MG TAB PO SCH ×2 (13:35→21:31)
[2020-07-06] MEDS: FUROSEMIDE 40 MG TAB PO SCH ×2 (13:35→21:31)
[2020-07-06] MEDS: METOPROLOL TARTRATE 100 MG TAB PO SCH ×2 (13:36→21:30)
[2020-07-06] MEDS: INSULIN GLARGINE 100 UNITS/ML SUB-Q SCH (13:36)
[2020-07-06] MEDS: WARFARIN 7.5 MG TAB PO SCH (18:10)
[2020-07-07] MEDS: INSULIN GLARGINE 100 UNITS/ML SUB-Q SCH ×3 (00:45→21:01)
[2020-07-07 06:31] LABS: INR 1.25 (0.87-1.13)
[2020-07-07] MEDS: INSULIN LISPRO 100 UNIT/ML VIAL 3 mL SUB-Q SCH ×4 (08:00→21:01)
[2020-07-07] MEDS: METOPROLOL TARTRATE 100 MG TAB PO SCH ×2 (10:08→21:02)
[2020-07-07] MEDS: FAMOTIDINE 10 MG TAB PO SCH ×2 (10:08→21:02)
[2020-07-07] MEDS: ASPIRIN EC 81 MG TAB PO SCH (10:08)
[2020-07-07] MEDS: amLODIPine 10 MG TAB PO SCH (10:08)
[2020-07-07] MEDS: FUROSEMIDE 40 MG TAB PO SCH ×2 (10:08→21:02)
--- NOTE | 2020-07-07 11:40 | Progress Note ---
Assessment and Plan 1. ESRD: Patient is on maintenance hemodialysis three times a week, TTS schedule. Last outpatient HD 07/02. Hemodialysis: 07/04, 07/06. 2. FEN: Monitor volume status and lytes. 3. Acute CVA: ASA and statin. Seen by Neuro. 4. Anemia: Monitor and Epogen if needed. 5. Hypertension: BP controlled. Monitor BP. 6. DM type 2: Monitor blood sugar. 7. Medical noncompliance: Counseled multiple times. Await rehab placement. Subjective: Patient was seen and examined at the bedside. Doing ok. Examination: General appearance: well-developed, well-nourished, appears stated age, no distress HEENT: ATNC, PERRL, mucous membranes moist, hearing intact, vision intact Neck: supple Respiratory: Clear to Ascultation Cardiology: regular, S1S2, no murmur Gastrointestinal: normoactive bowel sounds, no tenderness, no distended, obese Integumentary: no obvious rash Neurologic: AO, no focal deficit, no asterixis Ext: no edema Hemodialysis access: R IJ Tunnel catheter, L arm AVF Subjective Date of service: 07/07/20 Objective - Vital Signs Vital signs: Vital Signs - 12hr 07/07/20 07/07/20 07/07/20 01:09 06:19 07:56 Temperature 98.4 F 97.6 F 98.1 F Pulse Rate 68 58 L 69 Respiratory 20 20 18 Rate Blood Pressure 127/89 132/84 127/80 O2 Sat by Pulse 94 99 99 Oximetry 07/07/20 09:55 Temperature Pulse Rate Respiratory Rate Blood Pressure O2 Sat by Pulse 98 Oximetry - Lab 07/04/20 05:44 07/04/20 05:44 Most recent lab results Calcium 8.3 mg/dL (8.4-10.2) L 07/04/20 05:44 Medications & Allergies - Medications Allergies/Adverse Reactions: Allergies No Known Allergies Allergy (Verified 07/03/20 15:42) Home Medications: Home Medications Medication Instructions Recorded Confirmed Last Taken Type Metoprolol Tartrate 100 mg PO BID 02/13/18 07/03/20 07/02/20 16:00 History Rosuvastatin Calcium 20 mg PO DAILY 02/13/18 07/03/20 07/02/20 16:00 History Warfarin [Coumadin] 5 mg PO QDAY 02/13/18 07/03/20 07/02/20 23:00 History Furosemide 80 mg BID 02/10/20 07/03/20 07/02/20 16:00 History Levemir VIAL 40 units SUB-Q BID 02/10/20 07/03/20 07/02/20 16:00 History NovoLOG Flexpen 35 units SUB-Q TID 02/10/20 07/03/20 07/02/20 16:00 History amLODIPine 10 mg PO DAILY 02/10/20 07/03/20 07/02/20 17:00 History Active Medications: Generic Name Dose Route Start Last Admin Trade Name Freq PRN Reason Stop Dose Admin Acetaminophen 650 mg 07/03/20 22:59 Tylenol PO Q4H PRN Pain MILD(1-3)/Fever >100.5/BUSTILLOS Amlodipine Besylate 10 mg 07/04/20 10:00 07/07/20 10:08 Amlodipine PO 10 mg DAILY MELINDA Administration Aspirin 81 mg 07/04/20 12:00 07/07/20 10:08 Halfprin Ec PO 81 mg QDAY MELINDA Administration Atorvastatin Calcium 40 mg 07/04/20 22:00 07/06/20 21:31 Lipitor PO 40 mg QHS MELINDA Administration Famotidine 10 mg 07/04/20 10:00 07/07/20 10:08 Pepcid PO 10 mg BID MELINDA Administration Furosemide 80 mg 07/04/20 10:00 07/07/20 10:08 Lasix PO 80 mg BID MELINDA Administration Heparin Sodium (Porcine) 3,000 unit 07/04/20 11:24 07/04/20 15:42 Heparin 10,000 Units/10 Ml IV 3,000 unit JASPAL PRN Administration hemodialysis Hydromorphone HCl 0.5 mg 07/03/20 22:59 Dilaudid IV Q3H PRN Pain , Severe (7-10) Sodium Chloride 100 mls @ 999 mls/hr 07/04/20 11:24 Nacl 0.9% IV JASPAL PRN Hypotension Insulin Glargine 40 units 07/04/20 10:00 07/07/20 10:08 Lantus SUB-Q 40 units BID MELINDA Administration Insulin Human Lispro 0 unit 07/03/20 22:30 07/07/20 08:00 Humalog SUB-Q Not Given ACHS [facility] Protocol Metoprolol Tartrate 100 mg 07/04/20 10:00 07/07/20 10:08 Metoprolol PO 100 mg BID MELINDA Administration Ondansetron HCl 4 mg 07/03/20 22:59 Zofran IV Q8H PRN Nausea And Vomiting Oxycodone/Acetaminophen 1 tab 07/03/20 22:59 07/04/20 19:59 Percocet 5/325 PO 1 tab Q6H PRN Administration Pain, Moderate (4-6) Sodium Chloride 10 ml 07/04/20 10:00 07/07/20 10:09 Sodium Chloride Flush Syringe 10 Ml IV 10 ml BID MELINDA Administration Sodium Chloride 10 ml 07/03/20 22:59 Sodium Chloride Flush Syringe 10 Ml IV PRN PRN LINE FLUSH Warfarin Sodium 7.5 mg 07/06/20 17:00 07/06/20 18:10 Coumadin PO 7.5 mg DAILY@1700 MELINDA Administration Protocol
--- NOTE | 2020-07-07 13:29 | Progress Note ---
Assessment and Plan Assessment and plan: PT recommend acute rehab -- Acute CVA (cerebrovascular accident) Current Visit: Yes Status: Acute Plan to address problem: Not a candidate for TPA , aspirin and statin Neurology following , follow neuro work-up right-sided facial weakness and slight right upper and lower extremity weakness MRI carotid duplex scan and echocardiogram requested neurology consult requested Aspirin initiated --Right-sided hemiparesis Current Visit: Yes Status: Chronic . Plan to address problem: Physical therapy occupational therapy Recommend acute rehab -- ESRD needing dialysis Current Visit: Yes Status: Chronic . Plan to address problem: Nephrology following dialysis per schedule --IDDM (insulin dependent diabetes mellitus) Current Visit: Yes Status: Chronic . Plan to address problem: Accu-Chek sliding scale coverage ADA diet Check hemoglobin A1c -- Hypertension Current Visit: Yes Status: Chronic Plan to address problem: Continue antihypertensives --Hyperlipidemia Current Visit: Yes Status: Chronic Plan to address problem: Continue statins --Anticoagulation adequate Current Visit: Yes Status: Chronic Plan to address problem: Continue Coumadin -- DVT prophylaxis Current Visit: No Status: Acute Plan to address problem: On Coumadin and GI prophylaxis Closely monitor the patient and adjust management as needed Plan of care reviewed with the patient and his nurse PT evaluation noted recommend acute rehab DC planning per case management 07/06/2020; PT OT recommend acute rehab 07/07; patient symptoms very slightly improved, awaiting placement Case management processing the paperwork History Interval history: I have seen and examined the patient at the bedside Patient feels slightly better, still has significant weakness on the right side speech slightly improved Not in acute distress, No new complaints Wants to know when he is going home Vital signs noted Hospitalist Physical - Constitutional Vitals: Temp Pulse Resp BP Pulse Ox 98.1 F 69 18 127/80 98 07/07/20 07:56 07/07/20 07:56 07/07/20 07:56 07/07/20 07:56 07/07/20 09:55 General appearance: Present: no acute distress, well-nourished, other (Mild dysarthria) - EENT Eyes: Present: PERRL, EOM intact - Neck Neck: Present: supple, normal ROM - Respiratory Respiratory effort: normal Respiratory: bilateral: diminished, negative: rales, rhonchi, wheezing - Cardiovascular Rhythm: regular Heart Sounds: Present: S1 & S2 - Extremities Extremities: no ischemia, No edema, abnormal (Right-sided weakness) - Abdominal General gastrointestinal: soft, non-tender, non-distended, normal bowel sounds - Integumentary Integumentary: Present: clear, warm - Psychiatric Psychiatric: appropriate mood/affect, cooperative - Neurologic Neurologic: other (Acute CVA with right-sided hemiparesis, dysarthria) HEART Score - HEART Score Age: > 65 Risk factors: > 3 risk factors or hx of atherosclerotic disease Troponin: Troponin T 0.118 ng/mL (0.00-0.029) H* 07/03/20 14:51 - Critical Actions Critical Actions: 4-6 pts:12-16.6% risk of adverse cardiac event. Should be admitted Results - Labs CBC & Chem 7: 07/04/20 05:44 07/04/20 05:44 Labs: Laboratory Last Values WBC 9.1 K/mm3 (4.5-11.0) 07/04/20 05:44 RBC 4.18 M/mm3 (3.65-5.03) 07/04/20 05:44 Hgb 12.6 gm/dl (11.8-15.2) 07/04/20 05:44 Hct 38.2 % (35.5-45.6) 07/04/20 05:44 MCV 91 fl (84-94) 07/04/20 05:44 MCH 30 pg (28-32) 07/04/20 05:44 MCHC 33 % (32-34) 07/04/20 05:44 RDW 15.4 % (13.2-15.2) H 07/04/20 05:44 Plt Count 204 K/mm3 (140-440) 07/04/20 05:44 Lymph % (Auto) 13.2 % (13.4-35.0) L 07/04/20 05:44 Crook % (Auto) 13.3 % (0.0-7.3) H 07/04/20 05:44 Eos % (Auto) 0.1 % (0.0-4.3) 07/04/20 05:44 Baso % (Auto) 0.4 % (0.0-1.8) 07/04/20 05:44 Lymph # (Auto) 1.2 K/mm3 (1.2-5.4) 07/04/20 05:44 Crook # (Auto) 1.2 K/mm3 (0.0-0.8) H 07/04/20 05:44 Eos # (Auto) 0.0 K/mm3 (0.0-0.4) 07/04/20 05:44 Baso # (Auto) 0.0 K/mm3 (0.0-0.1) 07/04/20 05:44 Seg Neutrophils % 73.0 % (40.0-70.0) H 07/04/20 05:44 Seg Neutrophils # 6.7 K/mm3 (1.8-7.7) 07/04/20 05:44 PT 15.9 Sec. (12.2-14.9) H 07/07/20 05:32 INR 1.25 (0.87-1.13) H 07/07/20 05:32 APTT 33.6 Sec. (24.2-36.6) 07/03/20 14:51 Thrombin Time 18.4 Sec. (15.1-19.6) 07/03/20 14:51 Sodium 132 mmol/L (137-145) L 07/04/20 05:44 Potassium 4.6 mmol/L (3.6-5.0) 07/04/20 05:44 Chloride 90.1 mmol/L (98-107) L 07/04/20 05:44 Carbon Dioxide 21 mmol/L (22-30) L 07/04/20 05:44 Anion Gap 26 mmol/L 07/04/20 05:44 BUN 47 mg/dL (9-20) H 07/04/20 05:44 Creatinine 11.2 mg/dL (0.8-1.3) H 07/04/20 05:44 Estimated GFR 6 ml/min 07/04/20 05:44 BUN/Creatinine Ratio 4 % 07/04/20 05:44 Glucose 374 mg/dL (75-100) H 07/04/20 05:44 POC Glucose 134 (70-105) H 07/07/20 12:33 Hemoglobin A1c 10.6 % (4-6) H 07/03/20 14:51 Calcium 8.3 mg/dL (8.4-10.2) L 07/04/20 05:44 Total Bilirubin 0.20 mg/dL (0.1-1.2) 07/04/20 05:44 AST 7 units/L (5-40) 07/04/20 05:44 ALT 5 units/L (7-56) L 07/04/20 05:44 Alkaline Phosphatase 69 units/L (35-129) 07/04/20 05:44 Troponin T 0.118 ng/mL (0.00-0.029) H* 07/03/20 14:51 Total Protein 6.5 g/dL (6.3-8.2) 07/04/20 05:44 Albumin 3.3 g/dL (3.9-5) L 07/04/20 05:44 Albumin/Globulin Ratio 1.0 % 07/04/20 05:44 Triglycerides 101 mg/dL (2-149) 07/03/20 14:51 Cholesterol 76 mg/dL (50-199) 07/03/20 14:51 LDL Cholesterol Direct 21 mg/dL (50-130) L 07/03/20 14:51 HDL Cholesterol 40 mg/dL (40-59) 07/03/20 14:51 Cholesterol/HDL Ratio 1.90 % 07/03/20 14:51 TSH 0.625 mlU/mL (0.270-4.200) 07/04/20 17:15 Hepatitis A IgM Ab Non-reactive (NonReactive) 07/04/20 17:15 Hep Bs Antigen Non-reactive (Negative) 07/04/20 17:15 Hep B Core IgM Ab Non-reactive (NonReactive) 07/04/20 17:15 Hepatitis C Antibody Non-reactive (NonReactive) 07/04/20 17:15 - Diagnostic Impressions Diagnostic Impressions: Echocardiogram 07/03/20 23:16 Transthoracic Echocardiogram Indication: Stroke BP: 102/63 HR: 69 Conclusions *EF 60-65% *MILD LVH *PROBABLE GRADE I DIASTOLIC DYSFUNCTION Findings Left Ventricle: The left ventricular chamber size is normal. Mild concentric left ventricular hypertrophy is observed. Global left ventricular wall motion and contractility are within normal limits. Global left ventricular systolic function is normal. The estimated ejection fraction is 60-65%. Abnormal left ventricular diastolic filling is observed, consistent with impaired relaxation. Left Atrium: The left atrial chamber size is normal. Right Ventricle: The right ventricular cavity size is normal. Right Atrium: The right atrial cavity size is normal. No atrial septal defected is demonstrated by agitated saline contrast. Aortic Valve: The aortic valve leaflets are mildly thickened. There is trace of aortic regurgitation. Mitral Valve: The mitral valve leaflets are mildly thickened. There is trace of mitral regurgitation. Tricuspid Valve: The tricuspid valve leaflets are normal. There is mild tricuspid regurgitation. The right ventricular systolic pressure is calculated at 28 mmHg. Pulmonic Valve: The pulmonic valve appears normal. Pericardium: There is no pericardial effusion. Aorta: The aorta appears normal. Venous: The inferior vena cava appears normal. Contrast: Intravenous agitated saline contrast was used to assess intracardiac shunting. Measurements Chambers 2D Name Value Normal Range IVSd (2D) 1.43 cm (0.6 - 1.1) LVPWd (2D) 1.47 cm (0.6 - 1.1) LVIDd (2D) 4.48 cm (3.7 - 5.6) LVIDs (2D) 2.74 cm (2 - 3.8) LV FS (2D) 38.83 % - EF Teichholz (2D) 69.36 % - Ao root diameter (2D) 3.71 cm (2 - 3.7) Volumes/Mass Name Value Normal Range LA ESV SP 4CH (A/L) 33.32 ml - LA ESV SP 2CH (A/L) 42.49 ml - LA ESV BP (A/L) 37.94 ml - LA ESV BP (A/L) index 16.71 ml/m2 - LA ESV SP 4CH (MOD) 31.14 ml - LA ESV SP 2CH (MOD) 42.22 ml - LA ESV BP (MOD) 36.46 ml - LA ESV BP (MOD) index 16.06 ml/m2 - Diastolic/Systolic Function Name Value Normal Range MV E-wave Vmax 0.66 m/sec - MV deceleration time 289.91 msec - MV A-wave Vmax 0.87 m/sec - MV E:A ratio 0.76 ratio - Aortic Valve Name Value Normal Range AV Vmax 1.6 m/sec - AV VTI 29.56 cm - AV peak gradient 10.2 mmHg - AV mean gradient 5.91 mmHg - LVOT diameter 2.08 cm - LVOT Vmax 1.11 m/sec - LVOT VTI 20.82 cm - LVOT peak gradient 4.97 mmHg - LVOT mean gradient 2.88 mmHg - SV LVOT 70.82 ml - JN (continuity Vmax) 2.37 cm2 - JN (continuity VTI) 2.4 cm2 - Tricuspid Valve Name Value Normal Range TR Vmax 2.48 m/sec - TR peak gradient 25 mmHg - RAP 3 mmHg - RVSP 28 mmHg - Pulmonic Valve/Qp:Qs Name Value Normal Range PV Vmax 0.85 m/sec - PV peak gradient 2.92 mmHg - PV acceleration time 159.85 msec - Recinos/IV: Voiding Method Incontinent IV Catheter Type [Right Chest] permacath IV Catheter Type [Right Hand] Peripheral IV IV Catheter Type [Right VAS Cath Internal Jugular] Active Medications - Current Medications Current Medications: Generic Name Dose Route Start Last Admin Trade Name Freq PRN Reason Stop Dose Admin Acetaminophen 650 mg 07/03/20 22:59 Tylenol PO Q4H PRN Pain MILD(1-3)/Fever >100.5/BUSTILLOS Amlodipine Besylate 10 mg 07/04/20 10:00 07/07/20 10:08 Amlodipine PO 10 mg DAILY MELINDA Administration Aspirin 81 mg 07/04/20 12:00 07/07/20 10:08 Halfprin Ec PO 81 mg QDAY MELINDA Administration Atorvastatin Calcium 40 mg 07/04/20 22:00 07/06/20 21:31 Lipitor PO 40 mg QHS MELINDA Administration Famotidine 10 mg 07/04/20 10:00 07/07/20 10:08 Pepcid PO 10 mg BID MELINDA Administration Furosemide 80 mg 07/04/20 10:00 07/07/20 10:08 Lasix PO 80 mg BID MELINDA Administration Heparin Sodium (Porcine) 3,000 unit 07/04/20 11:24 07/04/20 15:42 Heparin 10,000 Units/10 Ml IV 3,000 unit JASPAL PRN Administration hemodialysis Hydromorphone HCl 0.5 mg 07/03/20 22:59 Dilaudid IV Q3H PRN Pain , Severe (7-10) Sodium Chloride 100 mls @ 999 mls/hr 07/04/20 11:24 Nacl 0.9% IV JASPAL PRN Hypotension Insulin Glargine 40 units 07/04/20 10:00 07/07/20 10:08 Lantus SUB-Q 40 units BID MELINDA Administration Insulin Human Lispro 0 unit 07/03/20 22:30 07/07/20 08:00 Humalog SUB-Q Not Given ACHS [facility] Protocol Metoprolol Tartrate 100 mg 07/04/20 10:00 07/07/20 10:08 Metoprolol PO 100 mg BID MELINDA Administration Ondansetron HCl 4 mg 07/03/20 22:59 Zofran IV Q8H PRN Nausea And Vomiting Oxycodone/Acetaminophen 1 tab 07/03/20 22:59 07/04/20 19:59 Percocet 5/325 PO 1 tab Q6H PRN Administration Pain, Moderate (4-6) Sodium Chloride 10 ml 07/04/20 10:00 07/07/20 10:09 Sodium Chloride Flush Syringe 10 Ml IV 10 ml BID MELINDA Administration Sodium Chloride 10 ml 07/03/20 22:59 Sodium Chloride Flush Syringe 10 Ml IV PRN PRN LINE FLUSH Warfarin Sodium 7.5 mg 07/06/20 17:00 07/06/20 18:10 Coumadin PO 7.5 mg DAILY@1700 MELINDA Administration Protocol Nutrition/Malnutrition Assess - Dietary Evaluation Nutrition/Malnutrition Findings: Nutrition Notes Start: 07/04/20 10:07 Freq: Status: Active Protocol: Document 07/05/20 12:16 JOSELYN (Rec: 07/05/20 12:18 [email or web address] [id number]) Co-Sign 07/05/20 12:16 LP Nutrition Notes Initial or Follow up Brief Note Current Diagnosis CKD (stage V CKD),Hypertension ,Stroke,Hyperlipidemia Current Diet Consistent CHO Subjective/Other Information F/u diet education. Pt denied eating large amounts of common Vitamin K foods. Takes no over the counter supplements at this time. Nutrition Intervention Teaching Recipient Patient Learning Readiness Good Teaching Methods Discussion,Handout Response to Teaching Verbalize understanding Education Handouts Provided Vitamin K and Medications Barriers to Learning No Barriers RD phone number provided Yes Patient aware of follow up options Yes Revisit per MD consult or patient Sign Off request:
[2020-07-07] MEDS: WARFARIN 7.5 MG TAB PO SCH (18:54)
[2020-07-08 05:30] LABS: INR 1.34 (0.87-1.13)
[2020-07-08] MEDS: INSULIN LISPRO 100 UNIT/ML VIAL 3 mL SUB-Q SCH ×2 (08:00→12:00)
[2020-07-08 08:54] VITALS: BP 112/73
--- NOTE | 2020-07-08 09:30 | Progress Note ---
Assessment and Plan 1. ESRD: Patient is on maintenance hemodialysis three times a week, TTS schedule. Last outpatient HD 07/02. Hemodialysis: 07/04, 07/06. 2. FEN: Monitor volume status and lytes. 3. Acute CVA: ASA and statin. Seen by Neuro. 4. Anemia: Monitor and Epogen if needed. 5. Hypertension: BP controlled. Monitor BP. 6. DM type 2: Monitor blood sugar. 7. Medical noncompliance: Counseled multiple times. Await rehab placement. Subjective: Patient was seen and examined at the bedside. Doing ok. Examination: General appearance: well-developed, well-nourished, appears stated age, no distress HEENT: ATNC, PERRL, mucous membranes moist, hearing intact, vision intact Neck: supple Respiratory: Clear to Ascultation Cardiology: regular, S1S2, no murmur Gastrointestinal: normoactive bowel sounds, no tenderness, no distended, obese Integumentary: no obvious rash Neurologic: AO, no focal deficit, no asterixis Ext: no edema Hemodialysis access: R IJ Tunnel catheter, L arm AVF Subjective Date of service: 07/08/20 Objective - Vital Signs Vital signs: Vital Signs - 12hr 07/07/20 07/08/20 07/08/20 23:52 04:07 08:03 Temperature 98.0 F 98.3 F 98.1 F Pulse Rate 64 61 63 Respiratory 18 18 20 Rate Blood Pressure 118/75 131/84 112/73 O2 Sat by Pulse 96 94 96 Oximetry - Lab 07/04/20 05:44 07/04/20 05:44 Most recent lab results Calcium 8.3 mg/dL (8.4-10.2) L 07/04/20 05:44 Medications & Allergies - Medications Allergies/Adverse Reactions: Allergies No Known Allergies Allergy (Verified 07/03/20 15:42) Home Medications: Home Medications Medication Instructions Recorded Confirmed Last Taken Type Metoprolol Tartrate 100 mg PO BID 02/13/18 07/03/20 07/02/20 16:00 History Rosuvastatin Calcium 20 mg PO DAILY 02/13/18 07/03/20 07/02/20 16:00 History Warfarin [Coumadin] 5 mg PO QDAY 02/13/18 07/03/20 07/02/20 23:00 History Furosemide 80 mg BID 02/10/20 07/03/20 07/02/20 16:00 History Levemir VIAL 40 units SUB-Q BID 02/10/20 07/03/20 07/02/20 16:00 History NovoLOG Flexpen 35 units SUB-Q TID 02/10/20 07/03/20 07/02/20 16:00 History amLODIPine 10 mg PO DAILY 02/10/20 07/03/20 07/02/20 17:00 History Active Medications: Generic Name Dose Route Start Last Admin Trade Name Freq PRN Reason Stop Dose Admin Acetaminophen 650 mg 07/03/20 22:59 Tylenol PO Q4H PRN Pain MILD(1-3)/Fever >100.5/BUSTILLOS Amlodipine Besylate 10 mg 07/04/20 10:00 07/07/20 10:08 Amlodipine PO 10 mg DAILY MELINDA Administration Aspirin 81 mg 07/04/20 12:00 07/07/20 10:08 Halfprin Ec PO 81 mg QDAY MELINDA Administration Atorvastatin Calcium 40 mg 07/04/20 22:00 07/07/20 21:02 Lipitor PO 40 mg QHS MELINDA Administration Famotidine 10 mg 07/04/20 10:00 07/07/20 21:02 Pepcid PO 10 mg BID MELINDA Administration Furosemide 80 mg 07/04/20 10:00 07/07/20 21:02 Lasix PO 80 mg BID MELINDA Administration Heparin Sodium (Porcine) 3,000 unit 07/04/20 11:24 07/04/20 15:42 Heparin 10,000 Units/10 Ml IV 3,000 unit JASPAL PRN Administration hemodialysis Hydromorphone HCl 0.5 mg 07/03/20 22:59 Dilaudid IV Q3H PRN Pain , Severe (7-10) Sodium Chloride 100 mls @ 999 mls/hr 07/04/20 11:24 Nacl 0.9% IV JASPAL PRN Hypotension Insulin Glargine 40 units 07/04/20 10:00 07/07/20 21:01 Lantus SUB-Q 40 units BID MELINDA Administration Insulin Human Lispro 0 unit 07/03/20 22:30 07/07/20 21:01 Humalog SUB-Q 4 unit ACHS MELINDA Administration Protocol Metoprolol Tartrate 100 mg 07/04/20 10:00 07/07/20 21:02 Metoprolol PO 100 mg BID MELINDA Administration Ondansetron HCl 4 mg 07/03/20 22:59 Zofran IV Q8H PRN Nausea And Vomiting Oxycodone/Acetaminophen 1 tab 07/03/20 22:59 07/04/20 19:59 Percocet 5/325 PO 1 tab Q6H PRN Administration Pain, Moderate (4-6) Sodium Chloride 10 ml 07/04/20 10:00 07/07/20 21:03 Sodium Chloride Flush Syringe 10 Ml IV 10 ml BID MELINDA Administration Sodium Chloride 10 ml 07/03/20 22:59 Sodium Chloride Flush Syringe 10 Ml IV PRN PRN LINE FLUSH Warfarin Sodium 7.5 mg 07/06/20 17:00 07/07/20 18:54 Coumadin PO 7.5 mg DAILY@1700 MELINDA Administration Protocol
[2020-07-08] MEDS: FAMOTIDINE 10 MG TAB PO SCH (10:28)
[2020-07-08] MEDS: oxyCODONE /ACETAMINOPHEN 5-325MG TAB PO PRN (10:28)
[2020-07-08] MEDS: ASPIRIN EC 81 MG TAB PO SCH (10:28)
[2020-07-08] MEDS: FUROSEMIDE 40 MG TAB PO SCH (10:29)
[2020-07-08] MEDS: INSULIN GLARGINE 100 UNITS/ML SUB-Q SCH (10:40)
[2020-07-08] MEDS: amLODIPine 10 MG TAB PO SCH (10:40)
[2020-07-08] MEDS: METOPROLOL TARTRATE 100 MG TAB PO SCH (10:40)
--- NOTE | 2020-07-08 13:14 | Discharge Summary ---
Providers - Providers Date of Admission: 07/04/20 10:51 Date of discharge: 07/08/20 Attending physician: RICHARD GUY 07/03/20 Consult to Physician [CONS] Routine Comment: Consulting Provider: ASHLYN ESCALONA Physician Instructions: Reason For Exam: Possible CVA 07/03/20 23:13 Occupational Therapy Evaluate and Treat [CONS] Routine Comment: Reason For Exam: Neuro deficits Physical Therapy Evaluation and Treat [CONS] Routine Comment: Reason For Exam: Neuro deficits 07/04/20 09:58 Consult to Physician [CONS] Routine Comment: Consulting Provider: THELMA CARRASCO Physician Instructions: Reason For Exam: ESRD Primary care physician: [employer] REPRESENTATIVE Hospitalization Reason for admission: Acute CVA with right-sided hemiparesis/dysarthria Condition: Stable Pertinent studies: CT head without contrast; extensive microvascular angiopathy, no acute abnormality MRI brain; acute infarct alicea radiate left Carotid Doppler; no hemodynamically significant stenosis, less than 50% stenosis Echocardiogram; EF 60 to 65%, no shunt Hospital course: Right facial and right-sided weakness 70-year-old male patient with history of hypertension, hyperlipidemia, insulin- dependent diabetes and CHF, end-stage renal disease on hemodialysis TTS, was adm itted through emergency room with sudden onset of right facial and right-sided weakness . Code stroke was called and stroke pathway is initiated, patient was not a candidate for TPA, had extensive neuro work-up as mentioned above Patient had dysarthria and right-sided hemiparesis, patient was placed on aspirin and statin, managed per stroke protocol Patient was evaluated by speech therapy physical therapy and Occupational Therapy, recommended acute rehab Case management was processing the paperwork. Today patient reports to me that he is not interested in acute rehab and he requests to be discharged home today. Patient was very agitated walking in the hallways not listening to the directions of the providers, security had to be called I called the family son, Mauricio at [phone] and informed the patient's request to be discharged home today and he is refusing rehab Son agreed with discharging him home. I consulted case management and requested PT OT and speech therapy at home Charge nurse also informed patient's who agreed for the discharge. Patient is hemodynamically and clinically stable at discharge Continues to have right-sided weakness and mild dysarthria though significantly improved since admission. Stable at discharge; Discharge diagnosis; -- Acute CVA (cerebrovascular accident) Current Visit: Yes Status: Acute Plan to address problem: Not a candidate for TPA , aspirin and statin Neurology following , follow neuro work-up right-sided facial weakness and slight right upper and lower extremity weakness MRI carotid duplex scan and echocardiogram requested neurology consult requested Aspirin initiated --Right-sided hemiparesis Current Visit: Yes Status: Chronic . Plan to address problem: Physical therapy occupational therapy Recommend acute rehab -- ESRD needing dialysis Current Visit: Yes Status: Chronic . Plan to address problem: Nephrology following dialysis per schedule --IDDM (insulin dependent diabetes mellitus) Current Visit: Yes Status: Chronic . Plan to address problem: Accu-Chek sliding scale coverage ADA diet Check hemoglobin A1c -- Hypertension Current Visit: Yes Status: Chronic Plan to address problem: Continue antihypertensives --Hyperlipidemia Current Visit: Yes Status: Chronic Plan to address problem: Continue statins --Anticoagulation adequate Current Visit: Yes Status: Chronic Plan to address problem: Continue Coumadin -- DVT prophylaxis Current Visit: No Status: Acute Plan to address problem: On Coumadin and GI prophylaxis PT evaluation noted recommend acute rehab However patient refused and wanted to go home Discussed with case management set up home with home health PT and OT Disposition: [id number]/TX-06 HOME UNDER HOME TH Time spent for discharge: 35 min Core Measure Documentation - Palliative Care Palliative Care/ Comfort Measures: Not Applicable - Core Measures Any of the following diagnoses?: stroke - Stroke Discharge Requirements Statin for LDL = or >70 mg/dl on DC: Yes Anticoag for atrial fib/atrial flutter: Not Applicable (No fib flutter) Reason for no anticoag for AF/F on DC: Not Indicated Antithrombotic for ischemic stroke: Yes Exam - Constitutional Vitals: Temp Pulse Resp BP Pulse Ox 98.1 F 63 20 112/73 97 07/08/20 08:03 07/08/20 08:03 07/08/20 08:03 07/08/20 08:03 07/08/20 09:53 General appearance: Present: no acute distress, well-nourished - EENT Eyes: Present: PERRL, EOM intact, irregular pupil - Neck Neck: Present: supple, normal ROM - Respiratory Respiratory effort: normal Respiratory: bilateral: diminished, negative: rales, rhonchi, wheezing - Cardiovascular Rhythm: regular Heart Sounds: Present: S1 & S2 - Extremities Extremities: no ischemia, No edema - Abdominal General gastrointestinal: Present: soft, non-tender, non-distended, normal bowel sounds - Integumentary Integumentary: Present: clear, warm - Musculoskeletal Musculoskeletal: right sided weakness - Psychiatric Psychiatric: appropriate mood/affect, agitated (At times wants to go home) - Neurologic Neurologic: other (Acute CVA with right-sided hemiparesis and mild dysarthria) Plan Activity: advance as tolerated, fall precautions Diet: other (Cardiac diet) Additional Instructions: Fall precautions. Aspiration precautions. If you have worsening symptoms contact MD or go to emergency room as needed. Advised to see private neurologist Dr. Duncan Tavera in 1 week. Physical therapy recommended acute rehab, however today the patient reports that he does not want acute rehab and wanted to go home. Follow renal and hemodialysis per schedule TTS Follow up with: TERRELL GIBBS MD [Staff Physician] - 7 Days PRIMARY CARE, [Primary Care Provider] - 7 Days THELMA CARRASCO MD [Staff Physician] - 7 Days Forms: Warfarin Discharge Instruction Prescriptions: Aspirin EC [Halfprin EC] 81 mg PO QDAY #30 tablet AtorvaSTATin [Lipitor] 40 mg PO QHS #30 tablet
== END 2020-07-08 15:00 | disposition home health service (06) | DRG 64 ==
LOC: ED 14:23 → 4A 16:06 → OBSVTOIN 07-04 10:51
PROVIDERS: ADMIT Internal Medicine; ATTEND Internal Medicine
PROC: 5A1D70Z Performance of Urinary Filtration, Intermittent, Less than 6 Hours Per Day (ICD-10-PCS; principal; 2020-07-04)
PROC: 5A1D70Z Performance of Urinary Filtration, Intermittent, Less than 6 Hours Per Day (ICD-10-PCS; 2020-07-06)
DX: I63.89 Other cerebral infarction (principal); N18.6 End stage renal disease; G81.91 Hemiplegia, unspecified affecting right dominant side; I13.2 Hypertensive heart and chronic kidney disease with heart failure and with stage 5 chronic kidney disease, or end stage renal disease; R47.1 Dysarthria and anarthria; E11.22 Type 2 diabetes mellitus with diabetic chronic kidney disease; I50.9 Heart failure, unspecified; G43.909 Migraine, unspecified, not intractable, without status migrainosus; F03.90 Unspecified dementia, unspecified severity, without behavioral disturbance, psychotic disturbance, mood disturbance, and anxiety; M16.0 Bilateral primary osteoarthritis of hip; M19.09 Primary osteoarthritis, other specified site; R79.1 Abnormal coagulation profile; F17.200 Nicotine dependence, unspecified, uncomplicated; D64.9 Anemia, unspecified; Z91.14 Patient's other noncompliance with medication regimen; Z99.2 Dependence on renal dialysis; Z79.01 Long term (current) use of anticoagulants; Z79.899 Other long term (current) drug therapy; Z86.711 Personal history of pulmonary embolism
CPT/HCPCS: 36415; 70450; 70551; 80048; 80053; 80061; 80074; 82962; 83036; 84443; 84484; 85025; 85610; 85670; 85730; 93005; 93306; 93880; 96374; 99406; G0378; A9270-GY; J1644; J1815

== ENCOUNTER 2020-10-31 06:56 | Emergency (ER) | payer MEDICARE ==
[2020-10-31 07:16] VITALS: BP 165/108
--- NOTE | 2020-10-31 07:20 | Emergency Department Report ---
ED Fall HPI - General Chief Complaint: Fall Stated Complaint: RT SHOULDER PAIN Source: EMS Mode of arrival: Wheelchair - History of Present Illness Initial Comments: 70-year-old -[place] male presents to the emergency room reporting right shoulder and neck pain that is located in the front. Patient states that he used BenGay to his right shoulder. Nurse reports that patient had a fall last night the patient does not contribute his his complaints to the fall. Patient reports he fell last night did not hit his head did not lose consciousness family member was a bystander and was not down long. Patient denies any nausea no vomiting. Patient denies any dizziness weakness prior to falling. Patient is requesting water. Patient has a past medical history of end-stage renal disease on hemodialysis Thursday and Thursday. MD Complaint: fall -: Last night Fall From: standing Fall Witnessed: yes, by family Place Fall Occurred: home Loss of Consciousness: none Prolonged Down Time?: no Symptoms Prior to Fall: none Location: neck Location - Extremities: Right: Shoulder Severity scale (0 -10): 7 Quality: aching Context: history of frequent falls Associated Symptoms: neck pain. denies: headache, weakness, chest paint, shortness of breath, lightheaded - Related Data Home Medications Medication Instructions Recorded Confirmed Last Taken Furosemide 80 mg BID 02/10/20 07/03/20 07/02/20 16:00 Previous Rx's Medication Instructions Recorded Last Taken Type Aspirin 325 mg PO QDAY #30 tablet 08/18/20 Unknown Rx AtorvaSTATin [Lipitor] 40 mg PO QHS #30 tablet 08/18/20 Unknown Rx Levemir VIAL 40 units SUB-Q BID #1 08/18/20 Unknown Rx Metoprolol Tartrate 100 mg PO BID #60 08/18/20 Unknown Rx amLODIPine 10 mg PO DAILY #30 08/18/20 Unknown Rx Allergies Allergy/AdvReac Type Severity Reaction Status Date / Time No Known Allergies Allergy Verified 07/03/20 15:42 ED Review of Systems ROS: Stated complaint: RT SHOULDER PAIN Other details as noted in HPI Comment: All other systems reviewed and negative ED Past Medical Hx - Past Medical History Hx Hypertension: Yes Hx Heart Attack/AMI: No Hx Congestive Heart Failure: No Hx Diabetes: Yes Hx Pulmonary Embolism: Yes (2014- ON COUMADIN) Hx GERD: No Hx Liver Disease: No Hx Renal Disease: Yes Hx Sickle Cell Disease: No Hx Arthritis: Yes (LEGS,HIPS,BACK) Hx Headaches / Migraines: Yes (MIGRAINES) Hx Seizures: No Hx Kidney Stones: No Hx Asthma: No Hx COPD: No Hx Tuberculosis: No Hx Dementia: Yes (MILD) Hx HIV: No Additional medical history: Chronic Kidney diseae for years, PE - Surgical History Hx Coronary Stent: No Hx Pacemaker: No Hx Internal Defibrillator: No Additional Surgical History: Right femur fx 1980s - Social History Smoking Status: Never Smoker Substance Use Type: None - Medications Home Medications: Home Medications Medication Instructions Recorded Confirmed Last Taken Type Furosemide 80 mg BID 02/10/20 07/03/20 07/02/20 16:00 History Aspirin 325 mg PO QDAY #30 tablet 08/18/20 Unknown Rx AtorvaSTATin [Lipitor] 40 mg PO QHS #30 tablet 08/18/20 Unknown Rx Levemir VIAL 40 units SUB-Q BID #1 08/18/20 Unknown Rx Metoprolol Tartrate 100 mg PO BID #60 08/18/20 Unknown Rx amLODIPine 10 mg PO DAILY #30 08/18/20 Unknown Rx ED Physical Exam - General Limitations: Other General appearance: alert, in no apparent distress - Head Head exam: Present: atraumatic, normocephalic - Eye Eye exam: Present: normal appearance - ENT ENT exam: Present: mucous membranes moist - Neck Neck exam: Present: tenderness (Anterior), full ROM - Respiratory Respiratory exam: Present: normal lung sounds bilaterally. Absent: accessory muscle use - Cardiovascular Cardiovascular Exam: Present: regular rate - GI/Abdominal GI/Abdominal exam: Present: soft. Absent: distended - Back Exam Back exam: Present: normal inspection, full ROM - Neurological Exam Neurological exam: Present: alert, oriented X3 - Psychiatric Psychiatric exam: Present: normal affect, normal mood - Skin Skin exam: Present: warm, dry, intact, normal color. Absent: rash ED Course Vital Signs 10/31/20 10/31/20 07:14 07:16 Temperature 98.7 F Pulse Rate 88 Respiratory 16 Rate Blood Pressure 165/108 O2 Sat by Pulse 95 Oximetry ED Medical Decision Making - Radiology Data Radiology results: report reviewed Patient: TASNEEM VALENCIA JR MR#: [id number] : 1950 Acct:[id number] Age/Sex: 70 / M ADM Date: 10/31/20 Loc: ED Attending Dr: Ordering Physician: SIN VELARDE Date of Service: 10/31/20 Procedure(s): XR shoulder 2+V RT Accession Number(s): [id number] cc: SIN VELARDE Fluoro Time In Minutes: RIGHT SHOULDER 3 VIEWS INDICATION / CLINICAL INFORMATION: fall shoulder pain this morning COMPARISON: None available. FINDINGS: BONES / JOINT(S): No acute fracture or subluxation. No significant arthritis. SOFT TISSUES: No significant abnormality. ADDITIONAL FINDINGS: None. Signer Name: Dale Jenkins MD Signed: 10/31/2020 8:23 AM Workstation Name: [id number] Transcribed By: SS Dictated By: Dale Jenkins MD Electronically Authenticated By: Dale Jenkins MD Signed Date/Time: 10/31/20822 DD/ 1 TD/TT: - Medical Decision Making 70-year-old -[place] male presents to the emergency room reporting right shoulder and neck pain that is located in the front. Patient states that he used BenGay to his right shoulder. Nurse reports that patient had a fall last night the patient does not contribute his his complaints to the fall. Patient reports he fell last night did not hit his head did not lose consciousness family member was a bystander and was not down long. Patient denies any nausea no vomiting. Patient denies any dizziness weakness prior to falling. Patient is requesting water. Patient has a past medical history of end-stage renal disease on hemodialysis Thursday and Thursday. X-ray of right shoulder and cervical has been ordered. X-ray of right shoulder and neck shows no acute abnormalities no fractures or subluxation. Recommend patient to take Tylenol as needed for pain management. Follow-up with his primary care provider. Go to dialysis today. Critical care attestation.: If time is entered above; I have spent that time in minutes in the direct care of this critically ill patient, excluding procedure time. ED Disposition Clinical Impression: Fall, Left shoulder pain, Neck pain, End stage renal disease on dialysis Disposition: TO HOME OR SELFCARE Is pt being admited?: No Does the pt Need Aspirin: No Condition: Stable Instructions: Shoulder Pain, Neck Exercises Additional Instructions: Both x-rays are negative for any acute abnormalities or dislocations or fractures. I recommend Tylenol as needed for pain management. Follow-up with your primary care provider. Go to dialysis today. Referrals: Your, primary care provider [Other] - 3-5 Days Forms: Accompanied Note
--- NOTE | 2020-10-31 08:28 | XRay Report ---
RIGHT SHOULDER 3 VIEWS INDICATION / CLINICAL INFORMATION: fall shoulder pain this morning COMPARISON: None available. FINDINGS: BONES / JOINT(S): No acute fracture or subluxation. No significant arthritis. SOFT TISSUES: No significant abnormality. ADDITIONAL FINDINGS: None. Signer Name: Dale Jenkins MD Signed: 10/31/2020 8:23 AM Workstation Name: [id number]
--- NOTE | 2020-10-31 08:29 | XRay Report ---
Cervical spine 2 views Indication: neck pain fall last night Findings: No fracture or subluxation is seen. There is discogenic degenerative change in cervical spine it see 3 4, C4-5, C5-6, and C6-7. There is disc space narrowing and osteophyte formation. Prevertebral soft tissues are unremarkable. Atherosclerotic calcifications are noted in the carotid arteries. Signer Name: Dale Jenkins MD Signed: 10/31/2020 8:25 AM Workstation Name: [id number]
== END 2020-10-31 08:51 | disposition home or self-care (01) ==
LOC: ED 06:56
DX: E11.22 Type 2 diabetes mellitus with diabetic chronic kidney disease (principal); I12.0 Hypertensive chronic kidney disease with stage 5 chronic kidney disease or end stage renal disease; N18.6 End stage renal disease; M25.511 Pain in right shoulder; M54.2 Cervicalgia; G43.909 Migraine, unspecified, not intractable, without status migrainosus; F03.90 Unspecified dementia, unspecified severity, without behavioral disturbance, psychotic disturbance, mood disturbance, and anxiety; M19.90 Unspecified osteoarthritis, unspecified site; Z99.2 Dependence on renal dialysis; Z79.899 Other long term (current) drug therapy; Z98.890 Other specified postprocedural states; W18.39XA Other fall on same level, initial encounter; Y93.89 Activity, other specified; Y92.099 Unspecified place in other non-institutional residence as the place of occurrence of the external cause; Y99.8 Other external cause status
CPT/HCPCS: 72040

== ENCOUNTER 2020-11-11 13:20 | Inpatient (IN) | payer MEDICARE ==
--- NOTE | 2020-11-11 13:41 | Event Note ---
ED Screening Note Date of service: 11/11/20 Time: 13:40 ED Screening Note: 70 yr old male with ESRD on hemodialysis presents to ED with c/o fall and generalized weakness. Pt states he accidentally fell yesterday and injured his left arm at site of fistula but he also reports generalized weakness x 3 days. This initial assessment/diagnostic orders/clinical plan/treatment(s) is/are subject to change based on patients health status, clinical progression and re- assessment by fellow clinical providers in the ED. Further treatment and workup at subsequent clinical providers discretion. Patient/guardian urged not to elope from the ED as their condition may be serious if not clinically assessed and managed. Initial orders include: CBC/CMP/trop/EKG/venous doppler OSCAR
[2020-11-11 14:19] LABS: Hematocrit 35.6 % (35.5-45.6); Mean Corpuscular HGB Conc 34 % (32-34); Mean Corpuscular Volume 87 fl (84-94); Platelet Count 366 K/mm3 (140-440); Red Blood Count 4.08 M/mm3 (3.65-5.03); Red Cell Distribution Width 14.8 % (13.2-15.2)
--- NOTE | 2020-11-11 14:29 | XRay Report ---
CHEST 1 VIEW 11/11/2020 2:00 PM INDICATION / CLINICAL INFORMATION: Generalized weakness. COMPARISON: Chest one view from 08/16/2020. FINDINGS: SUPPORT DEVICES: None. HEART / MEDIASTINUM: No significant abnormality. LUNGS / PLEURA: Clear lungs. No significant pleural effusion. No pneumothorax. ADDITIONAL FINDINGS: No significant additional findings. IMPRESSION: 1. No significant abnormality of the chest. Signer Name: Nathan Dickey MD Signed: 11/11/2020 2:25 PM Workstation Name: [id number]
--- NOTE | 2020-11-11 14:40 | Emergency Department Report ---
ED General Adult HPI - General Chief complaint: Fall Stated complaint: LFT SHOULDER PAIN/FALL INJURY PAIN Time Seen by Provider: 11/11/20 14:13 Source: patient, family, old records reviewed Mode of arrival: Wheelchair Limitations: Physical Limitation - History of Present Illness Initial comments: 70 yo male with a past medical history of CVA with residual right-sided weakness the use of a cane to ambulate, end-stage renal disease on dialysis Thursday, , and Thursday, mild dementia, migraines, history of pulmonary embolism previously on Coumadin but discontinued in July due to microvascular hemorrhages, hypertension and diabetes presents to the hospital complaints of recent fall and swelling to left AV graft site. Patient states he fell 2 days ago while sitting on the edge of the bathtub. He fell backwards but did not strike his head and denies LOC. He denies any pain or injury from that fall. He complains of ongoing right shoulder pain that has been going on for "a couple of days" prior to the fall. Patient did receive his dialysis on Thursday i.e. 2 days ago as scheduled and states that it was swollen prior to dialysis and has not changed since then. He complains of mild pain at the site with palpation. I attempted to call patient's for clarification of why he is here today and awaiting callback. did call back after my initial attempt to reach her and was able to verify that patient swelling to left AV graft started after his fall in the bathtub Thursday evening. She also was able to verify that patient has been complaining of ongoing right shoulder and neck pain since his fall on October 31 and has been unable to follow-up with primary care doctor regarding pain Patient vascular doctor is Dr. Myers. E[employer]ings Fabricator Dr. Noel as per medical record As per medical record patient was here October 31 due to fall with complaints of right shoulder and neck pain. He had a unremarkable right shoulder x-ray and cervical x-ray without acute finding at that time - Related Data Home Medications Medication Instructions Recorded Confirmed Last Taken Furosemide 80 mg BID 02/10/20 07/03/20 07/02/20 16:00 Previous Rx's Medication Instructions Recorded Last Taken Type Aspirin 325 mg PO QDAY #30 tablet 08/18/20 Unknown Rx AtorvaSTATin [Lipitor] 40 mg PO QHS #30 tablet 08/18/20 Unknown Rx Levemir VIAL 40 units SUB-Q BID #1 08/18/20 Unknown Rx Metoprolol Tartrate 100 mg PO BID #60 08/18/20 Unknown Rx amLODIPine 10 mg PO DAILY #30 08/18/20 Unknown Rx Allergies Allergy/AdvReac Type Severity Reaction Status Date / Time No Known Allergies Allergy Verified 07/03/20 15:42 ED Review of Systems ROS: Stated complaint: LFT SHOULDER PAIN/FALL INJURY PAIN Other details as noted in HPI Comment: All other systems reviewed and negative ED Past Medical Hx - Past Medical History Previous Medical History?: Yes Hx Hypertension: Yes Hx Heart Attack/AMI: No Hx Congestive Heart Failure: No Hx Diabetes: Yes Hx Pulmonary Embolism: Yes (2014- ON COUMADIN) Hx GERD: No Hx Liver Disease: No Hx Renal Disease: Yes Hx Sickle Cell Disease: No Hx Arthritis: Yes (LEGS,HIPS,BACK) Hx Headaches / Migraines: Yes (MIGRAINES) Hx Seizures: No Hx Kidney Stones: No Hx Asthma: No Hx COPD: No Hx Tuberculosis: No Hx Dementia: Yes (MILD) Hx HIV: No Additional medical history: Chronic Kidney diseae for years, PE - Surgical History Past Surgical History?: Yes Hx Coronary Stent: No Hx Pacemaker: No Hx Internal Defibrillator: No Additional Surgical History: Right femur fx 1980s. 07/03/20 Creation of Left Brachial Artery to Axillary Vein AV Graft with 6 mm Bovine Graft Artergraft - Social History Smoking Status: Current Every Day Smoker Substance Use Type: Prescribed - Medications Home Medications: Home Medications Medication Instructions Recorded Confirmed Last Taken Type Furosemide 80 mg BID 02/10/20 07/03/20 07/02/20 16:00 History Aspirin 325 mg PO QDAY #30 tablet 08/18/20 Unknown Rx AtorvaSTATin [Lipitor] 40 mg PO QHS #30 tablet 08/18/20 Unknown Rx Levemir VIAL 40 units SUB-Q BID #1 08/18/20 Unknown Rx Metoprolol Tartrate 100 mg PO BID #60 08/18/20 Unknown Rx amLODIPine 10 mg PO DAILY #30 08/18/20 Unknown Rx ED Physical Exam - General Limitations: Physical Limitation - Other Other exam information: General: No acute distress Head: Atraumatic Eyes: normal appearance ENT: Moist mucous membranes Neck: Normal appearance, no midline tenderness Chest: Clear to auscultation bilaterally CV: Regular rate and rhythm Abdomen: Soft, normal bowel sounds, nontender, nondistended, no rebound or guarding Back: Normal inspection Extremity: Left upper arm swelling area AV graft with palpable pulse but without thrill. No warmth or erythema. Limited range of motion right shoulder secondary to pain Neuro: Alert O x 3, no facial asymmetry, speech clear, no gross motor sensory deficit Psych: Appropriate behavior Skin: No rash ED Course Vital Signs 11/11/20 13:26 Temperature 97.5 F L Pulse Rate 71 Respiratory 20 Rate Blood Pressure 152/99 O2 Sat by Pulse 97 Oximetry - Reevaluation(s) Reevaluation #1: 11/11/20 14:40 attempted to call for hx clarification. message left with son to all me back in the ED when available. 11/11/20 16:48 As noted to patient his and provided update a plan for admission for AV fistula graft repair and dialysis. Also stressed patient would need outpatient follow-up regarding ongoing musculoskeletal pain since fall with orthopedic surgeon to determine if additional work-up treatment is needed. She also expresses concern because he is requiring additional care since his stroke and pain. I will order a case management consult to be performed during inpatient admission to determine if patient qualifies for additional assistance at home or PT/OT. As per medical record on discharge summary July 2020 patient was undergoing PT OT at home - Consultations Consultation #1: 11/11/20 15:54 Case was discussed with vascular surgeon Dr. Jeronimo who recommends admission for assessment of AV access and possible intervention Case discussed with picking machine operator helper Dr. Noel who will manage patient's dialysis needs. Patient not require emergent dialysis at this time ED Medical Decision Making - Lab Data Result diagrams: 11/11/20 14:08 11/11/20 14:08 Lab Results 11/11/20 11/11/20 Range/Units 14:08 14:08 WBC 12.7 H (4.5-11.0) K/mm3 RBC 4.08 (3.65-5.03) M/mm3 Hgb 12.0 (11.8-15.2) gm/dl Hct 35.6 (35.5-45.6) % MCV 87 (84-94) fl MCH 30 (28-32) pg MCHC 34 (32-34) % RDW 14.8 (13.2-15.2) % Plt Count 366 (140-440) K/mm3 Add Manual Diff Complete Total Counted 100 Seg Neuts % (Manual) 84.0 H (40.0-70.0) % Band Neutrophils % 2.0 % Lymphocytes % (Manual) 9.0 L (13.4-35.0) % Monocytes % (Manual) 5.0 (0.0-7.3) % Nucleated RBC % Not Reportable Seg Neutrophils # Man 10.7 H (1.8-7.7) K/mm3 Band Neutrophils # 0.3 K/mm3 Lymphocytes # (Manual) 1.1 L (1.2-5.4) K/mm3 Abs React Lymphs (Man) 0.0 K/mm3 Monocytes # (Manual) 0.6 (0.0-0.8) K/mm3 Eosinophils # (Manual) 0.0 (0.0-0.4) K/mm3 Basophils # (Manual) 0.0 (0.0-0.1) K/mm3 Metamyelocytes # 0.0 K/mm3 Myelocytes # 0.0 K/mm3 Promyelocytes # 0.0 K/mm3 Blast Cells # 0.0 K/mm3 WBC Morphology Not Reportable Hypersegmented Neuts Not Reportable Hyposegmented Neuts Not Reportable Hypogranular Neuts Not Reportable Smudge Cells Not Reportable Toxic Granulation 1+ Toxic Vacuolation 1+ Dohle Bodies Not Reportable Pelger-Huet Anomaly Not Reportable Pauline Rods Not Reportable Platelet Estimate Consistent w auto Clumped Platelets Not Reportable Plt Clumps, EDTA Not Reportable Large Platelets Not Reportable Giant Platelets Not Reportable Platelet Satelliting Not Reportable Plt Morphology Comment Not Reportable RBC Morphology Not Reportable Dimorphic RBCs Not Reportable Polychromasia Not Reportable Hypochromasia Not Reportable Poikilocytosis Not Reportable Anisocytosis 1+ Microcytosis Not Reportable Macrocytosis Not Reportable Spherocytes Not Reportable Pappenheimer Bodies Not Reportable Sickle Cells Not Reportable Target Cells Not Reportable Tear Drop Cells Not Reportable Ovalocytes Not Reportable Helmet Cells Not Reportable [place] Bodies Not Reportable [place] Rings Not Reportable Fang Cells Not Reportable Bite Cells Not Reportable Crenated Cell Not Reportable Elliptocytes Not Reportable Acanthocytes (Spur) Not Reportable Rouleaux Not Reportable Hemoglobin C Crystals Not Reportable Schistocytes Not Reportable Malaria parasites Not Reportable James Bodies Not Reportable Hem Pathologist Commnt No Sodium 135 L (137-145) mmol/L Potassium 4.0 (3.6-5.0) mmol/L Chloride 97.0 L (98-107) mmol/L Carbon Dioxide 26 (22-30) mmol/L Anion Gap 16 mmol/L BUN 40 H (9-20) mg/dL Creatinine 8.3 H (0.8-1.3) mg/dL Estimated GFR 8 ml/min BUN/Creatinine Ratio 5 % Glucose 183 H (75-100) mg/dL Calcium 8.2 L (8.4-10.2) mg/dL Magnesium 1.90 (1.7-2.3) mg/dL Total Bilirubin 0.20 (0.1-1.2) mg/dL AST 13 (5-40) units/L ALT 14 (7-56) units/L Alkaline Phosphatase 73 (35-129) units/L Troponin T 0.102 H* (0.00-0.029) ng/mL Total Protein 7.1 (6.3-8.2) g/dL Albumin 3.1 L (3.9-5) g/dL Albumin/Globulin Ratio 0.8 % Triglycerides 110 (2-149) mg/dL Cholesterol 82 (50-199) mg/dL LDL Cholesterol Direct 24 L (50-130) mg/dL HDL Cholesterol 38 L (40-59) mg/dL Cholesterol/HDL Ratio 2.15 % - EKG Data -: EKG Interpreted by Mt EKG shows normal: sinus rhythm, ST-T waves (flat lat twaves, inf infarct, ant infarct) Rate: normal (65) - EKG Data When compared to previous EKG there are: no significant change - Radiology Data Radiology results: report reviewed ct cervical spine: no acute findings, moderate cervical spondylosis xr right shoulder: naf cxr: naf - Medical Decision Making 70-year-old male presents to the hospital with swelling and possible malfunction of his AV graft. Case discussed with vascular surgeon who plans to evaluate and perform intervention is needed tomorrow. Patient does not require emergent dialysis tonight. Earrings Fabricator is also been consulted to manage in-house dialysis. Patient has ongoing musculoskeletal pain to right shoulder and C- spine since fall earlier this month. Repeat right shoulder x-ray and CT cervical spine do not reveal any acute injury. Patient provided Percocet for pain. Hospitalist to admit. staff was in the process of signing him out ama. I spoke to the pt about his tx plan and he was agreeable to stay Critical Care Time: No Critical care attestation.: If time is entered above; I have spent that time in minutes in the direct care of this critically ill patient, excluding procedure time. ED Disposition Clinical Impression: Dialysis AV fistula malfunction, End stage renal disease on dialysis, Right shoulder pain, History of CVA with residual deficit, Cervical pain (neck), Fall, ESRD on hemodialysis Disposition: OP ADMIT IP TO THIS HOSP Is pt being admited?: Yes Condition: Stable Time of Disposition: 16:57 (Dr Storm/hosp)
[2020-11-11 14:51] LABS: Band Neutrophils # (Manual) 0.3 K/mm3; Total Cells Counted 100
[2020-11-11 14:52] LABS: Anisocytosis 1+; Platelet Estimate Consistent w Auto; Toxic Granulation 1+; Toxic Vacuolation 1+
[2020-11-11 15:11] LABS: Albumin 3.1 g/dL (3.9-5); Calcium 8.2 mg/dL (8.4-10.2)
[2020-11-11] MEDS ORDERED: oxyCODONE /ACETAMINOPHEN 5-325MG TAB PO ONE (15:15)
--- NOTE | 2020-11-11 15:27 | XRay Report ---
RIGHT SHOULDER 3 VIEWS INDICATION / CLINICAL INFORMATION: Right shoulder pain with decreased range of motion after fall. COMPARISON: None available. FINDINGS: BONES and JOINT(S): No acute fracture or subluxation. No significant arthritis. SOFT TISSUES: No significant abnormality. ADDITIONAL FINDINGS: None. IMPRESSION: 1. No acute findings. Signer Name: Nathan Dickey MD Signed: 11/11/2020 3:22 PM Workstation Name: [id number]
[2020-11-11 15:35] LABS: Chol/HDL Ratio 2.15 %
--- NOTE | 2020-11-11 16:12 | Cat Scan Report ---
CT CERVICAL SPINE WITHOUT CONTRAST INDICATION: Neck pain after fall. COMPARISON: None available. TECHNIQUE: Axial, coronal and sagittal CT imaging of the cervical spine without contrast was performe d. All CT scans at this location are performed using CT dose reduction for ALARA by means of automat ed exposure control. FINDINGS: VERTEBRAE:No acute fracture. There is straightening/slight reversal of the cervical lordosis. No acut e misalignment. DISC SPACES: Multilevel moderate discogenic degenerative changes are noted. FACET JOINTS:No significant abnormality. CENTRAL CANAL: No significant central canal stenosis. There is multilevel bilateral mild neural ashlee inal narrowing secondary to uncovertebral joint hypertrophy. SOFT TISSUES:No significant abnormality. LUNG APICES: No significant abnormality. ADDITIONAL FINDINGS: None IMPRESSION: 1. No acute findings. 2. Moderate cervical spondylosis. Signer Name: Nathan Dickey MD Signed: 11/11/2020 4:07 PM Workstation Name: [id number]
[2020-11-11] MEDS ORDERED: hydrALAZINE 20 MG/1 ML INJ IV PRN (21:10)
--- NOTE | 2020-11-11 22:42 | History and Physical Report ---
History of Present Illness Date of examination: 11/11/20 Date of admission: 11/11/20 16:58 Chief complaint: swelling to left AV graft site--2 days History of present illness: 70 yo male with a past medical history of CVA with residual right-sided weakness the use of a cane to ambulate, end-stage renal disease on dialysis Thursday, Thursday, and Thursday, mild dementia, migraines, history of pulmonary embolism previously on Coumadin but discontinued in July due to microvascular hemorrhages, hypertension and diabetes presents to the hospital complaints of recent fall and swelling to left AV graft site. L av graft nonfunctional. Had HD on and today is thursday.No SOB - Past Medical History Previous Medical History?: Yes --Hypertension --ESRD --Diabetes: Yes --Pulmonary Embolism: Yes (2014- ON COUMADI --Arthritis: Yes (LEGS,HIPS,BACK) --Headaches / Migraines: Yes (MIGRAINES) --Dementia: Yes (MILD) - Surgical History Past Surgical History?: Yes Right femur fx 1980s. 07/03/20 Creation of Left Brachial Artery to Axillary Vein AV Graft with 6 mm Bovine Graft Artergraft - Social History Smoking Status: Current Every Day Smoker Substance Use Type: Prescribed - Medications Home Medications: Home Medications Medication Instructions Recorded Confirmed Last Taken Type Furosemide 80 mg BID 02/10/20 07/03/20 07/02/20 16:00 History Aspirin 325 mg PO QDAY #30 tablet 08/18/20 Unknown Rx AtorvaSTATin [Lipitor] 40 mg PO QHS #30 tablet 08/18/20 Unknown Rx Levemir VIAL 40 units SUB-Q BID #1 08/18/20 Unknown Rx Metoprolol Tartrate 100 mg PO BID #60 08/18/20 Unknown Rx amLODIPine 10 mg PO DAILY #30 08/18/20 Unknown Rx Review of Systems ROS: Stated complaint: LFT SHOULDER PAIN/FALL INJURY PAIN Other details as noted in HPI Comment: All other systems reviewed and negative Medications and Allergies Allergies Allergy/AdvReac Type Severity Reaction Status Date / Time No Known Allergies Allergy Verified 07/03/20 15:42 Home Medications Medication Instructions Recorded Confirmed Last Taken Type Furosemide 80 mg BID 02/10/20 07/03/20 07/02/20 16:00 History Aspirin 325 mg PO QDAY #30 tablet 08/18/20 Unknown Rx AtorvaSTATin [Lipitor] 40 mg PO QHS #30 tablet 08/18/20 Unknown Rx Levemir VIAL 40 units SUB-Q BID #1 08/18/20 Unknown Rx Metoprolol Tartrate 100 mg PO BID #60 08/18/20 Unknown Rx amLODIPine 10 mg PO DAILY #30 08/18/20 Unknown Rx Active Meds: Active Medications Hydralazine HCl (Hydralazine 20 Mg/1 Ml Inj) 10 mg IV Q6HR PRN PRN Reason: Hypertension Last Admin: 11/11/20 21:38 Dose: 10 mg Documented by: Exam - Constitutional Vitals: Temp Pulse Resp BP Pulse Ox 97.7 F 65 16 190/103 92 11/11/20 20:35 11/11/20 21:38 11/11/20 20:35 11/11/20 21:38 11/11/20 20:35 General appearance: Present: no acute distress, well-nourished - EENT Eyes: Present: PERRL ENT: hearing intact, clear oral mucosa - Neck Neck: Present: supple, normal ROM - Respiratory Respiratory effort: normal Respiratory: bilateral: CTA - Cardiovascular Heart rate: 78 Rhythm: regular Heart Sounds: Present: S1 & S2. Absent: rub, click - Extremities Extremities: pulses symmetrical, No edema, abnormal (L AV Fistula --zNo thrill) Peripheral Pulses: within normal limits - Abdominal General gastrointestinal: Present: soft, non-tender, non-distended, normal bowel sounds Male genitourinary: Present: normal - Integumentary Integumentary: Present: clear, warm, dry - Musculoskeletal Musculoskeletal: gait normal, strength equal bilaterally - Psychiatric Psychiatric: appropriate mood/affect, intact judgment & insight - Neurologic Neurologic: CNII-XII intact, moves all extremities HEART Score - HEART Score Troponin: Troponin T 0.102 ng/mL (0.00-0.029) H* 11/11/20 14:08 Results - Labs CBC & Chem 7: 11/11/20 14:08 11/11/20 14:08 Labs: Laboratory Last Values WBC 12.7 K/mm3 (4.5-11.0) H 11/11/20 14:08 RBC 4.08 M/mm3 (3.65-5.03) 11/11/20 14:08 Hgb 12.0 gm/dl (11.8-15.2) 11/11/20 14:08 Hct 35.6 % (35.5-45.6) 11/11/20 14:08 MCV 87 fl (84-94) 11/11/20 14:08 MCH 30 pg (28-32) 11/11/20 14:08 MCHC 34 % (32-34) 11/11/20 14:08 RDW 14.8 % (13.2-15.2) 11/11/20 14:08 Plt Count 366 K/mm3 (140-440) 11/11/20 14:08 Add Manual Diff Complete 11/11/20 14:08 Total Counted 100 11/11/20 14:08 Seg Neuts % (Manual) 84.0 % (40.0-70.0) H 11/11/20 14:08 Band Neutrophils % 2.0 % 11/11/20 14:08 Lymphocytes % (Manual) 9.0 % (13.4-35.0) L 11/11/20 14:08 Monocytes % (Manual) 5.0 % (0.0-7.3) 11/11/20 14:08 Nucleated RBC % Not Reportable 11/11/20 14:08 Seg Neutrophils # Man 10.7 K/mm3 (1.8-7.7) H 11/11/20 14:08 Band Neutrophils # 0.3 K/mm3 11/11/20 14:08 Lymphocytes # (Manual) 1.1 K/mm3 (1.2-5.4) L 11/11/20 14:08 Abs React Lymphs (Man) 0.0 K/mm3 11/11/20 14:08 Monocytes # (Manual) 0.6 K/mm3 (0.0-0.8) 11/11/20 14:08 Eosinophils # (Manual) 0.0 K/mm3 (0.0-0.4) 11/11/20 14:08 Basophils # (Manual) 0.0 K/mm3 (0.0-0.1) 11/11/20 14:08 Metamyelocytes # 0.0 K/mm3 11/11/20 14:08 Myelocytes # 0.0 K/mm3 11/11/20 14:08 Promyelocytes # 0.0 K/mm3 11/11/20 14:08 Blast Cells # 0.0 K/mm3 11/11/20 14:08 WBC Morphology Not Reportable 11/11/20 14:08 Hypersegmented Neuts Not Reportable 11/11/20 14:08 Hyposegmented Neuts Not Reportable 11/11/20 14:08 Hypogranular Neuts Not Reportable 11/11/20 14:08 Smudge Cells Not Reportable 11/11/20 14:08 Toxic Granulation 1+ 11/11/20 14:08 Toxic Vacuolation 1+ 11/11/20 14:08 Dohle Bodies Not Reportable 11/11/20 14:08 Pelger-Huet Anomaly Not Reportable 11/11/20 14:08 Pauline Rods Not Reportable 11/11/20 14:08 Platelet Estimate Consistent w auto 11/11/20 14:08 Clumped Platelets Not Reportable 11/11/20 14:08 Plt Clumps, EDTA Not Reportable 11/11/20 14:08 Large Platelets Not Reportable 11/11/20 14:08 Giant Platelets Not Reportable 11/11/20 14:08 Platelet Satelliting Not Reportable 11/11/20 14:08 Plt Morphology Comment Not Reportable 11/11/20 14:08 RBC Morphology Not Reportable 11/11/20 14:08 Dimorphic RBCs Not Reportable 11/11/20 14:08 Polychromasia Not Reportable 11/11/20 14:08 Hypochromasia Not Reportable 11/11/20 14:08 Poikilocytosis Not Reportable 11/11/20 14:08 Anisocytosis 1+ 11/11/20 14:08 Microcytosis Not Reportable 11/11/20 14:08 Macrocytosis Not Reportable 11/11/20 14:08 Spherocytes Not Reportable 11/11/20 14:08 Pappenheimer Bodies Not Reportable 11/11/20 14:08 Sickle Cells Not Reportable 11/11/20 14:08 Target Cells Not Reportable 11/11/20 14:08 Tear Drop Cells Not Reportable 11/11/20 14:08 Ovalocytes Not Reportable 11/11/20 14:08 Helmet Cells Not Reportable 11/11/20 14:08 [place] Bodies Not Reportable 11/11/20 14:08 [place] Rings Not Reportable 11/11/20 14:08 [place] Cells Not Reportable 11/11/20 14:08 Bite Cells Not Reportable 11/11/20 14:08 Crenated Cell Not Reportable 11/11/20 14:08 Elliptocytes Not Reportable 11/11/20 14:08 Acanthocytes (Spur) Not Reportable 11/11/20 14:08 Rouleaux Not Reportable 11/11/20 14:08 Hemoglobin C Crystals Not Reportable 11/11/20 14:08 Schistocytes Not Reportable 11/11/20 14:08 Malaria parasites Not Reportable 11/11/20 14:08 James Bodies Not Reportable 11/11/20 14:08 Hem Pathologist Commnt No 11/11/20 14:08 Sodium 135 mmol/L (137-145) L 11/11/20 14:08 Potassium 4.0 mmol/L (3.6-5.0) 11/11/20 14:08 Chloride 97.0 mmol/L (98-107) L 11/11/20 14:08 Carbon Dioxide 26 mmol/L (22-30) 11/11/20 14:08 Anion Gap 16 mmol/L 11/11/20 14:08 BUN 40 mg/dL (9-20) H 11/11/20 14:08 Creatinine 8.3 mg/dL (0.8-1.3) H 11/11/20 14:08 Estimated GFR 8 ml/min 11/11/20 14:08 BUN/Creatinine Ratio 5 % 11/11/20 14:08 Glucose 183 mg/dL (75-100) H 11/11/20 14:08 Calcium 8.2 mg/dL (8.4-10.2) L 11/11/20 14:08 Magnesium 1.90 mg/dL (1.7-2.3) 11/11/20 14:08 Total Bilirubin 0.20 mg/dL (0.1-1.2) 11/11/20 14:08 AST 13 units/L (5-40) 11/11/20 14:08 ALT 14 units/L (7-56) 11/11/20 14:08 Alkaline Phosphatase 73 units/L (35-129) 11/11/20 14:08 Troponin T 0.102 ng/mL (0.00-0.029) H* 11/11/20 14:08 Total Protein 7.1 g/dL (6.3-8.2) 11/11/20 14:08 Albumin 3.1 g/dL (3.9-5) L 11/11/20 14:08 Albumin/Globulin Ratio 0.8 % 11/11/20 14:08 Triglycerides 110 mg/dL (2-149) 11/11/20 14:08 Cholesterol 82 mg/dL (50-199) 11/11/20 14:08 LDL Cholesterol Direct 24 mg/dL (50-130) L 11/11/20 14:08 HDL Cholesterol 38 mg/dL (40-59) L 11/11/20 14:08 Cholesterol/HDL Ratio 2.15 % 11/11/20 14:08 Short CBC 11/11/20 Range/Units 14:08 WBC 12.7 H (4.5-11.0) K/mm3 Hgb 12.0 (11.8-15.2) gm/dl Hct 35.6 (35.5-45.6) % Plt Count 366 (140-440) K/mm3 BMP 11/11/20 14:08 Sodium 135 L Potassium 4.0 Chloride 97.0 L Carbon Dioxide 26 BUN 40 H Creatinine 8.3 H Glucose 183 H Calcium 8.2 L Cardiac Enzymes 11/11/20 Range/Units 14:08 Troponin T 0.102 H* (0.00-0.029) ng/mL Liver Function 11/11/20 Range/Units 14:08 Total Bilirubin 0.20 (0.1-1.2) mg/dL AST 13 (5-40) units/L ALT 14 (7-56) units/L Alkaline Phosphatase 73 (35-129) units/L Albumin 3.1 L (3.9-5) g/dL Recinos/IV: Voiding Method Urinal Assessment and Plan Advance Directives: Yes (FC) VTE prophylaxis?: Chemical Plan of care discussed with patient/family: Yes - Patient Problems (1) Dialysis AV fistula malfunction Current Visit: Yes Status: Acute Qualifiers: Encounter type: initial encounter Qualified Code(s): T82.590A - Other mechanical complication of surgically created arteriovenous fistula, initial encounter Plan to address problem: IR/Vascular consult (2) End stage renal disease on dialysis Current Visit: Yes Status: Chronic Plan to address problem: HD after declotting Vas cath if necessary Nephrology consulted (3) HTN (hypertension) Current Visit: Yes Status: Chronic Qualifiers: Hypertension type: essential hypertension Qualified Code(s): I10 - Essential (primary) hypertension Plan to address problem: Cont Antihypertensives (4) T2DM (type 2 diabetes mellitus) Current Visit: Yes Status: Chronic Qualifiers: Diabetes mellitus marine oil terminal superintendent insulin use: unspecified marine oil terminal superintendent insulin use status Plan to address problem: Coverage for now Check A1c (5) DVT prophylaxis Current Visit: No Status: Acute Plan to address problem: On Heparin and GI prophylaxis (6) Right shoulder pain Current Visit: Yes Status: Acute Qualifiers: Chronicity: acute Qualified Code(s): M25.511 - Pain in right shoulder Plan to address problem: Analgesics prn
[2020-11-11] MEDS ORDERED: NON-FORMULARY EACH (Furosemide 80 MG) PO SCH (22:45)
--- NOTE | 2020-11-11 22:52 | Consultation ---
History of Present Illness - Reason for Consult Consult date: 11/11/20 end stage renal disease - History of Present Illness The patient is a 70 year old male patient well known to our service with pmh significant for Obesity, type 2 DM, Hypertension, HLD, h/o PE (2016), CVA and ESRD on hemodialysis (MWF) who presented to [facility] ED 11/11 after he sustained a fall at home. Patient is a poor historian. Patient states that he fell 2 days ago while sitting on the edge of the bathtub. He fell backwards but did not strike his head and denies LOC. He denies any pain or injury from that fall. He complains of L arm swelling around the AVF. Patient was last dialyzed 2 days ago. Pt denies any BUSTILLOS, fever, chills, cough, leg swelling, cp or sob. Vascular was consulted in the ED. Patient was admitted for further evaluation. Nephrology was consulted for further evaluation and treatment of ESRD. Past History Past Medical History: other (See HPI) Medications and Allergies Allergies Allergy/AdvReac Type Severity Reaction Status Date / Time No Known Allergies Allergy Verified 07/03/20 15:42 Home Medications Medication Instructions Recorded Confirmed Last Taken Type Furosemide 80 mg BID 02/10/20 07/03/20 07/02/20 16:00 History Aspirin 325 mg PO QDAY #30 tablet 08/18/20 Unknown Rx AtorvaSTATin [Lipitor] 40 mg PO QHS #30 tablet 08/18/20 Unknown Rx Levemir VIAL 40 units SUB-Q BID #1 08/18/20 Unknown Rx Metoprolol Tartrate 100 mg PO BID #60 08/18/20 Unknown Rx amLODIPine 10 mg PO DAILY #30 08/18/20 Unknown Rx Active Meds: Active Medications Amlodipine Besylate (Amlodipine 10 Mg Tab) 10 mg PO DAILY MELINDA Aspirin (Aspirin 325 Mg Tab) 325 mg PO QDAY MELINDA Atorvastatin Calcium (Atorvastatin 40 Mg Tab) 40 mg PO QHS MELINDA Furosemide (Furosemide 40 Mg Tab) 80 mg PO BID@0600,1800 MELINDA Hydralazine HCl (Hydralazine 20 Mg/1 Ml Inj) 10 mg IV Q6HR PRN PRN Reason: Hypertension Last Admin: 11/11/20 21:38 Dose: 10 mg Documented by: Metoprolol Tartrate (Metoprolol Tartrate 100 Mg Tab) 100 mg PO BID MELINDA Valsartan (Valsartan 160mg Tab) 160 mg PO BID [facility] Review of Systems Constitutional: no weight loss, no weight gain, no fever, no chills, no weakness Cardiovascular: high blood pressure, no chest pain, no orthopnea, no edema, no syncope, no shortness of breath, no leg edema Respiratory: no cough, no shortness of breath Gastrointestinal: no abdominal pain, no nausea, no vomiting, no diarrhea Genitourinary Male: no dysuria, no hematuria Integumentary: no rash Neurological: no head injury, no change in speech, no change in mentation Exam - Vital Signs Vital signs: Vital Signs Temp Pulse Resp BP Pulse Ox 97.5 F L 71 20 152/99 97 11/11/20 13:26 11/11/20 13:26 11/11/20 13:26 11/11/20 13:26 11/11/20 13:26 Results - Lab Results 11/11/20 14:08 11/11/20 14:08 Most recent lab results Calcium 8.2 mg/dL (8.4-10.2) L 11/11/20 14:08 Magnesium 1.90 mg/dL (1.7-2.3) 11/11/20 14:08 Assessment and Plan 1. ESRD: Patient is on maintenance hemodialysis three times a week, MWF schedule. Last outpatient HD 11/09. Hemodialysis: 2. FEN: Monitor volume status and lytes. 3. S/p Fall: Monitor. Fall precaution. 4. Malfunctioning L arm AVF: Vascular consulted. 5. H/o CVA: ASA and statin. Seen by Neuro. 6. Anemia: Monitor and Epogen if needed. 7. Hypertension: BP controlled. Monitor BP. 8. DM type 2: Monitor blood sugar. Subjective: Patient was seen and examined at the bedside. Examination: General appearance: well-developed, well-nourished, appears stated age, no distress HEENT: ATNC, CATHY, mucous membranes moist, hearing intact, vision intact Neck: supple Respiratory: Clear to Ascultation Cardiology: regular, S1S2, no murmur Gastrointestinal: normoactive bowel sounds, no tenderness, not distended Integumentary: no obvious rash Neurologic: AO, able to move extremities, no asterixis Ext: no edema Hemodialysis access: L arm AVF with no bruit, swelling noted
[2020-11-11] MEDS: oxyCODONE /ACETAMINOPHEN 5-325MG TAB PO PRN (23:31)
[2020-11-11] MEDS: VALSARTAN 160MG TAB PO SCH (23:33)
[2020-11-12] MEDS: FUROSEMIDE 40 MG TAB PO SCH (05:56)
--- NOTE | 2020-11-12 08:42 | Progress Note ---
Assessment and Plan Assessment and plan: 70 yo male with a past medical history of CVA with residual right-sided weakness the use of a cane to ambulate, end-stage renal disease on dialysis Thursday, Thursday, and Thursday, mild dementia, migraines, history of pulmonary embolism previously on Coumadin but discontinued in July due to microvascular hemorrhages, hypertension and diabetes presents to the hospital complaints of recent fall and swelling to left AV graft site. L av graft nonfunctional. Had HD on and today is thursday.No SOB Ct Cervical spine: No acute findings. 2. Moderate cervical spondylosis. Dialysis AV graft fistula malfunction Systemic inflammatory response syndrome without sepsis Presumed left upper extremity cellulitis around AV graft site End-stage renal disease on HD Diabetes mellitus Early mild dementia per history History of pulmonary embolism now off anticoagulation due to microvascular hemorrhages History of migraine Plan No evidence of sepsis at this time but will start patient on empiric antibiotic coverage until seen by ID IR consulted for evaluation malfunctioning AV graft Nephrology input noted Continue management for diabetes mellitus with insulin. Outpatient orthopedic evaluation for right shoulder. Cervical spine imaging on y concerning for Moderate Cervical spondylosis Cont Antihypertensives DVT/GI PROPHY Ok for diet after IR eval Depending on IR and ID input, will plan discharge. History Interval history: Patient seen and examined this morning. Tells me that he has had right shoulder pain for a few weeks now. Denies any fever at home. While he denies pain on the left AV graft site try to palpate it it just with a reflex withdrawal action. Hospitalist Physical - Physical exam Narrative exam: VITAL SIGNS: Reviewed. GENERAL: The patient appears normally developed, Vital signs as documented. HEAD: No signs of head trauma. EYES: Pupils are equal. Extraocular motions intact. EARS: Hearing grossly intact. MOUTH: Oropharynx is normal. NECK: No adenopathy, no JVD. CHEST: Chest with clear breath sounds bilaterally. No wheezes, rales, or rhonchi. CARDIAC: Regular rate and rhythm. S1 and S2, without murmurs, gallops, or rubs. VASCULAR: No Edema. Peripheral pulses normal and equal in all extremities. ABDOMEN: Soft, non tender and non distended. No rebound or guarding, and no masses palpated. Bowel Sounds normal. MUSCULOSKELETAL: Left AV graft tender to touch mild erythema circumferential around it. Right upper extremity in a sling. Limited range of motion. Other graves on all other joints good range of motion. Extremities without clubbing, cyanosis or edema. NEUROLOGIC EXAM: Alert and oriented x 3 No focal sensory or strength deficits. Speech normal. Follows commands. PSYCHIATRIC: Mood normal. SKIN: detail exam as documented in skin assessment - Constitutional Vitals: Temp Pulse Resp BP Pulse Ox 97.9 F 64 16 180/74 96 11/12/20 04:13 11/12/20 04:13 11/12/20 04:13 11/12/20 04:13 11/12/20 04:13 General appearance: Present: no acute distress, well-nourished HEART Score - HEART Score Troponin: Troponin T 0.102 ng/mL (0.00-0.029) H* 11/11/20 14:08 Results - Labs CBC & Chem 7: 11/11/20 14:08 11/11/20 14:08 Labs: Laboratory Last Values WBC 12.7 K/mm3 (4.5-11.0) H 11/11/20 14:08 RBC 4.08 M/mm3 (3.65-5.03) 11/11/20 14:08 Hgb 12.0 gm/dl (11.8-15.2) 11/11/20 14:08 Hct 35.6 % (35.5-45.6) 11/11/20 14:08 MCV 87 fl (84-94) 11/11/20 14:08 MCH 30 pg (28-32) 11/11/20 14:08 MCHC 34 % (32-34) 11/11/20 14:08 RDW 14.8 % (13.2-15.2) 11/11/20 14:08 Plt Count 366 K/mm3 (140-440) 11/11/20 14:08 Add Manual Diff Complete 11/11/20 14:08 Total Counted 100 11/11/20 14:08 Seg Neuts % (Manual) 84.0 % (40.0-70.0) H 11/11/20 14:08 Band Neutrophils % 2.0 % 11/11/20 14:08 Lymphocytes % (Manual) 9.0 % (13.4-35.0) L 11/11/20 14:08 Monocytes % (Manual) 5.0 % (0.0-7.3) 11/11/20 14:08 Nucleated RBC % Not Reportable 11/11/20 14:08 Seg Neutrophils # Man 10.7 K/mm3 (1.8-7.7) H 11/11/20 14:08 Band Neutrophils # 0.3 K/mm3 11/11/20 14:08 Lymphocytes # (Manual) 1.1 K/mm3 (1.2-5.4) L 11/11/20 14:08 Abs React Lymphs (Man) 0.0 K/mm3 11/11/20 14:08 Monocytes # (Manual) 0.6 K/mm3 (0.0-0.8) 11/11/20 14:08 Eosinophils # (Manual) 0.0 K/mm3 (0.0-0.4) 11/11/20 14:08 Basophils # (Manual) 0.0 K/mm3 (0.0-0.1) 11/11/20 14:08 Metamyelocytes # 0.0 K/mm3 11/11/20 14:08 Myelocytes # 0.0 K/mm3 11/11/20 14:08 Promyelocytes # 0.0 K/mm3 11/11/20 14:08 Blast Cells # 0.0 K/mm3 11/11/20 14:08 WBC Morphology Not Reportable 11/11/20 14:08 Hypersegmented Neuts Not Reportable 11/11/20 14:08 Hyposegmented Neuts Not Reportable 11/11/20 14:08 Hypogranular Neuts Not Reportable 11/11/20 14:08 Smudge Cells Not Reportable 11/11/20 14:08 Toxic Granulation 1+ 11/11/20 14:08 Toxic Vacuolation 1+ 11/11/20 14:08 Dohle Bodies Not Reportable 11/11/20 14:08 Pelger-Huet Anomaly Not Reportable 11/11/20 14:08 Pauline Rods Not Reportable 11/11/20 14:08 Platelet Estimate Consistent w auto 11/11/20 14:08 Clumped Platelets Not Reportable 11/11/20 14:08 Plt Clumps, EDTA Not Reportable 11/11/20 14:08 Large Platelets Not Reportable 11/11/20 14:08 Giant Platelets Not Reportable 11/11/20 14:08 Platelet Satelliting Not Reportable 11/11/20 14:08 Plt Morphology Comment Not Reportable 11/11/20 14:08 RBC Morphology Not Reportable 11/11/20 14:08 Dimorphic RBCs Not Reportable 11/11/20 14:08 Polychromasia Not Reportable 11/11/20 14:08 Hypochromasia Not Reportable 11/11/20 14:08 Poikilocytosis Not Reportable 11/11/20 14:08 Anisocytosis 1+ 11/11/20 14:08 Microcytosis Not Reportable 11/11/20 14:08 Macrocytosis Not Reportable 11/11/20 14:08 Spherocytes Not Reportable 11/11/20 14:08 Pappenheimer Bodies Not Reportable 11/11/20 14:08 Sickle Cells Not Reportable 11/11/20 14:08 Target Cells Not Reportable 11/11/20 14:08 Tear Drop Cells Not Reportable 11/11/20 14:08 Ovalocytes Not Reportable 11/11/20 14:08 Helmet Cells Not Reportable 11/11/20 14:08 [place] Bodies Not Reportable 11/11/20 14:08 [place] Rings Not Reportable 11/11/20 14:08 Trego Cells Not Reportable 11/11/20 14:08 Bite Cells Not Reportable 11/11/20 14:08 Crenated Cell Not Reportable 11/11/20 14:08 Elliptocytes Not Reportable 11/11/20 14:08 Acanthocytes (Spur) Not Reportable 11/11/20 14:08 Rouleaux Not Reportable 11/11/20 14:08 Hemoglobin C Crystals Not Reportable 11/11/20 14:08 Schistocytes Not Reportable 11/11/20 14:08 Malaria parasites Not Reportable 11/11/20 14:08 James Bodies Not Reportable 11/11/20 14:08 Hem Pathologist Commnt No 11/11/20 14:08 Sodium 135 mmol/L (137-145) L 11/11/20 14:08 Potassium 4.0 mmol/L (3.6-5.0) 11/11/20 14:08 Chloride 97.0 mmol/L (98-107) L 11/11/20 14:08 Carbon Dioxide 26 mmol/L (22-30) 11/11/20 14:08 Anion Gap 16 mmol/L 11/11/20 14:08 BUN 40 mg/dL (9-20) H 11/11/20 14:08 Creatinine 8.3 mg/dL (0.8-1.3) H 11/11/20 14:08 Estimated GFR 8 ml/min 11/11/20 14:08 BUN/Creatinine Ratio 5 % 11/11/20 14:08 Glucose 183 mg/dL (75-100) H 11/11/20 14:08 Calcium 8.2 mg/dL (8.4-10.2) L 11/11/20 14:08 Magnesium 1.90 mg/dL (1.7-2.3) 11/11/20 14:08 Total Bilirubin 0.20 mg/dL (0.1-1.2) 11/11/20 14:08 AST 13 units/L (5-40) 11/11/20 14:08 ALT 14 units/L (7-56) 11/11/20 14:08 Alkaline Phosphatase 73 units/L (35-129) 11/11/20 14:08 Troponin T 0.102 ng/mL (0.00-0.029) H* 11/11/20 14:08 Total Protein 7.1 g/dL (6.3-8.2) 11/11/20 14:08 Albumin 3.1 g/dL (3.9-5) L 11/11/20 14:08 Albumin/Globulin Ratio 0.8 % 11/11/20 14:08 Triglycerides 110 mg/dL (2-149) 11/11/20 14:08 Cholesterol 82 mg/dL (50-199) 11/11/20 14:08 LDL Cholesterol Direct 24 mg/dL (50-130) L 11/11/20 14:08 HDL Cholesterol 38 mg/dL (40-59) L 11/11/20 14:08 Cholesterol/HDL Ratio 2.15 % 11/11/20 14:08 Recinos/IV: Voiding Method Urinal Active Medications - Current Medications Current Medications: Generic Name Dose Route Start Last Admin Trade Name Freq PRN Reason Stop Dose Admin Amlodipine Besylate 10 mg 11/12/20 10:00 Amlodipine 10 Mg Tab PO DAILY [facility] Aspirin 325 mg 11/12/20 10:00 Aspirin 325 Mg Tab PO QDAY [facility] Atorvastatin Calcium 40 mg 11/12/20 22:00 Atorvastatin 40 Mg Tab PO QHS MELINDA Furosemide 80 mg 11/12/20 06:00 11/12/20 05:56 Furosemide 40 Mg Tab PO 80 mg BID@0600,1800 [facility] Administration Hydralazine HCl 10 mg 11/11/20 21:10 11/11/20 21:38 Hydralazine 20 Mg/1 Ml Inj IV 10 mg Q6HR PRN Administration Hypertension Metoprolol Tartrate 100 mg 11/12/20 10:00 Metoprolol Tartrate 100 Mg Tab PO BID [facility] Oxycodone/Acetaminophen 2 tab 11/11/20 23:26 11/11/20 23:31 Oxycodone /Acetaminophen 5-325mg Tab PO 2 tab Q6H PRN Administration Pain, Moderate (4-6) Valsartan 160 mg 11/11/20 23:00 11/11/20 23:33 Valsartan 160mg Tab PO 160 mg BID MELINDA Administration
[2020-11-12] MEDS ORDERED: MIDAZOLAM 2 MG/2 ML INJ ONE (08:56)
[2020-11-12] MEDS ORDERED: fentaNYL 100 MCG/2 ML INJ ONE (08:56)
[2020-11-12] MEDS ORDERED: HEPARIN/NS 5000 UNIT/500ML 1,500 ML IR ONE (08:56)
[2020-11-12] MEDS ORDERED: CEFEPIME/NS 1 GM/100 ML 1 GM/100 ML BAG IV SCH ×2 (09:00→22:00)
[2020-11-12] MEDS ORDERED: SODIUM CHLORIDE 0.9% 250ML 250 ML ONE (09:10)
[2020-11-12] MEDS ORDERED: ceFAZolin/Water 2 GM/20 ML 2 GM/20 ML SYRINGE IV ONE (09:10)
[2020-11-12] MEDS ORDERED: NON-FORMULARY EACH (Amlodipine 10 MG) PO SCH (10:00)
[2020-11-12] MEDS ORDERED: METOPROLOL TARTRATE 75 MG PO SCH (10:00)
--- NOTE | 2020-11-12 10:22 | Consultation ---
History of Present Illness - Reason for Consult Consult date: 11/12/20 AV graft thrombosis Requesting physician: SIDNEY HUDSON - History of Present Illness 70 yo male with a past medical history of CVA with residual right-sided weakness the use of a cane to ambulate, end-stage renal disease on dialysis Thursday, Thursday, and Thursday, mild dementia, migraines, history of pulmonary embolism previously on Coumadin but discontinued in July due to microvascular hemor rhages, hypertension and diabetes presents to the hospital complaints of recent fall and swelling to left AV graft site. L av graft nonfunctional. Vascular consulted. I tried to have a discussion with the patient about the active issues, but he has underlying dementia making discussion not possible. I contacted his spouse who told me that after he fell he developed significant swelling of the left arm AV graft. Upon exam, there is a large pseudoaneurysm at the arterial anastomosis of the AV graft without pulsatility or thrill in the rest of the AV access. The told me that he has also been pulling with his left arm due to a right shoulder injury, and due to his underlying dementia, he does not understand and will not change his behavior. I explained to her that it is quite concerning and makes caring for him quite complicated and places him at high risk for morbidity and she understands. Past History Past Medical History: other (See HPI) Medications and Allergies Allergies Allergy/AdvReac Type Severity Reaction Status Date / Time No Known Allergies Allergy Verified 07/03/20 15:42 Home Medications Medication Instructions Recorded Confirmed Last Taken Type Furosemide 80 mg BID 02/10/20 07/03/20 07/02/20 16:00 History Aspirin 325 mg PO QDAY #30 tablet 08/18/20 Unknown Rx AtorvaSTATin [Lipitor] 40 mg PO QHS #30 tablet 08/18/20 Unknown Rx Levemir VIAL 40 units SUB-Q BID #1 08/18/20 Unknown Rx Metoprolol Tartrate 100 mg PO BID #60 08/18/20 Unknown Rx amLODIPine 10 mg PO DAILY #30 08/18/20 Unknown Rx Active Meds: Active Medications Amlodipine Besylate (Amlodipine 10 Mg Tab) 10 mg PO DAILY MELINDA Aspirin (Aspirin 325 Mg Tab) 325 mg PO QDAY MELINDA Atorvastatin Calcium (Atorvastatin 40 Mg Tab) 40 mg PO QHS MELINDA Furosemide (Furosemide 40 Mg Tab) 80 mg PO BID@0600,1800 [facility] Last Admin: 02/15/21 05:56 Dose: 80 mg Documented by: Hydralazine HCl (Hydralazine 20 Mg/1 Ml Inj) 10 mg IV Q6HR PRN PRN Reason: Hypertension Last Admin: 11/11/20 21:38 Dose: 10 mg Documented by: Cefepime HCl 0.5 gm/ Sodium (Chloride) 100 mls @ 200 mls/hr IV Q12H [facility] Metoprolol Tartrate (Metoprolol Tartrate 100 Mg Tab) 100 mg PO BID [facility] Oxycodone/Acetaminophen (Oxycodone /Acetaminophen 5-325mg Tab) 2 tab PO Q6H PRN PRN Reason: Pain, Moderate (4-6) Last Admin: 11/11/20 23:31 Dose: 2 tab Documented by: Valsartan (Valsartan 160mg Tab) 160 mg PO BID [facility] [place] Last Admin: 11/11/20 23:33 Dose: 160 mg Documented by: Review of Systems ROS unobtainable: due to mental status Exam - Constitutional Vitals: Temp Pulse Resp BP Pulse Ox 98.5 F 65 18 184/79 98 11/12/20 09:02 11/12/20 09:02 11/12/20 09:02 11/12/20 09:02 11/12/20 09:02 General appearance: Present: mild distress (When touching the left arm AV graft pseudoaneurysm) - EENT Eyes: Present: EOM intact ENT: hearing intact - Respiratory Respiratory effort: normal - Extremities Extremities: normal temperature, normal color, abnormal (Left arm AV graft pseudoaneurysm at arterial anastomosis with rest of the AV access thrombosed, palpable left ulnar and radial artery) - Abdominal General gastrointestinal: Present: soft, non-tender - Psychiatric Psychiatric: no intact judgment & insight, no memory intact, cooperative Results - Labs CBC & Chem 7: 11/11/20 14:08 11/11/20 14:08 Labs: Abnormal lab results 11/11/20 11/11/20 Range/Units 14:08 14:08 WBC 12.7 H (4.5-11.0) K/mm3 Seg Neuts % (Manual) 84.0 H (40.0-70.0) % Lymphocytes % (Manual) 9.0 L (13.4-35.0) % Seg Neutrophils # Man 10.7 H (1.8-7.7) K/mm3 Lymphocytes # (Manual) 1.1 L (1.2-5.4) K/mm3 Sodium 135 L (137-145) mmol/L Chloride 97.0 L (98-107) mmol/L BUN 40 H (9-20) mg/dL Creatinine 8.3 H (0.8-1.3) mg/dL Glucose 183 H (75-100) mg/dL Calcium 8.2 L (8.4-10.2) mg/dL Troponin T 0.102 H* (0.00-0.029) ng/mL Albumin 3.1 L (3.9-5) g/dL LDL Cholesterol Direct 24 L (50-130) mg/dL HDL Cholesterol 38 L (40-59) mg/dL Assessment and Plan 70-year-old male with mild dementia, end-stage renal disease with left upper extremity bovine AV graft which was in appropriate state and function until fall on Thursday. This was confirmed by the patient's who reports that after he fell there was a large area of swelling of the left AV graft. She denies that this was present beforehand. She reports that he has been chronically using his left arm to pull himself and has been exerting significant stress on the area due to his dementia with right shoulder pain. Upon exam, there is a large pseudoaneurysm which appears to be from the arterial anastomosis compatible with a tear at the arterial anastomosis. I will obtain an arterial ultrasound for confirmation. This needs to be surgically addressed but since the patient is relatively stable, recommend blood cultures beforehand. If blood cultures are positive which I think is less likely given the history of severe trauma, then patient would need explantation. Otherwise, there is the possibility of revision with arterial repair and loop graft creation combined with open thrombectomy. However, I will place a PermCath for now. If his blood cultures come back positive, this may need to be exchanged before discharge.
--- NOTE | 2020-11-12 10:30 | Progress Note ---
Assessment and Plan 1. ESRD: Patient is on maintenance hemodialysis three times a week, MWF schedule. Last outpatient HD 11/09. Hemodialysis: MWF schedule. 2. FEN: Monitor volume status and lytes. 3. S/p Fall: Monitor. Fall precaution. 4. Malfunctioning L arm AVF: Vascular consulted. 5. H/o CVA: ASA and statin. Seen by Neuro. 6. Anemia: Monitor and Epogen if needed. 7. Hypertension: UF with HD. Monitor BP. 8. DM type 2: Monitor blood sugar. Subjective: Patient was seen and examined at the bedside. Examination: General appearance: well-developed, well-nourished, appears stated age, no distress HEENT: ATNC, CATHY, mucous membranes moist, hearing intact, vision intact Neck: supple Respiratory: Clear to Auscultation Cardiology: regular, S1S2, no murmur Gastrointestinal: normoactive bowel sounds, no tenderness, not distended Integumentary: no obvious rash Neurologic: AO, able to move extremities, no asterixis Ext: no edema Hemodialysis access: L arm AVF with no bruit, swelling noted Subjective Date of service: 11/12/20 Objective - Vital Signs Vital signs: Vital Signs - 12hr 11/11/20 11/11/20 11/11/20 22:50 23:31 23:32 Temperature 98.3 F Pulse Rate 67 Pulse Rate [ 65 Apical] Respiratory 18 16 16 Rate Respiratory Rate [Right Shoulder] Blood Pressure 166/88 O2 Sat by Pulse 95 99 Oximetry 11/11/20 11/11/20 11/12/20 23:33 23:55 00:31 Temperature Pulse Rate 67 Pulse Rate [ Apical] Respiratory 18 Rate Respiratory 16 Rate [Right Shoulder] Blood Pressure 166/88 O2 Sat by Pulse Oximetry 11/12/20 11/12/20 04:13 09:02 Temperature 97.9 F 98.5 F Pulse Rate 64 65 Pulse Rate [ Apical] Respiratory 16 18 Rate Respiratory Rate [Right Shoulder] Blood Pressure 180/74 184/79 O2 Sat by Pulse 96 98 Oximetry - Lab 11/11/20 14:08 11/11/20 14:08 Most recent lab results Calcium 8.2 mg/dL (8.4-10.2) L 11/11/20 14:08 Magnesium 1.90 mg/dL (1.7-2.3) 11/11/20 14:08 Medications & Allergies - Medications Allergies/Adverse Reactions: Allergies No Known Allergies Allergy (Verified 07/03/20 15:42) Home Medications: Home Medications Medication Instructions Recorded Confirmed Last Taken Type Furosemide 80 mg BID 02/10/20 07/03/20 07/02/20 16:00 History Aspirin 325 mg PO QDAY #30 tablet 08/18/20 Unknown Rx AtorvaSTATin [Lipitor] 40 mg PO QHS #30 tablet 08/18/20 Unknown Rx Levemir VIAL 40 units SUB-Q BID #1 08/18/20 Unknown Rx Metoprolol Tartrate 100 mg PO BID #60 08/18/20 Unknown Rx amLODIPine 10 mg PO DAILY #30 08/18/20 Unknown Rx Active Medications: Generic Name Dose Route Start Last Admin Trade Name Freq PRN Reason Stop Dose Admin Amlodipine Besylate 10 mg 11/12/20 10:00 Amlodipine 10 Mg Tab PO DAILY [facility] Aspirin 325 mg 11/12/20 10:00 Aspirin 325 Mg Tab PO QDAY [facility] Atorvastatin Calcium 40 mg 11/12/20 22:00 Atorvastatin 40 Mg Tab PO QHS [facility] Furosemide 80 mg 11/12/20 06:00 11/12/20 05:56 Furosemide 40 Mg Tab PO 80 mg BID@0600,1800 [facility] Administration Hydralazine HCl 10 mg 11/11/20 21:10 11/11/20 21:38 Hydralazine 20 Mg/1 Ml Inj IV 10 mg Q6HR PRN Administration Hypertension Cefepime HCl 0.5 gm/ Sodium 100 mls @ 200 mls/hr 11/12/20 11:00 Chloride IV Q12H [facility] Metoprolol Tartrate 100 mg 11/12/20 10:00 Metoprolol Tartrate 100 Mg Tab PO BID [facility] Oxycodone/Acetaminophen 2 tab 11/11/20 23:26 11/11/20 23:31 Oxycodone /Acetaminophen 5-325mg Tab PO 2 tab Q6H PRN Administration Pain, Moderate (4-6) Valsartan 160 mg 11/11/20 23:00 11/11/20 23:33 Valsartan 160mg Tab PO 160 mg BID MELINDA Administration
[2020-11-12] MEDS: HEPARIN 10,000 UNITS/10 ML VIAL ONE ×3 (10:59→11:23)
[2020-11-12] MEDS: ASPIRIN 325 MG TAB PO SCH (10:59)
[2020-11-12] MEDS ORDERED: CEFEPIME 0.5 GM in SODIUM CHLORIDE 0.9% 100 ML IV SCH (11:00)
[2020-11-12] MEDS: LIDOCAINE (2%) 20 MG/1 ML VIAL 20 ML MDV INFILTRATI ONE ×2 (11:02→11:08)
[2020-11-12] MEDS: VALSARTAN 160MG TAB PO SCH ×2 (13:15→21:56)
[2020-11-12] MEDS: METOPROLOL TARTRATE 100 MG TAB PO SCH ×2 (13:15→21:56)
[2020-11-12] MEDS: amLODIPine 10 MG TAB PO SCH (13:15)
--- NOTE | 2020-11-12 14:23 | Vascular Lab Report ---
Left upper extremity Ultrasound HISTORY: LEFT AV GRAFT arterial or periperal graft blowout. TECHNIQUE: Grayscale and color imaging performed. COMPARISON: None FINDINGS: There is a left upper extremity AV fistula, with pseudoaneurysm noted at the inflow tract m easuring 4.5 x 3.7 cm. The neck of the pseudoaneurysm measures 0.6 cm. The depth to the neck of the p seudoaneurysm is approximately 4 cm. The fistula is otherwise occluded overlying the biceps region. M aximal peak systolic velocity on the arterial end is 202 cm/s and on the venous and is 7 cm/s IMPRESSION: Occluded AV graft with pseudoaneurysm formation as described above along the AV inflow. T he patient's nurse Bello was informed at 1340 hours EST by the auto rental clerk. Signer Name: Renan Cantu MD Signed: 11/12/2020 2:18 PM Workstation Name: [id number]
--- NOTE | 2020-11-12 14:55 | Operative Report ---
Operative Report Operative Report: EXAM: 1. Ultrasound-guided puncture of the right internal jugular vein 2. Fluoroscopic-guided placement of a right internal jugular tunneled cuffed hemodialysis catheter. DATE: 11/12/2020 INDICATION: AV graft thrombosis with pseudoaneurysm of the arterial anastomosis requiring hemodialysis access. End-stage renal disease. MEDICATIONS: Please see nursing report for full details. DEVICES: 23 cm tip to cuff 15 Fr dual lumen hemodialysis catheter TOBACCO BUYER: MAGNOLIA ZHANG MD CONTRAST: None PROCEDURE: The risks, benefits, and alternatives were discussed and informed consent was obtained. The patient was transported to the angiography suite in satisfactory/stable condition and was transported onto the angiography table. The patient's right internal jugular vein was assessed with ultrasound and determined to be patent prior to procedure. The patient was prepped and draped in a sterile fashion. The puncture site was anesthetized. Under sonographic guidance, the right internal jugular vein was punctured with a 21-gauge micropuncture needle and a 0.018 inch wire was advanced into the inferior vena cava. The micropuncture needle was exchanged for a transitional dilator and the wire was retracted into the right atrium to zina intravascular distance. The wire and inner dilator wer e removed. 0.035 inch wire was advanced through the transitional dilator into the inferior vena cava. A suitable exit site was identified on the patient's chest inferior and lateral to the venotomy. The site was anesthetized with local anesthetic and the track was anesthetized. Dermatotomy was made. The PermCath was attached to the tunneling device and tunneled between the dermatotomy to the venotomy. Over the 0.035 inch wire, serial dilatation was performed with ultimate placement of a peel-away sheath. The catheter was advanced through the peel- away sheath after the wire was removed and positioned centrally under fluoroscopic guidance. The peel-away sheath was removed. 4-0 Vicryl suture was used to close the venotomy and Dermabond was then applied. 2-0 Ethilon suture was used to secure the catheter at the dermatotomy. The catheter was charged with heparin 1000 units/mL of space. Sterile dressing and Biopatch applied. The patient was transferred from the angiography suite back to the floor in stable condition. FINDINGS: 1. Excellent flow was obtained through the dialysis catheter with 20 mL syringes. 2. The catheter tip is in the right atrium. IMPRESSION: 1. Successful ultrasound and fluoroscopically guided placement of a right internal jugular tunneled cuffed hemodialysis catheter.
[2020-11-12 16:09] LABS: Hepatitis B Surface Antigen Non-Reactive (Negative); Hepatitis C Virus Antibody Non-Reactive (NonReactive)
--- NOTE | 2020-11-12 17:35 | Consultation ---
History of Present Illness - Reason for Consult Consult date: 11/12/20 - History of Present Illness 70-year-old man past medical history of CVA with residual right-sided weakness, ESRD on HD, hypertension, diabetes presented to hospital after having a recent fall and swelling to his left AV graft site. The graft is nonfunctional. He otherwise denies any symptoms. He was taken to the OR today for placement of a right internal jugular HD catheter. Afebrile since admission with a white count 12.7. No cultures available for review. Currently on vancomycin and cefepime imaging personally reviewed: AV ultrasound no evident abscess, positive for pseudoaneurysm Past History Past Medical History: other (See HPI) Past Surgical History: No surgical history Social history: no significant social history Family history: no significant family history Medications and Allergies Allergies Allergy/AdvReac Type Severity Reaction Status Date / Time No Known Allergies Allergy Verified 07/03/20 15:42 Home Medications Medication Instructions Recorded Confirmed Last Taken Type Furosemide 80 mg BID 02/10/20 07/03/20 07/02/20 16:00 History Aspirin 325 mg PO QDAY #30 tablet 08/18/20 Unknown Rx AtorvaSTATin [Lipitor] 40 mg PO QHS #30 tablet 08/18/20 Unknown Rx Levemir VIAL 40 units SUB-Q BID #1 08/18/20 Unknown Rx Metoprolol Tartrate 100 mg PO BID #60 08/18/20 Unknown Rx amLODIPine 10 mg PO DAILY #30 08/18/20 Unknown Rx Active Meds: Active Medications Amlodipine Besylate (Amlodipine 10 Mg Tab) 10 mg PO DAILY [facility] Last Admin: 11/12/20 13:15 Dose: Not Given Documented by: Aspirin (Aspirin 325 Mg Tab) 325 mg PO QDAY [facility] Last Admin: 11/12/20 10:59 Dose: Not Given Documented by: Atorvastatin Calcium (Atorvastatin 40 Mg Tab) 40 mg PO QHS [facility] Furosemide (Furosemide 40 Mg Tab) 80 mg PO BID@0600,1800 [facility] Last Admin: 11/12/20 05:56 Dose: 80 mg Documented by: Hydralazine HCl (Hydralazine 20 Mg/1 Ml Inj) 10 mg IV Q6HR PRN PRN Reason: Hypertension Last Admin: 11/11/20 21:38 Dose: 10 mg Documented by: Cefepime HCl (Cefepime/Ns 1 Gm/100 Ml) 1 gm in 100 mls @ 200 mls/hr IV Q24H [facility]; Protocol Metoprolol Tartrate (Metoprolol Tartrate 100 Mg Tab) 100 mg PO BID [facility] Last Admin: 11/12/20 13:15 Dose: Not Given Documented by: Oxycodone/Acetaminophen (Oxycodone /Acetaminophen 5-325mg Tab) 2 tab PO Q6H PRN PRN Reason: Pain, Moderate (4-6) Last Admin: 11/11/20 23:31 Dose: 2 tab Documented by: Valsartan (Valsartan 160mg Tab) 160 mg PO BID [facility] Last Admin: 11/12/20 13:15 Dose: Not Given Documented by: Review of Systems ROS unobtainable: due to mental status Physical Examination - Physical Exam Narrative exam: Physical Exam: Constitutional: Alert, cooperative. No acute distress Head, Ears, Nose: Normocephalic, atraumatic. External ears, nose normal Eyes: Conjunctivae/corneas clear. No icterus. No ptosis. Neck: Supple, no meningeal signs Oral: dentition fair, no thrush Cardiovascular: S1, S2 normal. Respiratory: Good air entry, clear to auscultation bilaterally GI: Soft, non-tender; bowel sounds normal. No peritoneal signs. Musculoskeletal: Left arm AV graft with pseudoaneurysm Skin: No rash or abscess Hem/Lymphatic: No palpable cervical or supraclavicular nodes. No lymphangitis Psych: Mood ok. Affect normal Neurological: Awake, alert, oriented. No gross abnormality - Constitutional Vitals: Vital Signs Temp Pulse Resp BP Pulse Ox 98.4 F 72 18 180/110 98 11/12/20 14:55 11/12/20 17:15 11/12/20 14:55 11/12/20 17:15 11/12/20 09:02 Temperature -Last 24 Hours Temperature 98.4 F Temperature 98.5 F Temperature 97.9 F Temperature 98.3 F Temperature 97.7 F Results - Labs CBC & Chem 7: 11/11/20 14:08 11/11/20 14:08 Labs: Abnormal lab results 11/11/20 Range/Units 20:27 POC Glucose 143 H (70-105) mg/dL Assessment and Plan Cultures: None A/P: 70-year-old man past medical history of CVA with residual right-sided weakness, ESRD on HD, hypertension, diabetes admitted after a fall #Left arm cellulitis: With associated pseudoaneurysm of his AV graft. Patient with dementia, with involuntary movements. May have scratched himself at one point, versus cellulitis fro access. #ESRD on HD: Renally dose antibiotics #Diabetes: tight glycemic control for best outcomes. Recs: -Stop cefepime -Continue vancomycin goal trough 10-20 -Follow-up blood cell count -Plan to discharge on doxycycline 100 mg every 12 hours for 7 days Thank you for the consult, we will continue to follow. Molly Rivera MD [facility] ([facility] O: [phone] F: [phone]
[2020-11-13] MEDS: FUROSEMIDE 40 MG TAB PO SCH ×3 (08:08→18:11)
[2020-11-13] MEDS ORDERED: VANCOMYCIN PHARMACY TO DOSE IV SCH (10:00)
--- NOTE | 2020-11-13 10:09 | Progress Note ---
Assessment and Plan Assessment and plan: 70 yo male with a past medical history of CVA with residual right-sided weakness the use of a cane to ambulate, end-stage renal disease on dialysis Thursday, Thursday, and Thursday, mild dementia, migraines, history of pulmonary embolism previously on Coumadin but discontinued in July due to microvascular hemorrhages, hypertension and diabetes presents to the hospital complaints of recent fall and swelling to left AV graft site. L av graft nonfunctional. Had HD on and today is thursday.No SOB Ct Cervical spine: No acute findings. 2. Moderate cervical spondylosis. Dialysis AV graft fistula malfunction Systemic inflammatory response syndrome without sepsis Presumed left upper extremity cellulitis around AV graft site End-stage renal disease on HD Diabetes mellitus Early mild dementia per history History of pulmonary embolism now off anticoagulation due to microvascular hemorrhages History of migraine Plan PT/OT secondary to multiple falls Follow cultures, continue abx., Patient will need revision with arterial repair and loop graft creation Combined with open thrombectomy Patient will need repair of th artery due to "blow out" No evidence of sepsis at this time but will start patient on empiric antibiotic coverage until seen by ID IR consulted for evaluation malfunctioning AV graft Nephrology input noted Continue management for diabetes mellitus with insulin. Outpatient orthopedic evaluation for right shoulder. Cervical spine imaging only concerning for Moderate Cervical spondylosis Cont Antihypertensives DVT/GI PROPHY Ok for diet after IR eval Depending on IR and ID input, will plan discharge. History Interval history: Patient seen and examined this morning. patient with pseudoanurysm, awaiting for blood cultures for now and then for Arterial Repair. Hospitalist Physical - Physical exam Narrative exam: VITAL SIGNS: Reviewed. GENERAL: The patient appears normally developed, Vital signs as documented. HEAD: No signs of head trauma. EYES: Pupils are equal. Extraocular motions intact. EARS: Hearing grossly intact. MOUTH: Oropharynx is normal. NECK: No adenopathy, no JVD. CHEST: Chest with clear breath sounds bilaterally. No wheezes, rales, or rhonchi. CARDIAC: Regular rate and rhythm. S1 and S2, without murmurs, gallops, or rubs. VASCULAR: large pseudoaneurysm which appears to be from the arterial anastomosis compatible with a tear at the arterial anastomosis. ABDOMEN: Soft, non tender and non distended. No rebound or guarding, and no masses palpated. Bowel Sounds normal. MUSCULOSKELETAL: Left AV graft tender to touch mild erythema circumferential around it. Right upper extremity in a sling. Limited range of motion. Oth erwise on all other joints good range of motion. Extremities without clubbing, cyanosis or edema. NEUROLOGIC EXAM: Alert and oriented x 3 No focal sensory or strength deficits. Speech normal. Follows commands. PSYCHIATRIC: Mood normal. SKIN: detail exam as documented in skin assessment - Constitutional Vitals: Temp Pulse Resp BP Pulse Ox 99.0 F 65 18 199/67 93 11/13/20 05:03 11/13/20 05:03 11/13/20 05:03 11/13/20 05:03 11/13/20 05:03 General appearance: Present: no acute distress, well-nourished HEART Score - HEART Score Troponin: Troponin T 0.102 ng/mL (0.00-0.029) H* 11/11/20 14:08 Results - Labs CBC & Chem 7: 11/11/20 14:08 11/11/20 14:08 Labs: Laboratory Last Values WBC 12.7 K/mm3 (4.5-11.0) H 11/11/20 14:08 RBC 4.08 M/mm3 (3.65-5.03) 11/11/20 14:08 Hgb 12.0 gm/dl (11.8-15.2) 11/11/20 14:08 Hct 35.6 % (35.5-45.6) 11/11/20 14:08 MCV 87 fl (84-94) 11/11/20 14:08 MCH 30 pg (28-32) 11/11/20 14:08 MCHC 34 % (32-34) 11/11/20 14:08 RDW 14.8 % (13.2-15.2) 11/11/20 14:08 Plt Count 366 K/mm3 (140-440) 11/11/20 14:08 Add Manual Diff Complete 11/11/20 14:08 Total Counted 100 11/11/20 14:08 Seg Neuts % (Manual) 84.0 % (40.0-70.0) H 11/11/20 14:08 Band Neutrophils % 2.0 % 11/11/20 14:08 Lymphocytes % (Manual) 9.0 % (13.4-35.0) L 11/11/20 14:08 Monocytes % (Manual) 5.0 % (0.0-7.3) 11/11/20 14:08 Nucleated RBC % Not Reportable 11/11/20 14:08 Seg Neutrophils # Man 10.7 K/mm3 (1.8-7.7) H 11/11/20 14:08 Band Neutrophils # 0.3 K/mm3 11/11/20 14:08 Lymphocytes # (Manual) 1.1 K/mm3 (1.2-5.4) L 11/11/20 14:08 Abs React Lymphs (Man) 0.0 K/mm3 11/11/20 14:08 Monocytes # (Manual) 0.6 K/mm3 (0.0-0.8) 11/11/20 14:08 Eosinophils # (Manual) 0.0 K/mm3 (0.0-0.4) 11/11/20 14:08 Basophils # (Manual) 0.0 K/mm3 (0.0-0.1) 11/11/20 14:08 Metamyelocytes # 0.0 K/mm3 11/11/20 14:08 Myelocytes # 0.0 K/mm3 11/11/20 14:08 Promyelocytes # 0.0 K/mm3 11/11/20 14:08 Blast Cells # 0.0 K/mm3 11/11/20 14:08 WBC Morphology Not Reportable 11/11/20 14:08 Hypersegmented Neuts Not Reportable 11/11/20 14:08 Hyposegmented Neuts Not Reportable 11/11/20 14:08 Hypogranular Neuts Not Reportable 11/11/20 14:08 Smudge Cells Not Reportable 11/11/20 14:08 Toxic Granulation 1+ 11/11/20 14:08 Toxic Vacuolation 1+ 11/11/20 14:08 Dohle Bodies Not Reportable 11/11/20 14:08 Pelger-Huet Anomaly Not Reportable 11/11/20 14:08 Pauline Rods Not Reportable 11/11/20 14:08 Platelet Estimate Consistent w auto 11/11/20 14:08 Clumped Platelets Not Reportable 11/11/20 14:08 Plt Clumps, EDTA Not Reportable 11/11/20 14:08 Large Platelets Not Reportable 11/11/20 14:08 Giant Platelets Not Reportable 11/11/20 14:08 Platelet Satelliting Not Reportable 11/11/20 14:08 Plt Morphology Comment Not Reportable 11/11/20 14:08 RBC Morphology Not Reportable 11/11/20 14:08 Dimorphic RBCs Not Reportable 11/11/20 14:08 Polychromasia Not Reportable 11/11/20 14:08 Hypochromasia Not Reportable 11/11/20 14:08 Poikilocytosis Not Reportable 11/11/20 14:08 Anisocytosis 1+ 11/11/20 14:08 Microcytosis Not Reportable 11/11/20 14:08 Macrocytosis Not Reportable 11/11/20 14:08 Spherocytes Not Reportable 11/11/20 14:08 Pappenheimer Bodies Not Reportable 11/11/20 14:08 Sickle Cells Not Reportable 11/11/20 14:08 Target Cells Not Reportable 11/11/20 14:08 Tear Drop Cells Not Reportable 11/11/20 14:08 Ovalocytes Not Reportable 11/11/20 14:08 Helmet Cells Not Reportable 11/11/20 14:08 [place] Bodies Not Reportable 11/11/20 14:08 [place] Rings Not Reportable 11/11/20 14:08 Timblin Cells Not Reportable 11/11/20 14:08 Bite Cells Not Reportable 11/11/20 14:08 Crenated Cell Not Reportable 11/11/20 14:08 Elliptocytes Not Reportable 11/11/20 14:08 Acanthocytes (Spur) Not Reportable 11/11/20 14:08 Rouleaux Not Reportable 11/11/20 14:08 Hemoglobin C Crystals Not Reportable 11/11/20 14:08 Schistocytes Not Reportable 11/11/20 14:08 Malaria parasites Not Reportable 11/11/20 14:08 James Bodies Not Reportable 11/11/20 14:08 Hem Pathologist Commnt No 11/11/20 14:08 Sodium 135 mmol/L (137-145) L 11/11/20 14:08 Potassium 4.0 mmol/L (3.6-5.0) 11/11/20 14:08 Chloride 97.0 mmol/L (98-107) L 11/11/20 14:08 Carbon Dioxide 26 mmol/L (22-30) 11/11/20 14:08 Anion Gap 16 mmol/L 11/11/20 14:08 BUN 40 mg/dL (9-20) H 11/11/20 14:08 Creatinine 8.3 mg/dL (0.8-1.3) H 11/11/20 14:08 Estimated GFR 8 ml/min 11/11/20 14:08 BUN/Creatinine Ratio 5 % 11/11/20 14:08 Glucose 183 mg/dL (75-100) H 11/11/20 14:08 POC Glucose 143 mg/dL (70-105) H 11/11/20 20:27 Calcium 8.2 mg/dL (8.4-10.2) L 11/11/20 14:08 Magnesium 1.90 mg/dL (1.7-2.3) 11/11/20 14:08 Total Bilirubin 0.20 mg/dL (0.1-1.2) 11/11/20 14:08 AST 13 units/L (5-40) 11/11/20 14:08 ALT 14 units/L (7-56) 11/11/20 14:08 Alkaline Phosphatase 73 units/L (35-129) 11/11/20 14:08 Troponin T 0.102 ng/mL (0.00-0.029) H* 11/11/20 14:08 Total Protein 7.1 g/dL (6.3-8.2) 11/11/20 14:08 Albumin 3.1 g/dL (3.9-5) L 11/11/20 14:08 Albumin/Globulin Ratio 0.8 % 11/11/20 14:08 Triglycerides 110 mg/dL (2-149) 11/11/20 14:08 Cholesterol 82 mg/dL (50-199) 11/11/20 14:08 LDL Cholesterol Direct 24 mg/dL (50-130) L 11/11/20 14:08 HDL Cholesterol 38 mg/dL (40-59) L 11/11/20 14:08 Cholesterol/HDL Ratio 2.15 % 11/11/20 14:08 Hepatitis A IgM Ab Non-reactive (NonReactive) 11/12/20 15:15 Hep Bs Antigen Non-reactive (Negative) 11/12/20 15:15 Hep B Core IgM Ab Non-reactive (NonReactive) 11/12/20 15:15 Hepatitis C Antibody Non-reactive (NonReactive) 11/12/20 15:15 Microbiology: Microbiology 11/12/20 18:25 Peripheral/Venous Blood Culture - Preliminary Culture in Progress 11/12/20 18:25 Peripheral/Venous Blood Culture - Preliminary Culture in Progress Recinos/IV: Voiding Method Urinal Active Medications - Current Medications Current Medications: Generic Name Dose Route Start Last Admin Trade Name Freq PRN Reason Stop Dose Admin Amlodipine Besylate 10 mg 11/12/20 10:00 11/12/20 13:15 Amlodipine 10 Mg Tab PO Not Given DAILY [facility] Aspirin 325 mg 11/12/20 10:00 11/12/20 10:59 Aspirin 325 Mg Tab PO Not Given QDAY [facility] Atorvastatin Calcium 40 mg 11/12/20 22:00 11/12/20 21:56 Atorvastatin 40 Mg Tab PO 40 mg QHS MELINDA Administration Furosemide 80 mg 11/12/20 06:00 11/13/20 08:42 Furosemide 40 Mg Tab PO 80 mg BID@0600,1800 MELINDA Administration Hydralazine HCl 10 mg 11/11/20 21:10 11/11/20 21:38 Hydralazine 20 Mg/1 Ml Inj IV 10 mg Q6HR PRN Administration Hypertension Vancomycin HCl 1,750 mg/ 535 mls @ 333.333 mls/hr 11/13/20 11:00 Sodium Chloride IV 11/13/20 12:36 ONCE ONE Metoprolol Tartrate 100 mg 11/12/20 10:00 11/12/20 21:56 Metoprolol Tartrate 100 Mg Tab PO 100 mg BID MELINDA Administration Oxycodone/Acetaminophen 2 tab 11/11/20 23:26 11/11/20 23:31 Oxycodone /Acetaminophen 5-325mg Tab PO 2 tab Q6H PRN Administration Pain, Moderate (4-6) Valsartan 160 mg 11/11/20 23:00 11/12/20 21:56 Valsartan 160mg Tab PO 160 mg BID MELINDA Administration
[2020-11-13] MEDS: METOPROLOL TARTRATE 100 MG TAB PO SCH ×2 (10:45→22:06)
[2020-11-13] MEDS: amLODIPine 10 MG TAB PO SCH (10:45)
[2020-11-13] MEDS: ASPIRIN 325 MG TAB PO SCH (10:46)
[2020-11-13] MEDS: VALSARTAN 160MG TAB PO SCH ×2 (10:46→22:05)
[2020-11-13] MEDS ORDERED: VANCOMYCIN 1,750 MG in SODIUM CHLORIDE 0.9% 500 ML 500 ML IV ONE (11:00)
--- NOTE | 2020-11-13 14:33 | Progress Note ---
Assessment and Plan Plan for OR tomorrow with attempted revision, arterial repair, and removal of necrotic tissue with wound VAC placement. Risks, benefits, and alternatives discussed with patient's . Patient's has agreed with procedure. N.p.o. after midnight except sips of water with meds. Subjective Date of service: 11/13/20 Principal diagnosis: left arm pseudoaneurysm Interval history: Left pseudoaneurysm appears mildly enlarged. There is discoloration of the skin which is likely unsalvageable. Blood cultures have remained negative. Placed [place] wrap over the pseudoaneurysm to help decrease overnight growth. Objective - Constitutional Vitals: Vital Signs - 12hr 11/13/20 11/13/20 11/13/20 05:03 08:18 10:45 Temperature 99.0 F 98.4 F Pulse Rate 65 74 Respiratory 18 20 Rate Blood Pressure 199/67 149/102 149/102 O2 Sat by Pulse 93 96 Oximetry 11/13/20 11/13/20 10:46 11:24 Temperature 98.3 F Pulse Rate 63 Respiratory 18 Rate Blood Pressure 149/102 151/96 O2 Sat by Pulse 95 Oximetry General appearance: Present: no acute distress - EENT Eyes: EOM intact ENT: hearing intact - Respiratory Respiratory effort: normal Extremities: abnormal (left arm pseudoaneurysm at arterial anastamosis of AVG, skin overlying the area is becoming dark and nonviable, left radial palpable, left ulnar nonpalpable, pain at left arm pseudoaneurysm site) - Gastrointestinal General gastrointestinal: Present: soft, non-tender - Psychiatric Psychiatric: cooperative - Labs CBC & Chem 7: 11/11/20 14:08 11/11/20 14:08 Medications & Allergies - Medications Allergies/Adverse Reactions: Allergies No Known Allergies Allergy (Verified 07/03/20 15:42) Home Medications: Home Medications Medication Instructions Recorded Confirmed Last Taken Type Furosemide 80 mg BID 02/10/20 07/03/20 07/02/20 16:00 History Aspirin 325 mg PO QDAY #30 tablet 08/18/20 Unknown Rx AtorvaSTATin [Lipitor] 40 mg PO QHS #30 tablet 08/18/20 Unknown Rx Levemir VIAL 40 units SUB-Q BID #1 08/18/20 Unknown Rx Metoprolol Tartrate 100 mg PO BID #60 08/18/20 Unknown Rx amLODIPine 10 mg PO DAILY #30 08/18/20 Unknown Rx Active Medications: Generic Name Dose Route Start Last Admin Trade Name Freq PRN Reason Stop Dose Admin Amlodipine Besylate 10 mg 11/12/20 10:00 11/13/20 10:45 Amlodipine 10 Mg Tab PO 10 mg DAILY MELINDA Administration Aspirin 325 mg 11/12/20 10:00 11/13/20 10:46 Aspirin 325 Mg Tab PO 325 mg QDAY MELINDA Administration Atorvastatin Calcium 40 mg 11/12/20 22:00 11/12/20 21:56 Atorvastatin 40 Mg Tab PO 40 mg QHS MELINDA Administration Furosemide 80 mg 11/12/20 06:00 11/13/20 08:42 Furosemide 40 Mg Tab PO 80 mg BID@0600,1800 MELINDA Administration Hydralazine HCl 10 mg 11/11/20 21:10 11/11/20 21:38 Hydralazine 20 Mg/1 Ml Inj IV 10 mg Q6HR PRN Administration Hypertension Metoprolol Tartrate 100 mg 11/12/20 10:00 11/13/20 10:45 Metoprolol Tartrate 100 Mg Tab PO 100 mg BID MELINDA Administration Oxycodone/Acetaminophen 2 tab 11/11/20 23:26 11/11/20 23:31 Oxycodone /Acetaminophen 5-325mg Tab PO 2 tab Q6H PRN Administration Pain, Moderate (4-6) Valsartan 160 mg 11/11/20 23:00 11/13/20 10:46 Valsartan 160mg Tab PO 160 mg BID MELINDA Administration HEART Score - HEART Score Troponin: Troponin T 0.102 ng/mL (0.00-0.029) H* 11/11/20 14:08
[2020-11-13] MEDS: oxyCODONE /ACETAMINOPHEN 5-325MG TAB PO PRN ×3 (14:51→22:07)
--- NOTE | 2020-11-13 14:58 | Progress Note ---
Assessment and Plan 1. ESRD: Patient is on maintenance hemodialysis three times a week, MWF schedule. Last outpatient HD 11/09. Hemodialysis: MWF schedule. 2. FEN: Monitor volume status and lytes. 3. S/p Fall: Monitor. Fall precaution. 4. Malfunctioning L arm AVF: S/p R IJ tunnel catheter. AVG revision planned for 11/14. Followed by Vascular. 5. H/o CVA: ASA and statin for secondary prevention. 6. Anemia: Monitor and Epogen if needed. 7. Hypertension: UF with HD. Monitor BP. 8. DM type 2: Monitor blood sugar. Subjective: Patient was seen and examined at the bedside. Examination: General appearance: well-developed, well-nourished, appears stated age, no distress HEENT: ATNC, CATHY, mucous membranes moist, hearing intact, vision intact Neck: supple Respiratory: Clear to Auscultation Cardiology: regular, S1S2, no murmur Gastrointestinal: normoactive bowel sounds, no tenderness, not distended Integumentary: no obvious rash Neurologic: AO, able to move extremities, no asterixis Ext: no edema Hemodialysis access: R IJ tunnel catheter, L arm AVF with no bruit, swelling noted Subjective Date of service: 11/13/20 Objective - Vital Signs Vital signs: Vital Signs - 12hr 11/13/20 11/13/20 11/13/20 05:03 08:18 10:45 Temperature 99.0 F 98.4 F Pulse Rate 65 74 Respiratory 18 20 Rate Blood Pressure 199/67 149/102 149/102 O2 Sat by Pulse 93 96 Oximetry 11/13/20 11/13/20 10:46 11:24 Temperature 98.3 F Pulse Rate 63 Respiratory 18 Rate Blood Pressure 149/102 151/96 O2 Sat by Pulse 95 Oximetry - Lab 11/11/20 14:08 11/11/20 14:08 Most recent lab results Calcium 8.2 mg/dL (8.4-10.2) L 11/11/20 14:08 Magnesium 1.90 mg/dL (1.7-2.3) 11/11/20 14:08 Medications & Allergies - Medications Allergies/Adverse Reactions: Allergies No Known Allergies Allergy (Verified 07/03/20 15:42) Home Medications: Home Medications Medication Instructions Recorded Confirmed Last Taken Type Furosemide 80 mg BID 02/10/20 07/03/20 07/02/20 16:00 History Aspirin 325 mg PO QDAY #30 tablet 08/18/20 Unknown Rx AtorvaSTATin [Lipitor] 40 mg PO QHS #30 tablet 08/18/20 Unknown Rx Levemir VIAL 40 units SUB-Q BID #1 08/18/20 Unknown Rx Metoprolol Tartrate 100 mg PO BID #60 08/18/20 Unknown Rx amLODIPine 10 mg PO DAILY #30 08/18/20 Unknown Rx Active Medications: Generic Name Dose Route Start Last Admin Trade Name Freq PRN Reason Stop Dose Admin Amlodipine Besylate 10 mg 11/12/20 10:00 11/13/20 10:45 Amlodipine 10 Mg Tab PO 10 mg DAILY MELINDA Administration Aspirin 325 mg 11/12/20 10:00 11/13/20 10:46 Aspirin 325 Mg Tab PO 325 mg QDAY MELINDA Administration Atorvastatin Calcium 40 mg 11/12/20 22:00 11/12/20 21:56 Atorvastatin 40 Mg Tab PO 40 mg QHS MELINDA Administration Furosemide 80 mg 11/12/20 06:00 11/13/20 08:42 Furosemide 40 Mg Tab PO 80 mg BID@0600,1800 MELINDA Administration Hydralazine HCl 10 mg 11/11/20 21:10 11/11/20 21:38 Hydralazine 20 Mg/1 Ml Inj IV 10 mg Q6HR PRN Administration Hypertension Metoprolol Tartrate 100 mg 11/12/20 10:00 11/13/20 10:45 Metoprolol Tartrate 100 Mg Tab PO 100 mg BID MELINDA Administration Oxycodone/Acetaminophen 2 tab 11/11/20 23:26 11/13/20 14:51 Oxycodone /Acetaminophen 5-325mg Tab PO 1 tab Q6H PRN Administration Pain, Moderate (4-6) Valsartan 160 mg 11/11/20 23:00 11/13/20 10:46 Valsartan 160mg Tab PO 160 mg BID MELINDA Administration
--- NOTE | 2020-11-13 15:31 | Progress Note ---
Assessment and Plan Cultures: None A/P: 70-year-old man past medical history of CVA with residual right-sided weakness, ESRD on HD, hypertension, diabetes admitted after a fall #Left arm cellulitis: With associated pseudoaneurysm of his AV graft. Patient w ith dementia, with involuntary movements. May have scratched himself at one point, versus cellulitis fro access. #ESRD on HD: Renally dose antibiotics #Diabetes: tight glycemic control for best outcomes. Recs: -Continue vancomycin goal trough 10-20 -Follow white blood cell count -Plan to discharge on doxycycline 100 mg every 12 hours for 7 days Thank you for the consult, we will continue to follow. Molly Rivera MD [facility] ([facility]) O: [phone] F: [phone] Subjective Date of service: 11/13/20 Interval history: Afebrile, no acute change. Objective - Exam Narrative Exam: Physical Exam: Constitutional: Alert, cooperative. No acute distress Head, Ears, Nose: Normocephalic, atraumatic. External ears, nose normal Eyes: Conjunctivae/corneas clear. No icterus. No ptosis. Neck: Supple, no meningeal signs Oral: dentition fair, no thrush Cardiovascular: S1, S2 normal. Respiratory: Good air entry, clear to auscultation bilaterally GI: Soft, non-tender; bowel sounds normal. No peritoneal signs. Musculoskeletal: Left arm AV graft with pseudoaneurysm Skin: No rash or abscess Hem/Lymphatic: No palpable cervical or supraclavicular nodes. No lymphangitis Psych: Mood ok. Affect normal Neurological: Awake, alert, oriented. No gross abnormality - Constitutional Vitals: Vital Signs Temp Pulse Resp BP Pulse Ox 98.3 F 63 18 151/96 95 11/13/20 11:24 11/13/20 11:24 11/13/20 11:24 11/13/20 11:24 11/13/20 11:24 Temperature -Last 24 Hours Temperature 98.3 F Temperature 98.4 F Temperature 99.0 F Temperature 99.0 F Temperature 98.5 F Temperature 98.2 F Temperature 98.1 F - Labs CBC & Chem 7: 11/11/20 14:08 11/11/20 14:08
[2020-11-13] MEDS ORDERED: SODIUM CHLORIDE 0.9% 500 ML 500 ML IV ONE (15:42)
--- NOTE | 2020-11-13 16:39 | Anesthesia Consultation ---
Anesthesia Consult and Med Hx Date of service: 11/14/20 - Airway Anesthetic Teeth Evaluation: Poor ROM Head & Neck: Adequate Mental/Hyoid Distance: Adequate Mallampati Class: Class III Intubation Access Assessment: Possibly Difficult - Pulmonary Exam CTA: Yes - Cardiac Exam Cardiac Exam: RRR - Pre-Operative Health Status ASA Pre-Surgery Classification: ASA3 Proposed Anesthetic Plan: General - Pulmonary Hx Smoking: Yes Hx Respiratory Symptoms: No - Cardiovascular System Hx Hypertension: Yes - Central Nervous System CVA: Yes Hx Psychiatric Problems: Yes (dementia) - Endocrine Hx End Stage Renal Disease: Yes (last HD 11/12/20) Hx Liver Disease: No Hx Insulin Dependent Diabetes: Yes Hx Thyroid Disease: No - Hematic Hx Anemia: Yes - Additional Comments Anesthesia Medical History Comments: Hx PE previously on coumadin (off x several months). Patient was oriented to person and situation at time of my exam however he reported feeling sleepy and confused since receiving medication. Anesthesia consent obtained from Swati Looney (). She also gave consent for blood transfusion if required perioperatively.
[2020-11-14] MEDS: FUROSEMIDE 40 MG TAB PO SCH ×2 (05:51→18:18)
[2020-11-14] MEDS ORDERED: ONDANSETRON 4 MG/2 ML INJ ONE (09:17)
[2020-11-14] MEDS ORDERED: LIDOCAINE MPF (2%) 20 MG/1 ML VIAL 5 ML ONE (09:17)
[2020-11-14] MEDS ORDERED: propofoL 200 MG/20 ML VIAL IV ONE (09:18)
[2020-11-14] MEDS ORDERED: HYDROmorphone 1 MG/1 ML INJ ONE (09:18)
[2020-11-14] MEDS ORDERED: SODIUM CHLORIDE 0.9% 500 ML 500 ML ONE (09:24)
[2020-11-14] MEDS ORDERED: BUPIVACAINE/PF (0.5%) 5 MG/1 ML 30 ML VIAL INFILTRATI ONE ×2 (09:24→11:29)
[2020-11-14] MEDS ORDERED: HEPARIN 10,000 UNITS/10 ML VIAL ONE ×2 (09:24→12:46)
[2020-11-14] MEDS ORDERED: fentaNYL 100 MCG/2 ML INJ IV PRN (09:35)
--- NOTE | 2020-11-14 09:35 | Anesthesia Day of Surgery ---
Anesthesia Day of Surgery - Day of Surgery Patient Examined: Yes Patient H&P Reviewed: Yes Patient is NPO: Yes
[2020-11-14] MEDS ORDERED: SODIUM CHLORIDE 0.9% 1000 ML 1,000 ML IV SCH (10:00)
[2020-11-14] MEDS ORDERED: ceFAZolin/STERILE WATER 2 GM/20 ML SYRINGE IV NR (10:30)
[2020-11-14] MEDS ORDERED: ePHEDrine SULFATE 50 MG/1 ML INJ ONE ×2 (10:47→12:08)
--- NOTE | 2020-11-14 10:53 | Progress Note ---
Assessment and Plan 1. ESRD: Patient is on maintenance hemodialysis three times a week, MWF schedule. Last outpatient HD 11/09. Hemodialysis: MWF schedule. 2. FEN: Monitor volume status and lytes. 3. S/p Fall: Monitor. Fall precaution. 4. Malfunctioning L arm AVF: S/p R IJ tunnel catheter. AVG revision planned for 11/14. Followed by Vascular. 5. H/o CVA: ASA and statin for secondary prevention. 6. Anemia: Monitor and Epogen if needed. 7. Hypertension: UF with HD. Monitor BP. 8. DM type 2: Monitor blood sugar. Subjective: Patient was seen and examined at the bedside. Examination: General appearance: well-developed, well-nourished, appears stated age, no distress HEENT: ATNC, CATHY, mucous membranes moist, hearing intact, vision intact Neck: supple Respiratory: Clear to Auscultation Cardiology: regular, S1S2, no murmur Gastrointestinal: normoactive bowel sounds, no tenderness, not distended Integumentary: no obvious rash Neurologic: AO, able to move extremities, no asterixis Ext: no edema Hemodialysis access: R IJ tunnel catheter, L arm AVF with no bruit, swelling noted Subjective Date of service: 11/14/20 Principal diagnosis: left arm pseudoaneurysm Objective - Vital Signs Vital signs: Vital Signs - 12hr 11/13/20 11/13/20 11/14/20 23:27 23:28 03:18 Temperature 98.7 F 98.3 F Pulse Rate 54 L 54 L Respiratory 17 19 Rate Blood Pressure 151/90 150/94 O2 Sat by Pulse 87 92 99 Oximetry 11/14/20 11/14/20 07:23 09:45 Temperature 98.5 F Pulse Rate 60 58 L Respiratory 18 16 Rate Blood Pressure 135/90 153/87 O2 Sat by Pulse 97 97 Oximetry - Lab 11/11/20 14:08 11/14/20 05:45 Most recent lab results Calcium 8.0 mg/dL (8.4-10.2) L 11/14/20 05:45 Magnesium 1.90 mg/dL (1.7-2.3) 11/11/20 14:08 Medications & Allergies - Medications Allergies/Adverse Reactions: Allergies No Known Allergies Allergy (Verified 07/03/20 15:42) Home Medications: Home Medications Medication Instructions Recorded Confirmed Last Taken Type Furosemide 80 mg BID 02/10/20 11/13/20 07/02/20 16:00 History AtorvaSTATin [Lipitor] 40 mg PO QHS #30 tablet 08/18/20 11/13/20 Unknown Rx Levemir VIAL 40 units SUB-Q BID #1 08/18/20 11/13/20 Unknown Rx Metoprolol Tartrate 100 mg PO BID #60 08/18/20 11/13/20 Unknown Rx Aspirin [Adult Aspirin] 11/13/20 Unknown History Aspirin [Adult Aspirin] 81 mg PO 11/13/20 Unknown History FLUoxetine HCL [Prozac] 10 mg PO 11/13/20 Unknown History FLUoxetine [PROzac] 10 mg PO QDAY 11/13/20 11/13/20 Unknown History Warfarin [Coumadin] 5 mg PO QDAY 11/13/20 11/13/20 Unknown History Active Medications: Generic Name Dose Route Start Last Admin Trade Name Freq PRN Reason Stop Dose Admin Amlodipine Besylate 10 mg 11/12/20 10:00 11/13/20 10:45 Amlodipine 10 Mg Tab PO 10 mg DAILY MELINDA Administration Aspirin 325 mg 11/12/20 10:00 11/13/20 10:46 Aspirin 325 Mg Tab PO 325 mg QDAY MELINDA Administration Atorvastatin Calcium 40 mg 11/12/20 22:00 11/13/20 22:05 Atorvastatin 40 Mg Tab PO 40 mg QHS MELINDA Administration Cefazolin Sodium 2 gm 11/14/20 10:30 Cefazolin/Sterile Water 2 Gm/20 Ml Syringe IV 11/14/20 21:00 PREOP NR Fentanyl 50 mcg 11/14/20 09:35 Fentanyl 100 Mcg/2 Ml Inj IV 11/14/20 23:00 Q5MIN PRN Pain , Severe (7-10) Furosemide 80 mg 11/12/20 06:00 11/14/20 05:51 Furosemide 40 Mg Tab PO 80 mg BID@0600,1800 MELINDA Administration Hydralazine HCl 10 mg 11/11/20 21:10 11/11/20 21:38 Hydralazine 20 Mg/1 Ml Inj IV 10 mg Q6HR PRN Administration Hypertension Sodium Chloride 1,000 mls @ 42 mls/hr 11/14/20 10:00 11/14/20 09:43 Nacl 0.9% 1000 Ml IV 42 mls/hr DIRECT MELINDA Administration Metoprolol Tartrate 100 mg 11/12/20 10:00 11/13/20 22:06 Metoprolol Tartrate 100 Mg Tab PO 100 mg BID MELINDA Administration Oxycodone/Acetaminophen 2 tab 11/11/20 23:26 11/13/20 22:07 Oxycodone /Acetaminophen 5-325mg Tab PO 2 tab Q6H PRN Administration Pain, Moderate (4-6) Valsartan 160 mg 11/11/20 23:00 11/13/20 22:05 Valsartan 160mg Tab PO 160 mg BID MELINDA Administration
[2020-11-14] MEDS ORDERED: HEPARIN 10,000 UNITS/10 ML VIAL IR ONE (11:29)
[2020-11-14] MEDS ORDERED: SODIUM CHLORIDE 0.9% 500 ML IVPB IRRIGATION ONE (11:30)
[2020-11-14] MEDS ORDERED: SODIUM CHLORIDE 0.9% IRR 1,500 ML BOTTLE IR ONE (11:30)
--- NOTE | 2020-11-14 12:00 | Progress Note ---
Assessment and Plan Assessment and plan: 70 yo male with a past medical history of CVA with residual right-sided weakness the use of a cane to ambulate, end-stage renal disease on dialysis Thursday, Thursday, and Thursday, mild dementia, migraines, history of pulmonary embolism previously on Coumadin but discontinued in July due to microvascular hemorrhages, hypertension and diabetes presents to the hospital complaints of recent fall and swelling to left AV graft site. L av graft nonfunctional. Had HD on and today is thursday.No SOB Ct Cervical spine: No acute findings. 2. Moderate cervical spondylosis. 11/14: Patient seen and examined. For pseudoaneurysmal repair today. Continue antibiotics. Cultures with no growth thus far. Dialysis AV graft fistula malfunction Systemic inflammatory response syndrome without sepsis Presumed left upper extremity cellulitis around AV graft site End-stage renal disease on HD Diabetes mellitus Early mild dementia per history History of pulmonary embolism now off anticoagulation due to microvascular hemorrhages History of migraine Plan PT/OT secondary to multiple falls Follow cultures, continue abx., Patient will need revision with arterial repair and loop graft creation Combined with open thrombectomy Patient will need repair of th artery due to "blow out" No evidence of sepsis at this time but will start patient on empiric antibiotic coverage until seen by ID IR consulted for evaluation malfunctioning AV graft Nephrology input noted Continue management for diabetes mellitus with insulin. Outpatient orthopedic evaluation for right shoulder. Cervical spine imaging only concerning for Moderate Cervical spondylosis Cont Antihypertensives DVT/GI PROPHY Ok for diet after IR eval Depending on IR and ID input, will plan discharge. History Interval history: Patient seen and examined this morning. patient with pseudoanurysm, for Arterial Repair today. Hospitalist Physical - Physical exam Narrative exam: VITAL SIGNS: Reviewed. GENERAL: The patient appears normally developed, Vital signs as documented. HEAD: No signs of head trauma. EYES: Pupils are equal. Extraocular motions intact. EARS: Hearing grossly intact. MOUTH: Oropharynx is normal. NECK: No adenopathy, no JVD. CHEST: Chest with clear breath sounds bilaterally. No wheezes, rales, or rhonchi. CARDIAC: Regular rate and rhythm. S1 and S2, without murmurs, gallops, or rubs. VASCULAR: large pseudoaneurysm which appears to be from the arterial anastomosis compatible with a tear at the arterial anastomosis. ABDOMEN: Soft, non tender and non distended. No rebound or guarding, and no masses palpated. Bowel Sounds normal. MUSCULOSKELETAL: Left AV graft tender to touch mild erythema circumferential around it. Right upper extremity in a sling. Limited range of motion. Otherwise on all other joints good range of motion. Extremities without clubbing, cyanosis or edema. NEUROLOGIC EXAM: Alert and oriented x 3 No focal sensory or strength deficits. Speech normal. Follows commands. PSYCHIATRIC: Mood normal. SKIN: detail exam as documented in skin assessment - Constitutional Vitals: Temp Pulse Resp BP Pulse Ox 98.5 F 57 L 16 153/87 97 11/14/20 09:45 11/14/20 10:00 11/14/20 09:45 11/14/20 09:45 11/14/20 09:45 General appearance: Present: no acute distress HEART Score - HEART Score Troponin: Troponin T 0.102 ng/mL (0.00-0.029) H* 11/11/20 14:08 Results - Labs CBC & Chem 7: 11/11/20 14:08 11/14/20 05:45 Labs: Laboratory Last Values WBC 12.7 K/mm3 (4.5-11.0) H 11/11/20 14:08 RBC 4.08 M/mm3 (3.65-5.03) 11/11/20 14:08 Hgb 12.0 gm/dl (11.8-15.2) 11/11/20 14:08 Hct 35.6 % (35.5-45.6) 11/11/20 14:08 MCV 87 fl (84-94) 11/11/20 14:08 MCH 30 pg (28-32) 11/11/20 14:08 MCHC 34 % (32-34) 11/11/20 14:08 RDW 14.8 % (13.2-15.2) 11/11/20 14:08 Plt Count 366 K/mm3 (140-440) 11/11/20 14:08 Add Manual Diff Complete 11/11/20 14:08 Total Counted 100 11/11/20 14:08 Seg Neuts % (Manual) 84.0 % (40.0-70.0) H 11/11/20 14:08 Band Neutrophils % 2.0 % 11/11/20 14:08 Lymphocytes % (Manual) 9.0 % (13.4-35.0) L 11/11/20 14:08 Monocytes % (Manual) 5.0 % (0.0-7.3) 11/11/20 14:08 Nucleated RBC % Not Reportable 11/11/20 14:08 Seg Neutrophils # Man 10.7 K/mm3 (1.8-7.7) H 11/11/20 14:08 Band Neutrophils # 0.3 K/mm3 11/11/20 14:08 Lymphocytes # (Manual) 1.1 K/mm3 (1.2-5.4) L 11/11/20 14:08 Abs React Lymphs (Man) 0.0 K/mm3 11/11/20 14:08 Monocytes # (Manual) 0.6 K/mm3 (0.0-0.8) 11/11/20 14:08 Eosinophils # (Manual) 0.0 K/mm3 (0.0-0.4) 11/11/20 14:08 Basophils # (Manual) 0.0 K/mm3 (0.0-0.1) 11/11/20 14:08 Metamyelocytes # 0.0 K/mm3 11/11/20 14:08 Myelocytes # 0.0 K/mm3 11/11/20 14:08 Promyelocytes # 0.0 K/mm3 11/11/20 14:08 Blast Cells # 0.0 K/mm3 11/11/20 14:08 WBC Morphology Not Reportable 11/11/20 14:08 Hypersegmented Neuts Not Reportable 11/11/20 14:08 Hyposegmented Neuts Not Reportable 11/11/20 14:08 Hypogranular Neuts Not Reportable 11/11/20 14:08 Smudge Cells Not Reportable 11/11/20 14:08 Toxic Granulation 1+ 11/11/20 14:08 Toxic Vacuolation 1+ 11/11/20 14:08 Dohle Bodies Not Reportable 11/11/20 14:08 Pelger-Huet Anomaly Not Reportable 11/11/20 14:08 Pauline Rods Not Reportable 11/11/20 14:08 Platelet Estimate Consistent w auto 11/11/20 14:08 Clumped Platelets Not Reportable 11/11/20 14:08 Plt Clumps, EDTA Not Reportable 11/11/20 14:08 Large Platelets Not Reportable 11/11/20 14:08 Giant Platelets Not Reportable 11/11/20 14:08 Platelet Satelliting Not Reportable 11/11/20 14:08 Plt Morphology Comment Not Reportable 11/11/20 14:08 RBC Morphology Not Reportable 11/11/20 14:08 Dimorphic RBCs Not Reportable 11/11/20 14:08 Polychromasia Not Reportable 11/11/20 14:08 Hypochromasia Not Reportable 11/11/20 14:08 Poikilocytosis Not Reportable 11/11/20 14:08 Anisocytosis 1+ 11/11/20 14:08 Microcytosis Not Reportable 11/11/20 14:08 Macrocytosis Not Reportable 11/11/20 14:08 Spherocytes Not Reportable 11/11/20 14:08 Pappenheimer Bodies Not Reportable 11/11/20 14:08 Sickle Cells Not Reportable 11/11/20 14:08 Target Cells Not Reportable 11/11/20 14:08 Tear Drop Cells Not Reportable 11/11/20 14:08 Ovalocytes Not Reportable 11/11/20 14:08 Helmet Cells Not Reportable 11/11/20 14:08 [place] Bodies Not Reportable 11/11/20 14:08 [place] Rings Not Reportable 11/11/20 14:08 Fang Cells Not Reportable 11/11/20 14:08 Bite Cells Not Reportable 11/11/20 14:08 Crenated Cell Not Reportable 11/11/20 14:08 Elliptocytes Not Reportable 11/11/20 14:08 Acanthocytes (Spur) Not Reportable 11/11/20 14:08 Rouleaux Not Reportable 11/11/20 14:08 Hemoglobin C Crystals Not Reportable 11/11/20 14:08 Schistocytes Not Reportable 11/11/20 14:08 Malaria parasites Not Reportable 11/11/20 14:08 James Bodies Not Reportable 11/11/20 14:08 Hem Pathologist Commnt No 11/11/20 14:08 Sodium 134 mmol/L (137-145) L 11/14/20 05:45 Potassium 3.7 mmol/L (3.6-5.0) 11/14/20 05:45 Chloride 95.7 mmol/L (98-107) L 11/14/20 05:45 Carbon Dioxide 29 mmol/L (22-30) 11/14/20 05:45 Anion Gap 13 mmol/L 11/14/20 05:45 BUN 31 mg/dL (9-20) H 11/14/20 05:45 Creatinine 7.3 mg/dL (0.8-1.3) H 11/14/20 05:45 Estimated GFR 9 ml/min 11/14/20 05:45 BUN/Creatinine Ratio 4 % 11/14/20 05:45 Glucose 160 mg/dL (75-100) H 11/14/20 05:45 POC Glucose 123 mg/dL (70-105) H 11/14/20 09:40 Calcium 8.0 mg/dL (8.4-10.2) L 11/14/20 05:45 Magnesium 1.90 mg/dL (1.7-2.3) 11/11/20 14:08 Total Bilirubin 0.20 mg/dL (0.1-1.2) 11/11/20 14:08 AST 13 units/L (5-40) 11/11/20 14:08 ALT 14 units/L (7-56) 11/11/20 14:08 Alkaline Phosphatase 73 units/L (35-129) 11/11/20 14:08 Troponin T 0.102 ng/mL (0.00-0.029) H* 11/11/20 14:08 Total Protein 7.1 g/dL (6.3-8.2) 11/11/20 14:08 Albumin 3.1 g/dL (3.9-5) L 11/11/20 14:08 Albumin/Globulin Ratio 0.8 % 11/11/20 14:08 Triglycerides 110 mg/dL (2-149) 11/11/20 14:08 Cholesterol 82 mg/dL (50-199) 11/11/20 14:08 LDL Cholesterol Direct 24 mg/dL (50-130) L 11/11/20 14:08 HDL Cholesterol 38 mg/dL (40-59) L 11/11/20 14:08 Cholesterol/HDL Ratio 2.15 % 11/11/20 14:08 Nasal Screen MRSA (PCR) Negative (Negative) 11/12/20 07:00 Hepatitis A IgM Ab Non-reactive (NonReactive) 11/12/20 15:15 Hep Bs Antigen Non-reactive (Negative) 11/12/20 15:15 Hep B Core IgM Ab Non-reactive (NonReactive) 11/12/20 15:15 Hepatitis C Antibody Non-reactive (NonReactive) 11/12/20 15:15 Blood Type A POSITIVE 11/13/20 18:09 Antibody Screen Negative 11/13/20 18:09 Crossmatch See Detail 11/13/20 18:09 Microbiology: Microbiology 11/12/20 18:25 Peripheral/Venous Blood Culture - Preliminary NO GROWTH AFTER 24 HOURS 11/12/20 18:25 Peripheral/Venous Blood Culture - Preliminary NO GROWTH AFTER 24 HOURS Recinos/IV: Voiding Method Incontinent Active Medications - Current Medications Current Medications: Generic Name Dose Route Start Last Admin Trade Name Freq PRN Reason Stop Dose Admin Amlodipine Besylate 10 mg 11/12/20 10:00 11/13/20 10:45 Amlodipine 10 Mg Tab PO 10 mg DAILY MELINDA Administration Aspirin 325 mg 11/12/20 10:00 11/13/20 10:46 Aspirin 325 Mg Tab PO 325 mg QDAY EMLINDA Administration Atorvastatin Calcium 40 mg 11/12/20 22:00 11/13/20 22:05 Atorvastatin 40 Mg Tab PO 40 mg QHS MELINDA Administration Cefazolin Sodium 2 gm 11/14/20 10:30 Cefazolin/Sterile Water 2 Gm/20 Ml Syringe IV 11/14/20 21:00 PREOP NR Fentanyl 50 mcg 11/14/20 09:35 Fentanyl 100 Mcg/2 Ml Inj IV 11/14/20 23:00 Q5MIN PRN Pain , Severe (7-10) Furosemide 80 mg 11/12/20 06:00 11/14/20 05:51 Furosemide 40 Mg Tab PO 80 mg BID@0600,1800 MELINDA Administration Hydralazine HCl 10 mg 11/11/20 21:10 11/11/20 21:38 Hydralazine 20 Mg/1 Ml Inj IV 10 mg Q6HR PRN Administration Hypertension Sodium Chloride 1,000 mls @ 42 mls/hr 11/14/20 10:00 11/14/20 09:43 Nacl 0.9% 1000 Ml IV 42 mls/hr DIRECT MELINDA Administration Metoprolol Tartrate 100 mg 11/12/20 10:00 11/13/20 22:06 Metoprolol Tartrate 100 Mg Tab PO 100 mg BID MELINDA Administration Oxycodone/Acetaminophen 2 tab 11/11/20 23:26 11/13/20 22:07 Oxycodone /Acetaminophen 5-325mg Tab PO 2 tab Q6H PRN Administration Pain, Moderate (4-6) Valsartan 160 mg 11/11/20 23:00 11/13/20 22:05 Valsartan 160mg Tab PO 160 mg BID MELINDA Administration
[2020-11-14] MEDS ORDERED: PHENYLEPHRINE 10 MG/1 ML INJ SDV ONE (12:16)
[2020-11-14] MEDS ORDERED: SODIUM CHLORIDE 0.9% 250ML 250 ML ONE (12:46)
[2020-11-14] MEDS ORDERED: rifAMPin 600 MG VIAL ONE (12:46)
[2020-11-14] MEDS ORDERED: SODIUM CHLORIDE 0.9% 250 ML IVPB IR ONE (12:58)
[2020-11-14] MEDS ORDERED: rifAMPin 600 MG VIAL IV ONE (12:59)
[2020-11-14] MEDS ORDERED: SODIUM CHLORIDE 0.9% 100 ML ONE (14:59)
[2020-11-14] MEDS ORDERED: PHENYLEPHRINE/NS 1,000 MCG/10 ML SYRINGE (OR USE) IV ONE ×3 (14:59→15:16)
[2020-11-14] MEDS ORDERED: SODIUM CHLORIDE 0.9% 1000 ML 1,000 ML ONE (15:16)
--- NOTE | 2020-11-14 15:47 | Operative Report ---
Operative Report Operative Report: Date of Procedure: 11/14/2020 Pre-operative Diagnosis: Traumatic Left Brachial Artery Pseudoaneurysm with Thro mbosis of Left Arm AV Graft Post-operative Diagnosis: Same Procedure(s): 1. Repair of Left Brachial Artery Pseudoaneurysm with Left Cephalic Vein Patch 2. Revision Of Left Arm AV Graft With Open Thrombectomy with 4 Pilar and Interposition 6 mm Bovine Artegraft with Proximalization Of the Inflow to the Axillary Artery 3. Excision of Nonviable Skin and Soft Tissue and Coverage of Brachial Artery with a 10 x 12.5 cm Integra Bilayer Matrix 4. Wound VAC Placement (Wound Measures 9 x 6 x 2 cm) Surgeon: Harman Myers M.D. Medical Sonographer: None Anesthesia: General Endotracheal Anesthesia EBL: 500 mL Counts: Correct Complications: None Condition: Stable Findings: No overt evidence of infection. Unable to close any tissue over the brachial artery secondary to devitalized tissue so a wound matrix was required to cover the artery. Specimen: Portion of the AV graft was sent for cultures. Indication: The patient is a 70-year-old male with a history of dementia who reportedly fell at home and hit his arm. Apparently shortly after falling he developed swelling near the arterial anastomosis of his AV graft and this progressively worsened. Upon evaluation he had an obvious pseudoaneurysm of his arterial anastomosis that progressively enlarged throughout his hospitalization. The pressure of the pseudoaneurysm as well as decreased flow through the graft resulted in thrombosis of the AV graft. In addition to the thrombosis of the AV graft the pressure of the pseudoaneurysm with a continuous enlargement was beginning to necrosis skin. He is in need of urgent operative repair of the pseudoaneurysm. His was given the risk, benefits, and alternative procedures and consented to the procedure. Description of Procedure: The patient was brought to the operating room and laid in supine position. After a timeout was performed his left arm was prepped and draped in normal sterile fashion. A longitudinal incision was created on the medial aspect of the arm and carried down to the axillary artery using sharp dissection. The artery was dissected circumferentially and controlled with Vesseloops both proximal and distal to the presumed area of the arteriotomy for the planned anastomosis. The patient was systemically heparinized with 3000 units of heparin IV and then a small arteriotomy was made with an 11 blade and a 4 Pilar, with a three-way stopcock, was advanced through the arteriotomy distally to control the brachial artery distal to the pseudoaneurysm. The axillary artery was then clamped and the Pilar balloon was inflated and the three-way stopcock was then turned to keep the balloon inflated. I then incised the skin over the pseudoaneurysm and upon opening the skin there was a significant amount of bright red bleeding that was continuous. At this time it became evident that the Pilar balloon was not controlling the flow and there was likely collateral flow that was still causing bleeding. I extended the incision past the antecubital crease and removed the Pilar and use digital pressure to control the flow at the arteriotomy. Of note the graft was completely disrupted from the anastomosis. I dissected the brachial artery distally and noted the bifurcation of the radial and ulnar artery. I dissected the brachial artery circumferentially controlled with a vessel loop. I then dissected the brachial artery proximal to the arteriotomy and was able to control it with a vessel loop once the brachial artery was controlled I clamped each end of the artery and at this point bleeding was controlled. I then used an ultrasound to identify the cephalic vein in the forearm. I used a 10 blade to make a longitudinal incision over an approximate 4 cm portion of the vein and used sharp dissection to dissect down to the vein. I dissected out the vein circumferentially and then suture ligated each end with 3-0 silk sutures. I then transected the vein and passed it off the specimen. I used Ortiz scissors to splice the vein open and then used the vein patch to close the brachial artery arteriotomy using two 6-0 Prolene's in running fashion. Prior to completing the arteriotomy I did flash the brachial artery both proximal and distally and then flushed it with heparinized saline. I then completed the arteriotomy and released the clamps. I then created a transverse incision over the graft, distal to the cannulation zone, and dissected down to the graft with sharp dissection. I dissected the graft circumferentially and controlled with a vessel loop. I then used a Becka-Rolan tunneler to tunnel from the graft incisio n to the axillary artery incision. I created this subcutaneous tunnel proximal to the devitalized skin and soft tissue that have been caused by the pseudoaneurysm. I then pulled a 6 mm Bovine Artegraft through the tunnel. I infused with heparinized saline to ensure that it had not kinked or twisted. I then transected the indwelling graft and remove the arterial inflow portion of the previous graft and passed this off the specimen. I beveled the and of the graft as well as beveling the new graft and created an end-to-end anastomosis using two 5-0 Prolene's in running fashion. Prior to completing the anastomosis I used the 4 Pilar to perform thrombectomy. I made several passes retrieving a significant amount of thrombus and continued until there was no additional thrombus and adequate venous backbleeding. Once I had adequate venous backbleeding I flushed the graft with heparinized saline and then completed the anastomosis. I then clamped the graft with an angled DeBakey clamp. I then cut the arterial inflow portion of the graft to length and beveled the end and then extended my axillary artery arteriotomy using Ortiz scissors. I then created an anastomosis using a 6-0 Prolene in running fashion. Prior to completing the anastomosis I flashed the axillary artery both proximal distally and then flushed with heparinized saline and then completed the anastomosis and then released all clamps allowing flow through the graft which had a palpable thrill. I used curved Mayos to resect the capsule of the pseudoaneurysm as well as resecting all devitalized skin and soft tissue. I used 0.5% Marcaine to anesthetize the axillary wound, the forearm wound, and the wound over my graft to graft anastomosis. Those wounds were then closed in 2 layers using 3-0 Vicryl in running fashion the deep dermal layer and reece to reapproximate the skin. Those wounds were then dressed with island dressings. There was not enough tissue to cover the brachial artery so I decided to use a wound matrix. I chose a 10 x 12.5 cm Integra Bilayer Matrix. I cut the matrix to the size of the wound and then used the remaining portion to scrape the collagen layer into the wound to build up the defect that have been caused by debriding the devitalized tissue. I then placed the Integra Bilayer Matrix over the collagen with the silicone layer placed up and secured it in place with 3-0 chromic's to the skin. Prior to placing the Integra Bilayer Matrix I used an 11 blade to make the matrix porous. I then placed an Adaptic over the wound matrix and then placed the wound VAC that had an adequate seal. The patient tolerated the procedure well. All sponge, needle, and instrument counts were correct. The patient was taken to the recovery area in stable condition.
--- NOTE | 2020-11-14 16:55 | Progress Note ---
Assessment and Plan Cultures: None A/P: 70-year-old man past medical history of CVA with residual right-sided weakness, ESRD on HD, hypertension, diabetes admitted after a fall #Left arm cellulitis: With associated pseudoaneurysm of his AV graft. Patient w ith dementia, with involuntary movements. May have scratched himself at one point, versus cellulitis fro access. #ESRD on HD: Renally dose antibiotics #Diabetes: tight glycemic control for best outcomes. Recs: -Continue vancomycin goal trough 10-20 -Follow white blood cell count -Plan to discharge on doxycycline 100 mg every 12 hours for 5 days Thank you for the consult, we will continue to follow. Molly Rivera MD [facility] O: [phone] F: [phone] Subjective Date of service: 11/14/20 Principal diagnosis: left arm pseudoaneurysm Interval history: Afebrile, cultures remain negative thus far. Taken to the OR today for pseudoaneurysm repair Objective - Exam Narrative Exam: Physical Exam: Constitutional: Alert, cooperative. No acute distress Head, Ears, Nose: Normocephalic, atraumatic. External ears, nose normal Eyes: Conjunctivae/corneas clear. No icterus. No ptosis. Neck: Supple, no meningeal signs Oral: dentition fair, no thrush Cardiovascular: S1, S2 normal. Respiratory: Good air entry, clear to auscultation bilaterally GI: Soft, non-tender; bowel sounds normal. No peritoneal signs. Musculoskeletal: Left arm AV graft with pseudoaneurysm Skin: No rash or abscess Hem/Lymphatic: No palpable cervical or supraclavicular nodes. No lymphangitis Psych: Mood ok. Affect normal Neurological: Awake, alert, oriented. No gross abnormality - Constitutional Vitals: Vital Signs Temp Pulse Resp BP Pulse Ox 98.3 F 87 16 115/72 96 11/14/20 15:45 11/14/20 15:45 11/14/20 15:45 11/14/20 15:45 11/14/20 15:45 Temperature -Last 24 Hours Temperature 98.3 F Temperature 97.8 F Temperature 98.5 F Temperature 98.3 F Temperature 98.7 F Temperature 98.3 F - Labs CBC & Chem 7: 11/11/20 14:08 11/14/20 05:45 Labs: Abnormal lab results 11/13/20 11/14/20 11/14/20 Range/Units 18:09 05:45 09:40 Sodium 134 L (137-145) mmol/L Chloride 95.7 L (98-107) mmol/L BUN 31 H (9-20) mg/dL Creatinine 7.3 H (0.8-1.3) mg/dL Glucose 160 H (75-100) mg/dL POC Glucose 123 H (70-105) mg/dL Calcium 8.0 L (8.4-10.2) mg/dL Crossmatch See Detail
[2020-11-14] MEDS: ASPIRIN 325 MG TAB PO SCH (18:17)
[2020-11-14] MEDS: amLODIPine 10 MG TAB PO SCH (18:17)
[2020-11-14] MEDS: METOPROLOL TARTRATE 100 MG TAB PO SCH ×2 (18:17→23:12)
[2020-11-14] MEDS: VALSARTAN 160MG TAB PO SCH ×2 (18:17→23:11)
[2020-11-14] MEDS: oxyCODONE /ACETAMINOPHEN 5-325MG TAB PO PRN (23:12)
[2020-11-15] MEDS ORDERED: DESMOPRESSIN ACETATE 30 MCG in SODIUM CHLORIDE 0.9% 50 ML IV ONE (02:35)
--- NOTE | 2020-11-15 02:41 | Event Note ---
Date: 11/15/20 Contacted about oozing from LUE arm at wound vac site. The wound vac is not draining blood or filling with blood per nurse. Ordered DDAVP. Hold aspirin. Recommended elevating the left arm with multiple pillows, recommend placing an CHANELL wrap pressure dressing at the focal area of oozing and attempt to avoid the graft. Discussed that this likely represents coagulopathy from ESRD and should improve with pressure and DDAVP. Made sure CBC this AM and ordered CBC over the next few days. Discussed with her that if the wound vac fills with blood or drains blood, then needs to be temporarily discontinued.
[2020-11-15] MEDS: oxyCODONE /ACETAMINOPHEN 5-325MG TAB PO PRN ×2 (06:01→12:50)
[2020-11-15] MEDS: FUROSEMIDE 40 MG TAB PO SCH ×2 (06:02→17:20)
[2020-11-15 07:10] LABS: Basophils # (Auto) 0.1 K/mm3 (0.0-0.1); Basophils % (Auto) 0.8 % (0.0-1.8); Eosinophils # (Auto) 0.2 K/mm3 (0.0-0.4); Eosinophils % (Auto) 1.4 % (0.0-4.3); Hematocrit 27.8 % (35.5-45.6); Hemoglobin 9.3 gm/dl (11.8-15.2); Lymphocytes # (Auto) 1.1 K/mm3 (1.2-5.4); Lymphocytes % (Auto) 8.9 % (13.4-35.0); Mean Corpuscular HGB Conc 33 % (32-34); Mean Corpuscular Volume 87 fl (84-94); Monocytes # (Auto) 1.1 K/mm3 (0.0-0.8); Monocytes % (Auto) 9.1 % (0.0-7.3); Platelet Count 356 K/mm3 (140-440); Red Blood Count 3.18 M/mm3 (3.65-5.03); Red Cell Distribution Width 14.8 % (13.2-15.2)
[2020-11-15 07:19] LABS: INR 3.81 (0.87-1.13)
[2020-11-15 07:33] LABS: Partial Thromboplastin Time 114.5 Sec. (24.2-36.6)
--- NOTE | 2020-11-15 08:19 | Progress Note ---
Assessment and Plan Assessment and plan: 70 yo male with a past medical history of CVA with residual right-sided weakness the use of a cane to ambulate, end-stage renal disease on dialysis Thursday, Thursday, and Thursday, mild dementia, migraines, history of pulmonary embolism previously on Coumadin but discontinued in July due to microvascular hemorrhages, hypertension and diabetes presents to the hospital complaints of recent fall and swelling to left AV graft site. L av graft nonfunctional. Had HD on and today is thursday.No SOB Ct Cervical spine: No acute findings. 2. Moderate cervical spondylosis. 11/14: Patient seen and examined. For pseudoaneurysmal repair today. Continue antibiotics. Cultures with no growth thus far. 11/15 POD #1 Pseudoanuyrsmal repair. Some oozing was noted yesterday of blood. DDVAP given. will consult woundcare. Vascular recommends placement as is unable to care for him. CM consult placed. COVID19 Placement testing was done and came back negative. Will transfer to [facility], check room air oxygen Dialysis AV graft fistula malfunction Systemic inflammatory response syndrome without sepsis Presumed left upper extremity cellulitis around AV graft site End-stage renal disease on HD Diabetes mellitus Early mild dementia per history History of pulmonary embolism now off anticoagulation due to microvascular hemorrhages History of migraine Plan PT/OT secondary to multiple falls Follow cultures, continue abx., Patient will need revision with arterial repair and loop graft creation Combined with open thrombectomy Patient will need repair of th artery due to "blow out" No evidence of sepsis at this time but will start patient on empiric antibiotic coverage until seen by ID IR consulted for evaluation malfunctioning AV graft Nephrology input noted Continue management for diabetes mellitus with insulin. Outpatient orthopedic evaluation for right shoulder. Cervical spine imaging only concerning for Moderate Cervical spondylosis Cont Antihypertensives DVT/GI PROPHY Ok for diet after IR eval Depending on IR and ID input, will plan discharge. History Interval history: Patient seen and examined this morning. patient status post pseudoanurysm Hospitalist Physical - Physical exam Narrative exam: VITAL SIGNS: Reviewed. GENERAL: The patient appears normally developed, Vital signs as documented. HEAD: No signs of head trauma. EYES: Pupils are equal. Extraocular motions intact. EARS: Hearing grossly intact. MOUTH: Oropharynx is normal. NECK: No adenopathy, no JVD. CHEST: Chest with clear breath sounds bilaterally. No wheezes, rales, or rhonchi. CARDIAC: Regular rate and rhythm. S1 and S2, without murmurs, gallops, or rubs. VASCULAR: large pseudoaneurysm which appears to be from the arterial anastomosis compatible with a tear at the arterial anastomosis. ABDOMEN: Soft, non tender and non distended. No rebound or guarding, and no masses palpated. Bowel Sounds normal. MUSCULOSKELETAL: Left AV graft SITE with woundvac and dressing. Right upper extremity in a sling. Limited range of motion. Otherwise on all other joints good range of motion. Extremities without clubbing, cyanosis or edema. NEUROLOGIC EXAM: Alert and oriented x 3 No focal sensory or strength deficits. Speech normal. Follows commands. PSYCHIATRIC: Mood normal. SKIN: detail exam as documented in skin assessment - Constitutional Vitals: Temp Pulse Resp BP Pulse Ox 98.8 F 97 H 16 109/75 94 11/15/20 03:07 11/15/20 03:07 11/15/20 03:07 11/15/20 03:07 11/15/20 03:07 General appearance: Present: no acute distress HEART Score - HEART Score Troponin: Troponin T 0.102 ng/mL (0.00-0.029) H* 11/11/20 14:08 Results - Labs CBC & Chem 7: 11/15/20 06:09 11/14/20 05:45 Labs: Laboratory Last Values WBC 12.0 K/mm3 (4.5-11.0) H 11/15/20 06:09 RBC 3.18 M/mm3 (3.65-5.03) L 11/15/20 06:09 Hgb 9.3 gm/dl (11.8-15.2) L 11/15/20 06:09 Hct 27.8 % (35.5-45.6) L 11/15/20 06:09 MCV 87 fl (84-94) 11/15/20 06:09 MCH 29 pg (28-32) 11/15/20 06:09 MCHC 33 % (32-34) 11/15/20 06:09 RDW 14.8 % (13.2-15.2) 11/15/20 06:09 Plt Count 356 K/mm3 (140-440) 11/15/20 06:09 Lymph % (Auto) 8.9 % (13.4-35.0) L 11/15/20 06:09 Randall % (Auto) 9.1 % (0.0-7.3) H 11/15/20 06:09 Eos % (Auto) 1.4 % (0.0-4.3) 11/15/20 06:09 Baso % (Auto) 0.8 % (0.0-1.8) 11/15/20 06:09 Lymph # (Auto) 1.1 K/mm3 (1.2-5.4) L 11/15/20 06:09 Randall # (Auto) 1.1 K/mm3 (0.0-0.8) H 11/15/20 06:09 Eos # (Auto) 0.2 K/mm3 (0.0-0.4) 11/15/20 06:09 Baso # (Auto) 0.1 K/mm3 (0.0-0.1) 11/15/20 06:09 Add Manual Diff Complete 11/11/20 14:08 Total Counted 100 11/11/20 14:08 Seg Neutrophils % 79.8 % (40.0-70.0) H 11/15/20 06:09 Seg Neuts % (Manual) 84.0 % (40.0-70.0) H 11/11/20 14:08 Band Neutrophils % 2.0 % 11/11/20 14:08 Lymphocytes % (Manual) 9.0 % (13.4-35.0) L 11/11/20 14:08 Monocytes % (Manual) 5.0 % (0.0-7.3) 11/11/20 14:08 Nucleated RBC % Not Reportable 11/11/20 14:08 Seg Neutrophils # 9.6 K/mm3 (1.8-7.7) H 11/15/20 06:09 Seg Neutrophils # Man 10.7 K/mm3 (1.8-7.7) H 11/11/20 14:08 Band Neutrophils # 0.3 K/mm3 11/11/20 14:08 Lymphocytes # (Manual) 1.1 K/mm3 (1.2-5.4) L 11/11/20 14:08 Abs React Lymphs (Man) 0.0 K/mm3 11/11/20 14:08 Monocytes # (Manual) 0.6 K/mm3 (0.0-0.8) 11/11/20 14:08 Eosinophils # (Manual) 0.0 K/mm3 (0.0-0.4) 11/11/20 14:08 Basophils # (Manual) 0.0 K/mm3 (0.0-0.1) 11/11/20 14:08 Metamyelocytes # 0.0 K/mm3 11/11/20 14:08 Myelocytes # 0.0 K/mm3 11/11/20 14:08 Promyelocytes # 0.0 K/mm3 11/11/20 14:08 Blast Cells # 0.0 K/mm3 11/11/20 14:08 WBC Morphology Not Reportable 11/11/20 14:08 Hypersegmented Neuts Not Reportable 11/11/20 14:08 Hyposegmented Neuts Not Reportable 11/11/20 14:08 Hypogranular Neuts Not Reportable 11/11/20 14:08 Smudge Cells Not Reportable 11/11/20 14:08 Toxic Granulation 1+ 11/11/20 14:08 Toxic Vacuolation 1+ 11/11/20 14:08 Dohle Bodies Not Reportable 11/11/20 14:08 Pelger-Huet Anomaly Not Reportable 11/11/20 14:08 Pauline Rods Not Reportable 11/11/20 14:08 Platelet Estimate Consistent w auto 11/11/20 14:08 Clumped Platelets Not Reportable 11/11/20 14:08 Plt Clumps, EDTA Not Reportable 11/11/20 14:08 Large Platelets Not Reportable 11/11/20 14:08 Giant Platelets Not Reportable 11/11/20 14:08 Platelet Satelliting Not Reportable 11/11/20 14:08 Plt Morphology Comment Not Reportable 11/11/20 14:08 RBC Morphology Not Reportable 11/11/20 14:08 Dimorphic RBCs Not Reportable 11/11/20 14:08 Polychromasia Not Reportable 11/11/20 14:08 Hypochromasia Not Reportable 11/11/20 14:08 Poikilocytosis Not Reportable 11/11/20 14:08 Anisocytosis 1+ 11/11/20 14:08 Microcytosis Not Reportable 11/11/20 14:08 Macrocytosis Not Reportable 11/11/20 14:08 Spherocytes Not Reportable 11/11/20 14:08 Pappenheimer Bodies Not Reportable 11/11/20 14:08 Sickle Cells Not Reportable 11/11/20 14:08 Target Cells Not Reportable 11/11/20 14:08 Tear Drop Cells Not Reportable 11/11/20 14:08 Ovalocytes Not Reportable 11/11/20 14:08 Helmet Cells Not Reportable 11/11/20 14:08 Dover-Hodgen Bodies Not Reportable 11/11/20 14:08 Austin Rings Not Reportable 11/11/20 14:08 [place] Cells Not Reportable 11/11/20 14:08 Bite Cells Not Reportable 11/11/20 14:08 Crenated Cell Not Reportable 11/11/20 14:08 Elliptocytes Not Reportable 11/11/20 14:08 Acanthocytes (Spur) Not Reportable 11/11/20 14:08 Rouleaux Not Reportable 11/11/20 14:08 Hemoglobin C Crystals Not Reportable 11/11/20 14:08 Schistocytes Not Reportable 11/11/20 14:08 Malaria parasites Not Reportable 11/11/20 14:08 James Bodies Not Reportable 11/11/20 14:08 Hem Pathologist Commnt No 11/11/20 14:08 PT 37.9 Sec. (12.2-14.9) H 11/15/20 06:09 INR 3.81 (0.87-1.13) H 11/15/20 06:09 APTT 114.5 Sec. (24.2-36.6) H* 11/15/20 06:09 Fibrinogen 729 mg/dl (211-480) H 11/15/20 06:09 Sodium 134 mmol/L (137-145) L 11/14/20 05:45 Potassium 3.7 mmol/L (3.6-5.0) 11/14/20 05:45 Chloride 95.7 mmol/L (98-107) L 11/14/20 05:45 Carbon Dioxide 29 mmol/L (22-30) 11/14/20 05:45 Anion Gap 13 mmol/L 11/14/20 05:45 BUN 31 mg/dL (9-20) H 11/14/20 05:45 Creatinine 7.3 mg/dL (0.8-1.3) H 11/14/20 05:45 Estimated GFR 9 ml/min 11/14/20 05:45 BUN/Creatinine Ratio 4 % 11/14/20 05:45 Glucose 160 mg/dL (75-100) H 11/14/20 05:45 POC Glucose 179 mg/dL (70-105) H 11/14/20 23:31 Calcium 8.0 mg/dL (8.4-10.2) L 11/14/20 05:45 Magnesium 1.90 mg/dL (1.7-2.3) 11/11/20 14:08 Total Bilirubin 0.20 mg/dL (0.1-1.2) 11/11/20 14:08 AST 13 units/L (5-40) 11/11/20 14:08 ALT 14 units/L (7-56) 11/11/20 14:08 Alkaline Phosphatase 73 units/L (35-129) 11/11/20 14:08 Troponin T 0.102 ng/mL (0.00-0.029) H* 11/11/20 14:08 Total Protein 7.1 g/dL (6.3-8.2) 11/11/20 14:08 Albumin 3.1 g/dL (3.9-5) L 11/11/20 14:08 Albumin/Globulin Ratio 0.8 % 11/11/20 14:08 Triglycerides 110 mg/dL (2-149) 11/11/20 14:08 Cholesterol 82 mg/dL (50-199) 11/11/20 14:08 LDL Cholesterol Direct 24 mg/dL (50-130) L 11/11/20 14:08 HDL Cholesterol 38 mg/dL (40-59) L 11/11/20 14:08 Cholesterol/HDL Ratio 2.15 % 11/11/20 14:08 Nasal Screen MRSA (PCR) Negative (Negative) 11/12/20 07:00 Hepatitis A IgM Ab Non-reactive (NonReactive) 11/12/20 15:15 Hep Bs Antigen Non-reactive (Negative) 11/12/20 15:15 Hep B Core IgM Ab Non-reactive (NonReactive) 11/12/20 15:15 Hepatitis C Antibody Non-reactive (NonReactive) 11/12/20 15:15 Blood Type A POSITIVE 11/13/20 18:09 Antibody Screen Negative 11/13/20 18:09 Crossmatch See Detail 11/13/20 18:09 Microbiology: Microbiology 11/12/20 18:25 Peripheral/Venous Blood Culture - Preliminary NO GROWTH AFTER 48 HOURS 11/12/20 18:25 Peripheral/Venous Blood Culture - Preliminary NO GROWTH AFTER 48 HOURS Recinos/IV: Voiding Method Incontinent Active Medications - Current Medications Current Medications: Generic Name Dose Route Start Last Admin Trade Name Freq PRN Reason Stop Dose Admin Amlodipine Besylate 10 mg 11/12/20 10:00 11/14/20 18:17 Amlodipine 10 Mg Tab PO Not Given DAILY MELINDA Atorvastatin Calcium 40 mg 11/12/20 22:00 11/14/20 23:12 Atorvastatin 40 Mg Tab PO 40 mg QHS MELINDA Administration Furosemide 80 mg 11/12/20 06:00 11/15/20 06:02 Furosemide 40 Mg Tab PO 80 mg BID@0600,1800 MELINDA Administration Hydralazine HCl 10 mg 11/11/20 21:10 11/11/20 21:38 Hydralazine 20 Mg/1 Ml Inj IV 10 mg Q6HR PRN Administration Hypertension Sodium Chloride 1,000 mls @ 42 mls/hr 11/14/20 10:00 11/14/20 09:43 Nacl 0.9% 1000 Ml IV 42 mls/hr DIRECT MELINDA Administration Metoprolol Tartrate 100 mg 11/12/20 10:00 11/14/20 23:12 Metoprolol Tartrate 100 Mg Tab PO 100 mg BID MELINDA Administration Oxycodone/Acetaminophen 2 tab 11/11/20 23:26 11/15/20 06:01 Oxycodone /Acetaminophen 5-325mg Tab PO 2 tab Q6H PRN Administration Pain, Moderate (4-6) Valsartan 160 mg 11/11/20 23:00 11/14/20 23:11 Valsartan 160mg Tab PO 160 mg BID MELINDA Administration
[2020-11-15] MEDS: DOXYCYCLINE 100 MG CAP PO SCH ×2 (10:51→22:43)
[2020-11-15] MEDS: METOPROLOL TARTRATE 100 MG TAB PO SCH ×2 (10:51→22:44)
[2020-11-15] MEDS: VALSARTAN 160MG TAB PO SCH ×2 (10:52→22:45)
[2020-11-15] MEDS: amLODIPine 10 MG TAB PO SCH (10:52)
--- NOTE | 2020-11-15 11:15 | Progress Note ---
Assessment and Plan 1. ESRD: Patient is on maintenance hemodialysis three times a week, MWF schedule. Last outpatient HD 11/09. Hemodialysis: MWF schedule. 2. FEN: Monitor volume status and lytes. 3. S/p Fall: Monitor. Fall precaution. 4. Malfunctioning L arm AVF: S/p R IJ tunnel catheter. S/p L arm AVG revision and repair 11/14. Followed by Vascular. 5. H/o CVA: ASA and statin for secondary prevention. 6. Anemia: Monitor and Epogen if needed. 7. Hypertension: UF with HD. Monitor BP. 8. DM type 2: Monitor blood sugar. Subjective: Patient was seen and examined at the bedside. Doing ok. Examination: General appearance: well-developed, well-nourished, appears stated age, no distress HEENT: ATNC, CATHY, mucous membranes moist, hearing intact, vision intact Neck: supple Respiratory: Clear to Auscultation Cardiology: regular, S1S2, no murmur Gastrointestinal: normoactive bowel sounds, no tenderness, not distended Integumentary: no obvious rash Neurologic: Alert, able to move extremities, no asterixis Ext: L arm dressing, wound vac Hemodialysis access: R IJ tunnel catheter Subjective Date of service: 11/15/20 Principal diagnosis: left arm pseudoaneurysm Objective - Vital Signs Vital signs: Vital Signs - 12hr 11/15/20 11/15/20 11/15/20 02:02 03:07 08:16 Temperature 98.8 F 98.3 F Pulse Rate 105 H 97 H 89 Respiratory 16 18 Rate Blood Pressure 109/75 116/77 O2 Sat by Pulse 94 96 Oximetry 11/15/20 11/15/20 10:51 10:52 Temperature Pulse Rate 89 89 Respiratory Rate Blood Pressure 116/77 116/77 O2 Sat by Pulse Oximetry - Lab 11/16/20 04:10 11/14/20 05:45 Most recent lab results Calcium 8.0 mg/dL (8.4-10.2) L 11/14/20 05:45 Magnesium 1.90 mg/dL (1.7-2.3) 11/11/20 14:08 Medications & Allergies - Medications Allergies/Adverse Reactions: Allergies No Known Allergies Allergy (Verified 07/03/20 15:42) Home Medications: Home Medications Medication Instructions Recorded Confirmed Last Taken Type Furosemide 80 mg BID 02/10/20 11/13/20 07/02/20 16:00 History AtorvaSTATin [Lipitor] 40 mg PO QHS #30 tablet 08/18/20 11/13/20 Unknown Rx Levemir VIAL 40 units SUB-Q BID #1 08/18/20 11/13/20 Unknown Rx Metoprolol Tartrate 100 mg PO BID #60 08/18/20 11/13/20 Unknown Rx Aspirin [Adult Aspirin] 11/13/20 Unknown History Aspirin [Adult Aspirin] 81 mg PO 11/13/20 Unknown History FLUoxetine HCL [Prozac] 10 mg PO 11/13/20 Unknown History FLUoxetine [PROzac] 10 mg PO QDAY 11/13/20 11/13/20 Unknown History Warfarin [Coumadin] 5 mg PO QDAY 11/13/20 11/13/20 Unknown History Active Medications: Generic Name Dose Route Start Last Admin Trade Name Freq PRN Reason Stop Dose Admin Amlodipine Besylate 10 mg 11/12/20 10:00 11/15/20 10:52 Amlodipine 10 Mg Tab PO 10 mg DAILY MELINDA Administration Atorvastatin Calcium 40 mg 11/12/20 22:00 11/14/20 23:12 Atorvastatin 40 Mg Tab PO 40 mg QHS MELINDA Administration Doxycycline Hyclate 100 mg 11/15/20 10:00 11/15/20 10:51 Doxycycline 100 Mg Cap PO 11/19/20 22:01 100 mg BID MELINDA Administration Protocol Furosemide 80 mg 11/12/20 06:00 11/15/20 06:02 Furosemide 40 Mg Tab PO 80 mg BID@0600,1800 MELINDA Administration Hydralazine HCl 10 mg 11/11/20 21:10 11/11/20 21:38 Hydralazine 20 Mg/1 Ml Inj IV 10 mg Q6HR PRN Administration Hypertension Sodium Chloride 1,000 mls @ 42 mls/hr 11/14/20 10:00 11/14/20 09:43 Nacl 0.9% 1000 Ml IV 42 mls/hr DIRECT MELINDA Administration Metoprolol Tartrate 100 mg 11/12/20 10:00 11/15/20 10:51 Metoprolol Tartrate 100 Mg Tab PO 100 mg BID MELINDA Administration Oxycodone/Acetaminophen 2 tab 11/11/20 23:26 11/15/20 06:01 Oxycodone /Acetaminophen 5-325mg Tab PO 2 tab Q6H PRN Administration Pain, Moderate (4-6) Valsartan 160 mg 11/11/20 23:00 11/15/20 10:52 Valsartan 160mg Tab PO 160 mg BID MELINDA Administration
--- NOTE | 2020-11-15 13:06 | Progress Note ---
Assessment and Plan Patient is doing well from a vascular standpoint. Currently a PUI for COVID-19. Patient will need wound VAC for home use at discharge. Continue to use tunneled hemodialysis catheter for dialysis. We will evaluate his graft in the outpatient setting once his wounds have healed. Subjective Date of service: 11/15/20 Principal diagnosis: left arm pseudoaneurysm Interval history: Patient is status post revision for avulsion of the arterial anastomosis of his left upper arm AV graft. Wound VAC is in place. Wound VAC is sealed with only minimal serosanguineous drainage. No oozing of blood anywhere is identified. The patient's bandages clean and dry. Dressing was changed. Unable to palpate thrill however, this may be secondary to some edema in the arm. The patient has intact motor and sensation of his arm and hand. He is not complaining of any decrease in strength. Objective - Constitutional Vitals: Vital Signs - 12hr 11/15/20 11/15/20 11/15/20 02:02 03:07 08:16 Temperature 98.8 F 98.3 F Pulse Rate 105 H 97 H 89 Respiratory 16 18 Rate Blood Pressure 109/75 116/77 O2 Sat by Pulse 94 96 Oximetry 11/15/20 11/15/20 10:51 10:52 Temperature Pulse Rate 89 89 Respiratory Rate Blood Pressure 116/77 116/77 O2 Sat by Pulse Oximetry General appearance: Present: no acute distress - EENT Eyes: EOM intact ENT: hearing intact - Neck Neck: supple, normal ROM - Respiratory Respiratory effort: normal Extremities: abnormal (Postsurgical changes left upper extremity, wound VAC intact and in place) - Gastrointestinal General gastrointestinal: Present: deferred Rectal Exam: deferred - Genitourinary Male genitourinary: deferred - Psychiatric Psychiatric: cooperative - Labs CBC & Chem 7: 11/15/20 06:09 11/14/20 05:45 Labs: Abnormal lab results 11/14/20 11/14/20 11/15/20 Range/Units 15:14 23:31 06:09 WBC 12.0 H (4.5-11.0) K/mm3 RBC 3.18 L (3.65-5.03) M/mm3 Hgb 9.3 L (11.8-15.2) gm/dl Hct 27.8 L (35.5-45.6) % Lymph % (Auto) 8.9 L (13.4-35.0) % [place] % (Auto) 9.1 H (0.0-7.3) % Lymph # (Auto) 1.1 L (1.2-5.4) K/mm3 [place] # (Auto) 1.1 H (0.0-0.8) K/mm3 Seg Neutrophils % 79.8 H (40.0-70.0) % Seg Neutrophils # 9.6 H (1.8-7.7) K/mm3 PT (12.2-14.9) Sec. INR (0.87-1.13) APTT (24.2-36.6) Sec. Fibrinogen (211-480) mg/dl POC Glucose 125 H 179 H (70-105) mg/dL 11/15/20 11/15/20 Range/Units 06:09 08:14 WBC (4.5-11.0) K/mm3 RBC (3.65-5.03) M/mm3 Hgb (11.8-15.2) gm/dl Hct (35.5-45.6) % Lymph % (Auto) (13.4-35.0) % [place] % (Auto) (0.0-7.3) % Lymph # (Auto) (1.2-5.4) K/mm3 [place] # (Auto) (0.0-0.8) K/mm3 Seg Neutrophils % (40.0-70.0) % Seg Neutrophils # (1.8-7.7) K/mm3 PT 37.9 H (12.2-14.9) Sec. INR 3.81 H (0.87-1.13) APTT 114.5 H* (24.2-36.6) Sec. Fibrinogen 729 H (211-480) mg/dl POC Glucose 189 H (70-105) mg/dL Medications & Allergies - Medications Allergies/Adverse Reactions: Allergies No Known Allergies Allergy (Verified 07/03/20 15:42) Home Medications: Home Medications Medication Instructions Recorded Confirmed Last Taken Type Furosemide 80 mg BID 02/10/20 11/13/20 07/02/20 16:00 History AtorvaSTATin [Lipitor] 40 mg PO QHS #30 tablet 08/18/20 11/13/20 Unknown Rx Levemir VIAL 40 units SUB-Q BID #1 08/18/20 11/13/20 Unknown Rx Metoprolol Tartrate 100 mg PO BID #60 08/18/20 11/13/20 Unknown Rx Aspirin [Adult Aspirin] 11/13/20 Unknown History Aspirin [Adult Aspirin] 81 mg PO 11/13/20 Unknown History FLUoxetine HCL [Prozac] 10 mg PO 11/13/20 Unknown History FLUoxetine [PROzac] 10 mg PO QDAY 11/13/20 11/13/20 Unknown History Warfarin [Coumadin] 5 mg PO QDAY 11/13/20 11/13/20 Unknown History Active Medications: Generic Name Dose Route Start Last Admin Trade Name Freq PRN Reason Stop Dose Admin Amlodipine Besylate 10 mg 11/12/20 10:00 11/15/20 10:52 Amlodipine 10 Mg Tab PO 10 mg DAILY MELINDA Administration Atorvastatin Calcium 40 mg 11/12/20 22:00 11/14/20 23:12 Atorvastatin 40 Mg Tab PO 40 mg QHS MELINDA Administration Doxycycline Hyclate 100 mg 11/15/20 10:00 11/15/20 10:51 Doxycycline 100 Mg Cap PO 11/19/20 22:01 100 mg BID MELINDA Administration Protocol Furosemide 80 mg 11/12/20 06:00 11/15/20 06:02 Furosemide 40 Mg Tab PO 80 mg BID@0600,1800 MELINDA Administration Hydralazine HCl 10 mg 11/11/20 21:10 11/11/20 21:38 Hydralazine 20 Mg/1 Ml Inj IV 10 mg Q6HR PRN Administration Hypertension Sodium Chloride 1,000 mls @ 42 mls/hr 11/14/20 10:00 11/14/20 09:43 Nacl 0.9% 1000 Ml IV 42 mls/hr DIRECT MELINDA Administration Metoprolol Tartrate 100 mg 11/12/20 10:00 11/15/20 10:51 Metoprolol Tartrate 100 Mg Tab PO 100 mg BID MELINDA Administration Oxycodone/Acetaminophen 2 tab 11/11/20 23:26 11/15/20 12:50 Oxycodone /Acetaminophen 5-325mg Tab PO 2 tab Q6H PRN Administration Pain, Moderate (4-6) Valsartan 160 mg 11/11/20 23:00 11/15/20 10:52 Valsartan 160mg Tab PO 160 mg BID MELINDA Administration HEART Score - HEART Score Troponin: Troponin T 0.102 ng/mL (0.00-0.029) H* 11/11/20 14:08
--- NOTE | 2020-11-15 16:09 | Progress Note ---
Assessment and Plan Cultures: None A/P: 70-year-old man past medical history of CVA with residual right-sided weakness, ESRD on HD, hypertension, diabetes admitted after a fall #Left arm cellulitis: With associated pseudoaneurysm of his AV graft. Patient w ith dementia, with involuntary movements. May have scratched himself at one point, versus cellulitis fro access. #ESRD on HD: Renally dose antibiotics #Diabetes: tight glycemic control for best outcomes. Recs: -Continue vancomycin goal trough 10-20 -Follow white blood cell count -Plan to discharge on doxycycline 100 mg every 12 hours for 5 days Thank you for the consult, we will continue to follow. Molly Rivera MD [facility] O: [phone] F: [phone] Subjective Date of service: 11/15/20 Principal diagnosis: left arm pseudoaneurysm Interval history: Afebrile, white count 12. Cultures remain negative. Objective - Exam Narrative Exam: Physical Exam: Constitutional: Alert, cooperative. No acute distress Head, Ears, Nose: Normocephalic, atraumatic. External ears, nose normal Eyes: Conjunctivae/corneas clear. No icterus. No ptosis. Neck: Supple, no meningeal signs Oral: dentition fair, no thrush Cardiovascular: S1, S2 normal. Respiratory: Good air entry, clear to auscultation bilaterally GI: Soft, non-tender; bowel sounds normal. No peritoneal signs. Musculoskeletal: Left arm AV graft with pseudoaneurysm Skin: No rash or abscess Hem/Lymphatic: No palpable cervical or supraclavicular nodes. No lymphangitis Psych: Mood ok. Affect normal Neurological: Awake, alert, oriented. No gross abnormality - Constitutional Vitals: Vital Signs Temp Pulse Resp BP Pulse Ox 98.3 F 80 16 123/75 95 11/15/20 11:38 11/15/20 11:38 11/15/20 11:38 11/15/20 11:38 11/15/20 11:38 Temperature -Last 24 Hours Temperature 98.3 F Temperature 98.3 F Temperature 98.8 F Temperature 99.8 F Temperature 98.6 F Temperature 98.8 F Temperature 98.2 F - Labs CBC & Chem 7: 11/15/20 06:09 11/14/20 05:45 Labs: Abnormal lab results 11/14/20 11/14/20 11/15/20 Range/Units 15:14 23:31 06:09 WBC 12.0 H (4.5-11.0) K/mm3 RBC 3.18 L (3.65-5.03) M/mm3 Hgb 9.3 L (11.8-15.2) gm/dl Hct 27.8 L (35.5-45.6) % Lymph % (Auto) 8.9 L (13.4-35.0) % [place] % (Auto) 9.1 H (0.0-7.3) % Lymph # (Auto) 1.1 L (1.2-5.4) K/mm3 [place] # (Auto) 1.1 H (0.0-0.8) K/mm3 Seg Neutrophils % 79.8 H (40.0-70.0) % Seg Neutrophils # 9.6 H (1.8-7.7) K/mm3 PT (12.2-14.9) Sec. INR (0.87-1.13) APTT (24.2-36.6) Sec. Fibrinogen (211-480) mg/dl POC Glucose 125 H 179 H (70-105) mg/dL Coronavirus (PCR) (Negative) 11/15/20 11/15/20 11/15/20 Range/Units 06:09 08:14 10:49 WBC (4.5-11.0) K/mm3 RBC (3.65-5.03) M/mm3 Hgb (11.8-15.2) gm/dl Hct (35.5-45.6) % Lymph % (Auto) (13.4-35.0) % [place] % (Auto) (0.0-7.3) % Lymph # (Auto) (1.2-5.4) K/mm3 [place] # (Auto) (0.0-0.8) K/mm3 Seg Neutrophils % (40.0-70.0) % Seg Neutrophils # (1.8-7.7) K/mm3 PT 37.9 H (12.2-14.9) Sec. INR 3.81 H (0.87-1.13) APTT 114.5 H* (24.2-36.6) Sec. Fibrinogen 729 H (211-480) mg/dl POC Glucose 189 H (70-105) mg/dL Coronavirus (PCR) Positive A (Negative)
--- NOTE | 2020-11-15 16:32 | Post Anesthesia Evaluation ---
- Post Anesthesia Evaluation Patient Participated: Yes Airway Patent: Yes Stable Respiratory Function: Yes Nausea/Vomiting: No Temp > 96.8F: Yes Pain Manageable: Yes Adequeate Hydration: Yes Anesthesia Complications: No Patient on Ventilator: No
[2020-11-15 17:19] LABS: INR 4.41 (0.87-1.13)
[2020-11-15 18:00] LABS: Partial Thromboplastin Time 103.1 Sec. (24.2-36.6)
--- NOTE | 2020-11-15 18:51 | Event Note ---
Date: 11/15/20 INR persistently elevated. After further review, noted patient was on home coumadin. Was unaware as medication snapshot did not have the home medications listed. Found medications in another screen with the help of Dr. Patel. Ordered Vit K IV. The risks of anaphylaxis are outweighed by the benefit of preventing bleeding from a recently operated on blood vessel. Ordered 2 units FFP. Discuss[address] with Dr. Patel who will discuss with nephrology about possible additional dialysis.
[2020-11-15] MEDS ORDERED: SODIUM CHLORIDE 0.9% 500 ML 500 ML IV NR (19:00)
[2020-11-15] MEDS ORDERED: PHYTONADIONE(ADULT ONLY) 10 MG in SODIUM CHLORIDE 0.9% 50 ML IV ONE (20:35)
[2020-11-16 04:47] LABS: Hematocrit 22.7 % (35.5-45.6); Hemoglobin 8.1 gm/dl (11.8-15.2); Mean Corpuscular HGB Conc 36 % (32-34); Mean Corpuscular Volume 85 fl (84-94); Platelet Count 348 K/mm3 (140-440); Red Blood Count 2.67 M/mm3 (3.65-5.03); Red Cell Distribution Width 14.4 % (13.2-15.2)
[2020-11-16] MEDS ORDERED: SODIUM CHLORIDE 0.9% 250ML 250 ML IV ONE (04:57)
[2020-11-16 05:10] LABS: INR 2.16 (0.87-1.13)
[2020-11-16] MEDS: FUROSEMIDE 40 MG TAB PO SCH ×2 (05:11→19:21)
[2020-11-16 05:23] LABS: Partial Thromboplastin Time 65.4 Sec. (24.2-36.6)
[2020-11-16 07:43] LABS: Anisocytosis Few; Ovalocytes Few; Target Cells Few; Total Cells Counted 100
[2020-11-16 07:44] LABS: Platelet Estimate Consistent w Auto
--- NOTE | 2020-11-16 10:26 | Progress Note ---
Assessment and Plan Assessment and plan: 70 yo male with a past medical history of CVA with residual right-sided weakness the use of a cane to ambulate, end-stage renal disease on dialysis Thursday, Thursday, and Thursday, mild dementia, migraines, history of pulmonary embolism previously on Coumadin but discontinued in July due to microvascular hemorrhages, hypertension and diabetes presents to the hospital complaints of recent fall and swelling to left AV graft site. L av graft nonfunctional. Had HD on and today is thursday.No SOB Ct Cervical spine: No acute findings. 2. Moderate cervical spondylosis. 11/14: Patient seen and examined. For pseudoaneurysmal repair today. Continue antibiotics. Cultures with no growth thus far. 11/15 POD #1 Pseudoanuyrsmal repair. Some oozing was noted yesterday of blood. DDVAP given. will consult woundcare. Vascular recommends placement as is unable to care for him. CM consult placed. COVID19 Placement testing was done and came back negative. Will transfer to [facility], check room air oxygen 11/16: Continue supportive care. FFP was given and agreed on in addition to vitamin K INR is down to 2.1. Will obtain pharmacy to assist with warfarin management. Nevertheless we will recommend that this be started tomorrow to ensure no further oozing of blood. We will try to get in touch with family to understand why the patient is on warfarin if this is secondary to previous CVA. His clinical condition is complex and complicated now with the COVID-19 diagnosis and was moved down to the Covid unit for further management. ID is already on board. He was admitted hypoxic and placed on oxygen. Not sure if this is secondary to volume overload or the incidental Covid diagnosis nevertheless he will be dialyzed today and if still hypoxic will recommend starting on steroids. Plan discussed with the patient. Also called the spouse and left a message Dialysis AV graft fistula malfunction Systemic inflammatory response syndrome without sepsis Presumed left upper extremity cellulitis around AV graft site End-stage renal disease on HD Diabetes mellitus Secondary coagulopathy Anemia of chronic disease with presentations drop in hemoglobin Early mild dementia per history History of pulmonary embolism now off anticoagulation due to microvascular hemorrhages History of migraine Plan PT/OT secondary to multiple falls Follow cultures, continue abx., Patient will need revision with arterial repair and loop graft creation Combined with open thrombectomy Patient will need repair of th artery due to "blow out" No evidence of sepsis at this time but will start patient on empiric antibiotic coverage until seen by ID IR consulted for evaluation malfunctioning AV graft Nephrology input noted Continue management for diabetes mellitus with insulin. Outpatient orthopedic evaluation for right shoulder. Cervical spine imaging only concerning for Moderate Cervical spondylosis Cont Antihypertensives DVT/GI PROPHY Ok for diet after IR eval Depending on IR and ID input, will plan discharge. History Interval history: Patient seen and examined this morning. patient status post pseudoanurysm, Serosangious, received FFP yesterday. He is unable to tell me why he is on warfarin at home. Hospitalist Physical - Physical exam Narrative exam: VITAL SIGNS: Reviewed. GENERAL: The patient appears normally developed, Vital signs as documented. HEAD: No signs of head trauma. EYES: Pupils are equal. Extraocular motions intact. EARS: Hearing grossly intact. MOUTH: Oropharynx is normal. NECK: No adenopathy, no JVD. CHEST: Chest with clear breath sounds bilaterally. No wheezes, rales, or rhonchi. CARDIAC: Regular rate and rhythm. S1 and S2, without murmurs, gallops, or rubs. VASCULAR: large pseudoaneurysm which appears to be from the arterial anastomosis compatible with a tear at the arterial anastomosis. Status post repair dressing in place ABDOMEN: Soft, non tender and non distended. No rebound or guarding, and no masses palpated. Bowel Sounds normal. MUSCULOSKELETAL: Left AV graft SITE with woundvac and dressing. Right upper extremity in a sling. Limited range of motion. Otherwise on all other joints good range of motion. Extremities without clubbing, cyanosis or edema. NEUROLOGIC EXAM: Alert and oriented x 3 No focal sensory or strength deficits. Speech normal. Follows commands. PSYCHIATRIC: Mood normal. SKIN: detail exam as documented in skin assessment - Constitutional Vitals: Temp Pulse Resp BP Pulse Ox 98.5 F 64 17 110/73 97 11/16/20 05:19 11/16/20 05:19 11/16/20 05:19 11/16/20 05:19 11/16/20 05:19 General appearance: Present: no acute distress HEART Score - HEART Score Troponin: Troponin T 0.102 ng/mL (0.00-0.029) H* 11/11/20 14:08 Results - Labs CBC & Chem 7: 11/16/20 04:10 11/14/20 05:45 Labs: Laboratory Last Values WBC 11.9 K/mm3 (4.5-11.0) H 11/16/20 04:10 RBC 2.67 M/mm3 (3.65-5.03) L 11/16/20 04:10 Hgb 8.1 gm/dl (11.8-15.2) L 11/16/20 04:10 Hct 22.7 % (35.5-45.6) L 11/16/20 04:10 MCV 85 fl (84-94) 11/16/20 04:10 MCH 30 pg (28-32) 11/16/20 04:10 MCHC 36 % (32-34) H 11/16/20 04:10 RDW 14.4 % (13.2-15.2) 11/16/20 04:10 Plt Count 348 K/mm3 (140-440) 11/16/20 04:10 Lymph % (Auto) 8.9 % (13.4-35.0) L 11/15/20 06:09 [place] % (Auto) 9.1 % (0.0-7.3) H 11/15/20 06:09 Eos % (Auto) 1.4 % (0.0-4.3) 11/15/20 06:09 Baso % (Auto) 0.8 % (0.0-1.8) 11/15/20 06:09 Lymph # (Auto) 1.1 K/mm3 (1.2-5.4) L 11/15/20 06:09 [place] # (Auto) 1.1 K/mm3 (0.0-0.8) H 11/15/20 06:09 Eos # (Auto) 0.2 K/mm3 (0.0-0.4) 11/15/20 06:09 Baso # (Auto) 0.1 K/mm3 (0.0-0.1) 11/15/20 06:09 Add Manual Diff Complete 11/16/20 04:10 Total Counted 100 11/16/20 04:10 Seg Neutrophils % 79.8 % (40.0-70.0) H 11/15/20 06:09 Seg Neuts % (Manual) 79.0 % (40.0-70.0) H 11/16/20 04:10 Band Neutrophils % 2.0 % 11/11/20 14:08 Lymphocytes % (Manual) 7.0 % (13.4-35.0) L 11/16/20 04:10 Monocytes % (Manual) 9.0 % (0.0-7.3) H 11/16/20 04:10 Eosinophils % (Manual) 5.0 % (0.0-4.3) H 11/16/20 04:10 Nucleated RBC % Not Reportable 11/16/20 04:10 Seg Neutrophils # 9.6 K/mm3 (1.8-7.7) H 11/15/20 06:09 Seg Neutrophils # Man 9.4 K/mm3 (1.8-7.7) H 11/16/20 04:10 Band Neutrophils # 0.0 K/mm3 11/16/20 04:10 Lymphocytes # (Manual) 0.8 K/mm3 (1.2-5.4) L 11/16/20 04:10 Abs React Lymphs (Man) 0.0 K/mm3 11/16/20 04:10 Monocytes # (Manual) 1.1 K/mm3 (0.0-0.8) H 11/16/20 04:10 Eosinophils # (Manual) 0.6 K/mm3 (0.0-0.4) H 11/16/20 04:10 Basophils # (Manual) 0.0 K/mm3 (0.0-0.1) 11/16/20 04:10 Metamyelocytes # 0.0 K/mm3 11/16/20 04:10 Myelocytes # 0.0 K/mm3 11/16/20 04:10 Promyelocytes # 0.0 K/mm3 11/16/20 04:10 Blast Cells # 0.0 K/mm3 11/16/20 04:10 WBC Morphology Not Reportable 11/16/20 04:10 Hypersegmented Neuts Not Reportable 11/16/20 04:10 Hyposegmented Neuts Not Reportable 11/16/20 04:10 Hypogranular Neuts Not Reportable 11/16/20 04:10 Smudge Cells Not Reportable 11/16/20 04:10 Toxic Granulation Not Reportable 11/16/20 04:10 Toxic Vacuolation Not Reportable 11/16/20 04:10 Dohle Bodies Not Reportable 11/16/20 04:10 Pelger-Huet Anomaly Not Reportable 11/16/20 04:10 Pauline Rods Not Reportable 11/16/20 04:10 Platelet Estimate Consistent w auto 11/16/20 04:10 Clumped Platelets Not Reportable 11/16/20 04:10 Plt Clumps, EDTA Not Reportable 11/16/20 04:10 Large Platelets Not Reportable 11/16/20 04:10 Giant Platelets Not Reportable 11/16/20 04:10 Platelet Satelliting Not Reportable 11/16/20 04:10 Plt Morphology Comment Not Reportable 11/16/20 04:10 RBC Morphology Not Reportable 11/16/20 04:10 Dimorphic RBCs Not Reportable 11/16/20 04:10 Polychromasia Not Reportable 11/16/20 04:10 Hypochromasia Not Reportable 11/16/20 04:10 Poikilocytosis Not Reportable 11/16/20 04:10 Anisocytosis Few 11/16/20 04:10 Microcytosis Not Reportable 11/16/20 04:10 Macrocytosis Not Reportable 11/16/20 04:10 Spherocytes Not Reportable 11/16/20 04:10 Pappenheimer Bodies Not Reportable 11/16/20 04:10 Sickle Cells Not Reportable 11/16/20 04:10 Target Cells Few 11/16/20 04:10 Tear Drop Cells Not Reportable 11/16/20 04:10 Ovalocytes Few 11/16/20 04:10 Helmet Cells Not Reportable 11/16/20 04:10 [place] Bodies Not Reportable 11/16/20 04:10 [place] Rings Not Reportable 11/16/20 04:10 [place] Cells Not Reportable 11/16/20 04:10 Bite Cells Not Reportable 11/16/20 04:10 Crenated Cell Not Reportable 11/16/20 04:10 Elliptocytes Not Reportable 11/16/20 04:10 Acanthocytes (Spur) Not Reportable 11/16/20 04:10 Rouleaux Not Reportable 11/16/20 04:10 Hemoglobin C Crystals Not Reportable 11/16/20 04:10 Schistocytes Not Reportable 11/16/20 04:10 Malaria parasites Not Reportable 11/16/20 04:10 James Bodies Not Reportable 11/16/20 04:10 Hem Pathologist Commnt No 11/16/20 04:10 PT 24.1 Sec. (12.2-14.9) H 11/16/20 04:10 INR 2.16 (0.87-1.13) H 11/16/20 04:10 APTT 65.4 Sec. (24.2-36.6) H* 11/16/20 04:10 Fibrinogen 729 mg/dl (211-480) H 11/15/20 06:09 Sodium 134 mmol/L (137-145) L 11/14/20 05:45 Potassium 3.7 mmol/L (3.6-5.0) 11/14/20 05:45 Chloride 95.7 mmol/L (98-107) L 11/14/20 05:45 Carbon Dioxide 29 mmol/L (22-30) 11/14/20 05:45 Anion Gap 13 mmol/L 11/14/20 05:45 BUN 31 mg/dL (9-20) H 11/14/20 05:45 Creatinine 7.3 mg/dL (0.8-1.3) H 11/14/20 05:45 Estimated GFR 9 ml/min 11/14/20 05:45 BUN/Creatinine Ratio 4 % 11/14/20 05:45 Glucose 160 mg/dL (75-100) H 11/14/20 05:45 POC Glucose 189 mg/dL (70-105) H 11/15/20 08:14 Calcium 8.0 mg/dL (8.4-10.2) L 11/14/20 05:45 Magnesium 1.80 mg/dL (1.7-2.3) 11/16/20 04:10 Total Bilirubin 0.20 mg/dL (0.1-1.2) 11/11/20 14:08 AST 13 units/L (5-40) 11/11/20 14:08 ALT 14 units/L (7-56) 11/11/20 14:08 Alkaline Phosphatase 73 units/L (35-129) 11/11/20 14:08 Troponin T 0.102 ng/mL (0.00-0.029) H* 11/11/20 14:08 Total Protein 7.1 g/dL (6.3-8.2) 11/11/20 14:08 Albumin 3.1 g/dL (3.9-5) L 11/11/20 14:08 Albumin/Globulin Ratio 0.8 % 11/11/20 14:08 Triglycerides 110 mg/dL (2-149) 11/11/20 14:08 Cholesterol 82 mg/dL (50-199) 11/11/20 14:08 LDL Cholesterol Direct 24 mg/dL (50-130) L 11/11/20 14:08 HDL Cholesterol 38 mg/dL (40-59) L 11/11/20 14:08 Cholesterol/HDL Ratio 2.15 % 11/11/20 14:08 Nasal Screen MRSA (PCR) Negative (Negative) 11/12/20 07:00 Random Vancomycin 15 ug/mL (0-40.0) 11/15/20 06:09 Coronavirus (PCR) Positive (Negative) A 11/15/20 10:49 Hepatitis A IgM Ab Non-reactive (NonReactive) 11/12/20 15:15 Hep Bs Antigen Non-reactive (Negative) 11/12/20 15:15 Hep B Core IgM Ab Non-reactive (NonReactive) 11/12/20 15:15 Hepatitis C Antibody Non-reactive (NonReactive) 11/12/20 15:15 Blood Type A POSITIVE 11/13/20 18:09 Antibody Screen Negative 11/13/20 18:09 Crossmatch See Detail 11/13/20 18:09 Microbiology: Microbiology 11/12/20 18:25 Peripheral/Venous Blood Culture - Preliminary NO GROWTH AFTER 72 HOURS 11/12/20 18:25 Peripheral/Venous Blood Culture - Preliminary NO GROWTH AFTER 72 HOURS Recinos/IV: Voiding Method Incontinent Active Medications - Current Medications Current Medications: Generic Name Dose Route Start Last Admin Trade Name Freq PRN Reason Stop Dose Admin Amlodipine Besylate 10 mg 11/12/20 10:00 11/15/20 10:52 Amlodipine 10 Mg Tab PO 10 mg DAILY MELINDA Administration Atorvastatin Calcium 40 mg 11/12/20 22:00 11/15/20 22:45 Atorvastatin 40 Mg Tab PO 40 mg QHS MELINDA Administration Doxycycline Hyclate 100 mg 11/15/20 10:00 11/15/20 22:43 Doxycycline 100 Mg Cap PO 11/19/20 22:01 100 mg BID MELINDA Administration Protocol Furosemide 80 mg 11/12/20 06:00 11/16/20 05:11 Furosemide 40 Mg Tab PO 80 mg BID@0600,1800 MELINDA Administration Hydralazine HCl 10 mg 11/11/20 21:10 11/11/20 21:38 Hydralazine 20 Mg/1 Ml Inj IV 10 mg Q6HR PRN Administration Hypertension Sodium Chloride 1,000 mls @ 42 mls/hr 11/14/20 10:00 11/14/20 09:43 Nacl 0.9% 1000 Ml IV 42 mls/hr DIRECT MELINDA Administration Metoprolol Tartrate 100 mg 11/12/20 10:00 11/15/20 22:44 Metoprolol Tartrate 100 Mg Tab PO 100 mg BID MELINDA Administration Oxycodone/Acetaminophen 2 tab 11/11/20 23:26 11/15/20 12:50 Oxycodone /Acetaminophen 5-325mg Tab PO 2 tab Q6H PRN Administration Pain, Moderate (4-6) Valsartan 160 mg 11/11/20 23:00 11/15/20 22:45 Valsartan 160mg Tab PO 160 mg BID MELINDA Administration Warfarin Sodium 2.5 mg 11/16/20 17:00 Warfarin 2.5 Mg Tab PO DAILY@1700 [facility]
[2020-11-16] MEDS: amLODIPine 10 MG TAB PO SCH (11:27)
[2020-11-16] MEDS: METOPROLOL TARTRATE 100 MG TAB PO SCH ×2 (11:28→21:17)
[2020-11-16] MEDS: VALSARTAN 160MG TAB PO SCH ×2 (11:28→21:18)
[2020-11-16] MEDS: DOXYCYCLINE 100 MG CAP PO SCH ×2 (11:32→21:17)
--- NOTE | 2020-11-16 12:46 | Progress Note ---
Assessment and Plan Cultures: None A/P: 70-year-old man past medical history of CVA with residual right-sided weakness, ESRD on HD, hypertension, diabetes admitted after a fall #Left arm cellulitis: With associated pseudoaneurysm of his AV graft. Patient w ith dementia, with involuntary movements. May have scratched himself at one point, versus cellulitis fro access. #ESRD on HD: Renally dose antibiotics #Diabetes: tight glycemic control for best outcomes. #COVID-19: found to be positive during admission, was not tested originally as lacked symptoms. Remains on room air, not a candidate for Remdesivir due to ESRD. Recs: -Continue vancomycin goal trough 10-20 -Follow white blood cell count -Plan to discharge on doxycycline 100 mg every 12 hours for 5 days. Stop date 11/19/2020 Thank you for the consult, we will continue to follow. Molly Rivera MD [facility] ([facility]) O: [phone] F: [phone] Subjective Date of service: 11/16/20 Principal diagnosis: left arm pseudoaneurysm Interval history: Afebrile, white count 11.9. Objective - Exam Narrative Exam: Physical Exam: Constitutional: Alert, cooperative. No acute distress Head, Ears, Nose: Normocephalic, atraumatic. External ears, nose normal Eyes: Conjunctivae/corneas clear. No icterus. No ptosis. Neck: Supple, no meningeal signs Oral: dentition fair, no thrush Cardiovascular: S1, S2 normal. Respiratory: Good air entry, clear to auscultation bilaterally GI: Soft, non-tender; bowel sounds normal. No peritoneal signs. Musculoskeletal: Left arm AV graft with pseudoaneurysm Skin: No rash or abscess Hem/Lymphatic: No palpable cervical or supraclavicular nodes. No lymphangitis Psych: Mood ok. Affect normal Neurological: Awake, alert, oriented. No gross abnormality - Constitutional Vitals: Vital Signs Temp Pulse Resp BP Pulse Ox 99 F 72 20 122/74 95 11/16/20 11:24 11/16/20 11:24 11/16/20 11:24 11/16/20 11:28 11/16/20 11:24 Temperature -Last 24 Hours Temperature 99 F Temperature 98.5 F Temperature 98.6 F Temperature 98.3 F Temperature 98.8 F Temperature 98.4 F - Labs CBC & Chem 7: 11/16/20 04:10 11/14/20 05:45 Labs: Abnormal lab results 11/13/20 11/15/20 11/15/20 Range/Units 18:09 10:49 16:24 WBC (4.5-11.0) K/mm3 RBC (3.65-5.03) M/mm3 Hgb (11.8-15.2) gm/dl Hct (35.5-45.6) % MCHC (32-34) % Seg Neuts % (Manual) (40.0-70.0) % Lymphocytes % (Manual) (13.4-35.0) % Monocytes % (Manual) (0.0-7.3) % Eosinophils % (Manual) (0.0-4.3) % Seg Neutrophils # Man (1.8-7.7) K/mm3 Lymphocytes # (Manual) (1.2-5.4) K/mm3 Monocytes # (Manual) (0.0-0.8) K/mm3 Eosinophils # (Manual) (0.0-0.4) K/mm3 PT 42.6 H (12.2-14.9) Sec. INR 4.41 H (0.87-1.13) APTT 103.1 H* (24.2-36.6) Sec. POC Glucose (70-105) mg/dL Coronavirus (PCR) Positive A (Negative) Crossmatch See Detail 11/16/20 11/16/20 11/16/20 Range/Units 04:10 04:10 07:54 WBC 11.9 H (4.5-11.0) K/mm3 RBC 2.67 L (3.65-5.03) M/mm3 Hgb 8.1 L (11.8-15.2) gm/dl Hct 22.7 L (35.5-45.6) % MCHC 36 H (32-34) % Seg Neuts % (Manual) 79.0 H (40.0-70.0) % Lymphocytes % (Manual) 7.0 L (13.4-35.0) % Monocytes % (Manual) 9.0 H (0.0-7.3) % Eosinophils % (Manual) 5.0 H (0.0-4.3) % Seg Neutrophils # Man 9.4 H (1.8-7.7) K/mm3 Lymphocytes # (Manual) 0.8 L (1.2-5.4) K/mm3 Monocytes # (Manual) 1.1 H (0.0-0.8) K/mm3 Eosinophils # (Manual) 0.6 H (0.0-0.4) K/mm3 PT 24.1 H (12.2-14.9) Sec. INR 2.16 H (0.87-1.13) APTT 65.4 H* (24.2-36.6) Sec. POC Glucose 133 H (70-105) mg/dL Coronavirus (PCR) (Negative) Crossmatch 11/16/20 Range/Units 11:48 WBC (4.5-11.0) K/mm3 RBC (3.65-5.03) M/mm3 Hgb (11.8-15.2) gm/dl Hct (35.5-45.6) % MCHC (32-34) % Seg Neuts % (Manual) (40.0-70.0) % Lymphocytes % (Manual) (13.4-35.0) % Monocytes % (Manual) (0.0-7.3) % Eosinophils % (Manual) (0.0-4.3) % Seg Neutrophils # Man (1.8-7.7) K/mm3 Lymphocytes # (Manual) (1.2-5.4) K/mm3 Monocytes # (Manual) (0.0-0.8) K/mm3 Eosinophils # (Manual) (0.0-0.4) K/mm3 PT (12.2-14.9) Sec. INR (0.87-1.13) APTT (24.2-36.6) Sec. POC Glucose 158 H (70-105) mg/dL Coronavirus (PCR) (Negative) Crossmatch
--- NOTE | 2020-11-16 16:10 | Progress Note ---
Assessment and Plan The patient is postoperative day #2 status post repair of pseudoaneurysm with revision of the left arm AV graft including open thrombectomy. His hand is well-perfused after repair of his brachial artery. He received vitamin K and FFP yesterday for an elevated INR and the INR is trending down. He has no evidence of active bleeding at this time. His arteriovenous graft appears to be thrombosed. This can be addressed as an outpatient in 2 to 3 weeks. He is otherwise doing well from a surgical standpoint and can be discharged when a [facility] facility [facility] up for him. Subjective Date of service: 11/16/20 Principal diagnosis: left arm pseudoaneurysm Interval history: No significant events overnight. Patient denies pain in the hand. Some tenderness at the incision sites. Objective - Constitutional Vitals: Vital Signs - 12hr 11/16/20 11/16/20 11/16/20 05:19 11:24 11:27 Temperature 98.5 F 99 F Pulse Rate 64 72 Respiratory 17 20 Rate Blood Pressure 110/73 122/74 O2 Sat by Pulse 97 95 Oximetry 11/16/20 11:28 Temperature Pulse Rate Respiratory Rate Blood Pressure 122/74 O2 Sat by Pulse Oximetry General appearance: Present: no acute distress Extremities: no ischemia (Left fingers with less than 2-second capillary refill), normal temperature (Left hand and arm), abnormal (All incisions of the left arm are clean, dry, and intact, the VAC is in place with an adequate seal) Extremity abnormal: edema (Left hand with mild edema), other (The left arm AV graft does not have a pulse or thrill) - Labs CBC & Chem 7: 11/16/20 04:10 11/14/20 05:45 Labs: Abnormal lab results 11/13/20 11/15/20 11/16/20 Range/Units 18:09 16:24 04:10 WBC 11.9 H (4.5-11.0) K/mm3 RBC 2.67 L (3.65-5.03) M/mm3 Hgb 8.1 L (11.8-15.2) gm/dl Hct 22.7 L (35.5-45.6) % MCHC 36 H (32-34) % Seg Neuts % (Manual) 79.0 H (40.0-70.0) % Lymphocytes % (Manual) 7.0 L (13.4-35.0) % Monocytes % (Manual) 9.0 H (0.0-7.3) % Eosinophils % (Manual) 5.0 H (0.0-4.3) % Seg Neutrophils # Man 9.4 H (1.8-7.7) K/mm3 Lymphocytes # (Manual) 0.8 L (1.2-5.4) K/mm3 Monocytes # (Manual) 1.1 H (0.0-0.8) K/mm3 Eosinophils # (Manual) 0.6 H (0.0-0.4) K/mm3 PT 42.6 H (12.2-14.9) Sec. INR 4.41 H (0.87-1.13) APTT 103.1 H* (24.2-36.6) Sec. POC Glucose (70-105) mg/dL Crossmatch See Detail 11/16/20 11/16/20 11/16/20 Range/Units 04:10 07:54 11:48 WBC (4.5-11.0) K/mm3 RBC (3.65-5.03) M/mm3 Hgb (11.8-15.2) gm/dl Hct (35.5-45.6) % MCHC (32-34) % Seg Neuts % (Manual) (40.0-70.0) % Lymphocytes % (Manual) (13.4-35.0) % Monocytes % (Manual) (0.0-7.3) % Eosinophils % (Manual) (0.0-4.3) % Seg Neutrophils # Man (1.8-7.7) K/mm3 Lymphocytes # (Manual) (1.2-5.4) K/mm3 Monocytes # (Manual) (0.0-0.8) K/mm3 Eosinophils # (Manual) (0.0-0.4) K/mm3 PT 24.1 H (12.2-14.9) Sec. INR 2.16 H (0.87-1.13) APTT 65.4 H* (24.2-36.6) Sec. POC Glucose 133 H 158 H (70-105) mg/dL Crossmatch Medications & Allergies - Medications Allergies/Adverse Reactions: Allergies No Known Allergies Allergy (Verified 07/03/20 15:42) Home Medications: Home Medications Medication Instructions Recorded Confirmed Last Taken Type Furosemide 80 mg BID 02/10/20 11/13/20 07/02/20 16:00 History AtorvaSTATin [Lipitor] 40 mg PO QHS #30 tablet 08/18/20 11/13/20 Unknown Rx Levemir VIAL 40 units SUB-Q BID #1 08/18/20 11/13/20 Unknown Rx Metoprolol Tartrate 100 mg PO BID #60 08/18/20 11/13/20 Unknown Rx Aspirin [Adult Aspirin] 11/13/20 Unknown History Aspirin [Adult Aspirin] 81 mg PO 11/13/20 Unknown History FLUoxetine HCL [Prozac] 10 mg PO 11/13/20 Unknown History FLUoxetine [PROzac] 10 mg PO QDAY 11/13/20 11/13/20 Unknown History Warfarin [Coumadin] 5 mg PO QDAY 11/13/20 11/13/20 Unknown History Active Medications: Generic Name Dose Route Start Last Admin Trade Name Freq PRN Reason Stop Dose Admin Amlodipine Besylate 10 mg 11/12/20 10:00 11/16/20 11:27 Amlodipine 10 Mg Tab PO Not Given DAILY MELINDA Atorvastatin Calcium 40 mg 11/12/20 22:00 11/15/20 22:45 Atorvastatin 40 Mg Tab PO 40 mg QHS MELINDA Administration Doxycycline Hyclate 100 mg 11/15/20 10:00 11/16/20 11:32 Doxycycline 100 Mg Cap PO 11/19/20 22:01 100 mg BID MELINDA Administration Protocol Furosemide 80 mg 11/12/20 06:00 11/16/20 05:11 Furosemide 40 Mg Tab PO 80 mg BID@0600,1800 MELINDA Administration Hydralazine HCl 10 mg 11/11/20 21:10 11/11/20 21:38 Hydralazine 20 Mg/1 Ml Inj IV 10 mg Q6HR PRN Administration Hypertension Sodium Chloride 1,000 mls @ 42 mls/hr 11/14/20 10:00 11/14/20 09:43 Nacl 0.9% 1000 Ml IV 42 mls/hr DIRECT MELINDA Administration Metoprolol Tartrate 100 mg 11/12/20 10:00 11/16/20 11:28 Metoprolol Tartrate 100 Mg Tab PO Not Given BID MELINDA Oxycodone/Acetaminophen 2 tab 11/11/20 23:26 11/15/20 12:50 Oxycodone /Acetaminophen 5-325mg Tab PO 2 tab Q6H PRN Administration Pain, Moderate (4-6) Valsartan 160 mg 11/11/20 23:00 11/16/20 11:28 Valsartan 160mg Tab PO Not Given BID [facility] Warfarin Sodium 2.5 mg 11/16/20 17:00 Warfarin 2.5 Mg Tab PO DAILY@1700 [facility] HEART Score - HEART Score Troponin: Troponin T 0.102 ng/mL (0.00-0.029) H* 11/11/20 14:08
--- NOTE | 2020-11-16 16:40 | Progress Note ---
Assessment and Plan 1. ESRD: Patient is on maintenance hemodialysis three times a week, MWF schedule. Last outpatient HD 11/09. Hemodialysis: MWF schedule. 2. FEN: Monitor volume status and lytes. 3. S/p Fall: Monitor. Fall precaution. 4. Malfunctioning L arm AVF: S/p R IJ tunnel catheter. S/p L arm AVG revision and pseudoaneurysm repair 11/14. Followed by Vascular. 5. COVID positive: Monitor. 6. Elevated INR: improved. 7. H/o CVA: ASA and statin for secondary prevention. 8. Anemia: Monitor and Epogen if needed. 9. Hypertension: UF with HD. Monitor BP. 10. DM type 2: Monitor blood sugar. Subjective: Patient was seen and examined at the bedside. Doing ok. Examination: General appearance: well-developed, well-nourished, appears stated age, no distress HEENT: ATNC, CATHY, mucous membranes moist, hearing intact, vision intact Neck: supple Respiratory: Clear to Auscultation Cardiology: regular, S1S2, no murmur Gastrointestinal: normoactive bowel sounds, no tenderness, not distended Integumentary: no obvious rash Neurologic: Alert, able to move extremities, no asterixis Ext: L arm dressing, wound vac Hemodialysis access: R IJ tunnel catheter Subjective Date of service: 11/16/20 Principal diagnosis: left arm pseudoaneurysm Objective - Vital Signs Vital signs: Vital Signs - 12hr 11/16/20 11/16/20 11/16/20 05:19 11:24 11:27 Temperature 98.5 F 99 F Pulse Rate 64 72 Respiratory 17 20 Rate Blood Pressure 110/73 122/74 O2 Sat by Pulse 97 95 Oximetry 11/16/20 11:28 Temperature Pulse Rate Respiratory Rate Blood Pressure 122/74 O2 Sat by Pulse Oximetry - Lab 11/16/20 04:10 11/14/20 05:45 Most recent lab results Calcium 8.0 mg/dL (8.4-10.2) L 11/14/20 05:45 Magnesium 1.80 mg/dL (1.7-2.3) 11/16/20 04:10 Medications & Allergies - Medications Allergies/Adverse Reactions: Allergies No Known Allergies Allergy (Verified 07/03/20 15:42) Home Medications: Home Medications Medication Instructions Recorded Confirmed Last Taken Type Furosemide 80 mg BID 02/10/20 11/13/20 07/02/20 16:00 History AtorvaSTATin [Lipitor] 40 mg PO QHS #30 tablet 08/18/20 11/13/20 Unknown Rx Levemir VIAL 40 units SUB-Q BID #1 08/18/20 11/13/20 Unknown Rx Metoprolol Tartrate 100 mg PO BID #60 08/18/20 11/13/20 Unknown Rx Aspirin [Adult Aspirin] 11/13/20 Unknown History Aspirin [Adult Aspirin] 81 mg PO 11/13/20 Unknown History FLUoxetine HCL [Prozac] 10 mg PO 11/13/20 Unknown History FLUoxetine [PROzac] 10 mg PO QDAY 11/13/20 11/13/20 Unknown History Warfarin [Coumadin] 5 mg PO QDAY 11/13/20 11/13/20 Unknown History Active Medications: Generic Name Dose Route Start Last Admin Trade Name Freq PRN Reason Stop Dose Admin Amlodipine Besylate 10 mg 11/12/20 10:00 11/16/20 11:27 Amlodipine 10 Mg Tab PO Not Given DAILY MELINDA Atorvastatin Calcium 40 mg 11/12/20 22:00 11/15/20 22:45 Atorvastatin 40 Mg Tab PO 40 mg QHS MELINDA Administration Doxycycline Hyclate 100 mg 11/15/20 10:00 11/16/20 11:32 Doxycycline 100 Mg Cap PO 11/19/20 22:01 100 mg BID MELINDA Administration Protocol Furosemide 80 mg 11/12/20 06:00 11/16/20 05:11 Furosemide 40 Mg Tab PO 80 mg BID@0600,1800 MELINDA Administration Hydralazine HCl 10 mg 11/11/20 21:10 11/11/20 21:38 Hydralazine 20 Mg/1 Ml Inj IV 10 mg Q6HR PRN Administration Hypertension Sodium Chloride 1,000 mls @ 42 mls/hr 11/14/20 10:00 11/14/20 09:43 Nacl 0.9% 1000 Ml IV 42 mls/hr DIRECT MELINDA Administration Metoprolol Tartrate 100 mg 11/12/20 10:00 11/16/20 11:28 Metoprolol Tartrate 100 Mg Tab PO Not Given BID MELINDA Oxycodone/Acetaminophen 2 tab 11/11/20 23:26 11/15/20 12:50 Oxycodone /Acetaminophen 5-325mg Tab PO 2 tab Q6H PRN Administration Pain, Moderate (4-6) Valsartan 160 mg 11/11/20 23:00 11/16/20 11:28 Valsartan 160mg Tab PO Not Given BID [facility] Warfarin Sodium 2.5 mg 11/16/20 17:00 Warfarin 2.5 Mg Tab PO DAILY@1700 MELINDA
[2020-11-16] MEDS ORDERED: EPOETIN ALFA 20,000 UNIT/1 ML INJ SUB-Q ONE (17:00)
[2020-11-16] MEDS ORDERED: WARFARIN 2.5 MG TAB PO SCH (17:00)
[2020-11-16] MEDS ORDERED: SODIUM FERRIC GLUCON/SUCRO 250 MG in SODIUM CHLORIDE 0.9% 100 ML IV ONE (17:30)
[2020-11-16] MEDS: SODIUM FERRIC GLUCON/SUCRO 125 MG in SODIUM CHLORIDE 0.9% 100 ML IV SCH (21:16)
[2020-11-17] MEDS: oxyCODONE /ACETAMINOPHEN 5-325MG TAB PO PRN (06:00)
[2020-11-17] MEDS: FUROSEMIDE 40 MG TAB PO SCH ×2 (06:00→17:03)
[2020-11-17 07:32] LABS: Basophils # (Auto) 0.1 K/mm3 (0.0-0.1); Basophils % (Auto) 0.8 % (0.0-1.8); Eosinophils # (Auto) 0.5 K/mm3 (0.0-0.4); Eosinophils % (Auto) 3.3 % (0.0-4.3); Hematocrit 25.1 % (35.5-45.6); Hemoglobin 8.4 gm/dl (11.8-15.2); Mean Corpuscular HGB Conc 33 % (32-34); Mean Corpuscular Volume 87 fl (84-94); Monocytes # (Auto) 1.1 K/mm3 (0.0-0.8); Monocytes % (Auto) 7.5 % (0.0-7.3); Platelet Count 332 K/mm3 (140-440); Red Blood Count 2.89 M/mm3 (3.65-5.03); Red Cell Distribution Width 14.8 % (13.2-15.2)
[2020-11-17 07:47] LABS: INR 1.22 (0.87-1.13)
[2020-11-17 07:48] LABS: Partial Thromboplastin Time 55.7 Sec. (24.2-36.6)
[2020-11-17] MEDS: DOXYCYCLINE 100 MG CAP PO SCH ×2 (10:07→22:10)
[2020-11-17] MEDS: amLODIPine 10 MG TAB PO SCH (10:08)
[2020-11-17] MEDS: VALSARTAN 160MG TAB PO SCH ×2 (10:09→22:18)
[2020-11-17] MEDS: METOPROLOL TARTRATE 100 MG TAB PO SCH ×2 (10:09→22:18)
--- NOTE | 2020-11-17 11:37 | Progress Note ---
Assessment and Plan Assessment and plan: 70 yo male with a past medical history of CVA with residual right-sided weakness the use of a cane to ambulate, end-stage renal disease on dialysis Thursday, Thursday, and Thursday, mild dementia, migraines, history of pulmonary embolism previously on Coumadin but discontinued in July due to microvascular hemorrhages, hypertension and diabetes presents to the hospital complaints of recent fall and swelling to left AV graft site. L av graft nonfunctional. Had HD on and today is thursday.No SOB Ct Cervical spine: No acute findings. 2. Moderate cervical spondylosis. 11/14: Patient seen and examined. For pseudoaneurysmal repair today. Continue antibiotics. Cultures with no growth thus far. 11/15 POD #1 Pseudoanuyrsmal repair. Some oozing was noted yesterday of blood. DDVAP given. will consult woundcare. Vascular recommends placement as is unable to care for him. CM consult placed. COVID19 Placement testing was done and came back negative. Will transfer to [facility], check room air oxygen 11/16: Continue supportive care. FFP was given and agreed on in addition to vitamin K INR is down to 2.1. Will obtain pharmacy to assist with warfarin management. Nevertheless we will recommend that this be started tomorrow to ensure no further oozing of blood. We will try to get in touch with family to understand why the patient is on warfarin if this is secondary to previous CVA. His clinical condition is complex and complicated now with the COVID-19 diagnosis and was moved down to the Covid unit for further management. ID is already on board. He was admitted hypoxic and placed on oxygen. Not sure if this is secondary to volume overload or the incidental Covid diagnosis nevertheless he will be dialyzed today and if still hypoxic will recommend starting on steroids. Plan discussed with the patient. Also called the spouse and left a message 11/17: Patient seen and examined postop day 3 repair of pseudoaneurysm with revision of the left arm AV graft including open thrombectomy. Per vascular his hand is well-perfused after repair of his brachial artery. He received vitamin K and FFP yesterday for an elevated INR and the INR is trending down. He has no evidence of active bleeding at this time. His arteriovenous graft appears to be thrombosed. This can be addressed as an outpatient in 2 to 3 weeks. He is otherwise doing well from a surgical standpoint and can be discharged when a usp facility is set up for him. At this point (discharge plan to usp facility. Respiratory status is intact. No worsening hypoxia is noted. In the setting of COVID-19 Dialysis AV graft fistula malfunction Systemic inflammatory response syndrome without sepsis Presumed left upper extremity cellulitis around AV graft site End-stage renal disease on HD Diabetes mellitus COVID-19 Acute respiratory failure with hypoxia now resolved Secondary coagulopathy Anemia of chronic disease with presentations drop in hemoglobin Early mild dementia per history History of pulmonary embolism now off anticoagulation due to microvascular hemorrhages History of migraine Plan PT/OT secondary to multiple falls Follow cultures, continue abx., Patient will need revision with arterial repair and loop graft creation Combined with open thrombectomy Patient will need repair of th artery due to "blow out" No evidence of sepsis at this time but will start patient on empiric antibiotic coverage until seen by ID IR consulted for evaluation malfunctioning AV graft Nephrology input noted Continue management for diabetes mellitus with insulin. Outpatient orthopedic evaluation for right shoulder. Cervical spine imaging only concerning for Moderate Cervical spondylosis Cont Antihypertensives DVT/GI PROPHY Ok for diet after IR eval Depending on IR and ID input, will plan discharge. History Interval history: Patient seen and examined this morning. patient status post pseudoanurysm, Serosangious, no new complaints at this time Hospitalist Physical - Physical exam Narrative exam: VITAL SIGNS: Reviewed. GENERAL: The patient appears normally developed, Vital signs as documented. HEAD: No signs of head trauma. EYES: Pupils are equal. Extraocular motions intact. EARS: Hearing grossly intact. MOUTH: Oropharynx is normal. NECK: No adenopathy, no JVD. CHEST: Chest with clear breath sounds bilaterally. No wheezes, rales, or rhonchi. CARDIAC: Regular rate and rhythm. S1 and S2, without murmurs, gallops, or rubs. VASCULAR: large pseudoaneurysm which appears to be from the arterial anastomosis compatible with a tear at the arterial anastomosis. Status post repair dressing in place ABDOMEN: Soft, non tender and non distended. No rebound or guarding, and no masses palpated. Bowel Sounds normal. MUSCULOSKELETAL: Left AV graft SITE with woundvac and dressing. Right upper extremity in a sling. Limited range of motion. Otherwise on all other joints good range of motion. Extremities without clubbing, cyanosis or edema. NEUROLOGIC EXAM: Alert and oriented x 3 No focal sensory or strength deficits. Speech normal. Follows commands. PSYCHIATRIC: Mood normal. SKIN: detail exam as documented in skin assessment - Constitutional Vitals: Temp Pulse Resp BP Pulse Ox 98.8 F 63 20 118/79 100 11/17/20 05:50 11/17/20 10:11 11/17/20 05:50 11/17/20 10:11 11/17/20 10:11 General appearance: Present: no acute distress HEART Score - HEART Score Troponin: Troponin T 0.102 ng/mL (0.00-0.029) H* 11/11/20 14:08 Results - Labs CBC & Chem 7: 11/17/20 06:55 11/14/20 05:45 Labs: Laboratory Last Values WBC 14.4 K/mm3 (4.5-11.0) H 11/17/20 06:55 RBC 2.89 M/mm3 (3.65-5.03) L 11/17/20 06:55 Hgb 8.4 gm/dl (11.8-15.2) L 11/17/20 06:55 Hct 25.1 % (35.5-45.6) L 11/17/20 06:55 MCV 87 fl (84-94) 11/17/20 06:55 MCH 29 pg (28-32) 11/17/20 06:55 MCHC 33 % (32-34) 11/17/20 06:55 RDW 14.8 % (13.2-15.2) 11/17/20 06:55 Plt Count 332 K/mm3 (140-440) 11/17/20 06:55 Lymph % (Auto) 7.0 % (13.4-35.0) L 11/17/20 06:55 [place] % (Auto) 7.5 % (0.0-7.3) H 11/17/20 06:55 Eos % (Auto) 3.3 % (0.0-4.3) 11/17/20 06:55 Baso % (Auto) 0.8 % (0.0-1.8) 11/17/20 06:55 Lymph # (Auto) 1.0 K/mm3 (1.2-5.4) L 11/17/20 06:55 [place]t # (Auto) 1.1 K/mm3 (0.0-0.8) H 11/17/20 06:55 Eos # (Auto) 0.5 K/mm3 (0.0-0.4) H 11/17/20 06:55 Baso # (Auto) 0.1 K/mm3 (0.0-0.1) 11/17/20 06:55 Add Manual Diff Complete 11/16/20 04:10 Total Counted 100 11/16/20 04:10 Seg Neutrophils % 81.4 % (40.0-70.0) H 11/17/20 06:55 Seg Neuts % (Manual) 79.0 % (40.0-70.0) H 11/16/20 04:10 Band Neutrophils % 2.0 % 11/11/20 14:08 Lymphocytes % (Manual) 7.0 % (13.4-35.0) L 11/16/20 04:10 Monocytes % (Manual) 9.0 % (0.0-7.3) H 11/16/20 04:10 Eosinophils % (Manual) 5.0 % (0.0-4.3) H 11/16/20 04:10 Nucleated RBC % Not Reportable 11/16/20 04:10 Seg Neutrophils # 11.7 K/mm3 (1.8-7.7) H 11/17/20 06:55 Seg Neutrophils # Man 9.4 K/mm3 (1.8-7.7) H 11/16/20 04:10 Band Neutrophils # 0.0 K/mm3 11/16/20 04:10 Lymphocytes # (Manual) 0.8 K/mm3 (1.2-5.4) L 11/16/20 04:10 Abs React Lymphs (Man) 0.0 K/mm3 11/16/20 04:10 Monocytes # (Manual) 1.1 K/mm3 (0.0-0.8) H 11/16/20 04:10 Eosinophils # (Manual) 0.6 K/mm3 (0.0-0.4) H 11/16/20 04:10 Basophils # (Manual) 0.0 K/mm3 (0.0-0.1) 11/16/20 04:10 Metamyelocytes # 0.0 K/mm3 11/16/20 04:10 Myelocytes # 0.0 K/mm3 11/16/20 04:10 Promyelocytes # 0.0 K/mm3 11/16/20 04:10 Blast Cells # 0.0 K/mm3 11/16/20 04:10 WBC Morphology Not Reportable 11/16/20 04:10 Hypersegmented Neuts Not Reportable 11/16/20 04:10 Hyposegmented Neuts Not Reportable 11/16/20 04:10 Hypogranular Neuts Not Reportable 11/16/20 04:10 Smudge Cells Not Reportable 11/16/20 04:10 Toxic Granulation Not Reportable 11/16/20 04:10 Toxic Vacuolation Not Reportable 11/16/20 04:10 Dohle Bodies Not Reportable 11/16/20 04:10 Pelger-Huet Anomaly Not Reportable 11/16/20 04:10 Pauline Rods Not Reportable 11/16/20 04:10 Platelet Estimate Consistent w auto 11/16/20 04:10 Clumped Platelets Not Reportable 11/16/20 04:10 Plt Clumps, EDTA Not Reportable 11/16/20 04:10 Large Platelets Not Reportable 11/16/20 04:10 Giant Platelets Not Reportable 11/16/20 04:10 Platelet Satelliting Not Reportable 11/16/20 04:10 Plt Morphology Comment Not Reportable 11/16/20 04:10 RBC Morphology Not Reportable 11/16/20 04:10 Dimorphic RBCs Not Reportable 11/16/20 04:10 Polychromasia Not Reportable 11/16/20 04:10 Hypochromasia Not Reportable 11/16/20 04:10 Poikilocytosis Not Reportable 11/16/20 04:10 Anisocytosis Few 11/16/20 04:10 Microcytosis Not Reportable 11/16/20 04:10 Macrocytosis Not Reportable 11/16/20 04:10 Spherocytes Not Reportable 11/16/20 04:10 Pappenheimer Bodies Not Reportable 11/16/20 04:10 Sickle Cells Not Reportable 11/16/20 04:10 Target Cells Few 11/16/20 04:10 Tear Drop Cells Not Reportable 11/16/20 04:10 Ovalocytes Few 11/16/20 04:10 Helmet Cells Not Reportable 11/16/20 04:10 [place] Bodies Not Reportable 11/16/20 04:10 [place] Rings Not Reportable 11/16/20 04:10 [place] Cells Not Reportable 11/16/20 04:10 Bite Cells Not Reportable 11/16/20 04:10 Crenated Cell Not Reportable 11/16/20 04:10 Elliptocytes Not Reportable 11/16/20 04:10 Acanthocytes (Spur) Not Reportable 11/16/20 04:10 Rouleaux Not Reportable 11/16/20 04:10 Hemoglobin C Crystals Not Reportable 11/16/20 04:10 Schistocytes Not Reportable 11/16/20 04:10 Malaria parasites Not Reportable 11/16/20 04:10 James Bodies Not Reportable 11/16/20 04:10 Hem Pathologist Commnt No 11/16/20 04:10 PT 15.2 Sec. (12.2-14.9) H 11/17/20 06:55 INR 1.22 (0.87-1.13) H 11/17/20 06:55 APTT 55.7 Sec. (24.2-36.6) H 11/17/20 06:55 Fibrinogen 729 mg/dl (211-480) H 11/15/20 06:09 Sodium 134 mmol/L (137-145) L 11/14/20 05:45 Potassium 3.7 mmol/L (3.6-5.0) 11/14/20 05:45 Chloride 95.7 mmol/L (98-107) L 11/14/20 05:45 Carbon Dioxide 29 mmol/L (22-30) 11/14/20 05:45 Anion Gap 13 mmol/L 11/14/20 05:45 BUN 31 mg/dL (9-20) H 11/14/20 05:45 Creatinine 7.3 mg/dL (0.8-1.3) H 11/14/20 05:45 Estimated GFR 9 ml/min 11/14/20 05:45 BUN/Creatinine Ratio 4 % 11/14/20 05:45 Glucose 160 mg/dL (75-100) H 11/14/20 05:45 POC Glucose 146 mg/dL (70-105) H 11/16/20 20:49 Calcium 8.0 mg/dL (8.4-10.2) L 11/14/20 05:45 Magnesium 1.80 mg/dL (1.7-2.3) 11/16/20 04:10 Total Bilirubin 0.20 mg/dL (0.1-1.2) 11/11/20 14:08 AST 13 units/L (5-40) 11/11/20 14:08 ALT 14 units/L (7-56) 11/11/20 14:08 Alkaline Phosphatase 73 units/L (35-129) 11/11/20 14:08 Troponin T 0.102 ng/mL (0.00-0.029) H* 11/11/20 14:08 Total Protein 7.1 g/dL (6.3-8.2) 11/11/20 14:08 Albumin 3.1 g/dL (3.9-5) L 11/11/20 14:08 Albumin/Globulin Ratio 0.8 % 11/11/20 14:08 Triglycerides 110 mg/dL (2-149) 11/11/20 14:08 Cholesterol 82 mg/dL (50-199) 11/11/20 14:08 LDL Cholesterol Direct 24 mg/dL (50-130) L 11/11/20 14:08 HDL Cholesterol 38 mg/dL (40-59) L 11/11/20 14:08 Cholesterol/HDL Ratio 2.15 % 11/11/20 14:08 Nasal Screen MRSA (PCR) Negative (Negative) 11/12/20 07:00 Random Vancomycin 15 ug/mL (0-40.0) 11/15/20 06:09 Coronavirus (PCR) Positive (Negative) A 11/15/20 10:49 Hepatitis A IgM Ab Non-reactive (NonReactive) 11/12/20 15:15 Hep Bs Antigen Non-reactive (Negative) 11/12/20 15:15 Hep B Core IgM Ab Non-reactive (NonReactive) 11/12/20 15:15 Hepatitis C Antibody Non-reactive (NonReactive) 11/12/20 15:15 Blood Type A POSITIVE 11/13/20 18:09 Antibody Screen Negative 11/13/20 18:09 Crossmatch See Detail 11/13/20 18:09 Microbiology: Microbiology 11/12/20 18:25 Peripheral/Venous Blood Culture - Preliminary NO GROWTH AFTER 4 DAYS 11/12/20 18:25 Peripheral/Venous Blood Culture - Preliminary NO GROWTH AFTER 4 DAYS 11/14/20 Unknown Arm - Left Surgical Biopsy Culture - Preliminary Recinos/IV: Voiding Method Incontinent Active Medications - Current Medications Current Medications: Generic Name Dose Route Start Last Admin Trade Name Freq PRN Reason Stop Dose Admin Amlodipine Besylate 10 mg 11/12/20 10:00 11/17/20 10:08 Amlodipine 10 Mg Tab PO 10 mg DAILY MELINDA Administration Atorvastatin Calcium 40 mg 11/12/20 22:00 11/16/20 21:19 Atorvastatin 40 Mg Tab PO 40 mg QHS MELINDA Administration Doxycycline Hyclate 100 mg 11/15/20 10:00 11/17/20 10:07 Doxycycline 100 Mg Cap PO 11/19/20 22:01 100 mg BID MELINDA Administration Protocol Furosemide 80 mg 11/12/20 06:00 11/17/20 06:00 Furosemide 40 Mg Tab PO 80 mg BID@0600,1800 MELINDA Administration Hydralazine HCl 10 mg 11/11/20 21:10 11/11/20 21:38 Hydralazine 20 Mg/1 Ml Inj IV 10 mg Q6HR PRN Administration Hypertension Sodium Chloride 1,000 mls @ 42 mls/hr 11/14/20 10:00 11/14/20 09:43 Nacl 0.9% 1000 Ml IV 42 mls/hr DIRECT MELINDA Administration Ferric Sodium Gluconate 110 mls @ 220 mls/hr 11/16/20 18:00 11/16/20 21:16 Complex 125 mg/ Sodium IV 11/17/20 18:29 220 mls/hr Chloride Q24H MELINDA Administration Metoprolol Tartrate 100 mg 11/12/20 10:00 11/17/20 10:09 Metoprolol Tartrate 100 Mg Tab PO 100 mg BID MELINDA Administration Oxycodone/Acetaminophen 2 tab 11/11/20 23:26 11/17/20 06:00 Oxycodone /Acetaminophen 5-325mg Tab PO 2 tab Q6H PRN Administration Pain, Moderate (4-6) Valsartan 160 mg 11/11/20 23:00 11/17/20 10:09 Valsartan 160mg Tab PO 160 mg BID MELINDA Administration
--- NOTE | 2020-11-17 12:53 | Cat Scan Report ---
CT HEAD WITHOUT CONTRAST INDICATION / CLINICAL INFORMATION: CVA. Right-sided weakness. TECHNIQUE: All CT scans at this location are performed using CT dose reduction for ALARA by means of automated e xposure control. COMPARISON: Head CT 08/16/2020 FINDINGS: HEMORRHAGE: No evidence of recent intracranial hemorrhage or extra-axial fluid collection. EXTRA-AXIAL SPACES: Cortical sulci and sylvian fissures are enlarged reflecting a degree of parenchym al volume loss which is somewhat greater than expected for the patient's age of 70 years. Basilar cis terns have an unremarkable appearance. VENTRICULAR SYSTEM: The third and lateral ventricles are mildly enlarged reflecting presence of paren chymal volume loss. CEREBRAL PARENCHYMA: A large lentiform region of encephalomalacia seen in the subinsular region on th e left. This is likely the sequelae of remote infarction, probably remote hemorrhagic infarction. Ext ensive periventricular and deep white matter lucency is noted compatible with advanced microvascular ischemic change. These findings are stable. More focal punctate areas of decreased attenuation indica ting the presence of remote small deep infarctions in the left alicea radiata and white matter of the right frontal lobe. MIDLINE SHIFT OR HERNIATION: There is no mass effect. CEREBELLUM / BRAINSTEM: Brainstem has an unremarkable appearance. Age related cerebellar atrophy is n oted. MIDLINE STRUCTURES:Pituitary gland has an unremarkable appearance. No abnormalities are seen in the p ineal region. INTRACRANIAL VESSELS:Calcified atherosclerotic plaque is present along the course of the cavernous se gments of both internal carotid arteries. Similar findings are seen at the distal vertebral arteries. ORBITS: visualized portions of the orbits have an unremarkable appearance. SOFT TISSUES of HEAD: No significant abnormality. CALVARIUM: Evaluation of bone windows reveals no abnormalities. PARANASAL SINUSES / MASTOID AIR CELLS: Paranasal sinuses are free from inflammatory mucosal disease. Mastoid air cells are normally pneumatized. IMPRESSION: 1. Evidence of remote large deep infarction in the left subinsular region unchanged from 08/16/2020. 2. Advanced microvascular ischemic changes in several remote small deep infarctions. 3. Moderate parenchymal volume loss. 4. No acute intercranial abnormalities are identified. No significant interval change since head CT 1 10/16/2019. Signer Name: Fercho Hernandez MD Signed: 11/17/2020 12:48 PM Workstation Name: [id number]
--- NOTE | 2020-11-17 15:47 | Progress Note ---
Assessment and Plan Doing well status post arterial repair and AV graft revision. Hand is viable with no sensory, motor, or pain. Palpable pulses. Arterial r epair site with wound VAC has good seal without any bleeding. AV graft appears thrombosed and will need thrombectomy in 1 to 2 weeks. Status post FFP and vitamin K IV. INR has normalized. Reviewed patient's chart and I am not sure why he was on Coumadin as it was supposed to be a discontinued based on prior discharge summary. Aspirin daily. Follow-up with Dr. Myers in 2 weeks. Needs wound care. SNF for patient until wound has improved given his underlying dementia and complicated home situation with elderly who is having trouble taking care of him without wound issues. Subjective Date of service: 11/17/20 Principal diagnosis: left arm pseudoaneurysm Interval history: Patient doing well from vascular perspective. Skin reece over the forearm are clean, dry, and intact. Wound VAC on antecubital fossa has no oozing with good seal. Palpable left radial pulse and weakly palpable left ulnar pulse. Full hand motor and sensory function and no hand pain. Minimal antecubital fossa di [place]. Objective - Constitutional Vitals: Vital Signs - 12hr 11/17/20 11/17/20 11/17/20 05:50 10:08 10:11 Temperature 98.8 F Pulse Rate 77 63 Respiratory 20 Rate Blood Pressure 172/106 118/79 118/79 O2 Sat by Pulse 100 100 Oximetry 11/17/20 11/17/20 11:27 11:57 Temperature 98.4 F Pulse Rate 79 57 L Respiratory 19 Rate Blood Pressure 116/70 O2 Sat by Pulse 90 Oximetry General appearance: Present: no acute distress - EENT Eyes: EOM intact ENT: hearing intact - Respiratory Respiratory effort: other (On oxygen) Extremities: normal temperature, normal color, abnormal (see subjective) - Psychiatric Psychiatric: appropriate mood/affect, cooperative - Labs CBC & Chem 7: 11/17/20 06:55 11/14/20 05:45 Labs: Abnormal lab results 11/13/20 11/16/20 11/17/20 Range/Units 18:09 20:49 06:55 WBC 14.4 H (4.5-11.0) K/mm3 RBC 2.89 L (3.65-5.03) M/mm3 Hgb 8.4 L (11.8-15.2) gm/dl Hct 25.1 L (35.5-45.6) % Lymph % (Auto) 7.0 L (13.4-35.0) % [place] % (Auto) 7.5 H (0.0-7.3) % Lymph # (Auto) 1.0 L (1.2-5.4) K/mm3 [place] # (Auto) 1.1 H (0.0-0.8) K/mm3 Eos # (Auto) 0.5 H (0.0-0.4) K/mm3 Seg Neutrophils % 81.4 H (40.0-70.0) % Seg Neutrophils # 11.7 H (1.8-7.7) K/mm3 PT (12.2-14.9) Sec. INR (0.87-1.13) APTT (24.2-36.6) Sec. POC Glucose 146 H (70-105) mg/dL Crossmatch See Detail 11/17/20 Range/Units 06:55 WBC (4.5-11.0) K/mm3 RBC (3.65-5.03) M/mm3 Hgb (11.8-15.2) gm/dl Hct (35.5-45.6) % Lymph % (Auto) (13.4-35.0) % [place] % (Auto) (0.0-7.3) % Lymph # (Auto) (1.2-5.4) K/mm3 [place] # (Auto) (0.0-0.8) K/mm3 Eos # (Auto) (0.0-0.4) K/mm3 Seg Neutrophils % (40.0-70.0) % Seg Neutrophils # (1.8-7.7) K/mm3 PT 15.2 H (12.2-14.9) Sec. INR 1.22 H (0.87-1.13) APTT 55.7 H (24.2-36.6) Sec. POC Glucose (70-105) mg/dL Crossmatch Medications & Allergies - Medications Allergies/Adverse Reactions: Allergies No Known Allergies Allergy (Verified 07/03/20 15:42) Home Medications: Home Medications Medication Instructions Recorded Confirmed Last Taken Type Furosemide 80 mg BID 02/10/20 11/13/20 07/02/20 16:00 History AtorvaSTATin [Lipitor] 40 mg PO QHS #30 tablet 08/18/20 11/13/20 Unknown Rx Levemir VIAL 40 units SUB-Q BID #1 08/18/20 11/13/20 Unknown Rx Metoprolol Tartrate 100 mg PO BID #60 08/18/20 11/13/20 Unknown Rx Aspirin [Adult Aspirin] 81 mg PO DAILY 11/13/20 11/17/20 Unknown History FLUoxetine HCL [Prozac] 10 mg PO DAILY 11/13/20 11/17/20 Unknown History FLUoxetine [PROzac] 10 mg PO QDAY 11/13/20 11/13/20 Unknown History Warfarin [Coumadin] 5 mg PO QDAY 11/13/20 11/13/20 Unknown History DOXYCYCLINE Hyclate [Vibramycin 100 mg PO BID #4 tab 11/17/20 Unknown Rx CAP] Valsartan [Diovan] 160 mg PO BID #60 tablet 11/17/20 Unknown Rx amLODIPine 10 mg PO DAILY tablet 11/17/20 Unknown Rx oxyCODONE /ACETAMINOPHEN [Percocet 1 tab PO Q6H PRN #14 tablet 11/17/20 Unknown Rx 5/325 mg] Active Medications: Generic Name Dose Route Start Last Admin Trade Name Freq PRN Reason Stop Dose Admin Amlodipine Besylate 10 mg 11/12/20 10:00 11/17/20 10:08 Amlodipine 10 Mg Tab PO 10 mg DAILY MELINDA Administration Aspirin 81 mg 11/17/20 13:00 Aspirin Ec 81 Mg Tab PO QDAY MELINDA Atorvastatin Calcium 40 mg 11/12/20 22:00 11/16/20 21:19 Atorvastatin 40 Mg Tab PO 40 mg QHS MELINDA Administration Doxycycline Hyclate 100 mg 11/15/20 10:00 11/17/20 10:07 Doxycycline 100 Mg Cap PO 11/19/20 22:01 100 mg BID MELINDA Administration Protocol Furosemide 80 mg 11/12/20 06:00 11/17/20 06:00 Furosemide 40 Mg Tab PO 80 mg BID@0600,1800 MELINDA Administration Hydralazine HCl 10 mg 11/11/20 21:10 11/11/20 21:38 Hydralazine 20 Mg/1 Ml Inj IV 10 mg Q6HR PRN Administration Hypertension Sodium Chloride 1,000 mls @ 42 mls/hr 11/14/20 10:00 11/14/20 09:43 Nacl 0.9% 1000 Ml IV 42 mls/hr DIRECT MELINDA Administration Ferric Sodium Gluconate 110 mls @ 220 mls/hr 11/16/20 18:00 11/16/20 21:16 Complex 125 mg/ Sodium IV 11/17/20 18:29 220 mls/hr Chloride Q24H MELINDA Administration Metoprolol Tartrate 100 mg 11/12/20 10:00 11/17/20 10:09 Metoprolol Tartrate 100 Mg Tab PO 100 mg BID MELINDA Administration Oxycodone/Acetaminophen 2 tab 11/11/20 23:26 11/17/20 06:00 Oxycodone /Acetaminophen 5-325mg Tab PO 2 tab Q6H PRN Administration Pain, Moderate (4-6) Valsartan 160 mg 11/11/20 23:00 11/17/20 10:09 Valsartan 160mg Tab PO 160 mg BID MELINDA Administration HEART Score - HEART Score Troponin: Troponin T 0.102 ng/mL (0.00-0.029) H* 11/11/20 14:08
--- NOTE | 2020-11-17 15:47 | Progress Note ---
Assessment and Plan 1. ESRD: Patient is on maintenance hemodialysis three times a week, MWF schedule. Last outpatient HD 11/09. Hemodialysis: MWF schedule. 2. FEN: Monitor volume status and lytes. 3. S/p Fall: Monitor. Fall precaution. 4. Malfunctioning L arm AVF: S/p R IJ tunnel catheter. S/p L arm AVG revision and pseudoaneurysm repair 11/14. Followed by Vascular. 5. COVID positive: Monitor. 6. Elevated INR: improved. 7. H/o CVA: ASA and statin for secondary prevention. 8. Anemia: Epogen. S/p IV Iron X 2 doses. 9. Hypertension: UF with HD. Monitor BP. 10. DM type 2: Monitor blood sugar. Subjective: Patient was seen and examined at the bedside. Decreased appetite. Examination: General appearance: well-developed, well-nourished, appears stated age, no distress HEENT: ATNC, CATHY, hearing intact, vision intact Neck: supple Respiratory: Clear to Auscultation Cardiology: regular, S1S2, no murmur Gastrointestinal: normoactive bowel sounds, no tenderness, not distended Integumentary: no obvious rash Neurologic: Alert, able to move extremities, no asterixis Ext: L arm dressing, wound vac Hemodialysis access: R IJ tunnel catheter Subjective Date of service: 11/17/20 Principal diagnosis: left arm pseudoaneurysm Objective - Vital Signs Vital signs: Vital Signs - 12hr 11/17/20 11/17/20 11/17/20 05:50 10:08 10:11 Temperature 98.8 F Pulse Rate 77 63 Respiratory 20 Rate Blood Pressure 172/106 118/79 118/79 O2 Sat by Pulse 100 100 Oximetry 11/17/20 11/17/20 11:27 11:57 Temperature 98.4 F Pulse Rate 79 57 L Respiratory 19 Rate Blood Pressure 116/70 O2 Sat by Pulse 90 Oximetry - Lab 11/17/20 06:55 11/14/20 05:45 Most recent lab results Calcium 8.0 mg/dL (8.4-10.2) L 11/14/20 05:45 Magnesium 1.80 mg/dL (1.7-2.3) 11/16/20 04:10 Medications & Allergies - Medications Allergies/Adverse Reactions: Allergies No Known Allergies Allergy (Verified 07/03/20 15:42) Home Medications: Home Medications Medication Instructions Recorded Confirmed Last Taken Type Furosemide 80 mg BID 02/10/20 11/13/20 07/02/20 16:00 History AtorvaSTATin [Lipitor] 40 mg PO QHS #30 tablet 08/18/20 11/13/20 Unknown Rx Levemir VIAL 40 units SUB-Q BID #1 08/18/20 11/13/20 Unknown Rx Metoprolol Tartrate 100 mg PO BID #60 08/18/20 11/13/20 Unknown Rx Aspirin [Adult Aspirin] 81 mg PO DAILY 11/13/20 11/17/20 Unknown History FLUoxetine HCL [Prozac] 10 mg PO DAILY 11/13/20 11/17/20 Unknown History FLUoxetine [PROzac] 10 mg PO QDAY 11/13/20 11/13/20 Unknown History Warfarin [Coumadin] 5 mg PO QDAY 11/13/20 11/13/20 Unknown History DOXYCYCLINE Hyclate [Vibramycin 100 mg PO BID #4 tab 11/17/20 Unknown Rx CAP] Valsartan [Diovan] 160 mg PO BID #60 tablet 11/17/20 Unknown Rx amLODIPine 10 mg PO DAILY tablet 11/17/20 Unknown Rx oxyCODONE /ACETAMINOPHEN [Percocet 1 tab PO Q6H PRN #14 tablet 11/17/20 Unknown Rx 5/325 mg] Active Medications: Generic Name Dose Route Start Last Admin Trade Name Freq PRN Reason Stop Dose Admin Amlodipine Besylate 10 mg 11/12/20 10:00 11/17/20 10:08 Amlodipine 10 Mg Tab PO 10 mg DAILY MELINDA Administration Aspirin 81 mg 11/17/20 13:00 Aspirin Ec 81 Mg Tab PO QDAY MELINDA Atorvastatin Calcium 40 mg 11/12/20 22:00 11/16/20 21:19 Atorvastatin 40 Mg Tab PO 40 mg QHS MELINDA Administration Doxycycline Hyclate 100 mg 11/15/20 10:00 11/17/20 10:07 Doxycycline 100 Mg Cap PO 11/19/20 22:01 100 mg BID MELINDA Administration Protocol Furosemide 80 mg 11/12/20 06:00 11/17/20 06:00 Furosemide 40 Mg Tab PO 80 mg BID@0600,1800 MELINDA Administration Hydralazine HCl 10 mg 11/11/20 21:10 11/11/20 21:38 Hydralazine 20 Mg/1 Ml Inj IV 10 mg Q6HR PRN Administration Hypertension Sodium Chloride 1,000 mls @ 42 mls/hr 11/14/20 10:00 11/14/20 09:43 Nacl 0.9% 1000 Ml IV 42 mls/hr DIRECT MELINDA Administration Ferric Sodium Gluconate 110 mls @ 220 mls/hr 11/16/20 18:00 11/16/20 21:16 Complex 125 mg/ Sodium IV 11/17/20 18:29 220 mls/hr Chloride Q24H MELINDA Administration Metoprolol Tartrate 100 mg 11/12/20 10:00 11/17/20 10:09 Metoprolol Tartrate 100 Mg Tab PO 100 mg BID MELINDA Administration Oxycodone/Acetaminophen 2 tab 11/11/20 23:26 11/17/20 06:00 Oxycodone /Acetaminophen 5-325mg Tab PO 2 tab Q6H PRN Administration Pain, Moderate (4-6) Valsartan 160 mg 11/11/20 23:00 11/17/20 10:09 Valsartan 160mg Tab PO 160 mg BID MELINDA Administration
[2020-11-17] MEDS: ASPIRIN EC 81 MG TAB PO SCH (16:03)
[2020-11-17] MEDS: SODIUM FERRIC GLUCON/SUCRO 125 MG in SODIUM CHLORIDE 0.9% 100 ML IV SCH (17:03)
[2020-11-18] MEDS: FUROSEMIDE 40 MG TAB PO SCH ×2 (05:53→17:24)
[2020-11-18 06:00] LABS: Basophils # (Auto) 0.1 K/mm3 (0.0-0.1); Basophils % (Auto) 0.8 % (0.0-1.8); Eosinophils # (Auto) 0.6 K/mm3 (0.0-0.4); Eosinophils % (Auto) 4.8 % (0.0-4.3); Hematocrit 22.9 % (35.5-45.6); Hemoglobin 7.5 gm/dl (11.8-15.2); Lymphocytes # (Auto) 1.5 K/mm3 (1.2-5.4); Lymphocytes % (Auto) 12.7 % (13.4-35.0); Mean Corpuscular HGB Conc 33 % (32-34); Mean Corpuscular Volume 88 fl (84-94); Monocytes % (Auto) 8.7 % (0.0-7.3); Platelet Count 389 K/mm3 (140-440); Red Blood Count 2.62 M/mm3 (3.65-5.03); Red Cell Distribution Width 14.2 % (13.2-15.2)
[2020-11-18 06:08] LABS: INR 1.18 (0.87-1.13)
--- NOTE | 2020-11-18 09:24 | Progress Note ---
Assessment and Plan Assessment and plan: 70 yo male with a past medical history of CVA with residual right-sided weakness the use of a cane to ambulate, end-stage renal disease on dialysis Thursday, Thursday, and Thursday, mild dementia, migraines, history of pulmonary embolism previously on Coumadin but discontinued in July due to microvascular hemorrhages, hypertension and diabetes presents to the hospital complaints of recent fall and swelling to left AV graft site. L av graft nonfunctional. Had HD on and today is thursday.No SOB Ct Cervical spine: No acute findings. 2. Moderate cervical spondylosis. 11/14: Patient seen and examined. For pseudoaneurysmal repair today. Continue antibiotics. Cultures with no growth thus far. 11/15 POD #1 Pseudoanuyrsmal repair. Some oozing was noted yesterday of blood. DDVAP given. will consult woundcare. Vascular recommends placement as is unable to care for him. CM consult placed. COVID19 Placement testing was done and came back negative. Will transfer to [facility], check room air oxygen 11/16: Continue supportive care. FFP was given and agreed on in addition to vitamin K INR is down to 2.1. Will obtain pharmacy to assist with warfarin management. Nevertheless we will recommend that this be started tomorrow to ensure no further oozing of blood. We will try to get in touch with family to understand why the patient is on warfarin if this is secondary to previous CVA. His clinical condition is complex and complicated now with the COVID-19 diagnosis and was moved down to the Covid unit for further management. ID is already on board. He was admitted hypoxic and placed on oxygen. Not sure if this is secondary to volume overload or the incidental Covid diagnosis nevertheless he will be dialyzed today and if still hypoxic will recommend starting on steroids. Plan discussed with the patient. Also called the spouse and left a message 11/17: Patient seen and examined postop day 3 repair of pseudoaneurysm with revision of the left arm AV graft including open thrombectomy. Per vascular his hand is well-perfused after repair of his brachial artery. He received vitamin K and FFP yesterday for an elevated INR and the INR is trending down. He has no evidence of active bleeding at this time. His arteriovenous graft appears to be thrombosed. This can be addressed as an outpatient in 2 to 3 weeks. He is otherwise doing well from a surgical standpoint and can be discharged when a [place] [facility] facility is set up for him. At this point (discharge plan to [facility]. Respiratory status is intact. No worsening hypoxia is noted. In the setting of COVID-19 11/18: Continue supportive care. Awaiting placement. Patient does have some cognitive decline which makes it difficult for him to manage his wounds at home. Also has an aged but is unable to provide level of care needed. Continue current wound care. CT head of the is negative for acute pathology but shows old cva Dialysis AV graft fistula malfunction Systemic inflammatory response syndrome without sepsis Presumed left upper extremity cellulitis around AV graft site End-stage renal disease on HD Diabetes mellitus COVID-19 Acute respiratory failure with hypoxia now resolved Secondary coagulopathy Anemia of chronic disease with presentations drop in hemoglobin Early mild dementia per history History of pulmonary embolism now off anticoagulation due to microvascular hemorrhages History of migraine Plan PT/OT secondary to multiple falls Follow cultures, continue abx., Patient will need revision with arterial repair and loop graft creation Combined with open thrombectomy Patient will need repair of th artery due to "blow out" No evidence of sepsis at this time but will start patient on empiric antibiotic coverage until seen by ID IR consulted for evaluation malfunctioning AV graft Nephrology input noted Continue management for diabetes mellitus with insulin. Outpatient orthopedic evaluation for right shoulder. Cervical spine imaging only concerning for Moderate Cervical spondylosis Cont Antihypertensives DVT/GI PROPHY Ok for diet after IR eval Depending on IR and ID input, will plan discharge. History Interval history: Patient seen and examined this morning. patient status post pseudoanurysm, Serosangious, no new complaints at this time Hospitalist Physical - Physical exam Narrative exam: VITAL SIGNS: Reviewed. GENERAL: The patient appears normally developed, Vital signs as documented. HEAD: No signs of head trauma. EYES: Pupils are equal. Extraocular motions intact. EARS: Hearing grossly intact. MOUTH: Oropharynx is normal. NECK: No adenopathy, no JVD. CHEST: Chest with clear breath sounds bilaterally. No wheezes, rales, or rhonchi. CARDIAC: Regular rate and rhythm. S1 and S2, without murmurs, gallops, or rubs. VASCULAR: large pseudoaneurysm which appears to be from the arterial anastomosis compatible with a tear at the arterial anastomosis. Status post repair dressing in place ABDOMEN: Soft, non tender and non distended. No rebound or guarding, and no masses palpated. Bowel Sounds normal. MUSCULOSKELETAL: Left AV graft SITE with woundvac and dressing. Right upper extremity in a sling. Limited range of motion. Otherwise on all other joints good range of motion. Extremities without clubbing, cyanosis or edema. NEUROLOGIC EXAM: Alert and oriented x 3 No focal sensory or strength deficits. Speech normal. Follows commands. PSYCHIATRIC: Mood normal. SKIN: detail exam as documented in skin assessment - Constitutional Vitals: Temp Pulse Resp BP Pulse Ox 97.6 F 72 18 134/81 100 11/18/20 04:43 11/18/20 04:43 11/18/20 04:43 11/18/20 04:43 11/18/20 04:43 General appearance: Present: no acute distress HEART Score - HEART Score Troponin: Troponin T 0.102 ng/mL (0.00-0.029) H* 11/11/20 14:08 Results - Labs CBC & Chem 7: 11/18/20 05:30 11/14/20 05:45 Labs: Laboratory Last Values WBC 11.7 K/mm3 (4.5-11.0) H 11/18/20 05:30 RBC 2.62 M/mm3 (3.65-5.03) L 11/18/20 05:30 Hgb 7.5 gm/dl (11.8-15.2) L 11/18/20 05:30 Hct 22.9 % (35.5-45.6) L 11/18/20 05:30 MCV 88 fl (84-94) 11/18/20 05:30 MCH 29 pg (28-32) 11/18/20 05:30 MCHC 33 % (32-34) 11/18/20 05:30 RDW 14.2 % (13.2-15.2) 11/18/20 05:30 Plt Count 389 K/mm3 (140-440) 11/18/20 05:30 Lymph % (Auto) 12.7 % (13.4-35.0) L 11/18/20 05:30 [place] % (Auto) 8.7 % (0.0-7.3) H 11/18/20 05:30 Eos % (Auto) 4.8 % (0.0-4.3) H 11/18/20 05:30 Baso % (Auto) 0.8 % (0.0-1.8) 11/18/20 05:30 Lymph # (Auto) 1.5 K/mm3 (1.2-5.4) 11/18/20 05:30 [place] # (Auto) 1.0 K/mm3 (0.0-0.8) H 11/18/20 05:30 Eos # (Auto) 0.6 K/mm3 (0.0-0.4) H 11/18/20 05:30 Baso # (Auto) 0.1 K/mm3 (0.0-0.1) 11/18/20 05:30 Add Manual Diff Complete 11/16/20 04:10 Total Counted 100 11/16/20 04:10 Seg Neutrophils % 73.0 % (40.0-70.0) H 11/18/20 05:30 Seg Neuts % (Manual) 79.0 % (40.0-70.0) H 11/16/20 04:10 Band Neutrophils % 2.0 % 11/11/20 14:08 Lymphocytes % (Manual) 7.0 % (13.4-35.0) L 11/16/20 04:10 Monocytes % (Manual) 9.0 % (0.0-7.3) H 11/16/20 04:10 Eosinophils % (Manual) 5.0 % (0.0-4.3) H 11/16/20 04:10 Nucleated RBC % Not Reportable 11/16/20 04:10 Seg Neutrophils # 8.5 K/mm3 (1.8-7.7) H 11/18/20 05:30 Seg Neutrophils # Man 9.4 K/mm3 (1.8-7.7) H 11/16/20 04:10 Band Neutrophils # 0.0 K/mm3 11/16/20 04:10 Lymphocytes # (Manual) 0.8 K/mm3 (1.2-5.4) L 11/16/20 04:10 Abs React Lymphs (Man) 0.0 K/mm3 11/16/20 04:10 Monocytes # (Manual) 1.1 K/mm3 (0.0-0.8) H 11/16/20 04:10 Eosinophils # (Manual) 0.6 K/mm3 (0.0-0.4) H 11/16/20 04:10 Basophils # (Manual) 0.0 K/mm3 (0.0-0.1) 11/16/20 04:10 Metamyelocytes # 0.0 K/mm3 11/16/20 04:10 Myelocytes # 0.0 K/mm3 11/16/20 04:10 Promyelocytes # 0.0 K/mm3 11/16/20 04:10 Blast Cells # 0.0 K/mm3 11/16/20 04:10 WBC Morphology Not Reportable 11/16/20 04:10 Hypersegmented Neuts Not Reportable 11/16/20 04:10 Hyposegmented Neuts Not Reportable 11/16/20 04:10 Hypogranular Neuts Not Reportable 11/16/20 04:10 Smudge Cells Not Reportable 11/16/20 04:10 Toxic Granulation Not Reportable 11/16/20 04:10 Toxic Vacuolation Not Reportable 11/16/20 04:10 Dohle Bodies Not Reportable 11/16/20 04:10 Pelger-Huet Anomaly Not Reportable 11/16/20 04:10 Pauline Rods Not Reportable 11/16/20 04:10 Platelet Estimate Consistent w auto 11/16/20 04:10 Clumped Platelets Not Reportable 11/16/20 04:10 Plt Clumps, EDTA Not Reportable 11/16/20 04:10 Large Platelets Not Reportable 11/16/20 04:10 Giant Platelets Not Reportable 11/16/20 04:10 Platelet Satelliting Not Reportable 11/16/20 04:10 Plt Morphology Comment Not Reportable 11/16/20 04:10 RBC Morphology Not Reportable 11/16/20 04:10 Dimorphic RBCs Not Reportable 11/16/20 04:10 Polychromasia Not Reportable 11/16/20 04:10 Hypochromasia Not Reportable 11/16/20 04:10 Poikilocytosis Not Reportable 11/16/20 04:10 Anisocytosis Few 11/16/20 04:10 Microcytosis Not Reportable 11/16/20 04:10 Macrocytosis Not Reportable 11/16/20 04:10 Spherocytes Not Reportable 11/16/20 04:10 Pappenheimer Bodies Not Reportable 11/16/20 04:10 Sickle Cells Not Reportable 11/16/20 04:10 Target Cells Few 11/16/20 04:10 Tear Drop Cells Not Reportable 11/16/20 04:10 Ovalocytes Few 11/16/20 04:10 Helmet Cells Not Reportable 11/16/20 04:10 [place] Bodies Not Reportable 11/16/20 04:10 Theodore Rings Not Reportable 11/16/20 04:10 [place] Cells Not Reportable 11/16/20 04:10 Bite Cells Not Reportable 11/16/20 04:10 Crenated Cell Not Reportable 11/16/20 04:10 Elliptocytes Not Reportable 11/16/20 04:10 Acanthocytes (Spur) Not Reportable 11/16/20 04:10 Rouleaux Not Reportable 11/16/20 04:10 Hemoglobin C Crystals Not Reportable 11/16/20 04:10 Schistocytes Not Reportable 11/16/20 04:10 Malaria parasites Not Reportable 11/16/20 04:10 James Bodies Not Reportable 11/16/20 04:10 Hem Pathologist Commnt No 11/16/20 04:10 PT 14.8 Sec. (12.2-14.9) 11/18/20 05:30 INR 1.18 (0.87-1.13) H 11/18/20 05:30 APTT 54.0 Sec. (24.2-36.6) H 11/18/20 05:30 Fibrinogen 729 mg/dl (211-480) H 11/15/20 06:09 Sodium 134 mmol/L (137-145) L 11/14/20 05:45 Potassium 3.7 mmol/L (3.6-5.0) 11/14/20 05:45 Chloride 95.7 mmol/L (98-107) L 11/14/20 05:45 Carbon Dioxide 29 mmol/L (22-30) 11/14/20 05:45 Anion Gap 13 mmol/L 11/14/20 05:45 BUN 31 mg/dL (9-20) H 11/14/20 05:45 Creatinine 7.3 mg/dL (0.8-1.3) H 11/14/20 05:45 Estimated GFR 9 ml/min 11/14/20 05:45 BUN/Creatinine Ratio 4 % 11/14/20 05:45 Glucose 160 mg/dL (75-100) H 11/14/20 05:45 POC Glucose 129 mg/dL (70-105) H 11/18/20 08:11 Calcium 8.0 mg/dL (8.4-10.2) L 11/14/20 05:45 Magnesium 1.80 mg/dL (1.7-2.3) 11/16/20 04:10 Total Bilirubin 0.20 mg/dL (0.1-1.2) 11/11/20 14:08 AST 13 units/L (5-40) 11/11/20 14:08 ALT 14 units/L (7-56) 11/11/20 14:08 Alkaline Phosphatase 73 units/L (35-129) 11/11/20 14:08 Troponin T 0.102 ng/mL (0.00-0.029) H* 11/11/20 14:08 Total Protein 7.1 g/dL (6.3-8.2) 11/11/20 14:08 Albumin 3.1 g/dL (3.9-5) L 11/11/20 14:08 Albumin/Globulin Ratio 0.8 % 11/11/20 14:08 Triglycerides 110 mg/dL (2-149) 11/11/20 14:08 Cholesterol 82 mg/dL (50-199) 11/11/20 14:08 LDL Cholesterol Direct 24 mg/dL (50-130) L 11/11/20 14:08 HDL Cholesterol 38 mg/dL (40-59) L 11/11/20 14:08 Cholesterol/HDL Ratio 2.15 % 11/11/20 14:08 Nasal Screen MRSA (PCR) Negative (Negative) 11/12/20 07:00 Random Vancomycin 15 ug/mL (0-40.0) 11/15/20 06:09 Coronavirus (PCR) Positive (Negative) A 11/15/20 10:49 Hepatitis A IgM Ab Non-reactive (NonReactive) 11/12/20 15:15 Hep Bs Antigen Non-reactive (Negative) 11/12/20 15:15 Hep B Core IgM Ab Non-reactive (NonReactive) 11/12/20 15:15 Hepatitis C Antibody Non-reactive (NonReactive) 11/12/20 15:15 Blood Type A POSITIVE 11/13/20 18:09 Antibody Screen Negative 11/13/20 18:09 Crossmatch See Detail 11/13/20 18:09 Microbiology: Microbiology 11/12/20 18:25 Peripheral/Venous Blood Culture - Final NO GROWTH AFTER 5 DAYS 11/12/20 18:25 Peripheral/Venous Blood Culture - Final NO GROWTH AFTER 5 DAYS 11/14/20 Unknown Arm - Left Surgical Biopsy Culture - Preliminary Recinos/IV: Voiding Method Incontinent Active Medications - Current Medications Current Medications: Generic Name Dose Route Start Last Admin Trade Name Freq PRN Reason Stop Dose Admin Amlodipine Besylate 10 mg 11/12/20 10:00 11/17/20 10:08 Amlodipine 10 Mg Tab PO 10 mg DAILY MELINDA Administration Aspirin 81 mg 11/17/20 13:00 11/17/20 16:03 Aspirin Ec 81 Mg Tab PO 81 mg QDAY MELINDA Administration Atorvastatin Calcium 40 mg 11/12/20 22:00 11/17/20 22:09 Atorvastatin 40 Mg Tab PO 40 mg QHS MELINDA Administration Doxycycline Hyclate 100 mg 11/15/20 10:00 11/17/20 22:10 Doxycycline 100 Mg Cap PO 11/19/20 22:01 100 mg BID MELINDA Administration Protocol Furosemide 80 mg 11/12/20 06:00 11/18/20 05:53 Furosemide 40 Mg Tab PO 80 mg BID@0600,1800 MELINDA Administration Hydralazine HCl 10 mg 11/11/20 21:10 11/11/20 21:38 Hydralazine 20 Mg/1 Ml Inj IV 10 mg Q6HR PRN Administration Hypertension Sodium Chloride 1,000 mls @ 42 mls/hr 11/14/20 10:00 11/14/20 09:43 Nacl 0.9% 1000 Ml IV 42 mls/hr DIRECT MELINDA Administration Metoprolol Tartrate 100 mg 11/12/20 10:00 11/17/20 22:18 Metoprolol Tartrate 100 Mg Tab PO Not Given BID MELINDA Oxycodone/Acetaminophen 2 tab 11/11/20 23:26 11/17/20 06:00 Oxycodone /Acetaminophen 5-325mg Tab PO 2 tab Q6H PRN Administration Pain, Moderate (4-6) Valsartan 160 mg 11/11/20 23:00 11/17/20 22:18 Valsartan 160mg Tab PO Not Given BID MELINDA
[2020-11-18] MEDS: VALSARTAN 160MG TAB PO SCH ×2 (10:32→21:00)
[2020-11-18] MEDS: amLODIPine 10 MG TAB PO SCH (10:33)
[2020-11-18] MEDS: DOXYCYCLINE 100 MG CAP PO SCH ×2 (10:33→21:00)
[2020-11-18] MEDS: ASPIRIN EC 81 MG TAB PO SCH (10:33)
[2020-11-18] MEDS: METOPROLOL TARTRATE 100 MG TAB PO SCH ×2 (10:33→21:01)
--- NOTE | 2020-11-18 14:39 | Progress Note ---
Assessment and Plan 1. ESRD: Patient is on maintenance hemodialysis three times a week, MWF schedule. Last outpatient HD 11/09. Hemodialysis: MWF schedule. 2. FEN: Monitor volume status and lytes. 3. S/p Fall: Monitor. Fall precaution. 4. Malfunctioning L arm AVF: S/p R IJ tunnel catheter. S/p L arm AVG revision and pseudoaneurysm repair 11/14. Followed by Vascular. 5. COVID positive: Monitor. 6. Elevated INR: Improved. 7. H/o CVA: ASA and statin for secondary prevention. 8. Anemia: Epogen. S/p IV Iron X 2 doses. 9. Hypertension: UF with HD. Monitor BP. 10. DM type 2: Monitor blood sugar. Subjective: Patient was seen and examined at the bedside. Doing ok. Examination: General appearance: well-developed, well-nourished, appears stated age, no distress HEENT: ATNC, CATHY, hearing intact, vision intact Neck: supple Respiratory: Clear to Auscultation Cardiology: regular, S1S2, no murmur Gastrointestinal: normoactive bowel sounds, no tenderness, not distended Integumentary: no obvious rash Neurologic: Alert, able to move extremities, no asterixis Ext: L arm dressing, wound vac Hemodialysis access: R IJ tunnel catheter Subjective Date of service: 11/18/20 Principal diagnosis: left arm pseudoaneurysm Objective - Vital Signs Vital signs: Vital Signs - 12hr 11/18/20 11/18/20 11/18/20 04:43 10:30 10:32 Temperature 97.6 F Pulse Rate 72 79 74 Respiratory 18 Rate Blood Pressure 134/81 113/71 113/71 O2 Sat by Pulse 100 98 Oximetry 11/18/20 12:04 Temperature 98.6 F Pulse Rate 66 Respiratory 24 Rate Blood Pressure 119/76 O2 Sat by Pulse 100 Oximetry - Lab 11/19/20 10:41 11/14/20 05:45 Most recent lab results Calcium 8.0 mg/dL (8.4-10.2) L 11/14/20 05:45 Magnesium 1.80 mg/dL (1.7-2.3) 11/16/20 04:10 Medications & Allergies - Medications Allergies/Adverse Reactions: Allergies No Known Allergies Allergy (Verified 07/03/20 15:42) Home Medications: Home Medications Medication Instructions Recorded Confirmed Last Taken Type Furosemide 80 mg BID 02/10/20 11/13/20 07/02/20 16:00 History AtorvaSTATin [Lipitor] 40 mg PO QHS #30 tablet 08/18/20 11/13/20 Unknown Rx Levemir VIAL 40 units SUB-Q BID #1 08/18/20 11/13/20 Unknown Rx Metoprolol Tartrate 100 mg PO BID #60 08/18/20 11/13/20 Unknown Rx Aspirin [Adult Aspirin] 81 mg PO DAILY 11/13/20 11/17/20 Unknown History FLUoxetine HCL [Prozac] 10 mg PO DAILY 11/13/20 11/17/20 Unknown History FLUoxetine [PROzac] 10 mg PO QDAY 11/13/20 11/13/20 Unknown History DOXYCYCLINE Hyclate [Vibramycin 100 mg PO BID #4 tab 11/17/20 Unknown Rx CAP] Valsartan [Diovan] 160 mg PO BID #60 tablet 11/17/20 Unknown Rx amLODIPine 10 mg PO DAILY tablet 11/17/20 Unknown Rx oxyCODONE /ACETAMINOPHEN [Percocet 1 tab PO Q6H PRN #14 tablet 11/17/20 Unknown Rx 5/325 mg] Aspirin EC [Halfprin EC] 81 mg PO QDAY #30 tablet 11/19/20 Unknown Rx Active Medications: Generic Name Dose Route Start Last Admin Trade Name Freq PRN Reason Stop Dose Admin Amlodipine Besylate 10 mg 11/12/20 10:00 11/18/20 10:33 Amlodipine 10 Mg Tab PO 10 mg DAILY MELINDA Administration Aspirin 81 mg 11/17/20 13:00 11/18/20 10:33 Aspirin Ec 81 Mg Tab PO 81 mg QDAY MELINDA Administration Atorvastatin Calcium 40 mg 11/12/20 22:00 11/17/20 22:09 Atorvastatin 40 Mg Tab PO 40 mg QHS MELINDA Administration Doxycycline Hyclate 100 mg 11/15/20 10:00 11/18/20 10:33 Doxycycline 100 Mg Cap PO 11/19/20 22:01 100 mg BID MELINDA Administration Protocol Furosemide 80 mg 11/12/20 06:00 11/18/20 05:53 Furosemide 40 Mg Tab PO 80 mg BID@0600,1800 MELINDA Administration Hydralazine HCl 10 mg 11/11/20 21:10 11/11/20 21:38 Hydralazine 20 Mg/1 Ml Inj IV 10 mg Q6HR PRN Administration Hypertension Sodium Chloride 1,000 mls @ 42 mls/hr 11/14/20 10:00 11/14/20 09:43 Nacl 0.9% 1000 Ml IV 42 mls/hr DIRECT MELINDA Administration Metoprolol Tartrate 100 mg 11/12/20 10:00 11/18/20 10:33 Metoprolol Tartrate 100 Mg Tab PO 100 mg BID MELINDA Administration Oxycodone/Acetaminophen 2 tab 11/11/20 23:26 11/17/20 06:00 Oxycodone /Acetaminophen 5-325mg Tab PO 2 tab Q6H PRN Administration Pain, Moderate (4-6) Valsartan 160 mg 11/11/20 23:00 11/18/20 10:32 Valsartan 160mg Tab PO 160 mg BID MELINDA Administration
[2020-11-18] MEDS: oxyCODONE /ACETAMINOPHEN 5-325MG TAB PO PRN (20:12)
[2020-11-18] MEDS ORDERED: LORazepam 2 MG/ML VIAL IV ONE (21:51)
[2020-11-19] MEDS: FUROSEMIDE 40 MG TAB PO SCH ×2 (05:43→17:04)
--- NOTE | 2020-11-19 10:02 | Discharge Summary ---
Providers - Providers Date of Admission: 11/12/20 15:52 Attending physician: DOREEN ANSARI MD 11/11/20 15:47 Consult to Physician [CONS] Urgent Comment: Consulting Provider: MAGNOLIA KOCH Physician Instructions: Reason For Exam: swelling to left av graft 11/11/20 15:49 Consult to Physician [CONS] Urgent Comment: Consulting Provider: THELMA CARRASCO Physician Instructions: Reason For Exam: esrd dialsis, mwf 11/11/20 16:50 Consult to Case Management [CONS] Urgent Services Needed at Discharge: Home Health Services Occupational Therapy Physical Therapy Notified:: n Additional Physician Instructions: Please evaluate if patient requires any additional care needs upon discharge. is having difficulty taking care of the patient. 11/12/20 08:14 Consult to Physician [CONS] Routine Comment: Consulting Provider: HAKEEM VENTURA Physician Instructions: Reason For Exam: SEPSIS- LEFT UPPER EXT INFECTION 11/15/20 08:21 Consult to Case Management [CONS] Routine Services Needed at Discharge: Wound Vac Sample Clerk Notified:: NO Additional Physician Instructions: PLACEMENT, SNF OR RESIDENTIAL- WOUND MANAGMENT-- UNABLE TO PERFORM PER IR 11/15/20 13:06 Consult to Case Management [CONS] Urgent Services Needed at Discharge: Wound Vac Notified:: n 11/16/20 11:27 Consult to Wound/ET Nurse [CONS] Routine Reason For Exam: DO NOT CHANGE WOUND VAC WITHOUT DR STACEY LARA 11/17/20 11:49 Speech Therapy Evaluation and Treat [CONS] Routine Reason For Exam: dysphagia Speech Therapy Evaluation and Treat [CONS] Routine Reason For Exam: evaluate swallow 11/17/20 14:17 Consult to Case Management [CONS] Routine Services Needed at Discharge: Sample Clerk Notified:: CM Comment:: NEED TO FOLLOWUP WITH DR. IBARRA IN 1-2 WEEKS @ [phone] Primary care physician: [employer]ER Hospitalization Reason for admission: cellulitis Condition: Stable Hospital course: 70 yo male with a past medical history of CVA with residual right-sided weakness the use of a cane to ambulate, end-stage renal disease on dialysis Thursday, Thursday, and Thursday, mild dementia, migraines, history of pulmonary embolism previously on Coumadin but discontinued in July due to microvascular hemorrhages, hypertension and diabetes presents to the hospital complaints of recent fall and swelling to left AV graft site. L av graft nonfunctional. Had HD on and today is thursday.No SOB Ct Cervical spine: No acute findings. 2. Moderate cervical spondylosis. 11/14: Patient seen and examined. For pseudoaneurysmal repair today. Continue antibiotics. Cultures with no growth thus far. 11/15 POD #1 Pseudoanuyrsmal repair. Some oozing was noted yesterday of blood. DDVAP given. will consult woundcare. Vascular recommends placement as is unable to care for him. CM consult placed. COVID19 Placement testing was done and came back negative. Will transfer to [facility], check room air oxygen 11/16: Continue supportive care. FFP was given and agreed on in addition to vitamin K INR is down to 2.1. Will obtain pharmacy to assist with warfarin management. Nevertheless we will recommend that this be started tomorrow to ensure no further oozing of blood. We will try to get in touch with family to understand why the patient is on warfarin if this is secondary to previous CVA. His clinical condition is complex and complicated now with the COVID-19 diagnosis and was moved down to the Covid unit for further management. ID is already on board. He was admitted hypoxic and placed on oxygen. Not sure if this is secondary to volume overload or the incidental Covid diagnosis nevertheless he will be dialyzed today and if still hypoxic will recommend starting on steroids. Plan discussed with the patient. Also called the spouse and left a message 11/17: Patient seen and examined postop day 3 repair of pseudoaneurysm with revision of the left arm AV graft including open thrombectomy. Per vascular his hand is well-perfused after repair of his brachial artery. He received vitamin K and FFP yesterday for an elevated INR and the INR is trending down. He has no evidence of active bleeding at this time. His arteriovenous graft appears to be thrombosed. This can be addressed as an outpatient in 2 to 3 weeks. He is otherwise doing well from a surgical standpoint and can be discharged when a senior living facility is set up for him. At this point (discharge plan to senior living facility. Respiratory status is intact. No worsening hypoxia is noted. In the setting of COVID-19 11/18: Continue supportive care. Awaiting placement. Patient does have some cognitive decline which makes it difficult for him to manage his wounds at home. Also has an aged but is unable to provide level of care needed. Continue current wound care. CT head of the is negative for acute pathology but shows old cva 11/19: Patient clinically stable at this time with no new complaints. Discussed with the , the coumadin was due to Pulmonary Embolisim back in 2016 and no other event, We will stop coumadin and recommend PCP to evaluate and also have [employer] evaluation also. Will start Aspirin. Discusssed with vascular and they are OK WITH this plan. Dialysis AV graft fistula malfunction Systemic inflammatory response syndrome without sepsis Presumed left upper extremity cellulitis around AV graft site End-stage renal disease on HD Diabetes mellitus COVID-19 Acute respiratory failure with hypoxia now resolved Secondary coagulopathy Anemia of chronic disease with presentations drop in hemoglobin Early mild dementia per history History of pulmonary embolism now off anticoagulation due to microvascular hemorrhages History of migraine Disposition: DC/[place]-03 SNF W DECLAN DAY Time spent for discharge: 35 MINS Core Measure Documentation - Palliative Care Palliative Care/ Comfort Measures: Not Applicable - Core Measures Any of the following diagnoses?: none Exam - Physical Exam Narrative exam: VITAL SIGNS: Reviewed. GENERAL: The patient appears normally developed, Vital signs as documented. HEAD: No signs of head trauma. EYES: Pupils are equal. Extraocular motions intact. EARS: Hearing grossly intact. MOUTH: Oropharynx is normal. NECK: No adenopathy, no JVD. CHEST: Chest with clear breath sounds bilaterally. No wheezes, rales, or rhonchi. CARDIAC: Regular rate and rhythm. S1 and S2, without murmurs, gallops, or rubs. VASCULAR: large pseudoaneurysm which appears to be from the arterial anastomosis compatible with a tear at the arterial anastomosis. Status post repair dressing in place ABDOMEN: Soft, non tender and non distended. No rebound or guarding, and no masses palpated. Bowel Sounds normal. MUSCULOSKELETAL: Left AV graft SITE with woundvac and dressing. Right upper extremity in a sling. Limited range of motion. Otherwise on all other joints good range of motion. Extremities without clubbing, cyanosis or edema. NEUROLOGIC EXAM: Alert and oriented x 3 No focal sensory or strength deficits. Speech normal. Follows commands. PSYCHIATRIC: Mood normal. SKIN: detail exam as documented in skin assessment - Constitutional Vitals: Temp Pulse Resp BP Pulse Ox 97.5 F L 54 L 16 124/72 100 11/19/20 06:14 11/19/20 06:14 11/19/20 06:14 11/19/20 06:14 11/19/20 06:14 Plan Activity: advance as tolerated, fall precautions Diet: low salt, renal Wound: per your surgeon's advice, per wound nurse instructions Special Instructions: record daily weights, record daily BP diary, other (wound vac) Follow up with: PRIMARY CARE, [Primary Care Provider] - 3-5 Days NOEMI IBARRA MD [Staff Physician] - 7 Days ISI HUITRON MD [Staff Physician] - 7 Days THELMA CARRASCO MD [Staff Physician] - 7 Days Forms: Warfarin Discharge Instruction Prescriptions: Valsartan [Diovan] 160 mg PO BID #60 tablet Aspirin EC [Halfprin EC] 81 mg PO QDAY #30 tablet oxyCODONE /ACETAMINOPHEN [Percocet 5/325 mg] 1 tab PO Q6H PRN #14 tablet PRN Reason: Pain, Moderate (4-6) DOXYCYCLINE Hyclate [Vibramycin CAP] 100 mg PO BID #4 tab
[2020-11-19 11:15] LABS: Hematocrit 23.7 % (35.5-45.6); Mean Corpuscular Volume 88 fl (84-94)
[2020-11-19 11:16] LABS: Mean Corpuscular HGB Conc 34 % (32-34); Platelet Count 377 K/mm3 (140-440); Red Cell Distribution Width 14.3 % (13.2-15.2)
[2020-11-19 11:19] LABS: INR 1.12 (0.87-1.13)
[2020-11-19 11:20] LABS: Partial Thromboplastin Time 39.4 Sec. (24.2-36.6)
--- NOTE | 2020-11-19 11:22 | Progress Note ---
Assessment and Plan 1. ESRD: Patient is on maintenance hemodialysis three times a week, MWF schedule. Last outpatient HD 11/09. Hemodialysis: MWF schedule. 2. FEN: Monitor volume status and lytes. 3. S/p Fall: Monitor. Fall precaution. 4. Malfunctioning L arm AVF: S/p R IJ tunnel catheter. S/p L arm AVG revision and pseudoaneurysm repair 11/14. Followed by Vascular. 5. COVID positive: Monitor. 6. Elevated INR: Improved. 7. H/o CVA: ASA and statin for secondary prevention. 8. Anemia: Epogen. S/p IV Iron X 2 doses. 9. Hypertension: Monitor BP. 10. DM type 2: Monitor blood sugar. Subjective: Patient was seen and examined at the bedside. Doing ok. Examination: General appearance: well-developed, well-nourished, appears stated age, no distress HEENT: ATNC, CATHY, hearing intact, vision intact Neck: supple Respiratory: Clear to Auscultation Cardiology: regular, S1S2, no murmur Gastrointestinal: normoactive bowel sounds, no tenderness, not distended Integumentary: no obvious rash Neurologic: Alert, able to move extremities, no asterixis Ext: L arm dressing, wound vac Hemodialysis access: R IJ tunnel catheter Subjective Date of service: 11/19/20 Principal diagnosis: left arm pseudoaneurysm Objective - Vital Signs Vital signs: Vital Signs - 12hr 11/19/20 06:14 Temperature 97.5 F L Pulse Rate 54 L Respiratory 16 Rate Blood Pressure 124/72 O2 Sat by Pulse 100 Oximetry - Lab 11/19/20 10:41 11/14/20 05:45 Most recent lab results Calcium 8.0 mg/dL (8.4-10.2) L 11/14/20 05:45 Magnesium 1.80 mg/dL (1.7-2.3) 11/16/20 04:10 Medications & Allergies - Medications Allergies/Adverse Reactions: Allergies No Known Allergies Allergy (Verified 07/03/20 15:42) Home Medications: Home Medications Medication Instructions Recorded Confirmed Last Taken Type Furosemide 80 mg BID 02/10/20 11/13/20 07/02/20 16:00 History AtorvaSTATin [Lipitor] 40 mg PO QHS #30 tablet 08/18/20 11/13/20 Unknown Rx Levemir VIAL 40 units SUB-Q BID #1 08/18/20 11/13/20 Unknown Rx Metoprolol Tartrate 100 mg PO BID #60 08/18/20 11/13/20 Unknown Rx Aspirin [Adult Aspirin] 81 mg PO DAILY 11/13/20 11/17/20 Unknown History FLUoxetine HCL [Prozac] 10 mg PO DAILY 11/13/20 11/17/20 Unknown History FLUoxetine [PROzac] 10 mg PO QDAY 11/13/20 11/13/20 Unknown History DOXYCYCLINE Hyclate [Vibramycin 100 mg PO BID #4 tab 11/17/20 Unknown Rx CAP] Valsartan [Diovan] 160 mg PO BID #60 tablet 11/17/20 Unknown Rx amLODIPine 10 mg PO DAILY tablet 11/17/20 Unknown Rx oxyCODONE /ACETAMINOPHEN [Percocet 1 tab PO Q6H PRN #14 tablet 11/17/20 Unknown Rx 5/325 mg] Aspirin EC [Halfprin EC] 81 mg PO QDAY #30 tablet 11/19/20 Unknown Rx Active Medications: Generic Name Dose Route Start Last Admin Trade Name Freq PRN Reason Stop Dose Admin Amlodipine Besylate 10 mg 11/12/20 10:00 11/18/20 10:33 Amlodipine 10 Mg Tab PO 10 mg DAILY MELINDA Administration Aspirin 81 mg 11/17/20 13:00 11/18/20 10:33 Aspirin Ec 81 Mg Tab PO 81 mg QDAY MELINDA Administration Atorvastatin Calcium 40 mg 11/12/20 22:00 11/18/20 21:00 Atorvastatin 40 Mg Tab PO 40 mg QHS MELINDA Administration Doxycycline Hyclate 100 mg 11/15/20 10:00 11/18/20 21:00 Doxycycline 100 Mg Cap PO 11/19/20 22:01 100 mg BID MELINDA Administration Protocol Furosemide 80 mg 11/12/20 06:00 11/19/20 05:43 Furosemide 40 Mg Tab PO 80 mg BID@0600,1800 MELINDA Administration Hydralazine HCl 10 mg 11/11/20 21:10 11/11/20 21:38 Hydralazine 20 Mg/1 Ml Inj IV 10 mg Q6HR PRN Administration Hypertension Sodium Chloride 1,000 mls @ 42 mls/hr 11/14/20 10:00 11/14/20 09:43 Nacl 0.9% 1000 Ml IV 42 mls/hr DIRECT MELINDA Administration Metoprolol Tartrate 100 mg 11/12/20 10:00 11/18/20 21:01 Metoprolol Tartrate 100 Mg Tab PO 100 mg BID MELINDA Administration Oxycodone/Acetaminophen 2 tab 11/11/20 23:26 11/18/20 20:12 Oxycodone /Acetaminophen 5-325mg Tab PO 2 tab Q6H PRN Administration Pain, Moderate (4-6) Valsartan 160 mg 11/11/20 23:00 11/18/20 21:00 Valsartan 160mg Tab PO 160 mg BID MELINDA Administration
[2020-11-19] MEDS: amLODIPine 10 MG TAB PO SCH (11:26)
[2020-11-19] MEDS: VALSARTAN 160MG TAB PO SCH ×2 (11:26→22:05)
[2020-11-19] MEDS: METOPROLOL TARTRATE 100 MG TAB PO SCH ×2 (11:27→22:04)
--- NOTE | 2020-11-19 11:31 | Progress Note ---
Assessment and Plan Cultures: None A/P: 70-year-old man past medical history of CVA with residual right-sided weakness, ESRD on HD, hypertension, diabetes admitted after a fall #Left arm cellulitis: With associated pseudoaneurysm of his AV graft. Patient w ith dementia, with involuntary movements. May have scratched himself at one point, versus cellulitis fro access. #ESRD on HD: Renally dose antibiotics #Diabetes: tight glycemic control for best outcomes. #COVID-19: found to be positive during admission, was not tested originally as lacked symptoms. Remains on room air, not a candidate for Remdesivir due to ESRD. Recs: -Continue vancomycin goal trough 10-20 -Follow white blood cell count -Last day of antibiotics today. Thank you for the consult, we will continue to follow. Molly Rivera MD [facility] ([facility]) O: [phone] F: [phone] Subjective Date of service: 11/19/20 Principal diagnosis: left arm pseudoaneurysm Interval history: Afebrile, normal white count. Objective - Exam Narrative Exam: Physical Exam: Constitutional: Alert, cooperative. No acute distress Head, Ears, Nose: Normocephalic, atraumatic. External ears, nose normal Eyes: Conjunctivae/corneas clear. No icterus. No ptosis. Neck: Supple, no meningeal signs Oral: dentition fair, no thrush Cardiovascular: S1, S2 normal. Respiratory: Good air entry, clear to auscultation bilaterally GI: Soft, non-tender; bowel sounds normal. No peritoneal signs. Musculoskeletal: Left arm AV graft with pseudoaneurysm Skin: No rash or abscess Hem/Lymphatic: No palpable cervical or supraclavicular nodes. No lymphangitis Psych: Mood ok. Affect normal Neurological: Awake, alert, oriented. No gross abnormality - Constitutional Vitals: Vital Signs Temp Pulse Resp BP Pulse Ox 97.5 F L 56 L 18 116/68 100 11/19/20 06:14 11/19/20 11:18 11/19/20 11:18 11/19/20 11:18 11/19/20 11:18 Temperature -Last 24 Hours Temperature 97.5 F Temperature 98.9 F Temperature 99.0 F Temperature 98.6 F - Labs CBC & Chem 7: 11/19/20 10:41 11/14/20 05:45 Labs: Abnormal lab results 11/18/20 11/18/20 11/19/20 Range/Units 12:04 16:47 10:41 RBC 2.70 L (3.65-5.03) M/mm3 Hgb 8.0 L (11.8-15.2) gm/dl Hct 23.7 L (35.5-45.6) % APTT (24.2-36.6) Sec. POC Glucose 165 H 136 H (70-105) mg/dL 11/19/20 Range/Units 10:41 RBC (3.65-5.03) M/mm3 Hgb (11.8-15.2) gm/dl Hct (35.5-45.6) % APTT 39.4 H (24.2-36.6) Sec. POC Glucose (70-105) mg/dL
[2020-11-19 11:55] LABS: Platelet Estimate Consistent w Auto; Total Cells Counted 100
[2020-11-19 11:56] LABS: RBC Morphology Normal
[2020-11-19] MEDS: DOXYCYCLINE 100 MG CAP PO SCH ×2 (13:34→22:05)
[2020-11-19] MEDS: ASPIRIN EC 81 MG TAB PO SCH (13:34)
[2020-11-20 05:45] LABS: INR 1.14 (0.87-1.13)
[2020-11-20 05:51] LABS: Partial Thromboplastin Time 44.7 Sec. (24.2-36.6)
[2020-11-20] MEDS: FUROSEMIDE 40 MG TAB PO SCH ×2 (05:55→18:17)
--- NOTE | 2020-11-20 09:57 | Progress Note ---
Assessment and Plan 1. ESRD: Patient is on maintenance hemodialysis three times a week, MWF schedule. Last outpatient HD 11/09. Hemodialysis: MWF schedule. 2. FEN: Monitor volume status and lytes. 3. S/p Fall: Monitor. Fall precaution. 4. Malfunctioning L arm AVF and associated cellulitis: S/p R IJ tunnel catheter. S/p L arm AVG revision and pseudoaneurysm repair 11/14. S/p abx. Followed by Vascular. 5. COVID positive: Monitor. 6. Elevated INR: Improved. 7. H/o CVA: ASA and statin for secondary prevention. 8. Anemia: Epogen. S/p IV Iron X 2 doses. 9. Hypertension: Monitor BP. 10. DM type 2: Monitor blood sugar. Subjective: Patient was seen and examined at the bedside. Doing ok. Examination: General appearance: well-developed, well-nourished, appears stated age, no distress HEENT: ATNC, CATHY, hearing intact, vision intact Neck: supple Respiratory: Clear to Auscultation Cardiology: regular, S1S2, no murmur Gastrointestinal: normoactive bowel sounds, no tenderness, not distended Integumentary: no obvious rash Neurologic: Alert, able to move extremities, no asterixis, confused Ext: L arm dressing, wound vac Hemodialysis access: R IJ tunnel catheter Subjective Date of service: 11/20/20 Principal diagnosis: left arm pseudoaneurysm Objective - Vital Signs Vital signs: Vital Signs - 12hr 11/19/20 11/19/20 11/19/20 22:00 22:04 22:05 Pulse Rate 77 77 Respiratory Rate Blood Pressure 143/80 143/80 Blood Pressure [Right] O2 Sat by Pulse Oximetry 11/20/20 05:55 Pulse Rate 62 Respiratory 17 Rate Blood Pressure Blood Pressure 123/78 [Right] O2 Sat by Pulse 62 L Oximetry - Lab 11/19/20 10:41 11/14/20 05:45 Most recent lab results Calcium 8.0 mg/dL (8.4-10.2) L 11/14/20 05:45 Magnesium 1.80 mg/dL (1.7-2.3) 11/16/20 04:10 Medications & Allergies - Medications Allergies/Adverse Reactions: Allergies No Known Allergies Allergy (Verified 07/03/20 15:42) Home Medications: Home Medications Medication Instructions Recorded Confirmed Last Taken Type Furosemide 80 mg BID 02/10/20 11/13/20 07/02/20 16:00 History AtorvaSTATin [Lipitor] 40 mg PO QHS #30 tablet 08/18/20 11/13/20 Unknown Rx Levemir VIAL 40 units SUB-Q BID #1 08/18/20 11/13/20 Unknown Rx Metoprolol Tartrate 100 mg PO BID #60 08/18/20 11/13/20 Unknown Rx Aspirin [Adult Aspirin] 81 mg PO DAILY 11/13/20 11/17/20 Unknown History FLUoxetine HCL [Prozac] 10 mg PO DAILY 11/13/20 11/17/20 Unknown History FLUoxetine [PROzac] 10 mg PO QDAY 11/13/20 11/13/20 Unknown History DOXYCYCLINE Hyclate [Vibramycin 100 mg PO BID #4 tab 11/17/20 Unknown Rx CAP] Valsartan [Diovan] 160 mg PO BID #60 tablet 11/17/20 Unknown Rx amLODIPine 10 mg PO DAILY tablet 11/17/20 Unknown Rx oxyCODONE /ACETAMINOPHEN [Percocet 1 tab PO Q6H PRN #14 tablet 11/17/20 Unknown Rx 5/325 mg] Aspirin EC [Halfprin EC] 81 mg PO QDAY #30 tablet 11/19/20 Unknown Rx Active Medications: Generic Name Dose Route Start Last Admin Trade Name Freq PRN Reason Stop Dose Admin Amlodipine Besylate 10 mg 11/12/20 10:00 11/19/20 11:26 Amlodipine 10 Mg Tab PO Not Given DAILY MELINDA Aspirin 81 mg 11/17/20 13:00 11/19/20 13:34 Aspirin Ec 81 Mg Tab PO 81 mg QDAY MELINDA Administration Atorvastatin Calcium 40 mg 11/12/20 22:00 11/19/20 22:06 Atorvastatin 40 Mg Tab PO 40 mg QHS MELINDA Administration Furosemide 80 mg 11/12/20 06:00 11/20/20 05:55 Furosemide 40 Mg Tab PO 80 mg BID@0600,1800 MELINDA Administration Hydralazine HCl 10 mg 11/11/20 21:10 11/11/20 21:38 Hydralazine 20 Mg/1 Ml Inj IV 10 mg Q6HR PRN Administration Hypertension Sodium Chloride 1,000 mls @ 42 mls/hr 11/14/20 10:00 11/14/20 09:43 Nacl 0.9% 1000 Ml IV 42 mls/hr DIRECT MELINDA Administration Metoprolol Tartrate 100 mg 11/12/20 10:00 11/19/20 22:04 Metoprolol Tartrate 100 Mg Tab PO 100 mg BID MELINDA Administration Oxycodone/Acetaminophen 2 tab 11/11/20 23:26 11/18/20 20:12 Oxycodone /Acetaminophen 5-325mg Tab PO 2 tab Q6H PRN Administration Pain, Moderate (4-6) Valsartan 160 mg 11/11/20 23:00 11/19/20 22:05 Valsartan 160mg Tab PO 160 mg BID MELINDA Administration
[2020-11-20] MEDS: ASPIRIN EC 81 MG TAB PO SCH (10:55)
--- NOTE | 2020-11-20 11:08 | Progress Note ---
Assessment and Plan Cultures: None A/P: 70-year-old man past medical history of CVA with residual right-sided weakness, ESRD on HD, hypertension, diabetes admitted after a fall #Left arm cellulitis: With associated pseudoaneurysm of his AV graft. Patient w ith dementia, with involuntary movements. May have scratched himself at one point, versus cellulitis fro access. #ESRD on HD: Renally dose antibiotics #Diabetes: tight glycemic control for best outcomes. #COVID-19: found to be positive during admission, was not tested originally as lacked symptoms. Remains on room air, not a candidate for Remdesivir due to ESRD. Recs: -Completed antibiotics. Thank you for the consult, we will continue to follow. Molly Rivera MD [facility] ([facility]) O: [phone] F: [phone] Subjective Date of service: 11/20/20 Principal diagnosis: left arm pseudoaneurysm Interval history: Afebrile, normal white count. Objective - Exam Narrative Exam: Physical Exam: Constitutional: Alert, cooperative. No acute distress Head, Ears, Nose: Normocephalic, atraumatic. External ears, nose normal Eyes: Conjunctivae/corneas clear. No icterus. No ptosis. Neck: Supple, no meningeal signs Oral: dentition fair, no thrush Cardiovascular: S1, S2 normal. Respiratory: Good air entry, clear to auscultation bilaterally GI: Soft, non-tender; bowel sounds normal. No peritoneal signs. Musculoskeletal: Left arm AV graft with pseudoaneurysm Skin: No rash or abscess Hem/Lymphatic: No palpable cervical or supraclavicular nodes. No lymphangitis Psych: Mood ok. Affect normal Neurological: Awake, alert, oriented. No gross abnormality - Constitutional Vitals: Vital Signs Temp Pulse Resp BP Pulse Ox 98.1 F 62 17 123/78 62 L 11/19/20 21:21 11/20/20 05:55 11/20/20 05:55 11/20/20 05:55 11/20/20 05:55 Temperature -Last 24 Hours Temperature 98.1 F Temperature 97.5 F Temperature 97.3 F Temperature 98 F - Labs CBC & Chem 7: 11/19/20 10:41 11/14/20 05:45 Labs: Abnormal lab results 11/19/20 11/19/20 11/19/20 Range/Units 10:41 10:41 18:56 RBC 2.70 L (3.65-5.03) M/mm3 Hgb 8.0 L (11.8-15.2) gm/dl Hct 23.7 L (35.5-45.6) % Seg Neuts % (Manual) 88.0 H (40.0-70.0) % Lymphocytes % (Manual) 6.0 L (13.4-35.0) % Seg Neutrophils # Man 9.7 H (1.8-7.7) K/mm3 Lymphocytes # (Manual) 0.7 L (1.2-5.4) K/mm3 INR (0.87-1.13) APTT 39.4 H (24.2-36.6) Sec. POC Glucose 147 H (70-105) mg/dL 11/20/20 Range/Units 05:07 RBC (3.65-5.03) M/mm3 Hgb (11.8-15.2) gm/dl Hct (35.5-45.6) % Seg Neuts % (Manual) (40.0-70.0) % Lymphocytes % (Manual) (13.4-35.0) % Seg Neutrophils # Man (1.8-7.7) K/mm3 Lymphocytes # (Manual) (1.2-5.4) K/mm3 INR 1.14 H (0.87-1.13) APTT 44.7 H (24.2-36.6) Sec. POC Glucose (70-105) mg/dL
[2020-11-20] MEDS: amLODIPine 10 MG TAB PO SCH (11:11)
[2020-11-20] MEDS: VALSARTAN 160MG TAB PO SCH (11:11)
[2020-11-20] MEDS: METOPROLOL TARTRATE 100 MG TAB PO SCH (11:12)
[2020-11-20 18:14] VITALS: BP 104/58
--- NOTE | 2020-11-20 19:10 | Progress Note ---
Assessment and Plan Assessment and plan: Dialysis AV graft fistula malfunction Systemic inflammatory response syndrome without sepsis Presumed left upper extremity cellulitis around AV graft site End-stage renal disease on HD Diabetes mellitus COVID-19 Acute respiratory failure with hypoxia now resolved Secondary coagulopathy Anemia of chronic disease with presentations drop in hemoglobin Early mild dementia per history History of pulmonary embolism now off anticoagulation due to microvascular hemorrhages History of migraine Plan PT/OT secondary to multiple falls Follow cultures, continue abx., Patient will need revision with arterial repair and loop graft creation Combined with open thrombectomy Patient will need repair of th artery due to "blow out" No evidence of sepsis at this time but will start patient on empiric antibiotic coverage until seen by ID IR consulted for evaluation malfunctioning AV graft Nephrology input noted Continue management for diabetes mellitus with insulin. Outpatient orthopedic evaluation for right shoulder. Cervical spine imaging only concerning for Moderate Cervical spondylosis Cont Antihypertensives DVT/GI PROPHY Ok for diet after IR eval Depending on IR and ID input, will plan discharge. Patient is stable for discharge Please refer to detailed discharge summary by Dr. Mixon yesterday 11/19/2020 History Interval history: Patient was discharged yesterday however could not process the discharge Patient has no new complaints Vital signs noted Awaiting transfer to SNF Hospitalist Physical - Constitutional Vitals: Temp Pulse Resp BP Pulse Ox 98.9 F 87 20 104/58 100 11/20/20 18:11 11/20/20 18:11 11/20/20 18:11 11/20/20 18:10 11/20/20 18:11 General appearance: Present: no acute distress, well-nourished - EENT Eyes: Present: PERRL, EOM intact - Neck Neck: Present: supple, normal ROM - Respiratory Respiratory effort: normal Respiratory: bilateral: diminished, negative: rales, rhonchi, wheezing - Cardiovascular Rhythm: regular Heart Sounds: Present: S1 & S2 - Extremities Extremities: no ischemia, No edema - Abdominal General gastrointestinal: soft, non-tender, non-distended, normal bowel sounds - Integumentary Integumentary: Present: clear, warm - Psychiatric Psychiatric: appropriate mood/affect, cooperative - Neurologic Neurologic: moves all extremities HEART Score - HEART Score Troponin: Troponin T 0.102 ng/mL (0.00-0.029) H* 11/11/20 14:08 Results - Labs CBC & Chem 7: 11/19/20 10:41 11/14/20 05:45 Labs: Laboratory Last Values WBC 11.0 K/mm3 (4.5-11.0) 11/19/20 10:41 RBC 2.70 M/mm3 (3.65-5.03) L 11/19/20 10:41 Hgb 8.0 gm/dl (11.8-15.2) L 11/19/20 10:41 Hct 23.7 % (35.5-45.6) L 11/19/20 10:41 MCV 88 fl (84-94) 11/19/20 10:41 MCH 30 pg (28-32) 11/19/20 10:41 MCHC 34 % (32-34) 11/19/20 10:41 RDW 14.3 % (13.2-15.2) 11/19/20 10:41 Plt Count 377 K/mm3 (140-440) 11/19/20 10:41 Lymph % (Auto) 12.7 % (13.4-35.0) L 11/18/20 05:30 Dubois % (Auto) 8.7 % (0.0-7.3) H 11/18/20 05:30 Eos % (Auto) 4.8 % (0.0-4.3) H 11/18/20 05:30 Baso % (Auto) 0.8 % (0.0-1.8) 11/18/20 05:30 Lymph # (Auto) 1.5 K/mm3 (1.2-5.4) 11/18/20 05:30 Dubois # (Auto) 1.0 K/mm3 (0.0-0.8) H 11/18/20 05:30 Eos # (Auto) 0.6 K/mm3 (0.0-0.4) H 11/18/20 05:30 Baso # (Auto) 0.1 K/mm3 (0.0-0.1) 11/18/20 05:30 Add Manual Diff Complete 11/19/20 10:41 Total Counted 100 11/19/20 10:41 Seg Neutrophils % 73.0 % (40.0-70.0) H 11/18/20 05:30 Seg Neuts % (Manual) 88.0 % (40.0-70.0) H 11/19/20 10:41 Band Neutrophils % 2.0 % 11/11/20 14:08 Lymphocytes % (Manual) 6.0 % (13.4-35.0) L 11/19/20 10:41 Monocytes % (Manual) 4.0 % (0.0-7.3) 11/19/20 10:41 Eosinophils % (Manual) 2.0 % (0.0-4.3) 11/19/20 10:41 Nucleated RBC % Not Reportable 11/19/20 10:41 Seg Neutrophils # 8.5 K/mm3 (1.8-7.7) H 11/18/20 05:30 Seg Neutrophils # Man 9.7 K/mm3 (1.8-7.7) H 11/19/20 10:41 Band Neutrophils # 0.0 K/mm3 11/19/20 10:41 Lymphocytes # (Manual) 0.7 K/mm3 (1.2-5.4) L 11/19/20 10:41 Abs React Lymphs (Man) 0.0 K/mm3 11/19/20 10:41 Monocytes # (Manual) 0.4 K/mm3 (0.0-0.8) 11/19/20 10:41 Eosinophils # (Manual) 0.2 K/mm3 (0.0-0.4) 11/19/20 10:41 Basophils # (Manual) 0.0 K/mm3 (0.0-0.1) 11/19/20 10:41 Metamyelocytes # 0.0 K/mm3 11/19/20 10:41 Myelocytes # 0.0 K/mm3 11/19/20 10:41 Promyelocytes # 0.0 K/mm3 11/19/20 10:41 Blast Cells # 0.0 K/mm3 11/19/20 10:41 WBC Morphology Not Reportable 11/19/20 10:41 Hypersegmented Neuts Not Reportable 11/19/20 10:41 Hyposegmented Neuts Not Reportable 11/19/20 10:41 Hypogranular Neuts Not Reportable 11/19/20 10:41 Smudge Cells Not Reportable 11/19/20 10:41 Toxic Granulation Not Reportable 11/19/20 10:41 Toxic Vacuolation Not Reportable 11/19/20 10:41 Dohle Bodies Not Reportable 11/19/20 10:41 Pelger-Huet Anomaly Not Reportable 11/19/20 10:41 Pauline Rods Not Reportable 11/19/20 10:41 Platelet Estimate Consistent w auto 11/19/20 10:41 Clumped Platelets Not Reportable 11/19/20 10:41 Plt Clumps, EDTA Not Reportable 11/19/20 10:41 Large Platelets Not Reportable 11/19/20 10:41 Giant Platelets Not Reportable 11/19/20 10:41 Platelet Satelliting Not Reportable 11/19/20 10:41 Plt Morphology Comment Not Reportable 11/19/20 10:41 RBC Morphology Normal 11/19/20 10:41 Dimorphic RBCs Not Reportable 11/19/20 10:41 Polychromasia Not Reportable 11/19/20 10:41 Hypochromasia Not Reportable 11/19/20 10:41 Poikilocytosis Not Reportable 11/19/20 10:41 Anisocytosis Not Reportable 11/19/20 10:41 Microcytosis Not Reportable 11/19/20 10:41 Macrocytosis Not Reportable 11/19/20 10:41 Spherocytes Not Reportable 11/19/20 10:41 Pappenheimer Bodies Not Reportable 11/19/20 10:41 Sickle Cells Not Reportable 11/19/20 10:41 Target Cells Not Reportable 11/19/20 10:41 Tear Drop Cells Not Reportable 11/19/20 10:41 Ovalocytes Not Reportable 11/19/20 10:41 Helmet Cells Not Reportable 11/19/20 10:41 [place] Bodies Not Reportable 11/19/20 10:41 [place] Rings Not Reportable 11/19/20 10:41 Fang Cells Not Reportable 11/19/20 10:41 Bite Cells Not Reportable 11/19/20 10:41 Crenated Cell Not Reportable 11/19/20 10:41 Elliptocytes Not Reportable 11/19/20 10:41 Acanthocytes (Spur) Not Reportable 11/19/20 10:41 Rouleaux Not Reportable 11/19/20 10:41 Hemoglobin C Crystals Not Reportable 11/19/20 10:41 Schistocytes Not Reportable 11/19/20 10:41 Malaria parasites Not Reportable 11/19/20 10:41 James Bodies Not Reportable 11/19/20 10:41 Hem Pathologist Commnt No 11/19/20 10:41 PT 14.4 Sec. (12.2-14.9) 11/20/20 05:07 INR 1.14 (0.87-1.13) H 11/20/20 05:07 APTT 44.7 Sec. (24.2-36.6) H 11/20/20 05:07 Fibrinogen 729 mg/dl (211-480) H 11/15/20 06:09 Sodium 134 mmol/L (137-145) L 11/14/20 05:45 Potassium 3.7 mmol/L (3.6-5.0) 11/14/20 05:45 Chloride 95.7 mmol/L (98-107) L 11/14/20 05:45 Carbon Dioxide 29 mmol/L (22-30) 11/14/20 05:45 Anion Gap 13 mmol/L 11/14/20 05:45 BUN 31 mg/dL (9-20) H 11/14/20 05:45 Creatinine 7.3 mg/dL (0.8-1.3) H 11/14/20 05:45 Estimated GFR 9 ml/min 11/14/20 05:45 BUN/Creatinine Ratio 4 % 11/14/20 05:45 Glucose 160 mg/dL (75-100) H 11/14/20 05:45 POC Glucose 147 mg/dL (70-105) H 11/19/20 18:56 Calcium 8.0 mg/dL (8.4-10.2) L 11/14/20 05:45 Magnesium 1.80 mg/dL (1.7-2.3) 11/16/20 04:10 Total Bilirubin 0.20 mg/dL (0.1-1.2) 11/11/20 14:08 AST 13 units/L (5-40) 11/11/20 14:08 ALT 14 units/L (7-56) 11/11/20 14:08 Alkaline Phosphatase 73 units/L (35-129) 11/11/20 14:08 Troponin T 0.102 ng/mL (0.00-0.029) H* 11/11/20 14:08 Total Protein 7.1 g/dL (6.3-8.2) 11/11/20 14:08 Albumin 3.1 g/dL (3.9-5) L 11/11/20 14:08 Albumin/Globulin Ratio 0.8 % 11/11/20 14:08 Triglycerides 110 mg/dL (2-149) 11/11/20 14:08 Cholesterol 82 mg/dL (50-199) 11/11/20 14:08 LDL Cholesterol Direct 24 mg/dL (50-130) L 11/11/20 14:08 HDL Cholesterol 38 mg/dL (40-59) L 11/11/20 14:08 Cholesterol/HDL Ratio 2.15 % 11/11/20 14:08 Nasal Screen MRSA (PCR) Negative (Negative) 11/12/20 07:00 Random Vancomycin 15 ug/mL (0-40.0) 11/15/20 06:09 Coronavirus (PCR) Positive (Negative) A 11/15/20 10:49 Hepatitis A IgM Ab Non-reactive (NonReactive) 11/12/20 15:15 Hep Bs Antigen Non-reactive (Negative) 11/12/20 15:15 Hep B Core IgM Ab Non-reactive (NonReactive) 11/12/20 15:15 Hepatitis C Antibody Non-reactive (NonReactive) 11/12/20 15:15 Blood Type A POSITIVE 11/13/20 18:09 Antibody Screen Negative 11/13/20 18:09 Crossmatch See Detail 11/13/20 18:09 Microbiology: Microbiology 11/14/20 Unknown Arm - Left Surgical Biopsy Culture - Preliminary Enterococcus Faecium Recinos/IV: Voiding Method Condom Catheter Active Medications - Current Medications Current Medications: Generic Name Dose Route Start Last Admin Trade Name Freq PRN Reason Stop Dose Admin Amlodipine Besylate 10 mg 11/12/20 10:00 11/20/20 11:11 Amlodipine 10 Mg Tab PO 10 mg DAILY MELINDA Administration Aspirin 81 mg 11/17/20 13:00 11/20/20 10:55 Aspirin Ec 81 Mg Tab PO 81 mg QDAY [facility] Administration Atorvastatin Calcium 40 mg 11/12/20 22:00 11/19/20 22:06 Atorvastatin 40 Mg Tab PO 40 mg QHS MELINDA Administration Furosemide 80 mg 11/12/20 06:00 11/20/20 18:17 Furosemide 40 Mg Tab PO Not Given BID@0600,1800 [facility] Hydralazine HCl 10 mg 11/11/20 21:10 11/11/20 21:38 Hydralazine 20 Mg/1 Ml Inj IV 10 mg Q6HR PRN Administration Hypertension Sodium Chloride 1,000 mls @ 42 mls/hr 11/14/20 10:00 11/14/20 09:43 Nacl 0.9% 1000 Ml IV 42 mls/hr DIRECT MELINDA Administration Metoprolol Tartrate 100 mg 11/12/20 10:00 11/20/20 11:12 Metoprolol Tartrate 100 Mg Tab PO Not Given BID MELINDA Oxycodone/Acetaminophen 2 tab 11/11/20 23:26 11/18/20 20:12 Oxycodone /Acetaminophen 5-325mg Tab PO 2 tab Q6H PRN Administration Pain, Moderate (4-6) Valsartan 160 mg 11/11/20 23:00 11/20/20 11:11 Valsartan 160mg Tab PO 160 mg BID MELINDA Administration Nutrition/Malnutrition Assess - Dietary Evaluation Nutrition/Malnutrition Findings: Nutrition Notes Start: 11/19/20 11:47 Freq: Status: Active Protocol: Document 11/19/20 11:47 (Rec: 11/19/20 11:54 [id number]) Nutrition Notes Need for Assessment generated from: LOS Initial or Follow up Assessment Current Diagnosis CKD (stage V CKD),COPD, Diabetes,Hypertension,Stroke Other Pertinent Diagnosis on HD, pseudoaneurysm of L arm Current Diet Renal Labs/Tests POC BG 136 Pertinent Medications Lasix Height 6 ft Weight 89.5 kg [place] Body Weight (kg) 80.90 BMI 26.7 Weight Status Appropriate Subjective/Other Information Screen for LOS. Pt answered the phone and stated he was eating. Pt did not answer any futher questions and hung up. Per chart, pt eating 25% of meals. Pt with large surgical wound. Burn Absent Trauma Absent Current % PO Poor (25-49%) Minimum of two criteria No physical signs of malnutrition #1 Nutrition Diagnosis Predicted suboptimal energy intake Etiology Chronic disease As Evidenced by Signs and Symptoms per chart pt eating <25% of meals Is patient on ventilator? No Is Patient Ambulatory and/or Out of Bed Yes REE-([place]-St. Jeor-ambulatory/OOB) [ 6763.900 [id number]] Calculation Used for Recommendations [place] Jeor Additional Notes Protein: greater than 107g (>1 .2g/kg) Fluid: 1 ml/kcal or per MD Nutrition Intervention Change Diet Order: Continue Add Supplement/Snack (indicate name/kcal Nepro daily /protein ) Provides kCal: 425 Provides Protein (gm) 19 Goal #1 Meet at least 75% of protein and energy needs via PO and ONS intakes Anticipated Discharge Needs: Renal Follow-Up By: 11/21/20 Additional Comments FU for intakes, ONS acceptance , and BG
== END 2020-11-20 20:51 | DRG 673 ==
LOC: ED 13:20 → 4A 16:58 → OBSVTOIN 11-12 15:52 → 3A 11-16 00:53
PROVIDERS: ADMIT Internal Medicine; ATTEND Internal Medicine
PROC: B513ZZA Fluoroscopy of Right Jugular Veins, Guidance (ICD-10-PCS; principal; 2020-11-12)
PROC: B543ZZA Ultrasonography of Right Jugular Veins, Guidance (ICD-10-PCS; 2020-11-12)
PROC: 0JHD3XZ Insertion of Tunneled Vascular Access Device into Right Upper Arm Subcutaneous Tissue and Fascia, Percutaneous Approach (ICD-10-PCS; 2020-11-12)
PROC: 02H633Z Insertion of Infusion Device into Right Atrium, Percutaneous Approach (ICD-10-PCS; 2020-11-12)
PROC: B5181ZA Fluoroscopy of Superior Vena Cava using Low Osmolar Contrast, Guidance (ICD-10-PCS; 2020-11-12)
PROC: B548ZZA Ultrasonography of Superior Vena Cava, Guidance (ICD-10-PCS; 2020-11-12)
PROC: 5A1D70Z Performance of Urinary Filtration, Intermittent, Less than 6 Hours Per Day (ICD-10-PCS; 2020-11-12)
PROC: 03170JD Bypass Right Brachial Artery to Upper Arm Vein with Synthetic Substitute, Open Approach (ICD-10-PCS; 2020-11-14)
PROC: 03C63ZZ Extirpation of Matter from Left Axillary Artery, Percutaneous Approach (ICD-10-PCS; 2020-11-14)
PROC: 03B83ZZ Excision of Left Brachial Artery, Percutaneous Approach (ICD-10-PCS; 2020-11-14)
PROC: 5A1D70Z Performance of Urinary Filtration, Intermittent, Less than 6 Hours Per Day (ICD-10-PCS; 2020-11-14)
PROC: 30233K1 Transfusion of Nonautologous Frozen Plasma into Peripheral Vein, Percutaneous Approach (ICD-10-PCS; 2020-11-16)
PROC: 5A1D70Z Performance of Urinary Filtration, Intermittent, Less than 6 Hours Per Day (ICD-10-PCS; 2020-11-16)
PROC: 5A1D70Z Performance of Urinary Filtration, Intermittent, Less than 6 Hours Per Day (ICD-10-PCS; 2020-11-19)
DX: T82.41XA Breakdown (mechanical) of vascular dialysis catheter, initial encounter (principal); U07.1 COVID-19; N18.6 End stage renal disease; R65.10 Systemic inflammatory response syndrome (SIRS) of non-infectious origin without acute organ dysfunction; L03.90 Cellulitis, unspecified; I12.0 Hypertensive chronic kidney disease with stage 5 chronic kidney disease or end stage renal disease; G43.909 Migraine, unspecified, not intractable, without status migrainosus; M19.90 Unspecified osteoarthritis, unspecified site; W19.XXXA Unspecified fall, initial encounter; M54.2 Cervicalgia; F03.90 Unspecified dementia, unspecified severity, without behavioral disturbance, psychotic disturbance, mood disturbance, and anxiety; D63.8 Anemia in other chronic diseases classified elsewhere; E11.22 Type 2 diabetes mellitus with diabetic chronic kidney disease; F17.200 Nicotine dependence, unspecified, uncomplicated; Z79.899 Other long term (current) drug therapy; Z79.82 Long term (current) use of aspirin; Z79.01 Long term (current) use of anticoagulants
CPT/HCPCS: 36415; 36558; 70450; 71045; 72125; 77001; 80048; 80053; 80061; 80074; 80202; 82962; 83735; 84484; 85007; 85025; 85384; 85610; 85730; 86850; 86900; 86901; 86920; 87040; 87116; 87641; 93005; 93990; 99406; G0378; A9270-GY; C1750; C1757; C1768; J0360; J0690; J0692; J0885; J1170; J1644; J2060; J2250; J2370; J2405; J2597; J2704; J2916; J3010; J3370; J3430; J3490; J7030; J7040; J7050; P9017; Q4108; U0003

== ENCOUNTER 2020-12-14 09:39 | Day surgery (SDC) | payer MEDICARE ==
[2020-12-14 12:00] LABS: Calcium 8.4 mg/dL (8.4-10.2)
[2020-12-14] MEDS ORDERED: SODIUM CHLORIDE 0.9% 500 ML 500 ML IV SCH (12:00)
[2020-12-14] MEDS ORDERED: HEPARIN 10,000 UNITS/10 ML VIAL ONE ×2 (15:08→15:09)
[2020-12-14] MEDS ORDERED: HEPARIN/NS 5000 UNIT/500ML 1,000 ML IR ONE ×2 (15:08→16:41)
[2020-12-14] MEDS ORDERED: ceFAZolin/Water 2 GM/20 ML 2 GM/20 ML SYRINGE IV ONE (15:09)
[2020-12-14] MEDS ORDERED: LIDOCAINE (2%) 20 MG/1 ML VIAL 20 ML MDV INFILTRATI ONE (15:09)
[2020-12-14] MEDS ORDERED: NITROGLYCERIN SYRINGE 0 ML ONE (15:09)
[2020-12-14] MEDS ORDERED: SODIUM CHLORIDE 0.9% 500 ML 500 ML ONE (15:41)
[2020-12-14] MEDS: fentaNYL 100 MCG/2 ML INJ ONE ×2 (16:08→16:54)
[2020-12-14] MEDS: MIDAZOLAM 2 MG/2 ML INJ ONE ×2 (16:08→16:54)
[2020-12-14] MEDS ORDERED: ceFAZolin/STERILE WATER 2 GM/20 ML SYRINGE IV ONE (16:08)
[2020-12-14] MEDS ORDERED: HEPARIN/NS 5000 UNIT/500ML 500 ML IR ONE (16:40)
[2020-12-14] MEDS ORDERED: NEOMY 3.5 MG/BACIT 400 UNITS/POLY B 5000 UNITS/GM OINT PACKET TP ONE (17:21)
--- NOTE | 2020-12-14 17:41 | Short Stay Summary ---
Short Stay Documentation Date of service: 12/14/20 Narrative H&P: See H&P - History H&P: obtained from office - Allergies and Medications Current Medications: Allergies No Known Allergies Allergy (Verified 11/28/20 09:19) Home Medications Medication Instructions Recorded Confirmed Last Taken Type Furosemide 80 mg BID 02/10/20 11/13/20 07/02/20 16:00 History Aspirin [Aspirin BABY CHEW TAB] 81 mg PO QDAY 07/30/20 07/30/20 07/29/20 History Atorvastatin [Lipitor] 40 mg PO QHS 07/30/20 07/30/20 07/29/20 History Furosemide [Lasix TAB] 80 mg PO BID 07/30/20 07/30/20 07/29/20 History Insulin Aspart (Nf) [NovoLOG 15 units SQ TID 07/30/20 07/30/20 07/29/20 History Flexpen] Insulin Detemir (Nf) [Levemir 20 unit SQ BID 07/30/20 07/30/20 07/29/20 History Flextouch (Nf)] Metoprolol [Lopressor TAB] 100 mg PO BID 07/30/20 07/30/20 07/29/20 History levoFLOXacin [Levaquin TAB] 500 mg PO Q48HR #10 tablet 08/04/20 Unknown Rx AtorvaSTATin [Lipitor] 40 mg PO QHS #30 tablet 08/18/20 11/13/20 Unknown Rx Levemir VIAL 40 units SUB-Q BID #1 08/18/20 11/13/20 Unknown Rx Metoprolol Tartrate 100 mg PO BID #60 08/18/20 11/13/20 Unknown Rx Aspirin [Adult Aspirin] 81 mg PO DAILY 11/13/20 11/17/20 Unknown History FLUoxetine HCL [Prozac] 10 mg PO DAILY 11/13/20 11/17/20 Unknown History FLUoxetine [PROzac] 10 mg PO QDAY 11/13/20 11/13/20 Unknown History DOXYCYCLINE Hyclate [Vibramycin 100 mg PO BID #4 tab 11/17/20 Unknown Rx CAP] Valsartan [Diovan] 160 mg PO BID #60 tablet 11/17/20 Unknown Rx amLODIPine 10 mg PO DAILY tablet 11/17/20 Unknown Rx oxyCODONE /ACETAMINOPHEN [Percocet 1 tab PO Q6H PRN #14 tablet 11/17/20 Unknown Rx 5/325 mg] Aspirin EC [Halfprin EC] 81 mg PO QDAY #30 tablet 11/19/20 Unknown Rx Active Medications Sodium Chloride (Nacl 0.9% 500 Ml) 500 mls @ 50 mls/hr IV DIRECT MELINDA - Brief post op/procedure progress note Date of procedure: 12/14/20 Pre-op diagnosis: Complications of Dialysis Access Post-op diagnosis: same Procedure: 1. Access Left Arm AV Graft with 7 [place] Sheath Venous 2. Access Left Arm AV Graft with 6 [place] Sheath Arterial 3. Diagnostic Fistulogram with Central Venogram 4. Angioplasty and Stent of Left Arm AV Graft With 9 x 80 Covera Stent Graft and 8 x 5 cm Viabahn Stent Graft and Balloon Angioplasty with a 8 x 100 [place] Balloon in the Venous Outflow, 7 x 5 cm Viabahn Stent Graft and Angioplasty with a 7 x 100 Mike Balloon In the Mid Graft and 5 x 100 Mike Balloon At the Arterial Anastomosis 5. Percutaneous Mechanical Thrombectomy of Left Arm AV Graft With Saol-Xse-Leka Batool Quezada Device, And 6 Iranian MP Guide Catheter 6. Catheter in Left Axillary Artery 7. Diagnostic Left Upper Extremity Angiogram 8. Radiologic Supervision with Interpretation 9. Monitored Moderate Sedation (Total Anesthesia Time: 92 Minutes) Anesthesia: local, other (Monitored Moderate Sedation) Surgeon: NOEMI IBARRA Estimated blood loss: minimal Pathology: none Condition: stable - Disposition Condition at discharge: Good Short Stay Discharge Plan Wound: remove dressing (In 48 hours) Follow up with: NOEMI IBARRA MD [Staff Physician] - 14 Days
--- NOTE | 2020-12-14 17:57 | Operative Report ---
Operative Report Operative Report: Date of Procedure: 12/14/2020 Pre-operative Diagnosis: Complications of Dialysis Access Post-operative Diagnosis: Same Procedure(s): 1. Access Left Arm AV Graft with 7 [place] Sheath Venous 2. Access Left Arm AV Graft with 6 [place] Sheath Arterial 3. Diagnostic Fistulogram with Central Venogram 4. Angioplasty and Stent of Left Arm AV Graft With 9 x 100 Covera Stent Graft and 8 x 5 cm Viabahn Stent Graft and Balloon Angioplasty with a 8 x 100 [place] Balloon in the Venous Outflow, 7 x 5 cm Viabahn Stent Graft and Angioplasty with a 7 x 100 Mike Balloon In the Mid Graft and 5 x 100 Mike Balloon At the Arterial Anastomosis 5. Percutaneous Mechanical Thrombectomy of Left Arm AV Graft With Xdxr-Shp-Wupg Pilar, Trerotola Device, And 6 [place] MP Guide Catheter 6. Catheter in Left Axillary Artery 7. Diagnostic Left Upper Extremity Angiogram 8. Radiologic Supervision with Interpretation 9. Monitored Moderate Sedation (Total Anesthesia Time: 92 Minutes) Surgeon: Harman Myers M.D. Radio Producer: None Anesthesia: Local/Monitored Moderate Sedation Total Anesthesia Time: 92 Minutes EBL: Minimal Counts: Correct Complications: None Condition: Stable Specimen: None Indication: The patient is a 70-year-old male with a history of end-stage renal disease who recently had revision of his left arm AV graft. The graft has thrombosed so is in need of intervention. His daughter was given the risk, benefits, and alternative procedures and consented to the procedure. Angiographic Findings: The diagnostic fistulogram revealed that there was thrombus throughout the venous outflow of the graft. The venous anastomosis was occluded and there was a long segment stenosis in the axillary vein of approximately 75%. The central venous system was patent without evidence of flow-limiting stenosis. The turn of the loop graft was stenotic with approximately 85% stenosis, likely from scar near his excision and previous pseudoaneurysm. The arterial anastomosis was occluded and had a large thrombus burden. The left lower extremity angiogram revealed that the axillary artery was patent without evidence of flow-limiting stenosis. After intervention the arterial anastomosis was patent without evidence of flow-limiting stenosis or residual thrombus. The stenosis at the turn of the graft was reduced to approximately 30% residual stenosis. There was minimal residual thrombus noted throughout the graft. The stenosis at the venous anastomosis and an axillary vein was reduced to less than 10% residual stenosis. Description of Procedure: The patient was brought to the Straw Hat Plunger Operator and laid in supine position. After a timeout was performed his left arm was prepped and draped in normal sterile fashion. Lidocaine was used to anesthetize the skin and soft tissue overlying the graft near the turn of the graft and a 21-gauge micropuncture needle was used to access the graft towards the venous outflow. A 0.018 micropuncture wire was advanced to the graft and after removing the needle a 7 [place] sheath was placed by Seldinger technique. A diagnostic fistulogram was performed the previously described findings. A vertebral catheter and 0.035 Glidewire were used to traverse the occluded venous anastomosis and the wire and catheter were advanced to the central venous system and a diagnostic venogram was performed the previously described findings. The catheter was slowly pulled back and serial venograms performed demonstrating the area of stenosis within the axillar y vein. At this point I systemically heparinized the patient with 5000 units of heparin IV. A 0.035 [place] wire was then advanced into the central venous system and angioplasty of the axillary vein as well as the venous anastomosis was performed with an 8 x 100 [place] Balloon this resulted in recoil of the lesion despite repeated angioplasty so the decision was made to stent the area. I removed the 7 [place] sheath and advanced a 9 x 100 Covera Stent Graft into position and deployed it across the area of stenosis including the venous anastomosis. I postdilated the stent with an 8 x 100 [place] Balloon with a result of less than 10% residual stenosis. I then used a the 8 x 100 [place] Balloon to morcellate the thrombus within the venous outflow of the graft and used a 6 [place] MP guide catheter to aspirate the thrombus. The follow-up fistulogram revealed a large plug of thrombus that was lodged at the previously placed stent. I used the balloon and attempted to macerate the thrombus with multiple angioplasties however this was unsuccessful so I decided to cover the thrombus with an additional stent graft. I advanced a 0.018 V18 wire into the central venous system in place and 8 x 5 cm Viabahn Stent Graft across the thrombus which adequately cover the thrombus. I then anesthetized the skin and soft tissue overlying the graft near the venous outflow and accessed the graft using a 21-gauge micropuncture needle towards the arterial inflow. I advanced the 0.018 micropuncture wire to the graft and after removing the needle advanced a 6 [place] sheath by Seldinger technique. I then advanced the Glidewire and vertebral catheter to the arterial anastomosis which required a V 18 wire to traverse the occluded anastomosis. I then advanced the catheter and wire into the proximal axillary artery and performed a diagnostic angiogram with the previously described findings. I performed angioplasty of the anastomosis using a 5 x 100 Mike Balloon. This resulted in less than 10% residual stenosis however there was a large amount of thrombus within the arterial anastomosis. I used a Trerotola Device to morcellate the thrombus and then used the MP guide catheter to aspirate the thrombus. I readvanced the vertebral catheter into the axillary artery and performed an angiogram that revealed 85% stenosis in the midportion of the graft. I performed angioplasty of the graft using a 7 x 100 Mike balloon however there is recoil so I placed a 7 x 5 cm Viabahn Stent Graft across the area and postdilated with the 7 x 100 Mike Balloon with a result of approximately 30% residual stenosis but brisk flow of contrast throughout the graft. There was minimal residual thrombus. At this time I removed all balloons and wires and used 4-0 Chromic in pursestring fashion to close each entry site after removing the sheaths. The patient tolerated the procedure well was transported to the recovery area in stable condition.
[2020-12-14 18:39] VITALS: BP 139/81
== END 2020-12-14 18:59 ==
LOC: CATHLABREC 09:39
PROVIDERS: ATTEND Surgery Vascular Surgery
DX: T82.868A Thrombosis due to vascular prosthetic devices, implants and grafts, initial encounter (principal); T82.898A Other specified complication of vascular prosthetic devices, implants and grafts, initial encounter; Z20.822 Contact with and (suspected) exposure to COVID-19; I12.0 Hypertensive chronic kidney disease with stage 5 chronic kidney disease or end stage renal disease; E11.22 Type 2 diabetes mellitus with diabetic chronic kidney disease; N18.6 End stage renal disease; G43.909 Migraine, unspecified, not intractable, without status migrainosus; G47.33 Obstructive sleep apnea (adult) (pediatric); M19.90 Unspecified osteoarthritis, unspecified site; D64.9 Anemia, unspecified; Z98.890 Other specified postprocedural states; Z79.899 Other long term (current) drug therapy; Z79.4 Long term (current) use of insulin; Z79.82 Long term (current) use of aspirin; Z86.711 Personal history of pulmonary embolism; Z87.440 Personal history of urinary (tract) infections; Z86.73 Personal history of transient ischemic attack (TIA), and cerebral infarction without residual deficits; Y82.8 Other medical devices associated with adverse incidents; Y92.89 Other specified places as the place of occurrence of the external cause
CPT/HCPCS: 36415; 36906; 80048; 99156; 99157; A6250; C1725; C1757; C1769; C1874; C1887; C1894; J0690; J1644; J2250; J3010; J7040; U0003; Q9967